=== PATIENT | male | born 1960 | race Caucasian/White ===

== ENCOUNTER 2020-02-10 19:43 | Emergency (ER) | payer SELFPAY ==
--- OUTSIDE RECORDS SUMMARY | 2020-02-10 19:47 | XMS REPORT | Continuity of Care Document ---
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, [address] [place] [address], [place] ICA STENOSIS Active 11/17/[address] NUMBNESS LEFT Active 11/17/19 Sug ar SIDE 18 [place] OTITIS MEDIA, Active 11/21/19 Condition 11/20/2014 [facility] dical SEROUS 15 Group CELLULITIS/ABSCE Active 11/08/19 Condition 11/20/2014 [facility] SS NOS 15 Group SINUSITIS, ACUTE Active 09/16/19 Condition 11/20/2014 Medical 15 Group ALLERGIC Active 09/16/19 Condition 11/20/2014 Medica l RHINITIS 15 Group DENTAL CARIES Active 09/16/19 Condition 11/20/2014 [facility] dical 15 Group SMOKER Active 09/16/19 Condition 11/20/2014 Medica l 15 Group Allergic Resolved 09/16/19 Problem 06/11/2018 Data Medica l rhinitis 15 migrated Group, (disorder) from [facility], on 10/08/14. [place] Dental caries Resolved 09/16/19 Problem 06/11/2018 Data [facility] dical (disorder) 15 migrated Group, from [facility] on 10/08/14. [place] Smoker (finding) Active 09/16/19 Problem 06/11/2018 Data Medical 15 migrated Group, from [facility] on 10/08/14. [place] ABDOMINAL Inactive 08/14/19 Condition 11/20/2014 Medica l BLOATING 14 Group ABDOMINAL PAIN Inactive 08/14/19 Condition 11/20/2014 [facility] edical 14 Group CONSTIPATION Inactive 08/14/19 Condition 11/20/2014 Med ical 14 Group Constipation Resolved Problem 06/11/2018 Med ical (disorder) Group,[facility], [place] Type II diabetes Active Problem 06/11/2018 Medical mellitus Group, uncontrolled Memoria l (finding) 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 Hyperglycemia, 06/05/2018 S ugar unspecified [place] NIHSS score 1 06/05/2018 [place] gar [place] Coma scale, best 06/05/2018 [place] motor response, [place] obeys commands, at arrival to emergency department Coma scale, eyes 06/05/2018 [place] open, [place] spontaneous, at arrival to emergency department Coma scale, best 06/05/2018 [place] verbal response, Collin d oriented, at arrival to emergency department Nontraumatic 06/09/2018 intracerebral Memori al hemorrhage, [facility] unspecified Essential 06/09/2018 (primary) [facility] hypertension [facility] Nicotine 06/09/2018 dependence, [facility] cigarettes, [facility], uncomplicated [place] Type 2 diabetes 06/09/2018 mellitus with Memori al hyperglycemia [facility] Pure 06/09/2018 hypercholesterol [facility] Hyperlipidemia, 06/09/2018 unspecified [facility] Hypokalemia 06/09/2018 [facility] Constipation, 06/09/2018 unspecified [facility] 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 [facility] artery roasterman 06/09/2018 (current) use of [facility] orial insulin [facility] NIHSS score 2 06/09/2018 [facility] ILLNESS, Active UNSPECIFIED [facility] Medications Medication Details Route Status Patient Ordering Order Source Instructions Provider Date pantoprazole 40 mg 40 mg = 1 Active oral enteric coated tab, PO, 2017 Med ical tablet Daily, # 30 [facility] tab, 3 Refill(s), Pharmacy: [facility]/pharmacy #[id number] Plavix Notes: (Same No Longer As: Plavix) Active 2017 [facility] aspirin 81 mg Notes: Do not Inactive tablet, enteric crush or 2018 Memoria l coated chew. (Same City As: Ecotrin) losartan 50 mg oral 100 mg = 2 Active M H tablet tab, PO, 2017 [facility] Daily, # 60 City tab, 0 Refill(s), Pharmacy: [facility]/pharmacy #[id number] Hydrochlorothiazide 25 mg = 1 Active 25 MG Oral Tablet tab, PO, 2018 Memor ial Daily, # 30 City tab, 0 Refill(s), Pharmacy: [facility]/pharmacy #[id number] clopidogrel 75 mg 75 mg = 1 Active oral tablet tab, PO, 2017 [facility] Daily, # 30 City tab, 0 Refill(s), Pharmacy: [facility]/pharmacy #[id number] atorvastatin 40 mg 80 mg = 2 Active oral tablet tab, PO, 2017 [facility] Bedtime, # 60 City tab, 0 Refill(s), Pharmacy: [facility]/pharmacy #[id number] Metformin 500 mg = 1 Active hydrochloride 500 MG tab, PO, 2018 [place] morial Oral Tablet BID-Meals, # City 60 tab, 0 Refill(s), Pharmacy: [facility]/pharmacy #[id number] Aspirin 81 MG 81 mg = 1 Active Enteric Coated tab, PO, 2017 [facility] Tablet Q24H, 0 City Refill(s) Plavix Notes: (Same Inactive As: Plavix) 2017 [facility] Labetalol Notes: (Same No Longer as: Active 2017 [facility] Push over 2 minutes Give bolus over 2-3 minutes. Plavix Notes: (Same Inactive As: Plavix) 2017 [facility] Hydrochlorothiazide 1 tab, Route: No Longer 11/01 25 MG / Losartan PO, Drug [facility] Potassium 100 MG Form: TAB, City Oral Tablet Dosing Weight 76.2, kg, Daily, Start date: 11/19/17 9:00:00 CDT, Duration: 30 day, Stop date: 12/18/17 9:00:00 CDT sodium phosphate Notes: Infuse No Longer over 4 hour. Active 2017 [facility] Do not infuse [facility] phosphorous concurrently in the same line as TPN or IVF that contains calcium. For double lumen central lines, phosphorous may be infused in a separate lumen from TPN. Magnesium Sulfate Notes: WASTE: No Longer F/P - Sink; E Active 2017 [facility] Trash Bin potassium Notes: (Same No Longer phosphate-sodium as: Phos-NaK) Active 2017 [facility] phosphate 250 mg-280 Each 1.5 gm City mg-160 mg oral pkt has 250mg powder for phosphorous. reconstitution Mix w/2.5oz water and stir. potassium phosphate Notes: (Same No Longer 11/19 as: K Active 2017 [facility] Phosphate.) [facility] Do not infuse phosphorous concurrently in the same line as TPN or IVF that contains calcium. For double lumen central lines, phosphorous may be infused in a separate lumen from TPN. 1 mMol phoshate has 1.47 mEq potassium Infuse over 4 hours Calcium Gluconate Notes: WASTE: No Longer F/P - Sink; E Active 2017 [facility] Trash Bin Magnesium Oxide Notes: (Same No Longer H as: Mag-Ox Active 2017 [facility] 400) [facility] Magnesium oxide [id number] elemental magnesium Dose=____mg magnesium oxide (___mg elemental magnesium) Calcium Carbonate Notes: (Same No Longer 500 MG Chewable As: Tums) Active [facility] Table[facility] Calcium City Carbonate 500 mg = 200 mg elemental calcium Dose = mg calcium carbonate ( mg elemental calcium) Potassium Chloride Notes: (Same No Longer as: KCL) Active 2017 [facility] Infuse no City faster than 10 mEq/hr if given peripherally. eptifibatide 0.75 Notes: (Same No Longer MG/ML Injectable as: Active [facility] Integrelin) [facility] Final conc = 0.75 mg/mL - Premix Bottle Potassium Chloride Notes: (Same Inactive as: K-Dur 20) 2017 [facility] "Do Not City Crush" For patients unable to swallow tablet, dissolve in one half glass of water. Allow about 2 minutes for the tablets to disintegrate. Stir before giving to prepare slurry and administer. Please exclude Patients with feeding tube less than 14 [place] (Dobhoff, J-tube etc) and pediatric and patients. With food and full glass of water hydrochlorothiazide 25 mg, 1 tab, No Longer 11/01 25 mg oral tablet Route: PO, Active 2017 [facility] orial Drug form: City TAB, Daily, Start date: 11/18/17 10:00:00 CDT, Duration: 30 day, Stop date: 12/18/17 9:00:00 CDT Chio Notes: (Same No Longer as: Cozaar) Active 2017 [facility] Potassium Chloride Notes: Infuse Inactive at a rate of [address] [place] [address] 10 mEq/hr. [facility] (Same as: KCL) atorvastatin Notes: (Same No Longer as: Lipitor) Active 2017 [facility] Cardene 40 mg in NS Notes: Same No Longer 200 mL (Titrate.) IV as: Cardene Active 2017 [facility] 40 mg Concentration City : (0.2 mg /1 ml ) eptifibatide 0.75 Notes: (Same No Longer MG/ML Injectable as: Active 2017 Memoria l Solution Integrelin) [facility] Final conc = 0.75 mg/mL - Premix Bottle eptifibatide 13,716 Inactive microgram, 2017 [facility] Route: IVP, [facility] ONCE, Dosing Weight 76.2, kg, Start date: 11/17/17 13:51:00 CDT, Stop date: 11/17/17 13:51:00 CDT Atropine 0.2 mg, 2 mL, Inactive Route: IVP, 2017 [facility] Drug form: [facility] INJ, Q5Min, Dosing Weight 76.2, kg, PRN Other -See Comment, as needed; for symptomatic pulse rate < 80% of mean 50 BPM, Start date: 11/17/17 12:24:00 CDT, Duration: 30 day, Stop date: 12/17/17 12:23:00 CDT Naloxone Notes: Same Inactive as Narcan 2017 [facility] Diphenhydramine Notes: (Same Inactive as: Benadryl) 2017 [facility] Flumazenil Notes: (Same Inactive as: 2017 [facility] Romazicon) [facility] Ondansetron Notes: (Same Inactive as: Zofran) [address] [place] [address] [facility] MEDICATION WASTE Product Size: 4 mg Product Wasted: ___ mg Glycopyrrolate Notes: (Same Inactive as: Robinul) 2017 [facility] Labetalol Notes: (Same Inactive as: 2017 [facility] Normodyne, [facility] Trandate) Push over 2 minutes Give bolus over 2-3 minutes. Morphine Notes: (Same Inactive as:MORPhine 2017 [facility] Sulfate) [facility] Hydralazine Notes: (Same Inactive as: 2017 [facility] Apresoline) [facility] Push over 5 minutes Sodium Chloride 0.9% 1,000 mL, No Longer IV 1,000 mL Rate: [address] [place] [address] ml/hr, Infuse [facility] over: 13.3 hr, Route: IV, Dosing Weight 76.2 kg, Total Volume: 1,000, Start date: 11/17/17 9:25:00 CDT, Duration: 30 day, Stop date: 12/17/17 9:24:00 CDT, 1.91, m2 aspirin 81 mg Notes: Do not No Longer tablet, enteric crush or Active 2017 Memoria l coated chew. (Same City As: Ecotrin) Saline Flush 0.9% Notes: (Same No Longer as: BD Active 2017 [facility] Posiflush) [facility] pantoprazole Notes: Tablet No Longer should not be Active [address] [place] [address] chewed [address] [facility] crushed. [place] (Same as: [place] Protonix) Insulin regular 60 units) No Longer WASTE: F/P - Active 2017 [facility] Cam; E - [employer] Trash Bin Stable for 28 days at room temperature Expires in days from _Date Dextrose 50% Syringe 25 gm, 50 mL, No Longer Route: IVP, Active 2017 [facility] Drug Form: [facility] INJ, Dosing Weight 76.2, kg, PRN, PRN Blood Glucose Results, Start date: 11/17/17 2:24:00 CDT, Duration: 30 day, Stop date: 12/17/17 2:23:00 CDT Glucagon 1 mg, Route: No Longer IM, Drug Active 2017 [facility] form: [facility] PDR/INJ, PRN, Dosing Weight 76.2, kg, PRN Blood Glucose Results, Start date: 11/17/17 2:24:00 CDT, Duration: 30 day, Stop date: 12/17/17 2:23:00 CDT Insulin regular 60 units) Inactive WASTE: F/P - 2017 [facility] Cam; E - [place] [facility] Trash Bin Stable for 28 days at room temperature Expires in days from _Date Dextrose 50% Syringe 12.5 gm, 25 No Longer 11/17 mL, Route: Active 2017 [facility] IVP, Drug [facility] Form: INJ, Dosing Weight 76.2, kg, PRN, PRN Blood Glucose Results, Start date: 11/17/17 1:39:00 CDT, Duration: 30 day, Stop date: 12/17/17 1:38:00 CDT Glucagon 1 mg, Route: No Longer IM, Drug [address] form: City PDR/INJ, PRN, Dosing Weight 76.2, kg, PRN Blood Glucose Results, Start date: 11/17/17 1:39:00 CDT, Duration: 30 day, Stop date: 12/17/17 1:38:00 CDT Aspirin 325 MG Notes: (Do Inactive Enteric Coated Not Crush) 2017 Memori al Tablet Do not crush City or chew. Saline Flush 0.9% Notes: (Same No Longer as: BD Active [address] [place] [address] Posiflu) [facility] Acetaminophen Notes: Do not No Longer exceed [address] [place] [address] gm/day. [facility] (Same as: Tylenol) Labetalol Notes: (Same No Longer as: Active 2018 [facility] Normodyne, [facility] Trandate) Push over 2 minutes Give bolus over 2-3 minutes. Saline Flush 0.9% Notes: (Same Inactive Sugar as: BD 2018 [facility] Posiflush) atorvastatin Notes: (Same Inactive [place] gar as: Lipitor) 2017 [facility] Enoxaparin Notes: (Same Inactive Suga r as: Lovenox) 2018 [facility] Aspirin 325 MG Notes: (Do Inactive [place] gar Enteric Coated Not Crush) 2018 [facility] Tablet Do not crush or chew. Saline Flush 0.9% Notes: (Same Inactive Sugar as: BD 2018 [facility] Posiflush) Aspirin Notes: Take Inactive Sugar with food. 2018 [facility] Saline Flush 0.9% Notes: (Same Inactive Sugar as: BD 2018 [facility] Posiflush) ATROVENT 0.06 % SOLN 2 sprays to Active each nostril 2014 Medical daily Group CEFTIN 500 MG TABS 1 tablet PO Active 11/20/ M H BID for 7 2014 Medical days Group BACTRIM DS 800-160 1 tablet PO No Longer 11/07/ MH MG TABS BID for 7 Active 2014 Medical days Group BACTROBAN 2 % OINT Apply to Active 11/07/ MH areas BID for 2015 Medical 7-10 days Group NAPROSYN 500 MG TABS 1 tablet PO Active BID PRN pain 2014 Medical Group AUGMENTIN 875-125 MG 1 tablet PO No Longer 09/15 / MH TABS BID for 10 Active 2014 Medical days Group FLONASE 50 MCG/ACT 2 sprays to Active 09/15/ M H SUSP each nostril 2014 Medical daily Group SINGULAIR 10 MG TABS 1 tablet PO No Longer 09/15 / MH daily at Active 2014 Medical bedtime Group FLONASE 50 MCG/ACT 2 sprays to No Longer MH SUSP each nostril Active 2014 Medical daily Group LINZESS 290 MCG CAPS 1 daily 30 No Longer 08/13/ MH minutes Active 2013 Medical before meal Group MIRALAX POWD Take 1 No Longer tablespoon Active 2013 Medical (17gms) by Group mouth at bedtime Allergies, Adverse Reactions, Alerts No Known Medication Allergies Immunizations Immunization Date Site Status Last Comments Source Given Updated pneumococcal Left completed Quavril Medi nazia 23-valent vaccine 8 deltoid Gr oup,[facility], [place] Results Order Name Results Value Reference Date Interpretation Comments Judy rce Range HEMATOLOGY Plav Effect 6 11/20 Result Comment: [facility] rechecked. [facility] CHEM PANEL eGFR 105 11/20 Result Comment: [facility] eGFR is City calculated using the CKD-EPI formula. In most young, healthy individuals the eGFR will be >90 mL/min/1.73m2 . The eGFR declines with age. An eGFR of 60-89 may be normal in some populations, particularly the elderly, for whom the CKD-EPI formula has not been extensively validated. Use of the eGFR is not recommended in the following populations:< br/>
Sveta viduals with unstable creatinine concentration s, including patients and those with serious co-morbid conditions.<b r/>
Patie nts with extremes in muscle mass or diet.

The data above are obtained from the National Kidney Disease Education Program (NKDEP) which additionally recommends that when the eGFR is used in patients with extremes of body mass index for purposes of drug dosing, the eGFR should be multiplied by the estimated BMI. CHEM PANEL Creatinine 0.70 0.50 - 11/20 MH Lvl 1.40 [facility] CHEM PANEL Glucose Lvl 132 70 - 99 11/20 [facility] CHEM PANEL BUN 5 7 - 22 11/20 [facility] CHEM PANEL CO2 23 24 - 32 11/20 [facility] CHEM PANEL Calcium Lvl 9.4 8.5 - 10.5 11/20 [facility] CHEM PANEL Chloride Lvl 108 95 - 109 11/20 [facility] CHEM PANEL Sodium Lvl 143 135 - 145 11/20 [facility] CHEM PANEL Potassium 3.8 3.5 - 5.1 11/20 MH Lvl /2017 [facility] CHEM PANEL AGAP 15.8 10.0 - 11/20 MH 20.0 [facility] HEMATOLOGY Monocytes # 1.0 0.0 - 0.8 11/20 [facility] HEMATOLOGY Eosinophils 0.2 0.0 - 0.5 11/20 MH # [facility] HEMATOLOGY Lymphocytes 2.4 1.0 - 5.5 11/20 MH # [facility] HEMATOLOGY Basophils # 0.1 0.0 - 0.2 11/20 [facility] HEMATOLOGY Plt Morph Normal 11/20 (11/20/17 3:23 AM) [facility] HEMATOLOGY RBC Morph Normal 11/20 (11/20/17 3:23 AM) /2017 [facility] HEMATOLOGY Neutrophils 9.4 1.5 - 8.1 11/20 MH # [facility] HEMATOLOGY Eosinophils 1.4 0.0 - 4.0 11/20 [facility] HEMATOLOGY Basophils 0.4 0.0 - 1.0 11/20 [facility] HEMATOLOGY Monocytes 7.7 2.0 - 12.0 11/20 [facility] HEMATOLOGY Lymphocytes 18.5 20.0 - 11/20 MH 40.0 [facility] HEMATOLOGY Segs 72.0 45.0 - 11/20 MH 75.0 [facility] HEMATOLOGY MPV 9.8 7.4 - 10.4 11/20 MH /2017 [facility] HEMATOLOGY Platelet 166 133 - 450 11/20 [facility] HEMATOLOGY Hct 45.0 42.0 - 11/20 MH 54.0 [facility] HEMATOLOGY MCHC 33.9 32.0 - 11/20 MH 36.0 [facility] HEMATOLOGY MCV 87.3 80.0 - 11/20 MH 94.0 [facility] HEMATOLOGY MCH 29.6 27.0 - 11/20 MH 31.0 [facility] HEMATOLOGY RDW 13.6 11.5 - 11/20 MH 14.5 [facility] HEMATOLOGY WBC 13.1 3.7 - 10.4 11/20 [facility] HEMATOLOGY Hgb 15.3 14.0 - 11/20 MH 18.0 [facility] HEMATOLOGY RBC 5.16 4.70 - 11/20 MH 6.10 [facility] ELECTROLYTE Potassium 3.7 3.5 - 5.1 11/19 MH S Lvl /2017 [facility] ELECTROLYTE AGAP 15.3 10.0 - 11/19 MH S 20.0 [facility] ELECTROLYTE eGFR 104 11/19 Result MH Comment: [facility] eGFR is City calculated using the CKD-EPI formula. In most young, healthy individuals the eGFR will be >90 mL/min/1.73m2 . The eGFR declines with age. An eGFR of 60-89 may be normal in some populations, particularly the elderly, for whom the CKD-EPI formula has not been extensively validated. Use of the eGFR is not recommended in the following populations:< br/>
Sveta viduals with unstable creatinine concentration s, including patients and those with serious co-morbid conditions.<b r/>
Patie nts with extremes in muscle mass or diet.

The data above are obtained from the National Kidney Disease Education Program (NKDEP) which additionally recommends that when the eGFR is used in patients with extremes of body mass index for purposes of drug dosing, the eGFR should be multiplied by the estimated BMI. ELECTROLYTE Creatinine 0.72 0.50 - 11/19 MH S Lvl 1.40 [facility] ELECTROLYTE Calcium Lvl 8.9 8.5 - 10.5 11/19 S [facility] ELECTROLYTE Chloride Lvl 106 95 - 109 11/19 MH S /2017 [facility] ELECTROLYTE Potassium 3.3 3.5 - 5.1 11/19 MH S Lvl /2017 [facility] ELECTROLYTE CO2 24 24 - 32 11/19 S /2017 [facility] ELECTROLYTE Sodium Lvl 142 135 - 145 11/19 S /2017 [facility] ELECTROLYTE Glucose Lvl 135 70 - 99 11/19 S /2017 [facility] ELECTROLYTE BUN 3 7 - 22 11/19 S /2017 [facility] HEMATOLOGY Monocytes # 0.8 0.0 - 0.8 11/19 MH /2017 [facility] HEMATOLOGY Eosinophils 0.1 0.0 - 0.5 11/19 MH # /2018 [facility] HEMATOLOGY Basophils # 0.1 0.0 - 0.2 11/19 /2017 [facility] HEMATOLOGY Neutrophils 8.3 1.5 - 8.1 11/19 # /2017 [facility] HEMATOLOGY Lymphocytes 2.4 1.0 - 5.5 11/19 # /2017 [facility] HEMATOLOGY Basophils 0.7 0.0 - 1.0 11/19 /2017 [facility] HEMATOLOGY Eosinophils 1.2 0.0 - 4.0 11/19 /2017 [facility] HEMATOLOGY Lymphocytes 20.8 20.0 - 11/19 MH 40.0 [facility] HEMATOLOGY Monocytes 6.9 2.0 - 12.0 11/19 [facility] HEMATOLOGY Segs 70.4 45.0 - 11/19 MH 75.0 [facility] HEMATOLOGY MCHC 33.8 32.0 - 11/19 MH 36.0 [facility] HEMATOLOGY MCH 29.5 27.0 - 11/19 MH 31.0 [facility] HEMATOLOGY Hct 41.5 42.0 - 11/19 MH 54.0 [facility] HEMATOLOGY RBC 4.76 4.70 - 11/19 MH 6.10 [facility] HEMATOLOGY MCV 87.2 80.0 - 11/19 MH 94.0 [facility] HEMATOLOGY Hgb 14.0 14.0 - 11/19 MH 18.0 [facility] HEMATOLOGY WBC 11.8 3.7 - 10.4 11/19 [facility] HEMATOLOGY MPV 9.4 7.4 - 10.4 11/19 [facility] HEMATOLOGY RDW 13.2 11.5 - 11/19 MH 14.5 /2017 [facility] HEMATOLOGY Platelet 164 133 - 450 11/19 [facility] CHEM PANEL eGFR 112 11/18 Result Comment: [facility] eGFR is City calculated using the CKD-EPI formula. In most young, healthy individuals the eGFR will be >90 mL/min/1.73m2 . The eGFR declines with age. An eGFR of 60-89 may be normal in some populations, particularly the elderly, for whom the CKD-EPI formula has not been extensively validated. Use of the eGFR is not recommended in the following populations:< br/>
Sveta viduals with unstable creatinine concentration s, including patients and those with serious co-morbid conditions.<b r/>
Patie nts with extremes in muscle mass or diet.

The data above are obtained from the National Kidney Disease Education Program (NKDEP) which additionally recommends that when the eGFR is used in patients with extremes of body mass index for purposes of drug dosing, the eGFR should be multiplied by the estimated BMI. CHEM PANEL Creatinine 0.59 0.50 - 11/18 Lvl 1.40 [facility] CHEM PANEL CO2 25 24 - 32 11/18 [facility] CHEM PANEL Calcium Lvl 8.0 8.5 - 10.5 11/18 [facility] CHEM PANEL BUN 2 7 - 22 11/18 [facility] CHEM PANEL Sodium Lvl 144 135 - 145 11/18 [facility] CHEM PANEL Chloride Lvl 110 95 - 109 11/18 [facility] CHEM PANEL Glucose Lvl 138 70 - 99 11/18 [facility] CHEM PANEL AGAP 12.3 10.0 - 11/18 MH 20.0 [facility] HEMATOLOGY Basophils 0.9 0.0 - 1.0 11/18 [facility] HEMATOLOGY Neutrophils 7.9 1.5 - 8.1 11/18 MH # [facility] HEMATOLOGY Lymphocytes 2.6 1.0 - 5.5 11/18 [facility] HEMATOLOGY Monocytes # 0.7 0.0 - 0.8 11/18 [facility] HEMATOLOGY Eosinophils 0.2 0.0 - 0.5 11/18 # [facility] HEMATOLOGY Basophils # 0.1 0.0 - 0.2 11/18 [facility] HEMATOLOGY Eosinophils 1.4 0.0 - 4.0 11/18 [facility] HEMATOLOGY Segs 69.0 45.0 - 11/18 MH 75.0 /2017 [facility] HEMATOLOGY Lymphocytes 22.9 20.0 - 11/18 MH 40.0 /2017 [facility] HEMATOLOGY Monocytes 5.8 2.0 - 12.0 11/18 MH /2017 [facility] HEMATOLOGY MPV 8.8 7.4 - 10.4 11/18 MH /2017 [facility] HEMATOLOGY Platelet 160 133 - 450 11/18 /2017 [facility] HEMATOLOGY Hgb 13.5 14.0 - 11/18 MH 18.0 /2017 [facility] HEMATOLOGY WBC 11.4 3.7 - 10.4 11/18 MH /2017 [facility] HEMATOLOGY RBC 4.59 4.70 - 11/18 MH 6.10 [facility] HEMATOLOGY MCHC 34.1 32.0 - 11/18 MH 36.0 /2017 [facility] HEMATOLOGY MCV 86.5 80.0 - 11/18 MH 94.0 /2017 [facility] HEMATOLOGY MCH 29.5 27.0 - 11/18 MH 31.0 [facility] HEMATOLOGY Hct 39.7 42.0 - 11/18 MH 54.0 /2017 [facility] HEMATOLOGY RDW 13.2 11.5 - 11/18 MH 14.5 /2017 [facility] HEMATOLOGY POC 131 11/17 MH Activated /2017 [facility] Time HEMATOLOGY INR 0.91 0.85 - 11/17 MH 1. [facility] HEMATOLOGY PT 12.3 12.0 - 11/17 14.7 [facility] HEMATOLOGY PTT 26.6 22.9 - 11/17 MH 35.8 [facility] DRUG SCREEN U Benzodiaz Negative Negative 11/17 Scr *NA* /2017 [facility] (11/17/17 4:31 AM) City DRUG SCREEN U Jolene Scr Negative Negative 11/17 *NA* /2017 [facility] (11/17/17 4:31 AM) [place] Amph Scr Negative Negative 11/17 *NA* /2017 [facility] (11/17/17 4:31 AM) [place] S[place] Cocaine Negative Negative 11/17 Scr *NA* /2017 [facility] (11/17/17 4:31 AM) [place] S[place]EN [place] Cannab Scr Negative Negative 11/17 *NA* /2017 [facility] (11/17/17 4:31 AM) [place] DR[place] S[place]EN UDS Note See Note 11/17 (11/17/17 4:31 AM) /2017 [facility] DRUG SCREEN U Negative Negative 11/17 Phencyclidin *NA* /2017 [facility] e Scr (11/17/17 4:31 AM) [facility] DRUG SCREEN U Opiate Scr Negative Negative 11/17 *NA* /2017 [facility] (11/17/17 4:31 AM) [place] URINE AND UA Ketones Negative 11/17 STOOL /2017 [facility] URINE AND UA Color Straw 11/17 STOOL /2017 [facility] URINE AND UA pH 6.0 5.0 - 8.0 11/17 STOOL /2017 [facility] URINE AND UA Spec Grav 1.003 <=1.030 11/17 STOOL /2017 [facility] URINE AND UA Turbidity Clear Clear 11/17 [place] (11/17/17 4:31 AM) /2017 [facility] URINE AND UA WBC 1 0 - 5 11/17 STOOL /2017 [facility] URINE AND UA RBC <1 0 - 2 11/17 STOOL /2017 [facility] URINE AND UA Leuk Est Negative Negative 11/17 [facility] (11/17/17 4:31 AM) /2017 [facility] URINE AND UA Sq Epi Occasional Few /LPF 11/17 STOOL /LPF /2017 [facility] URINE AND UA 4.0 0.1 - 1.0 11/17 STOOL Urobilinogen /2017 [facility] URINE AND UA Blood Negative Negative 11/17 STOOL (11/17/17 4:31 AM) [facility] URINE AND UA Nitrite Negative Negative 11/17 STOOL (11/17/17 4:31 AM) /2017 [facility] URINE AND UA Bili Negative Negative 11/17 STOOL *NA* /2017 [facility] (11/17/17 4:31 AM) [facility] URINE AND UA Glucose Negative Negative 11/17 STOOL mg/dL mg/dL /2017 [facility] URINE AND UA Protein Negative Negative 11/17 STOOL mg/dL mg/dL [facility] LIPIDS CHD Risk 8.52 4.00 - 11/17 7.30 /2017 [facility] LIPIDS VLDL 51 11/17 /2017 [facility] LIPIDS LDL 137 <=99 mg/dL 11/17 (Calculated) [facility] LIPIDS Trig 255 <=149 11/17 mg/dL [facility] LIPIDS Chol 213 <=199 11/17 mg/dL [facility] LIPIDS HDL 25 >=61 mg/dL 11/17 [facility] SPECIAL Hgb A1C 8.9 <=5.6 % 11/17 CHEMISTRY [facility] CARDIAC Total CK 44 12 - 191 11/16 [place] [facility] CARDIAC Troponin-I <0.02 0.00 - 11/16 [place] [facility]40 [place] CHEM PANEL A/G Ratio 0.9 0.7 - 1.6 11/16 [place] CHEM PANEL Globulin 3.8 2.7 - 4.2 11/16 [place] CHEM PANEL AGAP 8.5 10.0 - 08 [place] 20.0 /2017 [place] CHEM PANEL B/C Ratio 2 6 - 25 11/16 [place] CHEM PANEL eGFR 91 11/16 Comment: The [facility] eGFR is calculated using the CKD-EPI formula. In most young, healthy individuals the eGFR will be >90 mL/min/1.73m2 . The eGFR declines with age. An eGFR of 60-89 may be normal in some populations, particularly the elderly, for whom the CKD-EPI formula has not been extensively validated. Use of the eGFR is not recommended in the following populations:< br/>
Sveta viduals with unstable creatinine concentration s, including patients and those with serious co-morbid conditions.<b r/>
Patie nts with extremes in muscle mass or diet.

The data above are obtained from the National Kidney Disease Education Program (NKDEP) which additionally recommends that when the eGFR is used in patients with extremes of body mass index for purposes of drug dosing, the eGFR should be multiplied by the estimated BMI. CHEM PANEL Sodium Lvl 136 135 - 145 11/16 [place] CHEM PANEL Potassium 3.5 3.5 - 5.1 11/16 [place] CHEM PANEL Creatinine 0.93 0.50 - 11/16 [place] Lvl 1.40 [place] CHEM PANEL BUN 2 7 - 22 11/16 [place] CHEM PANEL Alk Phos 141 39 - 136 11/16 [place] CHEM PANEL AST 14 0 - 37 11/16 [place] CHEM PANEL ALT 23 0 - 65 11/16 [place] CHEM PANEL Albumin Lvl 3.6 3.5 - 5.0 11/16 [place] CHEM PANEL Calcium Lvl 9.0 8.5 - 10.5 11/16 [place] /2017 [place] CHEM PANEL CO2 29 24 - 32 11/16 [place] CHEM PANEL Chloride Lvl 102 95 - 109 11/16 [place] CHEM PANEL Total 7.4 6.4 - 8.4 11/16 [place] CHEM PANEL Bili Total 1.4 0.2 - 1.3 11/16 [place] CHEM PANEL Glucose Lvl 249 70 - 99 11/16 [place] HEMATOLOGY Basophils 0.6 0.0 - 1.0 11/16 [place] HEMATOLOGY Eosinophils 1.7 0.0 - 4.0 11/16 [place] HEMATOLOGY Segs 71.8 45.0 - 11/16 [place] 75.0 [place] HEMATOLOGY Lymphocytes 23.0 20.0 - 11/16 [place] 40.0 [place] HEMATOLOGY Neutrophils 7.3 1.5 - 8.1 11/16 [place] # /2017 [place] HEMATOLOGY Monocytes 2.9 2.0 - 12.0 11/16 [place] HEMATOLOGY Lymphocytes 2.3 1.0 - 5.5 11/16 [place] # /2017 [place] HEMATOLOGY Monocytes # 0.3 0.0 - 0.8 11/16 [place] HEMATOLOGY Eosinophils 0.2 0.0 - 0.5 11/16 [place] # /2017 [place] HEMATOLOGY Basophils # 0.1 0.0 - 0.2 11/16 [place] HEMATOLOGY PTT 26.3 22.9 - 11/16 [place] 35.8 [place] HEMATOLOGY MCH 29.4 27.0 - 08 [place] 31.0 [place] HEMATOLOGY MCV 89.0 80.0 - 11/16 [place] 94.0 [place] HEMATOLOGY Hct 47.3 42.0 - 08 [place] 54.0 [place] HEMATOLOGY Hgb 15.6 14.0 - 0816 [place] 18.0 /2017 [place] HEMATOLOGY RBC 5.31 4.70 - 11/16 [place] 6.10 /2017 [place] HEMATOLOGY WBC 10.1 3.7 - 10.4 11/16 [place] HEMATOLOGY MCHC 33.0 32.0 - 0816 [place] 36.0 /2018 [facility] HEMATOLOGY RDW 13.5 11.5 - 11/16 [place] 14.5 /2018 [facility] HEMATOLOGY Platelet 185 133 - 450 11/16 [facility] HEMATOLOGY MPV 9.1 7.4 - 10.4 11/16 [facility] HEMATOLOGY INR 0.95 0.85 - 11/16 [place] 1.17 [facility] HEMATOLOGY PT 12.7 12.0 - 11/16 [place] 14.7 [facility] Pathology Reports No Data Provided for This Section Diagnostic Reports Report Value Date Source Brain wo contrast CT PATIENT NAME: MUNIRA WHITE 11/21/19 [facility] : 1960; Age: 56 years y/o Male MR: [id number] STUDY: Brain wo contrast CT 11/20/2017 8:00 AM CD T ORDERING PHYSICIAN: Guy Miranda MD CLINICAL INDICATION: - Post ICA stent; COMPARISON: 11/19/[address] TECHNIQUE: Noncontrast image s of the brain are obtained from the skull base to the vertex. Axial, sagittal, and coronal images are interpreted. DLP: 767 mGy-cm This exam was performed acco rding to our departmental dose-optimization protocol, which includes automated exposure control, adjustment of the mA and/or kV according to patient size and/or use of iterative reconstruction technique. FINDINGS: BRAIN PARENCHYMA: The evolvi ng right MCA ischemic changes and the right-sided mostly subarachnoid hemorrhage is stable. There is no mass effect. The brain volume is age appropriate. The day-white distinction is maintained. CEREBELLOPONTINE REGIONS AND SKULL BASE: The cerebellopontine angles appear unremarkable. No skull base abnormality is seen. VENTRICLES/SULCI/CISTERNS: T he ventricles are normal in size and configuration. The basal cisterns are patent. ORBITS, VISUALIZED PARANASAL SINUSES AND MASTOIDS: Paranasal sinuses are clear. The mastoid air cells are clear. No orbital pathology is seen. SKULL/CALVARIUM: There is no skull fracture or f ocal lesion. IMPRESSION: Stable, right-sided, evolvin g ischemic and hemorrhagic changes. No adverse interval change compared to previous study. Brain wo contrast CT Brain wo contrast CT , 11/19/2017 8:0 0 AM CDT. 11/19/2017 [facility] CLINICAL INDICATION: 56 years Male - Hmg / Ischem stroke Comparison: Yesterday head CT and November 16 8 MRI TECHNIQUE: Noncontrast image s of the brain are obtained from the skull base to the vertex. Axial, sagittal, and coronal images are interpreted. DLP: 944 mGy-cm -- AEC, mA/kV adjustment by patient size, and/or iterative reconstruction technique were used, per departmental dose-optimization program. FINDINGS: Streak artifact may limit evaluation the posteri or fossa and skull base. BRAIN PARENCHYMA: Again note d are hypodensities predominantly involving the parietal lobe in the MCA/MDM DEVELOPER watershed territory and to a lesser degree the frontal lobe in the TRACI/MCA territory. Hemorrhagic conversion of subarachnoid hemorrhage in the right parietal greater than frontal lobes has not significantly changed. Stent in the region of the right internal carotid artery ophthalmic and supraclinoi d portions also noted again. There is no evidence of significant mass effect or new hemorrhage. CEREBELLOPONTINE REGIONS AND SKULL BASE: No evidence of fracture or significant scalp hematoma. The cerebellopontine angles appear unremarkable. No skull base abnormality is seen. VENTRICLES/SULCI/CISTERNS: T he ventricles are normal in size and configuration. The basal cisterns are patent. ORBITS, VISUALIZED PARANASAL SINUSES AND MASTOIDS: Paranasal sinuses are clear. The mastoid air cells are clear. No orbital pathology is seen. IMPRESSION: 1. Grossly stable exam with parenchymal/laminar necrosis and possible superimposed subarachnoid, presumed hemorrhagic conversion of the right cerebral acute ischemic infarction predominantly in the post erior greater than anterior watershed territorie s. 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 TECHNIQUE: Axial sections were obtained through the head Multiplanar reconstructions were obtained. Automatic exposure control was used as a CT dose reduction technique. CONTRAST: DLP/mGy-cm: COMPARISON: None FINDINGS: Brain Parenchyma: Overall m oderate reduction of brain volume. See below for further details. Ventricles: Right lateral ve ntricle remains slightly larger than left, unchanged from previous CT. Hemorrhage: Dense acute hemo rrhage is seen tracking in the subarachnoid space and probably within the cortex of the right posterior frontal and parietal lobes in the area of the previous subacute infarc t. A few faint curvilinear r adiopacities are seen in the right parasagittal frontal cortex which are also likely to be petechial cortical infarcts. This represents hemorrhagic transformation of the patient's previous subacute infarcts.. Other intracranial findings: Metallic stent is now present in the supraclinoid segment of the MONO.. Calvarium and skull base: Ne gative fracture. No evidence of significant scalp swelling. Visualized infra-cranial: --Mastoid air cells: Clear mastoid air cells. --Middle ear/external auditory canal: Clear. --Paranasal sinuses: Clear. --Orbits: Normal. Critical results called to Dr. Guy Miranda at 10: 30 AM IMPRESSION: 1. Subarachnoid and cortica l hemorrhage in the right posterior frontal parietal region, a few faint curvilinear petechial hemorrhages in the right frontal parasagittal cortex, representing hemorrhagic transformation of the patient's subacute infarct s. 2. Metallic stent in the supraclinoid segment o f the RCA. [id number] Angiogram Cerebral CERVICAL AND INTRACRANIAL ANGIOPLASTY STENTIN G 11/17/2017 [facility] Artery Bilat (VR) INDICATION: Acute right cerebral ischemia with pressure depe ndent symptoms PROCEDURE AND FINDINGS: After informed consent was o btained from the patient's family, he was brought to the angiography suite. General endotracheal anesthesia was induced and maintained by the anesthesiology service. The patient's groins were prepped and draped in usual sterile fashion. The right common femoral art kristina was percutaneously accessed with a micropuncture system. This was achieved despite a diminished right femoral pulse. Upon initial access, the microwire coiled in the prox imal external iliac artery. Angiographic images demonstrated wide patency of the external iliac artery and the common femoral artery. A 4-[place] Berenstein glide catheter was introduced over a guiding wire to the aortic terminus. Due to the aforementioned diminished right femoral pulse, contrast injections were made at the aortic term inus and the vessels over th e pelvis were examined. This study demonstrated wide patency of the aortic terminus and left common iliac artery that otherwise demonstrated luminal irregularities consistent with atheromatous change. I ts internal and external divisions were patent. However, the right common iliac artery became near completely occluded within 1 cm of its origin. This lesion extended for thania roximately 12 mm and there w as limited opacification thereafter due to obscuration of the lumen by the 4-[place] device indicating severe stenosis at this level. The catheter was advanced to the right subclavian artery where angiograms were performed. These studies demonstrated wide patency of this vessel and its proximal branches including the right vertebral artery. This right vertebral artery was selected and angiographically examined over its cervical and cerebral territories. The cervical region demonstrated wide patency of this relatively small vessel. Intracra nially, it gave normal origi n to its PICA vessel and demonstrated a very small continuation of the vertebral artery that offered limited runoff through the basilar artery. The right common carotid art kristina was selected and angiographically examined. This demonstrated wide patency of this vessel and its cervical bifurcation. The cervical segments of its internal and external divisions were widely paten t with some mild atheromatous changes seen at the origin of the external carotid artery. The right external carotid a rtery was selected and angiographically examined. This demonstrated wide patency of this vessel and its distal branches including the superficial temporal artery. The right internal carotid a rtery was selected and angiographically examined. This demonstrated wide patency of this vessel through the proximal cavernous segment. However, the vessel demonstrated sever e segmental narrowing of its paraclinoid segment. 75% luminal stenosis was present. The ophthalmic artery would have been expected to arise from the diseased segment, but it was absent and poorly recons tituted by nearby cavernous branches. The supraclinoid carotid abruptly return to a more normal luminal caliber and divided normally into its anterior and middle cerebral branches. The posterior communi cating artery was also opaci fied offering intermittent runoff to its distal territory. There was slowed runoff through both the TRACI and MCA vessels with little unopacified blood entering the TRACI vessels . Also, there was diminished flow through the terminal branches of the angular artery. Rotational [place] CT angiographic studies were performed further confirming the position of the diseased segment in the paraclinoid region. The left common carotid shanel ry was widely patent and bifurcated normally. The cervical segments of its internal and external divisions were normal. The left internal carotid ar shashank was selected and angiographically examined. This demonstrated wide patency of this vessel. Normal runoff through the ipsilateral TRACI and MCA vessels. Some luminal irregu larity and mild narrowing of the supraclinoid carotid segment was noted. A large posterior communicating artery gave significant supply to its distal territory. Also the contralateral anterior cerebral artery was also seen to deri ve significant supply across the anterior communicating artery. The left subclavian artery w as selected and angiographically examined. This demonstrated wide patency of this vessel and its proximal branches including the cervical segments of the left vertebral artery. This left vertebral artery w as selected and angiographically examined. This demonstrated wide patency of this vessel through its intracranial segment. 8 was the dominant supply to the posterior circulat ion and a diminutive termina l segment of the right vertebral artery was opacified. The basilar artery was widely patent with some mild luminal narrowing at its mid segment. The basilar apex divided norm ally. There was significant collateral supply to the right anterior circulation across leptomeningeal collateral beds from the right posterior cerebral artery. The catheter was withdrawn t o the right iliac origin and a pullback angiogram was performed redemonstrating the severe stenosis of the common iliac artery. A 10 mm x 37 mm express iliac stent was deploy ed across the lesion. Contro l angiograms then demonstrated widely restored patency across the right common iliac segment. The catheter and sheath were exchanged for a 9-[place] sheath and a 9-[place] Concentric balloon guide catheter. It was advanced over a guiding wire selectively catheterizing the right internal carotid artery. Angiograms were obtained dem onstrating good flow across the guiding catheter as well as the intracranial stenoses seen earlier. Under balloon inflation a 3 mm microballoon catheter was advanced over a guiding wire crossing the paraclinoid stenosis. Multiple inflations were made. 30 mL supplied was aspirated following this maneuv er and no solid material was recovered. A 4 mm x 15 mm resolute [place] stent was then deployed across the stenosis. Control angiograms were obtained with the balloon inflated demonstrating wide restoratio n of patency with good dista l flow. Again approximately 50 mL of blood were aspirated through the guide catheter lumen. This was examined and no solid material was recovered. The balloon was deflated. F inal control angiograms were obtained demonstrating good distal runoff through the ipsilateral anterior circulation and posterior communicating artery. There continue to be some diminished flow in a sin gle parietal branch. Signifi cant runoff through the right anterior cerebral artery territory was reestablished. Exit angiograms over the internal carotid artery demonstrated wide patency of this vessel. The catheters were removed a nd replaced with a Perclose device. Its suture was deployed at the arteriotomy, affecting hemostasis without difficulty. The patient was returned to the Intensive Care Unit for further care. IMPRESSION: Baseline angiographic stud ies demonstrated critical stenosis of the right common iliac artery. Further diagnostic evaluation demonstrated the known severe stenosis of the supraclinoid and paraclinoid segments of the right buyer intern al carotid artery. Diminished distal flow was seen in this vessel. The iliac stenosis was effectively treated with a solitary inguinal stent. The right internal carotid a rtery stenosis was also treated with angioplasty and stenting. This restored good distal flow with improved runoff to both the TRACI and MCA vessels. No residual stenosis was present following this treatment. Brain wo contrast MRA Brain wo contrast MRA 11/16/2017 3:25 PM C DT 11/16/2017 [facility] HISTORY/INDICATIONS: . . - TIA TECHNIQUE: [id number] t(TOF) axially acquired sequence through lower two- thirds of the brain. . MIP reconstructions in multiple projections. COMPARISON: CT and MR brain 11/16/2017. FINDINGS: A filling defect is seen in the supraclinoid segment of the MONO with no flow signal. This suggests either a complete occlusion or high-grade stenosis of the supraclinoid internal carotid artery. A cont rast enhanced MRA of the nec k and brain would provide a more robust evaluation for any residual flow in this MONO supraclinoid segment. The [place] anatomy includes patent and moderately sized bilateral posterior communicating arteries and a small to moderately sized left P1 segment. The P1 segment of the right posterior cerebr al artery is not clearly see n and may be absent or hypoplastic. The anterior communicating artery is also not clearly seen and may be absent or hypoplastic. As such the right anterior, middle, and post erior cerebral arteries appe ar to be predominantly fed by the posterior vertebrobasilar artery system with the right anterior and middle cerebral arteries supplied primarily by the single right posterior communicating artery channel. Flow in the distal branches of the right anterior cerebral and middle cerebral arteries are all somewhat reduced compared to the left side, due to the overall significantly reduced flow to the MONO. This circulatory anatomy is consistent with the pattern of the infarcts in the right cerebral hemisphere which are all in the watershed territory. Flow is seen in the distal c ervical and petrous and cavernous segments of the MONO. The MONO is reduced in caliber compared to the LICA. The LICA appears patent. The re is some reduced flow in the supraclinoid segment which may be artifactual or indicate a small to moderate stenosis. A moderate focal stenosis is seen in the M1 segment of the left middle cerebral artery and there is a moderate to severe stenosis at the bifurcation of the distal M1 segment.. Given the patient's particul ar anatomy at the [place], with limited collateral blood flow,, the patient appears to be at clinical risk for extending the right cerebral hemisphere infarcts. There is no evidence of any aneurysms of the cir [place] of [place]. Left vertebral and basilar a rteries are patent. There is a small right vertebral artery that has a tiny branch correction to the basilar artery and predominantly supplies the right PICA. Study results were discussed with Dr. Rose at IMPRESSION: 1. Focal occlusion or high-grade stenosis of th e supraclinoid MONO. 2. Flow signal is seen beyo nd this point, fed predominantly by a patent right posterior communicating artery. 3. The anterior communicati ng artery and P1 segment of the right posterior cerebral artery are not clearly identified and may be absent or hypoplastic. This has the effect of isolating the patient& apos;s available collateral flow to the right cerebral hemisphere predominantly to the right posterior communicating artery from the vertebral basilar system. The patient is therefore at risk for extend ing the right cerebral hemisphere watershed infa rcts. 4. Mild/moderate focal sten oses suspected in the supraclinoid LICA and mid M1 segment of the left MCA. Moderate to severe stenosis of the distal M1 segment of the left MCA. Brain w/wo contrast 11/16/2017 [facility] MRI Sex: Male. : 1960. Technique: Sagittal, axial a nd coronal sequences through the brain with T1, T2, FLAIR, GRE and diffusion weighting on the high field magnet. Before and after intravenous injection of 15 cc of Dotarem. Clinical History: - TIA. Comparison studies: CT scan November 16, 2017 at 1 245. The diffusion weighted exam shows multifocal restricted diffusion in the right hemisphere in the temporal and parietal lobes. Perhaps with a small focus in the occipital lobe as well. With associated lo w signal on the ADC map. Wit hout evidence for shortened T1 or gradient susceptibility There is mild chronic white matter vascular infarcts. There is physiologic intracranial enhancement. There is no intracranial mass or mass effect. There is no midline shift. There is no extra-axial fluid collection. Ventricles, subarachnoid spaces and sulci are no rmal. There is no evidence for hydrocephalus. The posterior fossa is intact. There is normally maintained signal void in the major vasculature. The sella and suprasellar cistern are normal. Paranasal sinuses are aerated. Orbits are normal and symmetric. IMPRESSION: 1. Acute right-sided infarct. Discussed findings with the 3E nursing staff at 6:25 PM. Neck wo contrast MRA 11/16/2017 [facility] Sex: Male. : 1960. Technique: 2-D, 3-D time-of- flight SPGR axial acquisition was performed with multiplanar computer generated MIP reformations on the high field magnet. The degree of stenosis was made directly by measurement=NASCET criteria for CTA MRA. Clinical History: - TIA. Right side: The right common carotid artery is normal. The bulb is normal. The internal carotid artery is narrowing at its origin best seen on the source images (3, 119). The external carotid artery is normal. The vertebral artery is normal. Left side: The left common c arotid artery is normal. The bulb is normal. The internal carotid artery is normal. The external carotid artery is normal. The vertebral artery is normal. Impression: 1. Narrowed proximal right ICA. Chest 1view DX SINGLE VIEW CHEST X-RAY. 11/16/2017 12:22 PM CDT 11/16/2017 [place] INDICATION: - L weakness TECHNIQUE: Single frontal view of the chest was performed. COMPARISON: None FINDINGS: The lungs are ilda r without consolidation. There are no effusions. No evidence of pneumothorax. The cardiomediastinal silhouette is within normal limits. Osseous structures show degenerative changes of the spine. The visualized abdomen is unremarkable. IMPRESSION: No acute cardiopulmonary process. Brain wo contrast CT Brain wo contrast CT 11/16/2017 12:22 PM CD T 11/16/2017 [place] HISTORY/INDICATIONS: 56 year sMale . . - L arm weakness left arm and shoulder pain and numbness, symptoms for 2 days TECHNIQUE: Axial sections w ere obtained from the skull base through the whole head. Multiplanar reconstructions were obtained. Automatic exposure control was used as a CT dose reduction technique. CONTRAST: None DLP/mGy-cm: 571.59 COMPARISON: None FINDINGS: Brain Parenchyma: Patchy lo w attenuation in the right central gyrus and some of the adjacent subcortical white matter and cortex. A slightly wedge- shaped patchy low-attenuation is seen in the cortical stripe and subcort ical white matter of the right occipital pole. There is small focus is seen in the right frontal parasagittal cortex near the vertex. Given the clinical history t hese are consistent with subacute infarcts. The findings were discussed with Dr. William Overall brain volume is mildly to moderately red uced. Ventricles: Mildly prominent . Right lateral ventricle slightly larger than the left, a normal variant. Hemorrhage: None. Other intracranial findings: Negative.. Calvarium and skull base: Ne gative fracture. No evidence of significant scalp swelling. Visualized infra-cranial: --Mastoid air cells: Clear mastoid air cells. --Middle ear/external auditory canal: Clear. --Paranasal sinuses: Clear. --Orbits: Normal. IMPRESSION: 1. Patchy areas of decrease d attenuation in the right parietal cortex, occipital polar cortex cannot, and a small focus in the right frontal cortex/subcortical white matter near the vertex, consistent with the clinical history of subacute infarcts. 2. No evidence of intracranial hemorrhage. 3. Overall brain volume is mildly to moderately reduced. Consultation Notes No Data Provided for This Section Discharge Summaries No Data Provided for This Section History and Physicals No Data Provided for This Section Vital Signs Vital Sign Value Date Comments Source Weight 74.545 11/22/2017 [facility] BMI Calculated 25.74 11/22/2017 [facility] Height 170.18 cm 11/22/2017 [facility] Systolic (mm Hg) 104 11/22/2017 [facility] Diastolic (mm Hg) 72 11/22/2017 [facility] Heart Rate 89 11/22/2017 [facility] Temperature Oral (F) 97.6 F 11/22/2017 [facility] Systolic (mm Hg) 136 11/20/2017 [facility] Diastolic (mm Hg) 84 11/20/2017 [facility] [place] Respitory Rate 18 11/20/2017 [facility] Respitory Rate 18 11/20/2017 [facility] Respitory Rate 16 11/20/2017 [facility] Systolic (mm Hg) 138 11/20/2017 [facility] Diastolic (mm Hg) 87 11/20/2017 [facility] Systolic (mm Hg) 143 11/20/2017 [facility] Diastolic (mm Hg) 94 11/20/2017 [facility] Temperature Oral (F) 98.5 F 11/20/2017 [facility] Temperature Oral (F) 98.1 F 11/20/2017 [facility] Temperature Oral (F) 97.4 F 11/20/2017 [facility] BMI Calculated 26.31 11[facility]17[facility]2017 [facility] 76.2 [facility] Height 170.18 cm 11/17[facility]2017 [facility] Systolic (mm Hg) 156 11/17/2017 [facility] [place] Diastolic (mm Hg) 81 11/17/2017 [facility] Respitory Rate 18 11/17/2017 [place] Temperature Oral (F) 97.7 F 11/17/2017 [place] [facility] Rate 56 11/17/2017 [facility] Temperature Oral (F) 97.3 F 11/16/2017 [place] Heart Rate 59 11/16/2017 [facility] Respitory Rate 16 11/16/2017 [place] Systolic (mm Hg) 157 11/16/2017 [facility] [place] Diastolic (mm Hg) 85 11/16/2017 [facility] Weight 70.909 11/16/2017 [facility] [place] Height 170.18 cm 11/16/2017 [place] BMI Calculated 24.48 11/16/2017 [facility] Respitory Rate 18 11/16/2017 [place] Temperature Oral (F) 97.7 F 11/16/2017 [place] Heart Rate 64 11/16/2017 [place] Systolic (mm Hg) 149 11/16/2017 [place] Diastolic (mm Hg) 83 11/16/2017 [facility] Weight 76.818 11/16/2017 [place] BMI Calculated 26.52 11/16/2017 [place] Height 170.18 cm 11/16/2017 [facility] [place] Weight 179.0 11/20/2014 [facility] Temperature Oral (F) 97.9 F 11/20/2014 [facility] Respitory Rate 16 11/20/2014 [facility] Systolic (mm Hg) 138 11/20/2014 [facility] Diastolic (mm Hg) 79 11/20/2014 [facility] Heart Rate 62 11/20/2014 [facility] Weight 193.0 11/07/2014 [facility] Temperature Oral (F) 97.9 F 11/07/2014 [facility] Heart Rate 64 11/07/2014 [facility] Respitory Rate 16 11/07/2014 [facility] Systolic (mm Hg) 131 11/07/2014 [facility] Diastolic (mm Hg) 85 11/07/2014 [facility] Weight 191.8 09/15/2014 [facility] Temperature Oral (F) 98.5 F 09/15/2014 [facility] Systolic (mm Hg) 135 09/15/2014 [facility] Diastolic (mm Hg) 94 09/15/2014 [facility] Heart Rate 88 09/15/2014 [facility] Respitory Rate 16 09/15/2014 [facility] Height 67 08/13/2013 [facility] Weight 190.4 08/13/2013 [facility] Temperature Oral (F) 98.4 F 08/13/2013 [facility] Heart Rate 68 08/13/2013 [facility] Systolic (mm Hg) 152 08/13/2013 [facility] Diastolic (mm Hg) 94 08/13/2013 [facility] Respitory Rate 16 08/13/2013 [facility] Encounters Location Location Encounter Encounter Reason Attending ADM DC Stat us Source Details Type Number For Provider Date Date Visit [facility] [place] Office [id number] Art 09/15 09/15 [place] Medical Visit 1730 Jermaine, /2014 Me jeanmarie Love MD [facility] Office [id number] Art 11/07 11/07 [place] Medical Visit 209 Jermaine, /2014 Me jeanmarie Love MD [facility] Lab Report [id number] Art 11/07 11/07 [place] Medical 8870 Jermaine, /2014 Me jeanmarie Love MD [facility] Outpatient [id number] DION 11/07 Active [facility] WALTER /2014 [facility] [id number] Art 11/20 11/20 [place] Medical Visit [id number] [place], /2014 Me jeanmarie Love MD [facility] Outpatient [id number] DION 11/20 [facility] [place] [facility] [id number] ART 01/01 Active [facility] JERMAINE /2014 [place] [id number] DION 02/23 Active [facility] WALTER /2014 [place] Outpatient [id number] DION 03/02 Active [facility] WALTER /2014 [facility] Inpatient [id number] Rafat 11/16 11/17 [place] Quan /2017 [place] [facility] Inpatient [id number] [place] Pe 11/17 11/20 [facility] /2017 [facility] Outpatient [id number] JERECIA 11/22 Active [facility]patient [id number] Jerecia 11/22 11/23 Primary [facility] [place] Outpatient [id number] Eber Pastor 02/09 Act buzz [facility] [place] Procedures Procedure Code Date Perfomer Comments Source smoking/tobacco 14 08/13/2013 yes Medica l cessation, Group patient education and counseling Ankle joint [id number] 3 [facility]<sup>1, years agoLeft Grou p, 2</sup> [facility] Assessment and Plan Assessment and Plan Date Source Extracted from:Title: Clinical Document 11/20/2017 [facility] Author: Guy Miranda MD Date: 11/20/17 NEUROLOGY and CRITICAL CARE MEDICINE [facility] Consultation / Progress Note Assessment / Recommendations / Plan Acute ischemic stroke (watershed) Confirmed on MRI. Watershed in nature. 2nd to critical stenosis of intracranial right internal carotid artery, complicated by lack of collateral ci rculation (no radiographically evident AComm, or right P-comm) 2nd to multiple uncontrolled vascular risks : 1) Tobacco daily smoker (counseled frankly for complete smoking cessation) 2) Diabetes mellitus (uncontrolled, not previously diagn osed, or treated) 3) Hyperlipidemia (both cholesterol and triglycerides) (uncontrolled, not previously diagnosed, untreated) Cerebral angiography and stent place ment opening the stenotic right internal carotid artery performed by Dr. Olivarez (neuro-endovascular) (11/17/17) CT Head the day following angiograph y demonstrated some hemorrhagic conversion of the parieto-occipital stroke. Integrilin was continued for another 24 hours, and Plavix not yet initiated. CT Head was repeated again this morn ing, reviewed, and yields no further hemorrhage, in fact progressing resolution of th e hemorrhage that was noted the day prior. Integrilin was stopped Plavix was loaded at 150 mg oral ly twice yesterday followed by 75 mg daily beginning this morning. Repeat CT Head this morning. Recent hemorrhage resolving. No worse on Plavix. Plavix efficacy test pending Stable for discharge Clinically stable Follow with primary care physician (does not live in the [place] area) Stop tobacco !!! Tobacco abuse Counseled frankly (daily) for complete and immediate anne sation. Major risk factor for the strokes that the patient is damico ffering Diabetes mellitus Uncontrolled, not previously diagnosed, and never treate d Insulin initiated, blood sugars are brought under contro l. Hyperlipidemia Uncontrolled, not previously diagnosed, and never treate d Atorvastatin initiated History of Present Illness 56M Presented to [facility] [employer] [facility] 11/16/17 with 2-day history of left upper extremity weakness, that he characterized as progressive . Also some subjective numbness in his hand developing over the past 2 days as well. No headache. No neck pain. No nausea. No slurring of speech. No difficulty with language. \\No imbalance of gait. No leg weakness. No alteration of vision. PMH Smokes tobacco half pack per day "Functioning alcoholic", quit EtOH 3 years ago. Constipation Allergic rhinitis does not see physicians PS Ankle joint operations [facility] The patient was adopted. [facility] Smokes tobacco half pack per day "Functioning alcoholic". Quit EtOH 3 years ago. The patient was adopted Home Meds No home prescription medications Does not take aspirin regularly (occasionally for aches and pains) Adverse Rxns NKDA Subj See above ROS Const No fever, chills, rigors. No weight changes. Neuro No diplopia, dysarthria, dysphagia. No headache. Eyes No pain, redness, photophobia. ENT No new hearing loss, ringing, pain. No sorethroat. Card No CP, palpitations, subj rapid heart rates. Resp No SOB, GARCIA, wheeze, cough. GI No nausea, vomiting, diahhrea, melena, blood WA. No new urgency, frequency, pain, or urine malodor. Vital Signs (last 24 hrs) Last Charted _ Temp Oral 98.5 DegF (NOV 20 04:00) Heart Rate Apical 100 bpm (NOV 20 13:00) Resp Rate 18 BRMIN (NOV 20 13:00) SBP H 143mmHg (NOV 20 13:00) DBP H 94mmHg (NOV 20 13:00) SpO2 98 % (AUG 20 13:00) Exam Neuro Awake. Alert. Lucid. Speech articulate. Language fluent. Comprehension inta ct. Pupils equal round about 2 mm, brisk ly reactive to light bilaterally. No APD. Primary gaze midline. Ocular pursui ts and range of motion appear normal. No lateral nystagmus. No facial asymmetries. Tongue extends midline. Right dominant irrigation equipment remover is strong. Left arm 5-/5. Poor dex terity left hand. No drift or pronation of the extended upper extremities, but clearly his left arm does not move as quickly as his right. Lungs Clear posteriorly Heart Regular rhythm. No murmurs. No jugular venous dis tention. Abd Thin Skin Warm. Dry. Evaluations CXR (11/16/17) Lungs are clear without consolidation. No effusions. No pneumothorax. Cardiomediastinal silhouette is within normal limits. Degenerative changes of the spine. No acute cardiopulmonary process. CT Head (11/16/17) Patchy areas of decreased attenuatio n in the right parietal cortex, occipital polar cortex, and a small focus in the right front al cortex/subcortical white matter near the vertex, consistent with the clinical history of subacute infarct s. No evidence of intracranial hemorrhage. Overall brain volume is mildly to moderately reduced. EKG (11/16/17) Sinus rhythm. Normal EKG. MRI Brain (11/16/17) Acute right-sided infarct. MRA Brain (11/16/17) Focal occlusion or high-grade stenosis of the supraclino id MONO. Flow signal is seen beyond this poin t, fed predominantly by a patent right posterior communicating artery. Anterior communicating artery and P1 segment of the right posterior cerebral artery are not clearly identified and may be absent or hypoplastic. Th is has the effect of isolating the patient's available collateral flow to the right cerebral hemisphere pre dominantly to the right posterior communicating artery from the vertebral basilar system. The patient is therefore at risk for extending the right cerebral hemisphere watershed infarcts. Mild/moderate focal stenoses suspect ed in the supraclinoid LICA and mid M1 segment of the left MCA. Moderate to severe stenosis of the distal M1 segment of the left MCA. MRA Neck (11/16/17) Narrowed proximal right ICA. ECHO (11/16/17) Normal LVEF 60-65% Mild MR No evidence of pulmonary hypertension No pericardial effusion Cerebral angiography (11/17/17) CT Head (11/18/17) Subarachnoid and cortical hemorrhage in the right posterior frontal parietal region, a few faint curvilinear petechial he morrhages in the right frontal parasagittal cortex, representing hemorrhagic transformation of the pat ient's subacute infarcts. Metallic stent in the supraclinoid segment of the RCA. CT Head (11/19/17) Grossly stable exam with parenchymal /laminar necrosis and possible superimposed subarachnoid, presumed hemorrhagic conversion of t he right cerebral acute ischemic infarction predominantly in the posterior greater than anteri or watershed territories. CT Head (11/20/17) Stable, right-sided, evolving ischemic and hemorrhagic c hanges. No adverse interval change compared to previous study. Labs Chol 213 (H) TG 255 HDL 25 (L) LDL 137 (H) VLDL 51 Chol/HDL 8.52 (H) TSH B12 ESR HgbA1c 8.9 (H) RPR HIV Cardiac Enzymes WBC H 11.8 (NOV 01) H 11.4 (NOV 18) H 11.0 (NOV 17) Hgb 14.0 (NOV 19) L 13.5 (NOV 18) 15.9 (NOV 17) Hct L 41.5 (NOV 01) L 39.7 (NOV 18) 46.3 (NOV 17) Plt 164 (NOV 19) 160 (NOV 18) 170 (NOV 17) Na 142 (NOV 19) 144 (NOV 18) 141 (NOV 17) K 3.7 (NOV 19) L 3.3 (NOV 19) L 3.3 (NOV 18) 3.7 (NOV 17) CO2 24 (NOV 19) 25 (NOV 18) 27 (NOV 17) Cl 106 (NOV 19) H 110 (A UG 18) 106 (NOV 17) Cr 0.72 (NOV 19) 0.59 (NOV 18) 0.72 (NOV 17) BUN L 3 (NOV 19) L 2 (NOV 18) L 5 (NOV 17) Glucose Random H 135 (NOV 19) H 138 (NOV 18) H 183 (NOV 17) Ca 8.9 (NOV 19) L 8.0 (A UG 18) 8.7 (NOV 17) PT 12.3 (NOV 17) INR 0.91 (NOV 17) PTT 26.6 (NOV 17) Urine Urinalysis : Wbc 1, Rbc <1 UDS (-) Micro None Meds Scheduled Meds (6): 11/17/17 9:00 aspirin (aspirin 325 mg tablet, enteric coated ) 325 mg PO Q24H 11/17/17 21:00 atorvastatin 80 mg PO Bedtime 11/18/17 10:00 hydrochlorothiazide (hydr ochlorothiazide 25 mg oral tablet) 25 mg PO Daily 11/18/17 10:00 losartan (Cozaar) 100 mg PO Daily 11/17/17 9:00 pantoprazole 40 mg PO Before Dinner 11/17/17 9:00 sodium chloride (Saline Flush 0.9%) 10 ml IVP Q12H Unscheduled Meds (1): 11/17/17 2:45 pneumococcal 23-valent vaccine 0.5 mL IM ONCAL L PRN Meds (27): 11/17/17 1:39 Dextrose 50% in Water IV (Dextrose 50% Syringe ) 12.5 gm IVP PRN 11/17/17 2:24 Dextrose 50% in Water IV (Dextrose 50% Syringe ) 25 gm IVP PRN 11/17/17 2:24 Insulin regular 1 unit SUB-Q TID-Before Meals 11/17/17 2:24 Insulin regular 2 unit SUB-Q TID-Before Meals 11/17/17 2:24 Insulin regular 3 unit SUB-Q TID-Before Meals 11/17/17 2:24 Insulin regular 4 unit SUB-Q TID-Before Meals 11/17/17 2:24 Insulin regular 5 unit SUB-Q TID-Before Meals 11/17/17 0:47 acetaminophen 650 mg PO Q4H 11/19/17 7:52 calcium carbonate (calcium carbonate 500 mg (200 mg elemental calcium) oral tablet) 500 mg PO PRN 11/19/17 7:52 calcium carbonate (calcium carbonate 500 mg (200 mg elemental calcium) oral tablet) 1,000 mg PO PRN 11/19/17 7:52 calcium gluconate + Sodium Chloride 0.9% IV 50 mL 1 gm IVPB PRN 120 ml/hr 11/17/17 1:39 glucagon 1 mg IM PRN 11/17/17 0:47 labetalol 10 mg IVP Q10Min 11/19/17 7:52 magnesium oxide 800 mg PO PRN 11/19/17 7:52 magnesium sulfate 2 gm IVPB PRN 25 ml/hr 11/19/17 7:52 potassium chloride 20 mEq IVPB PRN 50 ml/hr 11/19/17 7:52 potassium chloride 10 mEq IVPB PRN 100 ml/hr 11/19/17 7:52 potassium chloride 20 mEq PO PRN 11/19/17 7:52 potassium chloride 20 mEq NJ PRN 11/19/17 7:52 potassium phosphate + Sodi um Chloride 0.9% IV 250 mL 15 mmol IVPB PRN 63.75 ml/hr 11/19/17 7:52 potassium phosphate + Sodi um Chloride 0.9% IV 250 mL 30 mmol IVPB PRN 65 ml/hr 11/19/17 7:52 potassium phosphate + Sodi um Chloride 0.9% IV 500 mL 45 mmol IVPB PRN 85.83 ml/hr 11/19/17 7:52 potassium phosphate-sodium phosphate (250 mg-280 mg-160 mg oral powder for reconstitution) 2 pkt PO PRN 11/17/17 0:47 sodium chloride (Saline Flush 0.9%) 10 ml IVP PRN 11/19/17 7:52 sodium phosphate + Sodium Chloride 0.9% IV 250 mL 15 mmol IVPB PRN 63.75 ml/hr 11/19/17 7:52 sodium phosphate + Sodium Chloride 0.9% IV 250 mL 30 mmol IVPB PRN 65 ml/hr 11/19/17 7:52 sodium phosphate + Sodium Chloride 0.9% IV 500 mL 45 mmol IVPB PRN 85.83 ml/hr One Time Meds (3): 11/19/17 13:05 (Completed) clopidogrel (Plavix) 150 mg PO ON CE 11/19/17 18:00 (Ordered) clopidogrel (Plavix) 150 mg PO ONCE 11/18/17 10:41 (Completed) potassium chloride 20 mEq PO ONCE Continuous Infusions (1): 11/17/17 16:38 niCARdipine 40 mg (Bill e 40 mg in NS 200 mL (Titrate.) IV 40 mg) 40 mg Titrate Nutrition Regular diet Lines Periph Coker No DVT Prophylaxis SCDs Adv Dir Full Code (Nonspecified) Time 45 minutes Stroke Core Measures Thrombolysis for acute stroke Outside thrombolytic window Thrombectomy for LVO Outside of thrombectomy window Stroke / ICH MPP Done Antithrombotic Aspirin initiated Statin (LDL > 70) Atorvastatin initiated Anticoagulation for Afib (discharge) No atrial fibrillation yet identified NIH Stroke Scale (NIHSS) 1a. LOC: 0-alert 1-drowsy 2-stupor 0 1b. Questions month and age: 0-both 1-one 2-neither 0 1c. Commands open/close eyes, irrigation equipment remover/rel ease non-paretic hand: 0-both 1-one 2-neither 0 2. Best Gaze: 0-normal 1-partial 2-forced gaze 0 3. Visual Olmos: 0-No visual loss. 1 -Partial hemianopia 2-Complete 3-Bilateral 0 4. Facial Palsy; 0-none 1-minor 2-partial 3-complete 0 5. Motor RUE: 0-No drift 1-Drift 2-Gaudencio e antigravity 3-No antigravity 4-No movement 2 6. Motor RLE: 0-No drift 1-Drift 2-So me antigravity 3-No antigravity 4-No movement 0 7. Motor LUE: 0-No drift 1-Drift 2-So me antigravity 3-No antigravity 4-No movement 0 8. Motor LUE: 0-No drift 1-Drift 2-So me antigravity 3-No antigravity 4-No movement 0 9. Limb Ataxia: 0 absent 1 - 1limb 2 - 2 limbs 0 10. Sensory: 0-normal 1-partial loss 2-dense loss 0 11. Best Language: 0-normal 1-mild/mod 2-severe 3-mute 0 12. Dysarthria: 0-normal 1-mild/mod 2-severe X-untestable 0 13. Extinction / Inattention (formerly Neglect): 0- none 1-partial 2-complete 0 TOTAL 2 IntraCerebral Hemorrhage (ICH) Score Following hemorrhage GCS 0 :13-15Awake/ mild lethargy/Lucid / slight confusion 1: 5-12 Deep lethargy/Stupor 2: 3-4 Coma/ No response 0 ICH e 30cm3 1 0 IVH 1 0 Infratentorial 1 0 Age e 79yo 1 0 TOTAL 0 ICH Score 0 1 2 3 4 5 6 Mortality 0% 13% 26% 72% 97% 100% 100% GLASCOW COMA Scale Best score 15 Coma d 8 3 Eye Opening 4 Spontaneous 3 To Speech 2 To Pain 1 No Response 4 Best Verbal 5 - Oriented Time, Place, Person 4 Consused 3 Inappropriate words 2 Incomprehensible sounds 1 No Response 5 Best Motor 6 Follows commands 5 Localizes to pain 4 Withdrawal to pain 3 Decorticate 2 Decerebrate 1 No response 6 Score 15 Modified Cipriano Disability Score Sc Disability / Deficits Ambulation ADLs 1 No deficits Full Full 2 Subtle (Not significant) Full Full 3 Slight Slight limitation Requires some help 4 Mod-Severe Assistance required Assistance required for most 5 Severe Bedridden / Incontenent Constant care 6 Score 2 Extracted from:Title: Clinical Document Author: Guy Miranda MD Date: 11/17/17 NEUROLOGY and CRITICAL CARE MEDICINE [facility] Consultation / Progress Note Assessment / Recommendations / Plan Acute ischemic stroke (watershed) Confirmed on MRI. Watershed in nature. 2nd to critical stenosis of intracranial right internal carotid artery, complicated by lack of collateral ci rculation (no radiographically evident AComm, or right P-comm) 2nd to multiple uncontrolled vascular risks : 1) Tobacco daily smoker (counseled frankly for complete smoking cessation) 2) Diabetes mellitus (uncontrolled, not previously diagn osed, or treated) 3) Hyperlipidemia (both cholesterol and triglycerides) (uncontrolled, not previously diagnosed, untreated) Discussed in detail with Dr. Olivarez (neuro-endovascular ) We propose to take the patient for cerebral angiography later this day. Extensive and dilcia discussion with the patient, regarding the nature of his stroke, cerebral atherosclerosis, relationship to tobacco smoking, und iagnosed uncontrolled diabetes mellitus, untreated hyperlipidemia. Illustration created to further understanding (see medic al record). Following extended discussion, the p atient expressed that he felt that we were rushing him into "brain surgery" I expressed that he was free to rend er informed refusal of the procedure, and can be discharged. I further expressed that the primary reason that the patient was transferred to our facility was for consideration of endovascula r intervention to hopefully prevent further strokes. Dr Matias is also discussed extensi vely with the patient, who has now chosen to render informed consent, and to proceed to endovascular procedure Tobacco abuse Counseled frankly for complete and immediate cessation. Major risk factor for the strokes that the patient is damico ffering Diabetes mellitus Uncontrolled, not previously diagnosed, and never treate d Insulin initiated, blood sugars are being brought under control. Hyperlipidemia Uncontrolled, not previously diagnosed, and never treate d Atorvastatin initiated History of Present Illness 56M Presented to [facility] 11/16/17 with 2-day history of left upper extremity weakness, that he characterized as progressive . Also some subjective numbness in his hand developing over the past 2 days as well. No headache. No neck pain. No nausea. No slurring of speech. No difficulty with language. \\No imbalance of gait. No leg weakness. No alteration of vision. PMH Smokes tobacco half pack per day "Functioning alcoholic", quit EtOH 3 years ago. Constipation Allergic rhinitis does not see physicians [facility] Ankle joint [facility] The patient was adopted. [facility] Smokes tobacco half pack per day "Functioning alcoholic". Quit EtOH 3 years ago. The patient was adopted Home Meds No home prescription medications Does not take aspirin regularly (occasionally for aches and pains) Adverse Rxns NKDA Subj See above ROS Const No fever, chills, rigors. No weight changes. Neuro No diplopia, dysarthria, dysphagia. No headache. Eyes No pain, redness, photophobia. ENT No new hearing loss, ringing, pain. No sorethroat. Card No CP, palpitations, subj rapid heart rates. Resp No SOB, GARCIA, wheeze, cough. GI No nausea, vomiting, diahhrea, melena, blood WA. No new urgency, frequency, pain, or urine malodor. Vital Signs (last 24 hrs) Last Charted _ Temp Oral 97.5 DegF (NOV 17 00:38) Heart Rate Apical 63 bpm (NOV 17:) Resp Rate 14 BRMIN (NOV 17:) SBP 131 mmHg (NOV 17:) DBP 84 mmHg (NOV 17:) SpO2 96 % (NOV 17:) Weight 76.2 kg (NOV 17:30) Height 170.18 cm (NOV 17:30) BMI 26.31 (NOV 17:) Exam Neuro Awake. Alert. Lucid. Speech articulate. Language fluent. Comprehension inta ct. Pupils equal round about 2 mm, brisk ly reactive to light bilaterally. No APD. Primary gaze midline. Ocular pursui ts and range of motion appear normal. No lateral nystagmus. No facial asymmetries. Tongue extends midline. Right dominant irrigation equipment remover is strong. Left nondominant irrigation equipment remover is quite weak (3/5). No drift or pronation of the extended upper extremities, but clearly his left arm does not move as quickly as his right. Lungs Clear posteriorly Heart Regular rhythm. No murmurs. No jugular venous dis tention. Abd Thin Skin Warm. Dry. Evaluations CXR (11/16/17) Lungs are clear without consolidation. No effusions. No pneumothorax. Cardiomediastinal silhouette is within normal limits. Degenerative changes of the spine. No acute cardiopulmonary process. CT Head (11/16/17) Patchy areas of decreased attenuatio n in the right parietal cortex, occipital polar cortex, and a small focus in the right front al cortex/subcortical white matter near the vertex, consistent with the clinical history of subacute infarct s. No evidence of intracranial hemorrhage. Overall brain volume is mildly to moderately reduced. EKG (11/16/17) Sinus rhythm. Normal EKG. MRI Brain (11/16/17) Acute right-sided infarct. MRA Brain (11/16/17) Focal occlusion or high-grade stenosis of the supraclino id MONO. Flow signal is seen beyond this poin t, fed predominantly by a patent right posterior communicating artery. Anterior communicating artery and P1 segment of the right posterior cerebral artery are not clearly identified and may be absent or hypoplastic. Th is has the effect of isolating the patient's available collateral flow to the right cerebral hemisphere pre dominantly to the right posterior communicating artery from the vertebral basilar system. The patient is therefore at risk for extending the right cerebral hemisphere watershed infarcts. Mild/moderate focal stenoses suspect ed in the supraclinoid LICA and mid M1 segment of the left MCA. Moderate to severe stenosis of the distal M1 segment of the left MCA. MRA Neck (11/16/17) Narrowed proximal right ICA. ECHO (11/16/17) Normal LVEF 60-65% Mild MR No evidence of pulmonary hypertension No pericardial effusion Cerebral angiography (11/17/17) Labs Chol 213 (H) TG 255 HDL 25 (L) LDL 137 (H) VLDL 51 Chol/HDL 8.52 (H) TSH B12 ESR HgbA1c 8.9 (H) RPR HIV Cardiac Enzymes WBC H 11.0 (NOV 17) Hgb 15.9 (NOV 17) Hct 46.3 (NOV 17) Plt 170 (NOV 17) Na 141 (NOV 17) K 3.7 (NOV 17) CO2 27 (NOV 17) Cl 106 (NOV 17) Cr 0.72 (NOV 17) BUN L 5 (NOV 17) Glucose Random H 183 (NOV 17) Ca 8.7 (NOV 17) PT 12.3 (NOV 17) INR 0.91 (NOV 17) PTT 26.6 (NOV 17) Urine Urinalysis : Wbc 1, Rbc <1 UDS (-) Micro None Meds Scheduled Meds (4): 11/17/17 9:00 aspirin (aspirin 325 mg tablet, enteric coated ) 325 mg PO Q24H 11/17/17 21:00 atorvastatin 80 mg PO Bedtime 11/17/17 9:00 pantoprazole 40 mg PO Daily 11/17/17 9:00 sodium chloride (Saline Flush 0.9%) 10 ml IVP Q12H Unscheduled Meds (1): 11/17/17 2:45 pneumococcal 23-valent vaccine 0.5 mL IM ONCAL L PRN Meds (14): 11/17/17 1:39 Dextrose 50% in Water IV (Dextrose 50% Syringe ) 12.5 gm IVP PRN 11/17/17 1:39 Dextrose 50% in Water IV (Dextrose 50% Syringe ) 25 gm IVP PRN 11/17/17 2:24 Dextrose 50% in Water IV (Dextrose 50% Syringe ) 12.5 gm IVP PRN 11/17/17 2:24 Dextrose 50% in Water IV (Dextrose 50% Syringe ) 25 gm IVP PRN 11/17/17 2:24 Insulin regular 1 unit SUB-Q TID-Before Meals 11/17/17 2:24 Insulin regular 2 unit SUB-Q TID-Before Meals 11/17/17 2:24 Insulin regular 3 unit SUB-Q TID-Before Meals 11/17/17 2:24 Insulin regular 4 unit SUB-Q TID-Before Meals 11/17/17 2:24 Insulin regular 5 unit SUB-Q TID-Before Meals 11/17/17 0:47 acetaminophen 650 mg PO Q4H 11/17/17 1:39 glucagon 1 mg IM PRN 11/17/17 2:24 glucagon 1 mg IM PRN 11/17/17 0:47 labetalol 10 mg IVP Q10Min 11/17/17 0:47 sodium chloride (Saline Flush 0.9%) 10 ml IVP PRN One Time Meds (1): 11/16/17 13:49 (Completed) aspirin 324 mg CHEW ONCE Continuous Infusions (1): 11/17/17 9:25 Sodium Chloride 0.9% IV 1,000 mL 1,000 mL 75 m l/hr Nutrition Regular diet Lines Periph Coker No DVT Prophylaxis SCDs Adv Dir Full Code (Nonspecified) Time 2 hours plus !!! Stroke Core Measures Thrombolysis for acute stroke Outside thrombolytic window Thrombectomy for LVO Outside of thrombectomy window Stroke / ICH MPP Done Antithrombotic Aspirin initiated Statin (LDL > 70) Atorvastatin initiated Anticoagulation for Afib (discharge) No atrial fibrillation yet identified NIH Stroke Scale (NIHSS) 1a. LOC: 0-alert 1-drowsy 2-stupor 0 1b. Questions month and age: 0-both 1-one 2-neither 0 1c. Commands open/close eyes, irrigation equipment remover/rel ease non-paretic hand: 0-both 1-one 2-neither 0 2. Best Gaze: 0-normal 1-partial 2-forced gaze 0 3. Visual Olmos: 0-No visual loss. 1 -Partial hemianopia 2-Complete 3-Bilateral 0 4. Facial Palsy; 0-none 1-minor 2-partial 3-complete 0 5. Motor RUE: 0-No drift 1-Drift 2-Gaudencio e antigravity 3-No antigravity 4-No movement 2 6. Motor RLE: 0-No drift 1-Drift 2-So me antigravity 3-No antigravity 4-No movement 0 7. Motor LUE: 0-No drift 1-Drift 2-So me antigravity 3-No antigravity 4-No movement 0 8. Motor LUE: 0-No drift 1-Drift 2-So me antigravity 3-No antigravity 4-No movement 0 9. Limb Ataxia: 0 absent 1 - 1limb 2 - 2 limbs 0 10. Sensory: 0-normal 1-partial loss 2-dense loss 0 11. Best Language: 0-normal 1-mild/mod 2-severe 3-mute 0 12. Dysarthria: 0-normal 1-mild/mod 2-severe X-untestable 0 13. Extinction / Inattention (formerly Neglect): 0- none 1-partial 2-complete 0 TOTAL 2 Extracted from:Title: History and Physical Author: Juan Ramon Jackson MD Date: 11/17/17 56-year-old male admitted to the hospital with acute ischemi c stroke Plan #1 ischemic strokepatient appears o f had a acute rightsided infarctI suspect may also be subacute secondary to chronicvessel luminal narrowing likely secondary to peripheral vascular diseaseseconda ry to chronic tobacco useplan of care in volves oral antiplateletmedications oral statinand monitoring of his blood pressureto allow some degree of permissive hypertension I suspect he has a history of c hronic hypertension of which she was been unaware Patient require neuro checks every 4 jeremias rs and evaluation byneurology subspecialty Plan #2 suspected hypertensionpatient wi ll likely require an JUDY inhibitorfor improved blood pressure controlat this time will use IV labetalol as needed for permissivehypertension and only in the event that he has hypertensive urgency with systolic blood pressu res [id number] Plan #3 hyperglycemia I suspect this pat ient has diabetes mellitus type 2I require hemoglobin A1c I will initiate low-dose insulin Plan #4 chronic tobacco use I suspect he has chronicperipheral vascular disease I also suspect some underlying COPDhowever he has had no symptoms of wheezing Ischemic stroke Ordered: Admit/Condition, 11/17/17 0:47:00 CDT, S tatus: Inpatient, IMU, Expected LOS: 2 Midnights, Juan Ramon Jackson MD, Admit Review/Approve Yes, Isolation: No Isolation/Standard Precautions Full admit based on criteria listed Extracted from:Title: H&P 11/17/2017 [place] Author: Rafat Glass MD Date: 11/16/17 HISTORY AND PHYSICAL Attending: Rafat Glass MD Phone: Service: Medicine General Code status: None Specified=FULL CODE Reason for Admission: NUMBNESS LEFT SIDE Working DRG: Isolation: No Isolation/Standard Precautions Consulting Physicians: Jazmin Rojas MD Office: Service: Neurology CC : Left arm numbness HPI 56 year old male presents with at 2 day s of left upper extremity weakness and numbness. He feels like symptoms have progressively gotten worse over the last 2 days. He denies a headache, neck pain or stiffness, chest pain, shortness of kayli ath, abdominal pain, nausea, vomiting, or lower extremity symptoms. He also noticed numbness to left hand that started today and he came to ER for further evaluat ion.He denies any other focal neurologic al deficit, diplopia or facial droop.He is being admitted for Acute stroke. PAST MEDICAL HISTORY Constipation PAST SURGICAL HISTORY Ankle joint operations SOCIAL HISTORY Tobacco Details: Use: Current every day smoker. Type: Cigarettes. 10 per day. Started age 15.0 Years. Tobacco smoke exposure: None. Did the Patient Smoke Cigarettes Anytime During the Last 365 Days? Yes. Cessation Counseling Provided? No. FAMILY HISTORY Hypertension ALLERGIES Allergies: NKDA MEDICATIONS Per Medication reconciliation REVIEW OF SYSTEMS 14 points review of system negative except in HPI LABS Labs (Last four charted values) WBC 10.1 (NOV 16) Hgb 15.6 (NOV 16) Hct 47.3 (NOV 16) Plt 185 (NOV 16) Na 136 (NOV 16) K 3.5 (NOV 16) CO2 29 (NOV 16) Cl 102 (NOV 16) Cr 0.93 (NOV 16) BUN L 2 (NOV 16) Glucose Random H 249 (NOV 16) Ca 9.0 (NOV 16) PT 12.7 (NOV 16) INR 0.95 (NOV 16) PTT 26.3 (NOV 16) Troponin <0.02 (NOV 16) Total CK 44 (NOV 16) PHYSICAL EXAM Vitals Tmp(F) Pulse BP RR SpO2 FIO2 11/16 14:40 97.7 64 149/83 18 100 --- 11/16 14:00 ---- 59 161/85 20 99 --- 11/16 13:46 ---- 61 143/86 18 100 --- 11/16 12:14 98.5 82 130/86 18 99 --- 24 Hr Tmax: 98.5F (36.94c) at 11/16 12:1 4 Vital Signs are the last 5 in the past 48 hours. General: No acute distress Eyes: PERRL/EOM intact, conjunctiva and sclera clear without nystagmus ENT: No bleeding or discharge Neck: Supple, no JVD Cardiovascular: S1, S2 without murmurs, rubs or gallops Respiratory : CTA no wheezing or rhonchi Gastrointestinal: Soft , NT, ND Genitourinary: Deffered Extremities : No clubbing or Cyanosis Skin : Dry Lymphatics: No lymphadenopathy Neurologic : Alert follows commands, Lef t UE power 2/5 as compared to other extremities where power is 5/5 Psych : alert and cooperative; normal mood and affect ASSESSMENT AND PLAN Subacute infarct Brain wo contrast CT 11/16/17 13:28:44 IMPRESSION: 1. Patchy areas of decreased attenuation in the right parietal cortex, occipital polar cortex cannot, and a small focus in the right frontal cortex/subcortical white matter near the vertex, consistent with the clinical history of subacute infarcts. 2. No evidence of intracranial hemorrhage. 3. Overall brain volume is mildly to moderately reduced. Signed By: Solo Weston MD initiate stroke protocol MRI of the brain and MRA of head and neck 2D echo order aspirin neurology consultation physical, occupational speech therapy evaluation GI prophylaxis with pepcid DVT prophylaxis with lovenox Disposition Code status - Full Code Patient is admitted for stroke workup. Plan of Care No Data Provided for This Section Social History Social History Date Source Social History TypeResponse 11/22/2017 Ghazala Mandujano rougavin Smoking Status Current every day smoker; Type: Cigarett es; Exposure to Tobacco Smoke None; Cigarette Smoking Last 365 Days Yes; Reg Smoking Cessation Counseling No; Tobacco use per day: 10; Started [age] age: 15.0; entered on: 11/22/17 Social History TypeResponse 11/22/2017 Sugar Collin d Smoking Status Current every day smoker; Type: Cigarett es; Exposure to Tobacco Smoke None; Cigarette Smoking Last 365 Days Yes; Reg Smoking Cessation Counseling No; Tobacco use per day: 10; Started at age: 15.0; entered on: 11/22/17 Social History TypeResponse 11/22/2017 [facility] Smoking Status Current every day smoker; Type: Cigarett es; Exposure to Tobacco Smoke None; Cigarette Smoking Last 365 Days Yes; Reg Smoking Cessation Counseling No; Tobacco use per day: 10; Started at age: 15.0; entered on: 11/22/17 Family History No Data Provided for This Section Advance Directives No Data Provided for This Section Functional Status No Data Provided for This Section
--- NOTE | 2020-02-10 20:53 | RAD REPORT ---
EXAM DESCRIPTION: RAD - Foot Left 3 View - 02/10/2020 8:37 pm CLINICAL HISTORY: PAIN COMPARISON: OS CALCIS CALCANEUS dated 02/07/2007; OS CALCIS CALCANEUS dated 02/07/2007 FINDINGS: No fracture, dislocation or periosteal reaction. No acute or destructive bony process. Beau ne screws in place distal tibia from old fracture repair. Degenerative changes present at first MTP j oint with marginal spurs. Patient has small plantar spur. No air or foreign body in the soft tissues. IMPRESSION: No acute left foot finding. Degenerative changes are present.
[2020-02-10] MEDS ORDERED: MORPHINE 4 MG/ML SYR ONE (21:40)
[2020-02-10 21:56] LABS: Basophils % 0.8 % (0-1.3); Hematocrit 46.4 % (39.6-49.0); Lymphocytes % 19.9 % (15.3-44.8); MPV 8.7 fL (7.6-11.3)
[2020-02-10 22:05] LABS: Potassium 3.9 mmol/L (3.5-5.1); Uric Acid 4.4 mg/dL (3.5-7.2)
[2020-02-10 22:18] LABS: Protime INR 0.89
[2020-02-11] MEDS ORDERED: ENOXAPARIN 80 MG/0.8 ML SQ ONE (00:16)
--- NOTE | 2020-02-11 00:36 | EDPHYS ---
Physician Documentation [facility] Name: Pipe Portillo Age: 59 yrs Sex: Male : 1960 Arrival Date: 02/10/2020 Time: 19:47 Bed 18 Private MD: ED Physician Carroll George HPI: 02/09 20:35 This 59 yrs old Male presents to ER via Wheelchair with complaints of Foot cp Infection. 20:35 The patient presents with pain, that is acute. cp 20:35 The complaints affect the left great toe. Context: resulted from an unknown cause, the cp patient can fully bear weight, the patient is able to ambulate, with moderate difficulty. Onset: The symptoms/episode began/occurred 2 week(s) ago. Associated signs and symptoms: Pertinent positives: swelling, discoloration, Pertinent negatives: calf tenderness, fever, numbness, warmth. Historical: - Allergies: 19:58 No Known Allergies; ca1 - Home Meds: 19:58 None [Active]; ca1 - PMHx: 19:58 Hypertension; CVA; ca1 - PSHx: 19:58 Stent on Brain; ca1 - Immunization history:: Adult Immunizations up to date, Last tetanus immunization: unknown. - Social history:: Smoking status: Patient reports the use of cigarette tobacco products, smokes one-half pack cigarettes per day. ROS: 20:45 Constitutional: Negative for body aches, chills, fever, poor PO intake. cp 20:45 Eyes: Negative for injury, pain, redness, and discharge. cp 20:45 ENT: Negative for ear pain, sore throat, difficulty swallowing, difficulty handling secretions. 20:45 Cardiovascular: Negative for chest pain, edema, palpitations. 20:45 Respiratory: Negative for cough, shortness of breath, wheezing. 20:45 MS/extremity: Positive for pain, swelling, tenderness, of the left great toe, discoloration. 20:45 Neuro: Negative for altered mental status, headache, weakness. 20:45 All other systems are negative. Exam: 20:50 Constitutional: The patient appears in no acute distress, alert, awake, cp non-diaphoretic, non-toxic, well developed, well nourished, uncomfortable. 20:50 Head/Face: Normocephalic, atraumatic. cp 20:50 Eyes: Periorbital structures: appear normal, Conjunctiva: normal, no exudate, no injection, Lids and lashes: appear normal, bilaterally. 20:50 ENT: External ear(s): are unremarkable, Nose: is normal, Posterior pharynx: Airway: no evidence of obstruction, patent. 20:50 Chest/axilla: Inspection: normal, Palpation: is normal, no crepitus, no tenderness. 20:50 Cardiovascular: Rate: normal, Rhythm: regular, Edema: is not appreciated, JVD: is not appreciated. 20:50 Respiratory: the patient does not display signs of respiratory distress, Respirations: normal, no use of accessory muscles, no retractions, labored breathing, is not present, Breath sounds: are clear throughout, no decreased breath sounds, no stridor, no wheezing. 20:50 Abdomen/GI: Exam negative for discomfort, distension, guarding, Inspection: abdomen appears normal. 20:50 Musculoskeletal/extremity: Extremities: grossly normal except: noted in the left great toe: pain, swelling, tenderness, appears discolored, Pulses: are absent in the left dorsalis pedis artery, the left great toe Severe pain noted. 20:50 Skin: small ulcer type wound noted medial side tip of left great toe. Vital Signs: 19:53 BP 177 / 94; Pulse 89; Resp 16 S; Temp 97.6(TE); Pulse Ox 97% on R/A; Weight 72.57 kg ca1 (R); Height 5 ft. 8 in. (172.72 cm) (R); Pain 9/10; 22:00 BP 172 / 86; Pulse 80; Resp 19; Pulse Ox 99% ; rr5 23:00 BP 165 / 89; Pulse 75; Resp 17; Pulse Ox 98% ; rr5 23:57 BP 160 / 69; Pulse 74; Resp 18; Pulse Ox 99% ; rr5 02/10 01:00 BP 166 / 80; Pulse 70; Resp 17; Pulse Ox 99% ; rr5 02:00 BP 162 / 85; Pulse 79; Resp 17; Pulse Ox 98% ; rr5 03:20 BP 169 / 89; Pulse 70; Resp 15; Pulse Ox 98% ; rr5 04:20 BP 163 / 82; Pulse 80; Resp 16; Temp 98; Pulse Ox 99% ; rr5 02/09 19:53 Body Mass Index 24.33 (72.57 kg, 172.72 cm) ca1 MDM: 02/09 20:26 Patient medically screened. cp 22:00 Differential diagnosis: gout, cellulitis, DVT, arterial occlusion. 02/10 00:30 Data reviewed: vital signs, nurses notes, lab test result(s), radiologic studies, cp ultrasound, I have discussed the patient's presentation/case with the attending Emergency Department Physician;. 00:30 Counseling: I had a detailed discussion with the patient and/or guardian regarding: the cp historical points, exam findings, and any diagnostic results supporting the discharge/admit diagnosis, lab results, radiology results, the need to transfer to another facility, [facility] does not immediately have the required specialist. 00:35 Physician consultation: was contacted at 00:35, regarding consult, patient's condition, cp Spoke with DR Sow, vascular surgery, who will consult on patient and requests transfer to services of hospitalist. 01:02 Physician consultation: was contacted at 01:00, regarding regarding transfer, to [facility]. patient's condition, spoke with DR Washington, hospitalist, will accept patient for transfer pending results of rapid test for COVID-19. Wants lactate level and patient started on Zosyn and Vancomycin. Informed DR Washington that our facility will not be able to perform rapid test for COVID-19 until 0600 due to limited number of tests. This is acceptable for DR Washington with transfer pending results of rapid COVID-19 test. 02/09 21:18 Order name: CBC with Diff cp 02/09 21:18 Order name: Uric Acid 02/09 21:18 Order name: BMP; Complete Time: 23:58 cp 02/09 23:58 Interpretation: Normal except: GLUC 167; BUN 4; GFR 81. cp 02/09 21:18 Order name: PT-INR; Complete Time: 23:58 cp 02/09 21:18 Order name: Ptt, Activated; Complete Time: 23:58 cp 02/09 21:19 Order name: CBC with Automated Diff; Complete Time: 23:58 EDMS 02/09 20:03 Order name: Foot Left 3 View XRAY; Complete Time: 23:58 snw 02/09 21:19 Order name: Uric Acid; Complete Time: 23:58 EDMS 11/10 00:55 Order name: Lactate; Complete Time: 03:10 cp 02/10 00:55 Order name: Procalcitonin; Complete Time: 03:10 cp 02/10 00:55 Order name: Blood Culture Adult (2) cp 02/10 02:52 Order name: SARS-COV-2 RT PCR; Complete Time: 03:10 EDMS 02/09 21:18 Order name: IV; Complete Time: 21:42 cp 02/09 21:18 Order name: LE Artery Uni Ltd cp 02/09 21:43 Order name: Extremity Venous Unilateral Ltd cp Administered Medications: 02/09 21:42 Drug: morphine 4 mg {Note: rass 0.} Route: IVP; Site: right forearm; rr5 22:40 Follow up: Response: No adverse reaction rr5 02/10 00:06 Drug: Lovenox 1 mg/kg Route: Sub-Q; Site: right lower abdomen; rr5 01:00 Follow up: Response: No adverse reaction rr5 02:00 Drug: NS 0.9% 1000 ml Route: IV; Rate: 1 bolus; Site: left forearm; rr5 04:00 Follow up: Response: No adverse reaction; IV Status: Completed infusion; IV Intake: rr5 1000ml 02:00 Dru.375 grams of (Zosyn 3.375 grams, NS 0.9% 100 ml) Route: IVPB; Infused Over: 60 rr5 mins; Site: left forearm; 02:45 Follow up: Response: No adverse reaction; IV Status: Completed infusion; IV Intake: rr5 100ml 02:46 Dru grams of (vancoMYCIN 1 grams, NS 0.9% 250 ml) Route: IVPB; Infused Over: 2 hrs; rr5 Site: left forearm; 04:15 Follow up: Response: No adverse reaction; IV Status: Completed infusion; IV Intake: rr5 250ml Disposition: 02/11/20 00:35 Transfer ordered to [facility]. Diagnosis are Pain in left toe(s), Occlusion vs Stenosis of mid left Superficial Femoral Artery. - Reason for transfer: Higher level of care. - Accepting physician is DR Washington. - Condition is Stable. - Problem is new. - Symptoms have improved. Signatures: Dispatcher [employer] EDFL Trae Mustafa PA PA cp Roque, Raymond, RN RN rr5 Rachel Garcia RN RN ca1 Corrections: (The following items were deleted from the chart) 00:59 00:35 02/11/2020 00:35 Transfer ordered to [facility]. cp Diagnosis is Pain in left toe(s); Occlusion vs Stenosis of mid left Superficial Femoral Artery. Reason for transfer: Higher level of care. Accepting physician is Doctor. Condition is Stable. Problem is new. Symptoms have improved. cp 01:44 01:11 CORONAVIRUS+MR.LAB.BRZ ordered. EDMS EDMS 02:43 00:55 BLOOD CULTURE*+BA.LAB.BRZ ordered. EDMS EDMS 04:28 00:59 02/11/2020 00:35 Transfer ordered to [facility]. rr5 Diagnosis is Pain in left toe(s); Occlusion vs Stenosis of mid left Superficial Femoral Artery. Reason for transfer: Higher level of care. Accepting physician is DR Washington. Condition is Stable. Problem is new. Symptoms have improved. cp
--- NOTE | 2020-02-11 00:36 | ER ---
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 It swelled up and ca1 got better. 1.5 weeks ago, it started getting worse. Pain is just shooting through my L foot. It seems like it's infected. Denies fever. Coronavirus screen: Client denies travel out of the [place] in the last 14 days. At this time, the client does not indicate any symptoms associated with coronavirus-19. Ebola Screen: Patient negative for fever greater than or equal to 101.5 degrees Fahrenheit, and additional compatible Ebola Virus Disease symptoms Patient denies exposure to infectious person. Patient denies travel to an Ebola-affected area in the 21 days before illness onset. No symptoms or risks identified at this time. Initial Sepsis Screen: Does the patient meet any 2 criteria? No. Patient's initial sepsis screen is negative. Does the patient have a suspected source of infection? No. Patient's initial sepsis screen is negative. Risk Assessment: Do you want to hurt yourself or someone else? Patient reports no desire to harm self or others. Onset of symptoms was February 10, 2020. 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 - Social history:: Smoking status: Patient reports the use of cigarette tobacco products, smokes one-half pack cigarettes per day. Screenin:30 Abuse screen: Denies threats or abuse. Denies injuries from another. Nutritional rr5 screening: No deficits noted. Tuberculosis screening: No symptoms or risk factors identified. Fall Risk IV access (20 points). Gait- Impaired (20 pts.). Total Sandoval Fall Scale indicates Low Risk Score (25-44 pts). Fall prevention measures have been instituted. Side Rails Up X 2 Placed close to Nursing Station Frequent Obs/Assesments occuring As available Patient and Family Educated on Fall Prevention Program and strategies. Assessment: 20:30 General: Appears in no apparent distress. uncomfortable, Behavior is calm, cooperative, rr5 appropriate for age. 20:30 Pain: Complains of pain in Left first toenail Pain currently is 6 out of 10 on a pain rr5 scale. Quality of pain is described as aching, Pain began gradually, Is intermittent. Neuro: Level of Consciousness is awake, alert, obeys commands, Oriented to person, place, time, situation. Cardiovascular: Capillary refill is > 3 seconds Patient's skin is warm and dry. Pulses are absent in left dorsalis pedis artery. Respiratory: Airway is patent Respiratory effort is even, unlabored, Respiratory pattern is regular, symmetrical. GI: No signs and/or symptoms were reported involving the gastrointestinal system. : No signs and/or symptoms were reported regarding the genitourinary system. EENT: No signs and/or symptoms were reported regarding the EENT system. Derm: Skin temperature is warm Wound noted Left first toenail Wound is black spot noted with with mild to reddish in color the surrounding left big toe Reports pain. Musculoskeletal: Capillary refill is > 3 seconds. 21:30 Reassessment: ED provider informed pulse impalpable with order made and carried out rr5 doppler used rechecked by ED provider. 22:00 Reassessment: Patient appears in no apparent distress at this time. venous ultrasound rr5 at bedside. 23:00 Reassessment: Patient appears in no apparent distress at this time. Patient is alert, rr5 oriented x 3, equal unlabored respirations, skin warm/dry/pink. awaiting for result. 23:57 Reassessment: Patient appears in no apparent distress at this time. Patient is alert, rr5 oriented x 3, equal unlabored respirations, skin warm/dry/pink. review done planning for transfer. 02/10 01:10 Reassessment: a covid 19 test has been performed and the swab has been sent to the outside lab per hospital protocol. 02:34 Reassessment: Patient appears in no apparent distress at this time. Patient is alert, rr5 oriented x 3, equal unlabored respirations, skin warm/dry/pink. 03:30 Reassessment: Patient appears in no apparent distress at this time. resting eyes closed rr5 breathing spontaneously at room air. 04:00 Reassessment: call made to critical access hospital report given to akil RENE and accepted the rr5 case. 04:20 Reassessment: Patient appears in no apparent distress at this time. report given to rr5 LJEMS awake alert vital signs taken and recorded no complaints made. security staff katia informed that patient will be transfer to [facility] his truck is in the parking lot. Vital Signs: 02/09 19:53 BP 177 / 94; Pulse 89; Resp 16 S; Temp 97.6(TE); Pulse Ox 97% on R/A; Weight 72.57 kg ca1 (R); Height 5 ft. 8 in. (172.72 cm) (R); Pain 9/10; 22:00 BP 172 / 86; Pulse 80; Resp 19; Pulse Ox 99% ; rr5 23:00 BP 165 / 89; Pulse 75; Resp 17; Pulse Ox 98% ; rr5 23:57 BP 160 / 69; Pulse 74; Resp 18; Pulse Ox 99% ; rr5 11 01:00 BP 166 / 80; Pulse 70; Resp 17; Pulse Ox 99% ; rr5 02:00 BP 162 / 85; Pulse 79; Resp 17; Pulse Ox 98% ; rr5 03:20 BP 169 / 89; Pulse 70; Resp 15; Pulse Ox 98% ; rr5 04:20 BP 163 / 82; Pulse 80; Resp 16; Temp 98; Pulse Ox 99% ; rr5 02/09 19:53 Body Mass Index 24.33 (72.57 kg, 172.72 cm) ca1 ED Course: 02/09 19:47 Patient arrived in ED. bp1 19:57 Triage completed. ca1 19:58 Arm band placed on right wrist. ca1 20:26 Trae Mustafa PA is PHCP. cp 20:26 Carroll George MD is Attending Physician. cp 20:28 Jez Flowers, ANJU is Primary Nurse. rr5 20:37 Foot Left 3 View XRAY In Process Unspecified. EDMS 21:00 Patient has correct armband on for positive identification. Bed in low position. Call rr5 light in reach. Side rails up X2. Pulse ox on. NIBP on. 21:43 Inserted saline lock: 20 gauge in left forearm, using aseptic technique. Blood rr5 collected. 22:53 US LE Artery Uni Ltd In Process Unspecified. EDMS 22:53 US Extremity Venous Unilateral Ltd In Process Unspecified. EDMS 23:57 Initiated transfer at [facility] with Pamela. Stated she would work on the request tt3 and call back. 02/10 00:30 Pamela called back with their vascular physician to speak with JHONATHAN Brooks, tt3 regarding the transfer request. 00:46 Pamela called back with their hospitalist to speak with JHONATHAN Broosk, regarding the tt3 transfer request. 01:35 First set of blood cultures drawn by me. rr5 01:50 Second set of blood cultures drawn by me. rr5 03:05 Called the transfer center and spoke with Nydia. Informed her the transfer was tt3 initiated earlier and were just waiting on covid results. Per her request, the results were faxed to [phone]. 03:07 Followed up and spoke with Joseline who transferred me to Pamela. Pamela states that tt3 she received the results and is passing that on to the physician and will begin to work on getting a bed. 03:34 Pamela gave admin approval. The accepting physician is Dr. Washington. The pt is going to tt3 room 1649. Face sheet faxed to . Nurse to call report to [phone]. 03:44 [facility] to transfer pt. tt3 04:25 No provider procedures requiring assistance completed. Patient transferred, IV remains rr5 in place. intact, No redness/swelling at site. Administered Medications: 02/09 21:42 Drug: morphine 4 mg {Note: rass 0.} Route: IVP; Site: right forearm; rr5 22:40 Follow up: Response: No adverse reaction rr5 02/10 00:06 Drug: Lovenox 1 mg/kg Route: Sub-Q; Site: right lower abdomen; rr5 01:00 Follow up: Response: No adverse reaction rr5 02:00 Drug: NS 0.9% 1000 ml Route: IV; Rate: 1 bolus; Site: left forearm; rr5 04:00 Follow up: Response: No adverse reaction; IV Status: Completed infusion; IV Intake: rr5 1000ml 02:00 Dru.375 grams of (Zosyn 3.375 grams, NS 0.9% 100 ml) Route: IVPB; Infused Over: 60 rr5 mins; Site: left forearm; 02:45 Follow up: Response: No adverse reaction; IV Status: Completed infusion; IV Intake: rr5 100ml 02:46 Dru grams of (vancoMYCIN 1 grams, NS 0.9% 250 ml) Route: IVPB; Infused Over: 2 hrs; rr5 Site: left forearm; 04:15 Follow up: Response: No adverse reaction; IV Status: Completed infusion; IV Intake: rr5 250ml Intake: 02:45 IV: 100ml; Total: 100ml. rr5 04:00 IV: 1000ml; Total: 1100ml. rr5 04:15 IV: 250ml; Total: 1350ml. rr5 Outcome: 00:35 ER care complete, transfer ordered by MD. cp 04:26 Transferred by ground EMS to [facility], Transfer form completed. rr5 04:26 Instructed on the need for transfer. 04:26 Condition: stable rr5 04:28 Patient left the ED. rr5 Signatures: Dispatcher [employer] EDMS Dustin Oneill RN ANJU sg Trae Mustafa PA PA cp Roque, Raymond RN RN rr5 Rachel Garcia RN RN [facility] Natalie Hernandez Tyler tt3 Corrections: (The following items were deleted from the chart) 02/09 21:43 20:30 Cardiovascular: Capillary refill is > 3 seconds Patient's skin is warm and dry. rr5 Pulses weak on the dorsalis pedis rr5 02/10 03:37 03:07 Followed up and spoke with Joseline who transferred me to Viri. Viri tt3 states that she received the results and is passing that on to the physician and will begin to work on getting a bed. tt3 03:44 03:34 Pamela gave admin approval. The accepting physician is Dr. Washington. The pt is tt3 going to room 2542. Face sheet faxed to . Nurse to call report to [phone]. tt3
[2020-02-11] MEDS ORDERED: NA CHLORIDE 0.9% 1,000 ML ONE (01:20)
[2020-02-11] MEDS ORDERED: PIPER/TAZO/NS 3.375gm 3.375 GM/100 ML BAG ONE (01:20)
[2020-02-11] MEDS ORDERED: NA CHLORIDE 0.9% 250 ML ONE (01:20)
[2020-02-11] MEDS ORDERED: VANCOMYCIN 1 GM/VIAL ONE (01:20)
[2020-02-11 10:08] VITALS: BP 163/82; TEMP 98; O2SAT 99
--- NOTE | 2020-02-11 10:54 | RAD REPORT ---
EXAM DESCRIPTION: Extremity Venous Uni Ltd CLINICAL HISTORY: 59 years, Male, PAIN COMPARISON: None. FINDINGS: Duplex imaging of the deep venous system of the left lower extremity was performed with vi sualization from the common femoral veins to the popliteal veins and posterior tibial vein. There is normal compressibility, augmentation and flow with no visualized thrombus. Nonspecific echogenic material in the popliteal vein. No focal fluid collection is identified. IMPRESSION: No left lower extremity DVT. Electronically signed by: Bhanu Garcia DO 02/10/2020 11:17 PM [employer]PER[employer] SUPERVISOR Due to temporary technical issues with the PACS/Fluency reporting system, reports are being signed by the in house radiologists without review as a courtesy to insure prompt reporting. The interpreting radiologist is fully responsible for the content of the report.
--- NOTE | 2020-02-11 10:55 | RAD REPORT ---
EXAM DESCRIPTION: Lower Extremity Artery Uni Ltd CLINICAL HISTORY: 59 years Male, left great toe pain/discoloration COMPARISON: None. TECHNIQUE: Grayscale, color Doppler, and spectral Doppler imaging of the left largely arteries. FINDINGS: Velocities: (All velocities in centimeters per second) Left lower extremity- RESEARCH NUTRITIONIST: 81 PFA: 15 Proximal SFA: 32 Mid SFA: No flow identified. Distal SFA: 16 Popliteal: 27 BIOMEDICAL EQUIPMENT SPECIALIST: 34 DPA: 15 Doppler imaging: Left leg: Monophasic waveforms in the left common femoral artery. Conversion to a parvus tardus mon ophasic waveforms in the proximal left superficial femoral artery. There appears to be occlusion of f low or very high-grade stenosis in the mid left superficial femoral artery. There are parvus tardus m onophasic waveforms throughout the remainder of the distal left SFA, left popliteal artery, posterior tibial artery, and dorsalis pedis artery. No areas of elevated velocity identified. IMPRESSION: 1. Monophasic waveforms in the left common femoral artery suggest inflow stenosis involv ing the aortoiliac system. 2. Significantly diminished velocity and acceleration in the proximal left superficial femoral artery suggests flow-limiting stenosis at the origin of the left SFA. 3. Occlusion versus very high-grade stenosis of the mid left SFA with no flow identified. 4. Significantly diminished velocities throughout the left lower extremity distal to the mid left SFA . Evaluation for downstream stenosis is suboptimal due to more proximal stenoses. 5. CTA of the abdominal aorta and left lower extremity would provide more complete characterization. Electronically signed by: Gulshan Peterson 02/10/2020 11:50 PM [employer] MACHINE TENDER Due to temporary technical issues with the PACS/Fluency reporting system, reports are being signed by the in house radiologists without review as a courtesy to insure prompt reporting. The interpreting radiologist is fully responsible for the content of the report.
== END 2020-02-11 04:28 | disposition short-term general hospital (02) ==
LOC: ER 19:43
DX: I74.3 Embolism and thrombosis of arteries of the lower extremities (principal); I70.212 Atherosclerosis of native arteries of extremities with intermittent claudication, left leg; Z20.828 Contact with and (suspected) exposure to other viral communicable diseases; I10 Essential (primary) hypertension; F17.210 Nicotine dependence, cigarettes, uncomplicated; Z86.73 Personal history of transient ischemic attack (TIA), and cerebral infarction without residual deficits
CPT/HCPCS: 36415; 80048; 83605; 84145; 84550; 85025; 85610; 85730; 87040; 93926; 93971; 96365; 96367; 96372; 96375; 99285; J2543; J3370; J7030; J7050; U0003

== ENCOUNTER 2020-03-02 10:27 | Emergency (ER) | payer SELFPAY ==
--- OUTSIDE RECORDS SUMMARY | 2020-03-02 11:12 | XMS REPORT | Clinical Summary ---
:1960 Author Organization [facility] Address [address] [place] [address] Care Team Providers Name Role Phone Unavailable Primary Care Provider Unavailable Allergies No Known Allergies Medications Medication Sig Dispensed Refills Start Date End Date Status aspirin 81 MG chewable Take 1 tablet 30 tablet 0 02/22/2020 Active tablet (81 mg total) by mouth daily. atorvastatin (LIPITOR) Take 1 tablet 30 tablet 0 02/21/2020 Active 80 MG tablet (80 mg total) by mouth nightly. clopidogreL (PLAVIX) Take 1 tablet 30 tablet 0 02/22/202002/02 Active 75 mg tablet (75 mg total) by mouth daily. pantoprazole Take 1 tablet 30 tablet 0 02/21/2020 Ac tive (PROTONIX) 20 MG (20 mg total) tablet by mouth daily. ondansetron Take 1 tablet 20 tablet 0 02/21/2020 02/28/2020 Ex pired (ZOFRAN-ODT) 4 MG (4 mg total) by disintegrating tablet mouth every 8 (eight) hours as needed for up to 7 days. HYDROcodone-acetaminop Take 1 tablet 20 tablet 0 02/21/2020 hen (NORCO 5-325) by mouth every 5-325 mg per tablet 8 (eight) hours as needed for up to 7 days. Max Daily Amount: 3 tablets Active Problems Problem Noted Date S/P vascular surgery 02/17/2020 Ischemic toe 02/11/2020 Tobacco abuse HTN (hypertension) PAD (peripheral artery disease) Hyperglycemia Encounter for tobacco use cessation counseling Skin ulcer of toe of left foot, limited to breakdown o f skin Ischemia of Left foot Encounters Date Type Specialty Care Team Description 02/18/2020 Anesthesia Event Dtotie Rosado M D Liu, Tyrese Cavanaugh MD 02/18/2020 Surgery Pallister, EXPLORATION,ART LOLA Juan Carlos Knight MD 02/17/2020 Surgery Pallister, BYPASS,FEMORAL- POPLIT BERNARD Roy MD 02/17/2020 Anesthesia Event Duglas Walsh MD Hartman, John Jeffrey 02/13/2020 Orders Only General Internal Medicine 02/11/2020 - Hospital Encounter Cardiology Jenni Washington Ischemic toe (Primary Dx); 02/21/2020 MD Lillian Toe ulcer, left, with unspecified severi ty ([facility]LY [facility]); Tanesha Rubio hype rtension; MD Krissy Tobacco abuse; Darrell Kumar, Preoperative cardiovascular examination; Encounter for tobacco use cessation coun seling; Guicho Neal Hyperglycemia; MD Charlie Ischemia of foot; Mele Mena PAD (periphe ral artery disease) ([facility]); MD Jason S/P vascular stevens rgery; Skin ulcer of t oe of left foot, limited to breakdown of skin ([facility]) 02/11/2020 Travel after 03/02/2019 Social History Tobacco Use Types Packs/Day Years Used Date Current Every Day Smoker 0.5 Alcohol Use Drinks/Week oz/Week Comments Yes Alcohol Habits Answer Date Recorded How often do you have a drink containing alcohol? 2-3 times a week 02/11/2020 How many drinks containing alcohol do you have on a Not aske d typical day when you are drinking? How often do you have six or more drinks on one Not asked occasion? Sex Assigned at Date Recorded Not on file COVID-19 Exposure Response Date Recorded In the last month, have you been in contact with No / Unsure 02/11/2020 6:59 AM CREAM GATHERER someone who was confirmed or suspected to have Coronavirus / COVID-19? Last Filed Vital Signs Vital Sign Reading Time Taken Comments Blood Pressure 124/71 02/21/2020 11:00 AM CREAM GATHERER Pulse 88 02/21/2020 1:38 PM CREAM GATHERER Temperature 35.8 C (96.4 F) 02/21/2020 11:00 AM CREAM GATHERER Respiratory Rate 16 02/21/2020 1:38 PM CREAM GATHERER Oxygen Saturation 95% 02/21/2020 1:38 PM CREAM GATHERER Inhaled Oxygen Concentration 21% 02/17/2020 6:41 PM CREAM GATHERER Weight 73.7 kg (162 lb 7.7 oz) 02/21/2020 8:15 AM CREAM GATHERER Height 167.6 cm (5' 6") 02/14/2020 9:00 PM CREAM GATHERER Body Mass Index 26.22 02/14/2020 9:00 PM CREAM GATHERER Plan of Treatment Health Maintenance Due Date Last Done Comments COLON CANCER SCREENING COLONOSCOPY 1960 LIPID PANEL 11/28/1994 INFLUENZA VACCINE (#1) 2019 PNEUMOCOCCAL VACCINE 0-64 YRS Completed 11/20/2017 Implants Implanted Type Area Paint Roller Assembler Device Shelf Model / Identifier Expiration Serial / Date Lot Stnt Blln Vbx [id number] - [id number] IMPLANTS Left: WL GORE & 04/17/2022 [id number] / Implanted: Qty: 1 on 02/17/2020 by Juan Carlos Bob MD at [facility] Arterial ASSC:MED PRDT [id number] / N/A Description:STNT BLLN VBX [id number] - [id number] Stnt Blln Vbx [id number] - [id number] IMPLANTS Left: Arterial WL GORE & 11/02/2021 [id number] / Implanted: Qty: 1 on 02/17/2020 by Juan Carlos Bob MD at [facility] ASSC:MED PRDT [id number] / N/A Description:STNT BLLN VBX [id number] - [id number] Stent Inn0va [id number] - Sn/A IMPLANTS Left: [place] 10/17/2021 [id number] / Implanted: Qty: 1 on 02/17/2020 by Juan Carlos Bob MD at [facility] Arterial SCI:PERIPHERAL N/A / INTERV [id number] Procedures Procedure Name Priority Date/Time Associated Comments Diagnosis POCT-GLUCOSE METER Routine 02/21/2020 8:17 Resul ts for this AM CREAM GATHERER procedure are i n the results section. PROTHROMBIN TIME/INR Routine 02/21/2020 4:34 Res ults for this AM CREAM GATHERER procedure are i n the results section. PHOSPHORUS Routine 02/21/2020 4:34 Results for this AM CREAM GATHERER procedure are i n the results section. MAGNESIUM Routine 02/21/2020 4:34 Results for this AM CREAM GATHERER procedure are i n the results section. BASIC METABOLIC PANEL Routine 02/21/2020 4:34 Re sults for this (7) AM CREAM GATHERER procedure are i n the results section. CBC (HEMOGRAM ONLY) Routine 02/21/2020 4:34 Resu lts for this AM CREAM GATHERER procedure are i n the results section. APTT Routine 02/21/2020 4:34 Results for this AM CREAM GATHERER procedure are i n the results section. POCT-GLUCOSE METER Routine 02/20/2020 8:58 Resul ts for this PM CREAM GATHERER procedure are i n the results section. POCT-GLUCOSE METER Routine 02/20/2020 5:13 Resul ts for this PM CREAM GATHERER procedure are i n the results section. POCT-GLUCOSE METER Routine 02/20/2020 11:10 Resul ts for this AM CREAM GATHERER procedure are i n the results section. POCT-GLUCOSE METER Routine 02/20/2020 7:47 Resul ts for this AM CREAM GATHERER procedure are i n the results section. PREPARE RBC STAT 02/20/2020 6:25 Results for this AM CREAM GATHERER procedure are i n the results section. PROTHROMBIN TIME/INR Routine 02/20/2020 4:21 Res ults for this AM CREAM GATHERER procedure are i n the results section. PHOSPHORUS Routine 02/20/2020 4:21 Results for this AM CREAM GATHERER procedure are i n the results section. MAGNESIUM Routine 02/20/2020 4:21 Results for this AM CREAM GATHERER procedure are i n the results section. BASIC METABOLIC PANEL Routine 02/20/2020 4:21 Re sults for this (7) AM CREAM GATHERER procedure are i n the results section. CBC (HEMOGRAM ONLY) Routine 02/20/2020 4:21 Resu lts for this AM CREAM GATHERER procedure are i n the results section. APTT Routine 02/20/2020 4:21 Results for this AM CREAM GATHERER procedure are i n the results section. POCT-GLUCOSE METER Routine 02/19/2020 9:11 Resul ts for this PM CREAM GATHERER procedure are i n the results section. POCT-GLUCOSE METER Routine 02/19/2020 4:29 Resul ts for this PM CREAM GATHERER procedure are i n the results section. POCT-GLUCOSE METER Routine 02/19/2020 11:43 Resul ts for this AM CREAM GATHERER procedure are i n the results section. POCT-GLUCOSE METER Routine 02/19/2020 7:10 Resul ts for this AM CREAM GATHERER procedure are i n the results section. PROTHROMBIN TIME/INR Routine 02/19/2020 4:34 Res ults for this AM CREAM GATHERER procedure are i n the results section. PHOSPHORUS Routine 02/19/2020 4:34 Results for this AM CREAM GATHERER procedure are i n the results section. MAGNESIUM Routine 02/19/2020 4:34 Results for this AM CREAM GATHERER procedure are i n the results section. BASIC METABOLIC PANEL Routine 02/19/2020 4:34 Re sults for this (7) AM CREAM GATHERER procedure are i n the results section. CBC (HEMOGRAM ONLY) Routine 02/19/2020 4:34 Resu lts for this AM CREAM GATHERER procedure are i n the results section. APTT Routine 02/19/2020 4:34 Results for this AM CREAM GATHERER procedure are i n the results section. POCT-GLUCOSE METER Routine 02/18/2020 9:55 Resul ts for this PM CREAM GATHERER procedure are i n the results section. EXPLORATION,ARTERY 02/18/2020 7:28 Hematoma PM CREAM GATHERER POCT-GLUCOSE METER Routine 02/18/2020 4:17 Resul ts for this PM CREAM GATHERER procedure are i n the results section. POCT-GLUCOSE METER Routine 02/18/2020 12:16 Resul ts for this PM CREAM GATHERER procedure are i n the results section. SARS-COV2/RT-PCR Routine 02/18/2020 8:34 Results for this ([facility]) AM CREAM GATHERER procedure are in the results section. PROTHROMBIN TIME/INR Routine 02/18/2020 3:35 Res ults for this AM CREAM GATHERER procedure are i n the results section. PHOSPHORUS Routine 02/18/2020 3:35 Results for this AM CREAM GATHERER procedure are i n the results section. MAGNESIUM Routine 02/18/2020 3:35 Results for this AM CREAM GATHERER procedure are i n the results section. BASIC METABOLIC PANEL Routine 02/18/2020 3:35 Re sults for this (7) AM CREAM GATHERER procedure are i n the results section. CBC (HEMOGRAM ONLY) Routine 02/18/2020 3:35 Resu lts for this AM CREAM GATHERER procedure are i n the results section. APTT Routine 02/18/2020 3:35 Results for this AM CREAM GATHERER procedure are i n the results section. POCT-GLUCOSE METER Routine 02/17/2020 10:16 Resul ts for this PM CREAM GATHERER procedure are i n the results section. XR CHEST 1 VIEW Routine 02/17/2020 9:03 Results for this PORTABLE/BEDSIDE PM CREAM GATHERER procedure a re in the results section. POCT-GLUCOSE METER Routine 02/17/2020 5:47 Resul ts for this PM CREAM GATHERER procedure are i n the results section. PHOSPHORUS STAT 02/17/2020 5:44 Results for this PM CREAM GATHERER procedure are i n the results section. MAGNESIUM STAT 02/17/2020 5:44 Results for this PM CREAM GATHERER procedure are i n the results section. BASIC METABOLIC PANEL STAT 02/17/2020 5:44 Re sults for this (7) PM CREAM GATHERER procedure are i n the results section. CBC W/PLT COUNT & STAT 02/17/2020 4:48 Result s for this AUTO DIFFERENTIAL PM CREAM GATHERER procedure are in the results section. CALCIUM, IONIZED STAT 02/17/2020 4:48 Results for this PM CREAM GATHERER procedure are i n the results section. PROTHROMBIN TIME/INR STAT 02/17/2020 4:48 Res ults for this PM CREAM GATHERER procedure are i n the results section. APTT STAT 02/17/2020 4:48 Results for this PM CREAM GATHERER procedure are i n the results section. PHOSPHORUS STAT 02/17/2020 4:48 Results for this PM CREAM GATHERER procedure are i n the results section. MAGNESIUM STAT 02/17/2020 4:48 Results for this PM CREAM GATHERER procedure are i n the results section. CBC W/PLT COUNT & STAT 02/17/2020 4:48 Result s for this AUTO DIFFERENTIAL PM CREAM GATHERER procedure are in the results section. BASIC METABOLIC PANEL STAT 02/17/2020 4:48 Re sults for this (7) PM CREAM GATHERER procedure are i n the results section. POCT-GLUCOSE METER Routine 02/17/2020 2:41 Resul ts for this PM CREAM GATHERER procedure are i n the results section. PREPARE RBC STAT 02/17/2020 12:47 Results for this PM CREAM GATHERER procedure are i n the results section. POCT-ACT Routine 02/17/2020 11:22 Results for this AM CREAM GATHERER procedure are i n the results section. POCT-ACT Routine 02/17/2020 10:46 Results for this AM CREAM GATHERER procedure are i n the results section. HGB/HCT (H&H) - STAT STAT 02/17/2020 10:23 Res ults for this LAB AM CREAM GATHERER procedure are i n the results section. GLUCOSE-STAT LAB STAT 02/17/2020 10:23 Results for this AM CREAM GATHERER procedure are i n the results section. POTASSIUM-STAT LAB STAT 02/17/2020 10:23 Resul ts for this AM CREAM GATHERER procedure are i n the results section. SODIUM NA-STAT LAB STAT 02/17/2020 10:23 Resul ts for this AM CREAM GATHERER procedure are i n the results section. BLOOD GAS, ARTERIAL STAT 02/17/2020 10:23 Resu lts for this AM CREAM GATHERER procedure are i n the results section. BLOOD GAS, ARTERIAL STAT 02/17/2020 10:23 Resu lts for this AM CREAM GATHERER procedure are i n the results section. POCT-ACT Routine 02/17/2020 9:58 Results for this AM CREAM GATHERER procedure are i n the results section. HGB/HCT (H&H) - STAT STAT 02/17/2020 9:52 Res ults for this LAB AM CREAM GATHERER procedure are i n the results section. GLUCOSE-STAT LAB STAT 02/17/2020 9:52 Results for this AM CREAM GATHERER procedure are i n the results section. POTASSIUM-STAT LAB STAT 02/17/2020 9:52 Resul ts for this AM CREAM GATHERER procedure are i n the results section. SODIUM NA-STAT LAB STAT 02/17/2020 9:52 Resul ts for this AM CREAM GATHERER procedure are i n the results section. BLOOD GAS, ARTERIAL STAT 02/17/2020 9:52 Resu lts for this AM CREAM GATHERER procedure are i n the results section. CALCIUM, IONIZED STAT 02/17/2020 9:52 Results for this AM CREAM GATHERER procedure are i n the results section. BLOOD GAS, ARTERIAL STAT 02/17/2020 9:52 Resu lts for this AM CREAM GATHERER procedure are i n the results section. POCT-ACT Routine 02/17/2020 9:22 Results for this AM CREAM GATHERER procedure are i n the results section. HGB/HCT (H&H) - STAT STAT 02/17/2020 8:30 Res ults for this LAB AM CREAM GATHERER procedure are i n the results section. GLUCOSE-STAT LAB STAT 02/17/2020 8:30 Results for this AM CREAM GATHERER procedure are i n the results section. POTASSIUM-STAT LAB STAT 02/17/2020 8:30 Resul ts for this AM CREAM GATHERER procedure are i n the results section. SODIUM NA-STAT LAB STAT 02/17/2020 8:30 Resul ts for this AM CREAM GATHERER procedure are i n the results section. BLOOD GAS, ARTERIAL STAT 02/17/2020 8:30 Resu lts for this AM CREAM GATHERER procedure are i n the results section. CALCIUM, IONIZED STAT 02/17/2020 8:30 Results for this AM CREAM GATHERER procedure are i n the results section. BLOOD GAS, ARTERIAL STAT 02/17/2020 8:30 Resu lts for this AM CREAM GATHERER procedure are i n the results section. ANGIOPLASTY,ARTERIAL- 02/17/2020 7:10 PAD (peripheral LOWER AM CREAM GATHERER artery disease) (FORMERLY [facility]) Case Notes 4 HRS(REQ HYBRID ROOM) Special Needs (REQ 7:30) BYPASS,FEMORAL-POPLITEAL 02/17/2020 7:10 AM CREAM GATHERER PAD (peripheral artery disease) ([facility]) Case Notes 4 HRS(REQ HYBRID ROOM) Special Needs (REQ 7:30) CBC W/PLT COUNT & AUTO Routine 02/17/2020 4:40 AM CREAM GATHERER Results for this DIFFERENTIAL procedure are i n the results section . PT/APTT Routine 02/17/2020 4:40 AM CREAM GATHERER Resu lts for this procedure are i n the results section . BASIC METABOLIC PANEL (7) Routine 02/17/2020 4:40 AM CREAM GATHERER Results for this procedure are i n the results section . CBC W/PLT COUNT & AUTO Routine 02/17/2020 4:40 AM CREAM GATHERER Results for this DIFFERENTIAL procedure are i n the results section . ABORH, MANUAL STAT 02/16/2020 10:40 PM CREAM GATHERER Res ults for this procedure are i n the results section . TYPE AND SCREEN, AUTOMATED Routine 02/16/2020 9:27 PM CREAM GATHERER Results for this procedure are i n the results section . APTT Routine 02/16/2020 9:27 PM CREAM GATHERER Resu lts for this procedure are i n the results section . POCT-GLUCOSE METER Routine 02/16/2020 9:01 PM CREAM GATHERER Results for this procedure are i n the results section . POCT-GLUCOSE METER Routine 02/16/2020 5:27 PM CREAM GATHERER Results for this procedure are i n the results section . APTT Routine 02/16/2020 3:25 PM CREAM GATHERER Resu lts for this procedure are i n the results section . POCT-GLUCOSE METER Routine 02/16/2020 12:02 PM CREAM GATHERER Results for this procedure are i n the results section . APTT Routine 02/16/2020 9:25 AM CREAM GATHERER Resu lts for this procedure are i n the results section . POCT-GLUCOSE METER Routine 02/16/2020 7:51 AM CREAM GATHERER Results for this procedure are i n the results section . APTT Routine 02/16/2020 6:44 AM CREAM GATHERER Resu lts for this procedure are i n the results section . SARS-COV2/RT-PCR (HS & Routine 02/16/2020 4:51 AM CREAM GATHERER Results for this REF LABS) procedure are i n the results section . APTT Routine 02/16/2020 12:00 AM CREAM GATHERER Resu lts for this procedure are i n the results section . POCT-GLUCOSE METER Routine 02/15/2020 9:34 PM CREAM GATHERER Results for this procedure are i n the results section . APTT Routine 02/15/2020 4:37 PM CREAM GATHERER Resu lts for this procedure are i n the results section . 2D ECHO W/ DOPPLER MALACHI 02/15/2020 2:50 PM CREAM GATHERER Results for this (CW/PW/COLOR) procedure are in the results section . POCT-GLUCOSE METER Routine 02/15/2020 12:46 PM CREAM GATHERER Results for this procedure are i n the results section . NM MYOCARDIAL PERFUSION Routine 02/15/2020 11:39 AM CREAM GATHERER Results for this PET/CT (REST & STRESS) proce dure are in the results section . TREADMILL Routine 02/15/2020 11:35 AM CREAM GATHERER Resu lts for this TOLERANCE(NON-NUCLEAR proced ure are in the TREADMILL) results section . ECG 12-LEAD Routine 02/15/2020 11:05 AM CREAM GATHERER Resu lts for this procedure are i n the results section . ECG 12-LEAD Routine 02/15/2020 11:05 AM CREAM GATHERER Procedure Note - Interface, External Ris In - 02/15/2020 11:55 AM CREAM GATHERER Ventricular Rate 71 BPM Atrial Rate 71 BPM P-R Interval 156 ms QRS Duration 92 ms Q-T Interval 392 ms QTC Calculation(Bazett) 425 ms P Twain 36 degrees R Twain 7 degrees T Twain 42 degrees Normal sinus rhythm Normal ECG ECG 12-LEAD Routine 02/15/2020 11:05 AM CREAM GATHERER Procedure Note - Interface, External Ris In - 02/15/2020 11:55 AM CREAM GATHERER Ventricular Rate 70 BPM Atrial Rate 92 BPM P-R Interval 150 ms QRS Duration 98 ms Q-T Interval 384 ms QTC Calculation(Bazett) 414 ms P Twain 19 degrees R Twain 10 degrees T Twain 48 degrees Undetermined rhythm Otherwise normal ECG POCT-GLUCOSE METER Routine 02/15/2020 7:49 AM CREAM GATHERER Results for this procedure are i n the results section . APTT Routine 02/15/2020 7:42 AM CREAM GATHERER Resu lts for this procedure are i n the results section . APTT Routine 02/15/2020 12:53 AM CREAM GATHERER Resu lts for this procedure are i n the results section . POCT-GLUCOSE METER Routine 02/14/2020 11:41 PM CREAM GATHERER Results for this procedure are i n the results section . APTT Routine 02/14/2020 5:59 PM CREAM GATHERER Resu lts for this procedure are i n the results section . POCT-GLUCOSE METER Routine 02/14/2020 5:17 PM CREAM GATHERER Results for this procedure are i n the results section . POCT-GLUCOSE METER Routine 02/14/2020 11:37 AM CREAM GATHERER Results for this procedure are i n the results section . APTT Routine 02/14/2020 10:41 AM CREAM GATHERER Resu lts for this procedure are i n the results section . CBC W/PLT COUNT & AUTO Routine 02/14/2020 3:26 AM CREAM GATHERER Results for this DIFFERENTIAL procedure are i n the results section . APTT Routine 02/14/2020 3:26 AM CREAM GATHERER Resu lts for this procedure are i n the results section . BASIC METABOLIC PANEL (7) Routine 02/14/2020 3:26 AM CREAM GATHERER Results for this procedure are i n the results section . CBC W/PLT COUNT & AUTO Routine 02/14/2020 3:26 AM CREAM GATHERER Results for this DIFFERENTIAL procedure are i n the results section . APTT Routine 02/14/2020 12:14 AM CREAM GATHERER Resu lts for this procedure are i n the results section . ECG 12-LEAD Routine 02/13/2020 7:18 PM CREAM GATHERER Procedure Note - Interface, External Ris In - 02/13/2020 6:21 PM CREAM GATHERER Ventricular Rate 65 BPM Atrial Rate 65 BPM P-R Interval 154 ms QRS Duration 104 ms Q-T Interval 394 ms QTC Calculation(Bazett) 409 ms P Twain 47 degrees R Twain 12 degrees T Twain 46 degrees Normal sinus rhythm Normal ECG No previous ECGs available ECG 12-LEAD Routine 02/13/2020 7:18 PM CREAM GATHERER Resu lts for this procedure are i n the results section . APTT Routine 02/13/2020 6:30 PM CREAM GATHERER Resu lts for this procedure are i n the results section . APTT Routine 02/13/2020 11:05 AM CREAM GATHERER Resu lts for this procedure are i n the results section . CBC W/PLT COUNT & AUTO Routine 02/13/2020 3:29 AM CREAM GATHERER Results for this DIFFERENTIAL procedure are i n the results section . APTT Routine 02/13/2020 3:29 AM CREAM GATHERER Resu lts for this procedure are i n the results section . BASIC METABOLIC PANEL (7) Routine 02/13/2020 3:29 AM CREAM GATHERER Results for this procedure are i n the results section . CBC W/PLT COUNT & AUTO Routine 02/13/2020 3:29 AM CREAM GATHERER Results for this DIFFERENTIAL procedure are i n the results section . APTT Routine 02/12/2020 9:47 PM CREAM GATHERER Resu lts for this procedure are i n the results section . APTT Routine 02/12/2020 2:43 PM CREAM GATHERER Resu lts for this procedure are i n the results section . CBC W/PLT COUNT & AUTO Routine 02/12/2020 5:36 AM CREAM GATHERER Results for this DIFFERENTIAL procedure are i n the results section . APTT Routine 02/12/2020 5:36 AM CREAM GATHERER Resu lts for this procedure are i n the results section . BASIC METABOLIC PANEL (7) Routine 02/12/2020 5:36 AM CREAM GATHERER Results for this procedure are i n the results section . CBC W/PLT COUNT & AUTO Routine 02/12/2020 5:36 AM CREAM GATHERER Results for this DIFFERENTIAL procedure are i n the results section . APTT Routine 02/11/2020 10:59 PM CREAM GATHERER Resu lts for this procedure are i n the results section . CT/CTA AAA AND RUNOFF MALACHI 02/11/2020 9:49 PM CREAM GATHERER Results for this procedure are i n the results section . C-REACTIVE PROTEIN Routine 02/11/2020 3:31 PM CREAM GATHERER Results for this procedure are i n the results section . LACTIC ACID, VENOUS Routine 02/11/2020 3:31 PM CREAM GATHERER Results for this procedure are i n the results section . BASIC METABOLIC PANEL (7) Routine 02/11/2020 3:31 PM CREAM GATHERER Results for this procedure are i n the results section . CBC W/PLT COUNT & AUTO Routine 02/11/2020 3:30 PM CREAM GATHERER Results for this DIFFERENTIAL procedure are i n the results section . APTT Routine 02/11/2020 3:30 PM CREAM GATHERER Resu lts for this procedure are i n the results section . APTT Routine 02/11/2020 3:30 PM CREAM GATHERER Resu lts for this procedure are i n the results section . HEMOGLOBIN A1C Routine 02/11/2020 3:30 PM CREAM GATHERER Re sults for this procedure are i n the results section . PROTHROMBIN TIME/INR Routine 02/11/2020 3:30 PM CREAM GATHERER Results for this procedure are i n the results section . CBC W/PLT COUNT & AUTO Routine 02/11/2020 3:30 PM CREAM GATHERER Results for this DIFFERENTIAL procedure are i n the results section . HC ARTERIAL(ALEKS W Routine 02/11/2020 1:05 PM CREAM GATHERER Results for this DOPPLER)ONLY procedure are i n the results section . ARTERIAL DOPPLER LEG, LEFT Routine 02/11/2020 12:43 PM CREAM GATHERER Results for this procedure are i n the results section . after 03/02/2019 Results POC-Glucose meter (02/21/2020 8:17 AM CREAM GATHERER)Only the most recent of25 results within the time period is included. [facility] Signature POC-Glucose Meter 130 (H) 70 - 110 mg/dL [facility] Comment: [facility] : TESTED AT [address], [address] CENTER : General Medical Practitioner/Assistant Manager Trainee ID = [id number] for Marisol Leach Specimen Blood Performing Organization Address City/[facility]/Zipcode Phone Number [address] [phone] [place] aPTT (02/21/2020 4:34 AM CREAM GATHERER)Only the most recent of26 resultswithin the time period is included. Pathologist Sig nature PTT 26.1 22.5 - 36.0 seconds [facility] Specimen Blood Performing Organization Address City/[facility]/Zipcode Phone Number [address] [phone] CENTER Prothrombin time/INR (02/21/2020 4:34 AM CREAM GATHERER)Only the most recent of6 results within the time period is included. Pathologist Sig nature Protime 13.0 11.9 - 14.2 seconds [facility] INR 1.01 <=5.90 [facility] Specimen Blood Narrative Performed At Effective 08/29/2018: PT Reference Range [facility] Change New: 11.9-14.2 Previous: 11.7-14.7 RECOMMENDED COUMADIN/WARFARIN INR THERAPY RANGES STANDARD DOSE: 2.0-3.0 Includes: PROPHYLAXIS for venous thrombosis, systemic embolization; TREATMENT for venous thrombosis and/or pulmonary embolus. HIGH RISK: Target INR is 2.5-3.5 for patients wiht mechanical heart valves. Performing Organization Address City/[facility]/Zipcode Phone Number [address] [address] CENTER CBC (Hemogram only) (02/21/2020 4:34 AM CREAM GATHERER)Only the most recent of4 results within the time period is included. Pathologist Sig nature WBC 8.5 3.5 - 10.5 K/L [facility] RBC 3.66 (L) 4.63 - 6.08 M/L [facility] Hemoglobin 11.0 (L) 13.7 - 17.5 GM/DL [facility] Hematocrit 33.1 (L) 40.1 - 51.0 % [facility] MCV 90.4 79.0 - 92.2 fL [facility] MCH 30.1 25.7 - 32.2 pg [facility] MCHC 33.2 32.3 - 36.5 GM/DL [facility] RDW 13.8 11.6 - 14.4 % [facility] Platelets 195 150 - 450 K/CU MM [facility] MPV 11.3 9.4 - 12.4 fL [facility] nRBC 0 0 - 0 /100 WBC [facility] Specimen Blood Performing Organization Address City/State/Zipcode Phone Number [place] [phone] [place] [address] CENTER Phosphorus (02/21/2020 4:34 AM CREAM GATHERER)Only the most recent of6 resultswithin the time period is included. Pathologist Sig nature Phosphorus 2.8 2.3 - 4.7 mg/dL [facility] Specimen Blood Narrative Performed At General Medical Practitioner ID - [facility] Performing Organization Address City/[facility]/Zipcode Phone Number [facility] [address] [place] [address] CENTER Magnesium (02/21/2020 4:34 AM CREAM GATHERER)Only the most recent of6 resultswithin the time period is included. Pathologist Sig nature Magnesium 1.8 1.6 - 2.6 mg/dL [facility] Specimen Blood Narrative Performed At General Medical Practitioner ID - [facility] Performing Organization Address [facility] Phone Number [address] [address] [place] Basic Metabolic Panel (02/21/2020 4:34 AM CREAM GATHERER)Only the most recent of11 results within the time period is included. Sodium 135 (L) 136 - 145 meq/L [facility] Potassium 3.5 3.5 - 5.1 meq/L [facility] Chloride 102 98 - 107 meq/L [facility] CO2 24 22 - 29 meq/L [facility] BUN 10 7 - 21 mg/dL [facility] Creatinine 0.80 0.57 - 1.25 [facility] mg/dL [facility] Glucose 142 (H) 70 - 105 mg/dL [facility] Calcium 8.8 8.4 - 10.2 [facility] mg/dL [facility] EGFR 99Comment: ESTIMATED mL/min/1.73 sq [facility] GFR IS NOT m [facility] ACCURATE [place] CREATININE CLEARANCE IN PREDICTING GLOMERULAR FILTRATION RATE. ESTIMATED GFR IS NOT APPLICABLE FOR DIALYSIS PATIENTS. Specimen Blood Narrative Performed At General Medical Practitioner ID - [facility] Performing Organization Address City/State/Zipcode Phone Number [facility] [address] [place] [address] CENTER Prepare RBC (02/20/2020 6:25 AM CREAM GATHERER)Only the most recent of2 resultswithin the time period is included. Pathologist Sig nature CROSSMATCH COMPATIBLE SAFETRACE [place] Unit ABO A Pos SAFETRACE TX UNIT NUMBER [id number] [place] Status WORK IN PROGRESS [place]AF[place] Blood Bank Product RED BLOOD CELLS SAFETRACE TX PRODUCT CODE [id number] SAFETRACE [place] CROSSMATCH COMPATIBLE SAFETRACE TX Unit ABO A Pos SAFETRACE TX UNIT NUMBER [id number] SAFETRACE [place] Status WORK IN PROGRESS SAFETRACE [place] Blood Bank Product RED BLOOD CELLS [place] PRODUCT CODE [id number] [place] Performing Organization Address City/[facility] Phone Number SAFETRACE [place] SARS-CoV2/RT-PCR (Asymptomatic ONLY) (02/18/2020 8:34 AM CREAM GATHERER)Only the most recent of2 resultswithin the time period is included. SARS-COV2/RT-PCR Negative Not Detected, [facility] Negative, See [facility] external report CENTER for linked test SARS-COV-2 [facility] PERFORMING LAB [facility] Specimen Other - Nasopharyngeal wall structure (b dori structure) Narrative Performed At Negative result for this test determines that [facility] SARS-CoV-2 RNA was not present in the specimen above the Limit of Detection (LOD). However, Negative results do not preclude SARS-CoV-2 infection and should not be used as the sole basis for treatment or patient management decisions. Negative results must be combined with clinical observations, patient history, and epidemiological information. A false negative result may occur if a specimen is improperly collected, transported or handled. A false negative result should be considered if patient's recent exposures or clinical presentation indicate that COVID-19 (SARS-CoV-2) is likely and diagnostic tests for other causes of illness are negative. Re-testing should be considered in cases of suspected false negatives. The limit of detection for this assay is 800 copies/mL. This SARS CoV-2 test is a real-time RT-PCR test intended for the qualitative detection of nucleic acid from SARS-CoV-2 in a nasopharyngeal swab specimen collected from individuals suspected of COVID-19 by their healthcare provider. This test has not been Food and Drug Administration (FDA) cleared or approved. This is a modified version of an approved Emergency Use Authorization (EUA) and is in the process of review by the FDA. Once authorized by the FDA, the issued EUA will be effective until the declaration that circumstances exist justifying the authorization of the emergency use of in vitro diagnostic tests for detection and/or diagnosis of COVID-19 is terminated under Section 564(b)(2) of the Act or the EUA is revoked under Section 564(g) of the Act. Fact Sheet for Healthcare Providers: https://www.Effektif/sites/default/files/pro duct/documents/Fact_Sheet_HC_Providers_Lyra_SA RS-CoV-2.pdf Fact Sheet for Healthcare Patients: https://www.[employer]ffekt[employer]/sites/default/files/pro duct/documents/Fact_Sheet_Patients_Lyra_SARS-C oV-2.pdf Performing Laboratory: [place] [address] Performing Organization Address City/State/[place] [address] CENTER XR chest 1 view portable / bedside (02/17/2020 9:03 PM CREAM GATHERER) Specimen Narrative Performed At FINAL REPORT [facility] Chest one view. Clinical history: postop vascular surger y Comparison: None. Technique: A single frontal view of the chest was obtained. Findings: The cardiac silhouette is normal in size . The aorta is uncoiled. There are low lung volumes. There is a s mall left pleural effusion. There are small bibasilar opacities, whi ch may represent subsegmental atelectasis however superimposed pneumon ia cannot be excluded. There is no pneumothorax. There is spondylosis deformans. Signed: Bette Strickland MD Report Verified Date/Time: 02/17/2020 21:36:25 Procedure Note Interface, External Ris In - 02/17/2020 9:38 PM CREAM GATHERER FINAL REPORT Chest one view. Clinical history: postop vascular surger y Comparison: None. Technique: A single frontal view of the chest was obtained. Findings: The cardiac silhouette is normal in size . The aorta is uncoiled. There are low lung volumes. There is a s mall left pleural effusion. There are small bibasilar opacities, whi ch may represent subsegmental atelectasis however superimposed pneumon ia cannot be excluded. There is no pneumothorax. There is spondylosis deformans. Signed: Bette Strickland MD Report Verified Date/Time: 02/17/2020 2 1:36:25 Performing Organization Address City/[facility]/Zipcode Phone Number RIS Calcium, Ionized (02/17/2020 4:48 PM CREAM GATHERER)Only the most recent of3 resultswithin the time period is included. Pathologist Sig nature Calcium, Ion 1.18 1.12 - 1.27 mmol/L [facility] pH, Blood 7.38 [facility] Specimen Blood Performing Organization Address City/[facility]/Zipcode Phone Number [facility] [address] [place] [address] CENTER CBC with platelet count + automated diff (02/17/2020 4:48 PM CREAM GATHERER)Only the most recent of6 resultswithin the time period is included. Pathologist Sig nature WBC 15.1 (H) 3.5 - 10.5 [facility] K/L [facility] RBC 4.38 (L) 4.63 - 6.08 [facility] M/L [facility] Hemoglobin 13.3 (L) 13.7 - 17.5 [facility] GM/DL [facility] Hematocrit 39.4 (L) 40.1 - 51.0 % [facility] MCV 90.0 79.0 - 92.2 fL [facility] MCH 30.4 25.7 - 32.2 pg [facility] MCHC 33.8 32.3 - 36.5 [facility] GM/DL [facility] RDW 13.9 11.6 - 14.4 % [facility] Platelets 188 150 - 450 K/CU [facility] MM [facility] MPV 10.7 9.4 - 12.4 fL [facility] nRBC 0 0 - 0 /100 WBC [facility] % Neutros 93 % [facility] % Lymphs 5 % [facility] % Monos 2 % [facility] % Eos 0 % [facility] % Baso 0 % [facility] # Neutros 13.99 (H) 1.78 - 5.38 [facility] # Lymphs 0.71 (L) 1.32 - 3.57 [facility] # Monos 0.33 0.30 - 0.82 [facility] # Eos 0.00 (L) 0.04 - 0.54 [facility] # Baso 0.03 0.01 - 0.08 [facility] Immature 0 0 - 1 % [facility] Granulocytes-Relativ [facility] MEDICAL e CENTER Specimen Blood Performing Organization Address City/State/Zipcode Phone Number [facility] [address] [place] [address] CENTER POC ACTIVATED CLOTTING TIME (02/17/2020 11:22 AM CREAM GATHERER)Only the most recent of4 resultswithin the time period is included. Activated Clotting 224 sec [facility] Comment: [facility] MEDICAL : 74-137 seconds, Baseline CENTER : TESTED AT [address], [address] : General Medical Practitioner/Assistant Manager Trainee ID = [id number] for LI [place] O Specimen Blood Performing Organization Address [facility] Hospital[facility] Phone Number [address] [address] CENTER Potassium-Stat Lab (02/17/2020 10:23 AM CREAM GATHERER)Only the most recent of3 results within the time period is included. Pathologist Sig nature Potassium 3.9 3.6 - 5.5 meq/L [facility] Specimen Blood, Arterial Performing Organization Address [facility] Hospitalcode Phone Number [address] [address] CENTER Sodium Na-Stat Lab (02/17/2020 10:23 AM CREAM GATHERER)Only the most recent of3 results within the time period is included. Pathologist Sig nature Sodium 137 136 - 145 meq/L [facility] Specimen Blood, Arterial Performing Organization Address [facility] Hospitalcoia Phone Number [address] [address] CENTER Glucose-Stat Lab (02/17/2020 10:23 AM CREAM GATHERER)Only the most recent of3 resultswithin the time period is included. Pathologist Sig nature Glucose 136 (H) 70 - 110 mg/dL [facility] Specimen Blood, Arterial Performing Organization Address [facility] Hospital[facility] Phone Number [address] [phone] CENTER HGB/HCT (H&H)-Stat Lab (02/17/2020 10:23 AM CREAM GATHERER)Only the most recent of3 resultswithin the time period is included. Pathologist Sig nature Hemoglobin 12.9 (L) 13.0 - 16.8 GM/DL [facility] Hematocrit 38.0 (L) 40.0 - 50.0 % [facility] Specimen Blood, Arterial Performing Organization Address City/[facility]/Zipcode Phone Number [facility] [address] [place] [address] [place] Blood gas, arterial (02/17/2020 10:23 AM CREAM GATHERER)Only the most recent of3 results within the time period is included. Pathologist Sig nature pH, Arterial 7.47 (H) 7.35 - 7.45 [facility] pCO2, Arterial 39 35 - 45 mm Hg [facility] pO2, Arterial 164 (H) 80 - 90 mm Hg [facility] O2 Sat, Arterial 99.2 (H) 96.0 - 97.0 % [facility] HCO3, Arterial 28 21 - 29 mmol/L [facility] Base Excess, Arterial 3.5 (H) -2.0 - 3.0 [facility] mmol/L [facility] Patient Temperature 36.1 [facility] FIO2 50.0 [facility] Specimen Blood, Arterial Performing Organization Address City/State/Zipcode Phone Number [facility] [address] [place] [address] [place] PT/aPTT (02/17/2020 4:40 AM CREAM GATHERER) Pathologist Sig nature Protime 12.3 11.9 - 14.2 seconds [facility] INR 0.94 <=5.90 [facility] PTT 29.8 22.5 - 36.0 seconds [facility] Specimen Blood Narrative Performed At Effective 08/29/2018: PT Reference Range [facility] Change New: 11.9-14.2 Previous: 11.7-14.7 RECOMMENDED COUMADIN/WARFARIN INR THERAPY RANGES STANDARD DOSE: 2.0-3.0 Includes: PROPHYLAXIS for venous thrombosis, systemic embolization; TREATMENT for venous thrombosis and/or pulmonary embolus. HIGH RISK: Target INR is 2.5-3.5 for patients wiht mechanical heart valves. Performing Organization Address City/State/Zipcode Phone Number [facility] [address] [place] [phone] CENTER ABORH, manual (02/16/2020 10:40 PM CREAM GATHERER) Pathologist Sig nature ABO Grouping A [facility] [place] Rh Factor POS [facility] Specimen Blood Performing Organization Address City/[facility]/Zipcode Phone Number [address] [address] Type and screen, automated (02/16/2020 9:27 PM CREAM GATHERER) Pathologist Sig nature ABO/RH AUTOMATED A POSITIVE [facility] (BEAKER) [facility] Ab Scrn NEGATIVE [facility] Specimen Blood Performing Organization Address [facility] Hospitalcode Phone Number [address] [address] 2D Echo W/Doppler(CW/PW/Color) (02/15/2020 2:50 PM CREAM GATHERER) Pathologist Sig nature Ejection Fraction [facility] Specimen Narrative Performed At Transthoracic Echocardiography Report (T TE) [facility] Demographics Patient Name MUNIRA WHITE Date of Study 02/15/2020 T Gender Male Visit Number [id number] Race Unknown Room Number 2026 Number Date of 1960 Referring Darrell Kumar Physician Age 59 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 Clinical History HGB 14.9 HCT 44.3 % HTN Hx CVA Height: 66 inches Weight: 74.84 kg (165 lbs) BSA: 1.84 m^2 BMI: 26.63 kg/m^2 HR: 85 bpm BP: 169/83 mmHg Summary The left ventricle is chamber size (by PSLAX dimension) is normal (male - LVIDd 4.2-5.8cm) . All of the LV segments contract normally . Estimated LVEF by qualitative assessment is ambrocio l (>60%) . Grade 1 diastolic dysfunction (impaired relaxation and low-normal LA pressure). Unable to estimate peak systolic PA pressure; inadequate TR velocity signal. Previous Study No prior exam available for comparison. Signature Findings Left Ventricle The left ventricle is chamber size (by PSLAX dimension) is normal (male - LVIDd 4.2-5.8cm) . Normal LV wall thickness. All of the LV segments contract normally . Global LV systolic function normal . Estimated LVEF by qualitative assessment is normal (>60 %) . Grade 1 diastolic dysfunction (impaired relaxati on and low-normal LA pressure). Left Atrium LA size is normal (16-34 ml/m2) . Right Ventricle The right ventricular chamber size and systolic function are within normal limits. Right Atrium RA cavity size is normal . Aortic Valve Normal AoV structure and function. Mitral Valve Mild MV leaflet thickening. Tricuspid Valve A trace of tricuspid regurgitation. Unable to estimate peak systolic PA pressure; inadequate TR velocity signal. Pulmonic Valve Normal PV structure and function. Aorta Aortic root size (SInus of Valsalva diameter) is normal . Proximal ascending aorta size is normal . Pericardium No significant pericardial effusion is visualized. IVC/SVC/PA/PV/Pleural The right upper pulmonary vein (RUPV) is normal . The estimated RA pressure by IVC dynamics 0-5mmHg . Chambers/Structures Left Atrium LA Volume: 40.35 ml LA Area: 15.95 cm^2 LA Vol. Index: 22 ml/m^2 Left Ventricle LVIDd: 4.65 cm LV Septum Diastolic: 1.09 cm LV PW Diastolic: 1.05 cm LV Length: 7.84 cm LVOT Diameter: 2.07 cm Right Atrium RA Vol. (Sngl Plane): 29.44 ml Right Ventricle TAPSE: 2.4 3 cm Aorta Ao Root S of Eryn.: 3.22 cm Ascending Aorta: 3.49 cm Doppler/Quantitative Measurements Mitral Valve MV Peak E-Wave: 0.59 m/s MV Peak A-Wave: 0.84 m/s E/A Ratio: 0.71 Peak Gradient: 1.41 mmHg Deceleration Time: 171.5 msec MV Brant. Peak: Tissue Doppler E' Septal Velocity: 0.08 m/s E/E': 7.78 E' Lateral Velocity: 0.11 m/s Aortic Valve Peak Velocity: 1.13 m/s Mean Velocity: 0.62 m/s Peak Gradient: 5.08 mmHg Mean Gradient: 1.87 mmHg AV Area (continuity): 4.02 cm^2 AV VTI: 15 cm AV DVI: 1.2 LVOT Peak Velocity: 1.04 m/s Peak Gradient: 4.35 mmHg Mean Velocity: 0.63 m/s Mean Gradient: 2.01 mmHg LVOT Diameter: 2.07 cm LVOT VTI: 17.93 cm LVOT Area: 3.37 cm^2 LVOT SV:60.31 ml LVOT CO: 5.13 l/min LVOT CI: 2.79 l/min/m^2 Procedure Note Interface, External Ris In - 02/15/2020 4:51 PM CREAM GATHERER Transthoracic Echocardiography Report (TTE) Demographics Patient Name MUNIRA WHITE Date of St udy 02/15/2020 T Gender Male Visit Number [id number] Race Unknown Room [facility] r 2026 Number Date of 1960 Referring Darrell Kumar Physician Age 59 year(s) Sonographe r Lu Kelsey, [facility] Slicing Machine Operator/Tender MD Cj Adamson Physician Procedure Type of Study TTE procedure:2DECHO W DOPALEXANDRE R(CW/PW/COLOR) ([place]) Indications:Acute Chest Pain/ Suspected CAD. Clinical History HGB 14.9 HCT 44.3 % HTN Hx CVA Height: 66 inches Weight: 74.84 kg (165 lbs) BSA: 1.84 m^2 BMI: 26.63 kg/m^2 HR: 85 bpm BP: 169/83 mmHg Summary The left ventricle is chamber size (by PSLAX dimension) is normal (male - LVIDd 4.2-5.8cm) . All of the LV segmen ts contract normally . Estimated LVEF by qualitative assessment is ambrocio l (>60%) . Grade 1 diastolic dysfunction (impaired relaxation and low-normal LA pressure). Unable to estimate peak systolic PA pre ssure; inadequate TR velocity signal. Previous Study No prior exam available for comparison. Signature Findings Left Ventricle The left ventric le is chamber size (by PSLAX dimension) is no rmal (male - LVIDd 4.2-5.8cm) . Normal LV wall t hickness. All of the LV se gments contract normally . Global LV systol ic function normal . Estimated LVEF b y qualitative assessment is normal (>60%) . Grade 1 diastoli c dysfunction (impaired relaxation and low-normal L A pressure). Left Atrium LA size is ambrocio l (16-34 ml/m2) . Right Ventricle The right ventri cular chamber size and systolic function are wit hin normal limits. Right Atrium RA cavity size i s normal . Aortic Valve Normal AoV struc ture and function. Mitral Valve Mild MV leaflet thickening. Tricuspid Valve A trace of tricu spid regurgitation. Unable to estima te peak systolic PA pressure; inadequate TR ve locity signal. Pulmonic Valve Normal PV struct ure and function. Aorta Aortic root size (SInus of Valsalva diameter) is normal . Proxima l ascending aorta size is normal . Pericardium No significant p ericardial effusion is visualized. IVC/SVC/PA/PV/Pleural The right upper pulmonary vein (RUPV) is normal . The estimated RA pressure by IVC dynamics 0-5mmHg . Chambers/Structures Left Atrium LA Volume: 40.35 ml LA Area: 15.95 cm^2 LA Vol. Index: 22 ml/m^2 Left Ventricle LVIDd: 4.65 cm LV Septum Diastolic: 1.09 cm LV PW Diastolic: 1.05 cm LV Length: 7.84 cm LVOT Diameter: 2.07 cm Right Atrium RA Vol. (Sngl Plane): 29.44 ml Right Ventricle TAPSE: 2.43 cm Aorta Ao Root S of Eryn.: 3.22 cm Ascending Aorta: 3.49 cm Doppler/Quantitative Measurements Mitral Valve MV Peak E-Wave: 0.59 m/s M V Peak A-Wave: 0.84 m/s E /A Ratio: 0.71 P eak Gradient: 1.41 mmHg D eceleration Time: 171.5 msec MV Brant. Peak: Tissue Doppler E' Septal Velocity: 0.08 m/s E /E': 7.78 E' Lateral Velocity: 0.11 m/s Aortic Valve Peak Velocity: 1.13 m/s Mean Velocity: 0.62 m/s Peak Gradient: 5.08 mmHg Mean Gradient: 1.87 mmHg AV Area (continuity): 4.02 cm^2 AV VTI: 15 cm AV DVI: 1.2 LVOT Peak Velocity: 1.04 m/s Pea k Gradient: 4.35 mmHg Mean Velocity: 0.63 m/s Sandhya n Gradient: 2.01 mmHg LVOT Diameter: 2.07 cm LVO T VTI: 17.93 cm LVOT Area: 3.37 cm^2 LVO T SV:60.31 ml LVOT CO: 5.13 l/min LVO T CI: 2.79 l/min/m^2 Performing Organization Address City/State/Zipcode Phone Number [facility] Myocardial Perfusion Pet/CT (Rest & Stress) (02/15/2020 11:39 AM CREAM GATHERER) Specimen Narrative Performed At FINAL REPORT [employer] RIS PROCEDURE: MYOCARDIAL PERFUSION PET IMAG ING (Rest/Stress) CPT CODE: 48154 INDICATION: Assess for coronary artery i schemia preop evaluation for vascular surgery CARDIOVASCULAR PROFILE: Symptoms: None CAD History: None Risk Factors: Hypertension, smoker, CVA BMI: 26.6 Medications: Amlodipine, atorvastatin, h eparin, hydralazine STRESS PROTOCOL: Pharmacologic stress was achieved with a 10-second intravenous infusion of regadenoson 0.4 mg. IMAGING PROTOCOL: Limited low-dose CT imaging was performe d for attenuation correction. 40.1 mCi of Rb-82 chloride was injected intravenously at rest, and PET images were obtained. Then, 40.1 mCi of Rb-82 chloride was injected intravenously at peak stress, a nd PET images were obtained. REST FINDINGS: HR: 68 /min BP: 143/65 mmHg Prelim. EKG: Normal sinus rhythm. Perfusion: Normal. Wall Motion: Normal (LVEF 64%). LV Volume: Normal. RV Volume: Normal. STRESS FINDINGS: HR: 88 /min (55% of MPHR) BP: 122/63 mmHg Prelim. EKG: No ischemic changes. Symptoms: Dyspnea (treatment not require d). Perfusion: Normal. Wall Motion: Normal (LVEF 70%). LV Volume: Unchanged from rest. IMPRESSION: 1. Normal study. 2. Normal myocardial perfusion. Normal global LV function, which does not deteriorate with stress. 3. Normal extracardiac tracer distributi on.. 4. There is no prior study for compariso n. Signed: Cm Butler MD Report Verified Date/Time: 02/15/2020 18:07:15 Procedure Note Interface, External Ris In - 02/15/2020 6:09 PM CREAM GATHERER FINAL REPORT PROCEDURE: MYOCARDIAL PERFUSION PET IMAG ING (Rest/Stress) CPT CODE: 69154 INDICATION: Assess for coronary artery i schemia preop evaluation for vascular surgery CARDIOVASCULAR PROFILE: Symptoms: None CAD History: None Risk Factors: Hypertension, smoker, CVA BMI: 26.6 Medications: Amlodipine, atorvastatin, h eparin, hydralazine STRESS PROTOCOL: Pharmacologic stress was achieved with a 10-second intravenous infusion of regadenoson 0.4 mg. IMAGING PROTOCOL: Limited low-dose CT imaging was performe d for attenuation correction. 40.1 mCi of Rb-82 chloride was injected intravenously at rest, and PET images were obtained. Then, 40.1 mCi of Rb-82 chloride was injected intravenously at peak stress, a nd PET images were obtained. REST FINDINGS: HR: 68 /min BP: 143/65 mmHg Prelim. EKG: Normal sinus rhythm. Perfusion: Normal. Wall Motion: Normal (LVEF 64%). LV Volume: Normal. RV Volume: Normal. STRESS FINDINGS: HR: 88 /min (55% of MPHR) BP: 122/63 mmHg Prelim. EKG: No ischemic changes. Symptoms: Dyspnea (treatment not require d). Perfusion: Normal. Wall Motion: Normal (LVEF 70%). LV Volume: Unchanged from rest. IMPRESSION: 1. Normal study. 2. Normal myocardial perfusion. Normal global LV function, which does not deteriorate with stress. 3. Normal extracardiac tracer distributi on.. 4. There is no prior study for compariso n. Signed: Cm Butler MD Report Verified Date/Time: 02/15/2020 1 8:07:15 Performing Organization Address City/State/Zipcode Phone Number [employer] Treadmill tolerance(Non-Nuclear Treadmill) (02/15/2020 11:35 AM CREAM GATHERER) Specimen Narrative Performed At Protocol Name [employer] MUSE Time In Exercise Phase 00:01:00 Max. Systolic BP 122 mmHg Max Diastolic BP 63 mmHg Max Heart Rate 88 BPM Max Predicted Heart Rate 160 BPM Reason For Termination Predetermined end point Reason for Test Assess for Coronary Isch emia Target HR Formula (220 - Age)*100% Arrhythmias Ventricular premature beats- isolated, Sinus Arrhy Resting ECG Normal sinus rhythm ST Changes No Significant Changes Overall Impression Indeterminate due to pharmacological stress Chest Pain none HR Response To Exercise BP Response To Exercise amlodpine, atorvastatin, heparin gtt hydralazine Confirmed by fellow Sergo Villalba ([id number]) o n 02/15/2020 3:58:44 PM Confirmed by MD AAKASH, JANN ([id number]) on 02/18/2020 12:16:06 PM Procedure Note Interface, External Ris In - 02/18/2020 12:16 PM CREAM GATHERER Protocol Name Jessica Time In Exercise Phase 00:01:00 Max. Systolic BP 122 mmHg Max Diastolic BP 63 mmHg Max Heart Rate 88 BPM Max Predicted Heart Rate 160 BPM Reason For Termination Predetermined end point Reason for Test Assess for Coronary Isch emia Target HR Formula (220 - Age)*100% Arrhythmias Ventricular premature beats- isolated, Sinus Arrhy Resting ECG Normal sinus rhythm ST Changes No Significant Changes Overall Impression Indeterminate due to pharmacological stress Chest Pain none HR Response To Exercise BP Response To Exercise amlodpine, atorvastatin, heparin gtt hydralazine Confirmed by fellow Sergo Villalba ([id number]) o n 02/15/2020 3:58:44 PM Confirmed by MD AAKASH, JANN ([id number]) on 02/18/2020 12:16:06 PM Performing Organization Address City/[facility] Phone Number GE MUSE ECG 12 lead (02/15/2020 11:05 AM CREAM GATHERER)Only the most recent of2 resultswithin the time period is included. Specimen Narrative Performed At Ventricular Rate 71 BPM GE MUSE Atrial Rate 71 BPM P-R Interval 156 ms QRS Duration 92 ms Q-T Interval 392 ms QTC Calculation(Bazett) 425 ms P Twain 36 degrees R Twain 7 degrees T Twain 42 degrees Normal sinus rhythm Normal ECG Confirmed by MD Jeong Roberto ([id number]) on 02/01 9:23:30 PM Procedure Note Interface, External Ris In - 02/15/2020 9:23 PM CREAM GATHERER Ventricular Rate 71 BPM Atrial Rate 71 BPM P-R Interval 156 ms QRS Duration 92 ms Q-T Interval 392 ms QTC Calculation(Bazett) 425 ms P Twain 36 degrees R Twain 7 degrees T Twain 42 degrees Normal sinus rhythm Normal ECG Confirmed by MD Jeong Roberto ([id number]) on 02/15/2020 9:23:30 PM Performing Organization Address City/[facility]/[employer] Phone Number GE MUSE CTA AAA and Runoff (02/11/2020 9:49 PM CREAM GATHERER) Specimen Narrative Performed At Addendum Begins GE RIS REPORT STATUS:A ADDENDUM: Bibasilar atelectasis, left greater than right. Left renal interpolar 2.6 cm cyst. Few scattered colonic diver ticula. Signed: Chao Wright MD Report Verified Date/Time: 02/12/2020 11:11:37 Reading Location: [facility] P048 Angio Body Reading Room Addendum Ends FINAL REPORT CT angiography of the abdominal aorta larry pemberton runoff, 11-Feb-20 INDICATION: This is a 59 year old male w ith with leg ischaemia presents for assessment. TECHNIQUE: Spiral acquisition before and during intravenous contrast administration using a Siemens multidete ctor CT scanner. Images were obtained before and during the dynamic p assage of intravenous contrast material. Multi-planar 3-D vo lume-rendering reconstruction was performed using an independent works tation interactively by the interpreting physician as well as the 3- D specialist for optimal visualisation of the abdominal aorta, pe lvic arteries, and its peripheral branches. Please refer to the contrast sheet scann ed in the [employer] system for the amount and route of contrast given. This exam was performed according to our departmental dose-optimisation programme, which inclu mayito automated exposure control, adjustment of the mA and/or kV according to patient size and/or use of iterative reconstruction t echnique. Dose modulation, iterative reconstruction, and/or weight based adjustment of the mA/kV was utilized to reduce the radiation dos e to as low as reasonably achievable. FINDINGS: VASCULAR: The abdominal aorta is normal in course and calibre. However, in the infrarenal abdominal aorta, increasing n oncalcific atherosclerosis is identified, for example image 127. At th is level, the patent lumen is 92 sq mm, with a cross-sectional diamete r of 12.8 x 9.6 mm, suggesting no significant obstructive le russ is present. No ectasia is seen and no aneurysmal dilation is id entified. Quantitative dimensions of the abdominal aorta are as follows: 2.1 cm at the mesenteric segment; 2.1 cm at the renal segment,; and 1.8 cm at the aortic bifurcation. The coeliac axis, SMA are widely patent. The MATT fills retrogradely by surrounding collaterals at the proxim al 1 cm is occluded. Single left and right renal arteries are seen t hat are widely patent. Single left and right renal veins are seen drai dago into the IVC. In the left common iliac artery, at imag e 154, severe stenosis is identified. Please see snapshot for deta ils. The lesion is located approximately 2.5 cm from the takeoff of the left common iliac artery and from normal edge to normal edge, the length of the lesion is approximately 1 cm. Reference diameter o f the left common iliac artery is at least 6.5 x 7 mm. The left external iliac artery and the left common femoral artery is patent wit h average diameter of approximately 3.5 to 4 mm. The entire left SFA is essentially occlu ded, for length of approximately 22 cm. The left orbital ar shashank is reconstitution by surrounding collaterals at image 435, an d the left popliteal artery thereafter is patent with no obstructive lesion identified with mild atherosclerosis identified, though it is a somewhat small calibre vessel that could be due to limited infl ow. Average diameter is 2 to 2.5 mm in diameter. The left profunda system is widely paten t. In the left lower extremity, the left ti bioperoneal trunk is patent proximally and there is likely occlusion identified distally. There is severe disease/subtotal occlusion lilliam ntified in the left anterior tibial artery at this is not well seen i n the first and second dynamic data set though the dorsalis ped is artery is still well seen. Similarly, the left peroneal artery is a lso not well appreciated though it is identified near the ankle. The left posterior tibial artery is widely patent, the dominant ve ssel. The plantar arch is seen distally. It is uncertain if the ru noff finding is due to poor inflow. Acuity of the left lower extremity findi ng cannot be commented upon. Correlate with clinical history. Vascular stent is identified in the righ t common iliac artery with some intimal hyperplasia identified with no significant in-stent stenosis present. However, at the takeof f of the right external iliac artery, at image 181, severe stenosis/stevens btotal occlusion is identified. The length of the lesion is approximately 2.3 cm measure from normal edge to normal edge. Remaind er of the right external iliac artery is seen to be patent with n o obstructive lesion identified though some noncalcific ather osclerosis is seen. Reference diameter of the right external iliac art lola image 192 is approximately 5 mm. No obstructive lesio n is identified in the right common femoral artery, with mild noncalc ific atherosclerosis identified. In the right, the right profunda system is unremarkable. However, a severe focal stenosis is iden tified in the mid right SFA at image 369, and please see snapshot an d 3-D data set for details. Remainder of the right SFA is unremarkab le. The reference diameter of the right SFA is approximately 3 to 3.5 mm, at the mid/distal level. The right popliteal artery is unremarkab le. The right profunda system is also unremarkable. In the right lower extremity, the right tibioperoneal trunk is widely patent. The right peroneal artery is wid janee patent and well seen down to level of the ankle. The right posteri or tibial artery is widely patent and the plantar arch is seen dist ally. The right anterior tibial artery has severe diffuse disease identified to the dorsalis pedis artery is well seen at the level o f the ankle. NON-VASCULAR:- The nonvascular findings will be dictate d separately. CONCLUSIONS: 1. Noncalcific is identified in the infr arenal abdominal aorta though it is still nonobstructive in nature. Ec ruby or aneurysmal dilation is seen. There is no evidence of acute a ortic pathology, specifically, there is no dissection, in tramural hematoma, or contained rupture. Quantitative dimension of the abdominal aorta are as noted. 2. A significant lesion is identified lo cated approximately 2.5 cm from the takeoff of the left common dano c artery. Remainder of the left pelvic arteries are unremarkable. The left SFA is occluded for length of 2 2 cm with reconstitution by surrounding collaterals and the left pop liteal level. Acuity of this finding cannot be commented upon. Correl ate clinically. The left popliteal artery is patent with some mild atherosclerosis identified, somewhat small in size. Details of the runoff vessels as describ ed above, with essentially single vessel runoff in the left lower e xtremity, specifically, the left posterior tibial artery. 3. A vascular stent is identified in the right common iliac artery with no in-stent stenosis identified. A significant stenosis is seen in the pr oximal right external iliac artery. Please see snapshot for details. Remainder of the right external iliac and the right common femo ral arteries are unremarkable. In the mid right SFA, image 269, a signi ficant focal stenosis is identified. Remainder of the right SFA i s unremarkable. No obstructive disease is identified in the right profunda and the right popliteal system. Details of the runoff vessels in the rig ht lower extremity as described above, with two-vessel runoff identified. 4. NONVASCULAR FINDINGS WILL BE DICTATED SEPARATELY, AND THE REPORT WILL ONLY BE CONSIDERED COMPLETE AFTER T HE ADDENDUM HAS BEEN DICTATED. Signed: Davy Vogel MD Report Verified Date/Time: 02/12/2020 09:35:59 Reading Location: [facility] P027 CT Reading Room Procedure Note Interface, External Ris In - 02/12/2020 11:13 AM CREAM GATHERER Addendum Begins REPORT STATUS:A ADDENDUM: Bibasilar atelectasis, left greater than right. Left renal interpolar 2.6 cm cyst. Few scattered colonic diver ticula. Signed: Chao Wright MD Report Verified Date/Time: 02/12/2020 1 1:11:37 Reading Location: [place] [id number] Angio Body Reading Room Addendum Ends FINAL REPORT CT angiography of the abdominal aorta an d runoff, 11-Feb-20 INDICATION: This is a 59 year old male w ith with leg ischaemia presents for assessment. TECHNIQUE: Spiral acquisition before and during intravenous contrast administration using a Siemens multidete ctor CT scanner. Images were obtained before and during the dynamic p assage of intravenous contrast material. Multi-planar 3-D vol ume-rendering reconstruction was performed using an independent works tation interactively by the interpreting physician as well as the 3- D specialist for optimal visualisation of the abdominal aorta, pe lvic arteries, and its peripheral branches. Please refer to the contrast sheet scann ed in the EPIC system for the amount and route of contrast given. This exam was performed according to our departmental dose-optimisation programme, which inclu mayito automated exposure control, adjustment of the mA and/or kV according to patient size and/or use of iterative reconstruction t echnique. Dose modulation, iterative reconstruction, and/or weight based adjustment of the mA/kV was utilized to reduce the radiation dos e to as low as reasonably achievable. FINDINGS: VASCULAR: The abdominal aorta is normal in course and calibre. However, in the infrarenal abdominal aorta, increasing n oncalcific atherosclerosis is identified, for example image 127. At th is level, the patent lumen is 92 sq mm, with a cross-sectional diamete r of 12.8 x 9.6 mm, suggesting no significant obstructive le russ is present. No ectasia is seen and no aneurysmal dilation is id entified. Quantitative dimensions of the abdominal aorta are as follows: 2.1 cm at the mesenteric segment; 2.1 cm at the renal segment,; and 1.8 cm at the aortic bifurcation. The coeliac axis, SMA are widely patent. The MATT fills retrogradely by surrounding collaterals at the proxim al 1 cm is occluded. Single left and right renal arteries are seen t hat are widely patent. Single left and right renal veins are seen drai dago into the IVC. In the left common iliac artery, at imag e 154, severe stenosis is identified. Please see snapshot for deta ils. The lesion is located approximately 2.5 cm from the takeoff of the left common iliac artery and from normal edge to normal edge, the length of the lesion is approximately 1 cm. Reference diameter o f the left common iliac artery is at least 6.5 x 7 mm. The left external iliac artery and the left common femoral artery is patent wit h average diameter of approximately 3.5 to 4 mm. The entire left SFA is essentially occlu ded, for length of approximately 22 cm. The left orbital ar shashank is reconstitution by surrounding collaterals at image 435, an d the left popliteal artery thereafter is patent with no obstructive lesion identified with mild atherosclerosis identified, though it is a somewhat small calibre vessel that could be due to limited infl ow. Average diameter is 2 to 2.5 mm in diameter. The left profunda system is widely paten t. In the left lower extremity, the left ti bioperoneal trunk is patent proximally and there is likely occlusion identified distally. There is severe disease/subtotal occlusion lilliam ntified in the left anterior tibial artery at this is not well seen i n the first and second dynamic data set though the dorsalis ped is artery is still well seen. Similarly, the left peroneal artery is a lso not well appreciated though it is identified near the ankle. The left posterior tibial artery is widely patent, the dominant ve ssel. The plantar arch is seen distally. It is uncertain if the ru noff finding is due to poor inflow. Acuity of the left lower extremity findi ng cannot be commented upon. Correlate with clinical history. Vascular stent is identified in the righ t common iliac artery with some intimal hyperplasia identified with no significant in-stent stenosis present. However, at the takeof f of the right external iliac artery, at image 181, severe stenosis/stevens btotal occlusion is identified. The length of the lesion is approximately 2.3 cm measure from normal edge to normal edge. Remaind er of the right external iliac artery is seen to be patent with n o obstructive lesion identified though some noncalcific ather osclerosis is seen. Reference diameter of the right external iliac art lola image 192 is approximately 5 mm. No obstructive lesio n is identified in the right common femoral artery, with mild noncalc ific atherosclerosis identified. In the right, the right profunda system is unremarkable. However, a severe focal stenosis is iden tified in the mid right SFA at image 369, and please see snapshot an d 3-D data set for details. Remainder of the right SFA is unremarkab le. The reference diameter of the right SFA is approximately 3 to 3.5 mm, at the mid/distal level. The right popliteal artery is unremarkab le. The right profunda system is also unremarkable. In the right lower extremity, the right tibioperoneal trunk is widely patent. The right peroneal artery is wid janee patent and well seen down to level of the ankle. The right posteri or tibial artery is widely patent and the plantar arch is seen dist ally. The right anterior tibial artery has severe diffuse disease identified to the dorsalis pedis artery is well seen at the level o f the ankle. NON-VASCULAR:- The nonvascular findings will be dictate d separately. CONCLUSIONS: 1. Noncalcific is identified in the infr arenal abdominal aorta though it is still nonobstructive in nature. Ec ruby or aneurysmal dilation is seen. There is no evidence of acute a ortic pathology, specifically, there is no dissection, in tramural hematoma, or contained rupture. Quantitative dimension of the abdominal aorta are as noted. 2. A significant lesion is identified lo cated approximately 2.5 cm from the takeoff of the left common dano c artery. Remainder of the left pelvic arteries are unremarkable. The left SFA is occluded for length of 2 2 cm with reconstitution by surrounding collaterals and the left pop liteal level. Acuity of this finding cannot be commented upon. Correl ate clinically. The left popliteal artery is patent with some mild atherosclerosis identified, somewhat small in size. Details of the runoff vessels as describ ed above, with essentially single vessel runoff in the left lower e xtremity, specifically, the left posterior tibial artery. 3. A vascular stent is identified in the right common iliac artery with no in-stent stenosis identified. A significant stenosis is seen in the pr oximal right external iliac artery. Please see snapshot for details. Remainder of the right external iliac and the right common femo ral arteries are unremarkable. In the mid right SFA, image 269, a signi ficant focal stenosis is identified. Remainder of the right SFA i s unremarkable. No obstructive disease is identified in the right profunda and the right popliteal system. Details of the runoff vessels in the rig ht lower extremity as described above, with two-vessel runoff identified. 4. NONVASCULAR FINDINGS WILL BE DICTATED SEPARATELY, AND THE REPORT WILL ONLY BE CONSIDERED COMPLETE AFTER T HE ADDENDUM HAS BEEN DICTATED. Signed: Davy Vogel MD Report Verified Date/Time: 02/12/2020 0 9:35:59 Reading Location: [place] [id number] CT Reading Room Performing Organization Address City/[employer] Phone Number [facility] C-Reactive Protein (02/11/2020 3:31 PM CREAM GATHERER) Pathologist Sig nature CRP 1.74 (H) 0.00 - 0.50 mg/dL [facility] Specimen Blood Narrative Performed At General Medical Practitioner ID - [id number] [facility] Performing Organization Address [facility]/[employer] Phone Number [facility] [address] [place], [place] [address] Lactic acid, venous (02/11/2020 3:31 PM CREAM GATHERER) Lactate, Venous 1.08Comment: 0.50 - 2.20 [facility] Specimen slightly mmol/L [facility] hemolyzed CENTER Specimen Blood Narrative Performed At General Medical Practitioner ID - BS [facility] Performing Organization Address City/[employer]/Zipcode Phone Number [facility] [address] [place] [address] CENTER Hemoglobin A1c (02/11/2020 3:30 PM CREAM GATHERER) Pathologist Sig nature Hemoglobin A1C 8.0 (H) 4.3 - 6.1 % [facility] CENTER Specimen Blood Performing Organization Address City/[facility]/[employer] Phone Number [facility] [address] [place] [address] CENTER ALEKS's Only(Ankle/Brachial Index) (02/11/2020 1:05 PM CREAM GATHERER) [facility] Sig nature Ejection Fraction [facility]ART[facility] Specimen Impressions Performed At Right Impression [facility] 1. The posterior tibial and dorsalis pedis arteries are patent with monophasic Doppler waveforms. 2. The PT pressure is 130 mmHg with an ALEKS of 0.55 and the DP pressure is 106 mmHg with an ALEKS of 0.56, within severe obstruction range. 3. The great toe pressure is 72 mmHg with a abnormal TBI of 0.38. 4. The digits have adequate flow by PPG waveforms. Left Impression 1. The posterior tibial and dorsalis pedis arteries are patent with monophasic Doppler waveforms. 2. The PT pressure is 90 mmHg with an ALEKS of 0.48 and the DP pressure is 80 mmHg with an ALEKS of 0.43, within severe obstruction range. 3. The great toe pressure could not be obtained due to patients inability to withstand pressure. 4. The digits have absent flow by PPG wa veforms. Conclusions Summary Arterial pressures and Doppler waveforms were performed bilaterally. Adequate Doppler waveforms were obtained. Doppler waveforms were monophasic bilaterally. The right and left ALEKS's were within severe obstruction range. The toe pressure and TBI's were within abnormal range on the right. The toe pressure and TBI's were not obtained on the left. The digits had adequate flow by PPG waveforms on the right and absent flow by PPG waveforms on the left. Signature Velocities are measured in cm/s ; Diameters are measured in cm Narrative Performed At [facility] - Lower Extremity Arterial Proced Critical access hospital [facility] Demographics Patient Name MUNIRA WHITE Date of Study 02/11/2020 Age 59 Visit Number [id number] Gender Male Accession Number [id number] Date of 1960 Referring Tanesha Rubio, Room Number 2542 Physician Nursery Hand Michelle Oconnor, Interpreting Tanesha Almaguer, T Physician Procedure Type of Study: Extremities Arteries: Lower Extremity Arterial Procedure, ARTERIAL (ALEKS'S W/DOPPLER) ONLY. Indications for Study:Left toe wound. Patient Status:STAT. Study Location:Vascular Lab. Technical Quality:Adequate visualization . Risk Factors History of Disease + +----+ + !Diagnosis !Date!Comments ! + +----+ + !History/Risk ! !tobacco abuse, HTN, CVA, intracranial stent, ! !Factors: ! !current smoker ! + +----+ + Procedure Note Interface, External Ris In - 02/12/2020 8:08 AM [facility] - Lower Extremity Arterial Procedure Demographics Patient Name MUNIRA WHITE Herman e of Study 02/11/2020 Age 59 Visit Number [id number] Gen adryan Male Accession Number [id number] Herman e of 1960 Referring Tanesha Chatterjeeasmita Ronel m Number [id number] Physician Nursery Hand Michelle Oconnor, Niharika erpretin Tanesha Almaguer, T Twan cornelius MD Procedure Type of Study: Extremities Arteries: Lower Extremity A rterial Procedure, ARTERIAL (ALEKS'S W/DOPPLER) ONLY. Indications for Study:Left toe wound. Patient Status:STAT. Study Location:Vascular Lab. Technical Quality:Adequate visualization . Risk Factors History of Disease + +----+ + !Diagnosis !Date!Comments ! + +----+ + !History/Risk ! !tobacco abuse, HTN, CVA, intracranial stent, ! !Factors: ! !current smoker ! + +----+ + Impressions Right Impression 1. The posterior tibial and dorsalis ped is arteries are patent with monophasic Doppler waveforms. 2. The PT pressure is 130 mmHg with an A BI of 0.55 and the DP pressure is 106 mmHg with an ALEKS of 0.56, within sev ere obstruction range. 3. The great toe pressure is 72 mmHg wit h a abnormal TBI of 0.38. 4. The digits have adequate flow by PPG waveforms. Left Impression 1. The posterior tibial and dorsalis ped is arteries are patent with monophasic Doppler waveforms. 2. The PT pressure is 90 mmHg with an AB I of 0.48 and the DP pressure is 80 mmHg with an ALEKS of 0.43, within severe obstruction range. 3. The great toe pressure could not be o btained due to patients inability to withstand pressure. 4. The digits have absent flow by PPG wa veforms. Conclusions Summary Arterial pressures and Doppler waveform s were performed bilaterally. Adequate Doppler waveforms were obtaine d. Doppler waveforms were monophasic bilaterally. The right and l eft ALEKS's were within severe obstruction range. The toe pressure and TBI's were within abnormal range on the right. The toe pressure and TBI' s were not obtained on the left. The digits had adequate flow by PPG wav eforms on the right and absent flow by PPG waveforms on the left. Signature Velocities are measured in cm/s ; Diamet ers are measured in cm Performing Organization Address City/State/Zipcode Phone Number [facility] [facility] Arterial doppler leg, left (02/11/2020 12:43 PM CREAM GATHERER) [facility] Sig nature Ejection Fraction PENDING SALE TO [facility] Specimen Impressions Performed At [facility] Left Impression 1. The common femoral, profunda femoral, proximal femoral, distal femoral, popliteal, posterior tibial and anterior tibial arteries are patent with monophasic waveforms and soft plaque thr oughout. 2. There is a collarteral artery visualized at the proximal femoral artery proximal to an occlusion of the mid femoral artery. The collateral reconstitutes flow to the distal femoral artery. 3. The peroneal artery could not be visu alized. Conclusions Summary Arterial pressures and Doppler analysis were performed on the left lower extremity. Adequate Doppler waveforms were obtained. The common femoral, profunda femoral, proximal femoral, distal femoral, popliteal, posterior tibial and anterior tibial arteries were patent with monophasic waveforms and soft plaque throughout. There was a collateral artery visualized at the proximal femoral artery proximal to an occlusion of the mid femoral artery. The collateral reconstitutes flow to the distal femoral artery. The peroneal artery was not visualized. Signature Velocities are measured in cm/s ; Diameters are measured in cm LE Duplex Measurements Right Left + + + + + + + + + + !Location ! !PSV !EDV !Waveform ! !PSV !EDV !Waveform ! + + + + + + + + + + !Mid Common Femoral ! !95.1 ! ! ! + + + + +-------- + !Prox PFA ! !70.2 ! ! ! + + + + +-------- + !Prox SFA ! !31.9 ! ! ! + + + + +-------- + !Mid SFA ! !0 ! ! ! + + + + +-------- + !Dist SFA ! !48.3 ! ! ! + + + + +-------- + !Prox Popliteal ! !51.5 ! ! ! + + + + +-------- + !Dist Popliteal ! !70.2 ! ! ! + + + + +-------- + !Prox CHINCHILLA MACHINE OPERATOR ! !50 ! ! ! + + + + +-------- + !Mid CHINCHILLA MACHINE OPERATOR ! !52.2 ! ! ! + + + + +-------- + !Dist CHINCHILLA MACHINE OPERATOR ! !54 ! ! ! + + + + +-------- + !Prox CLIFF ! !24.2 ! ! ! + + + + +-------- + !Mid CLIFF ! !11.6 ! ! ! + + + + +-------- + !Dist CLIFF ! !13.7 ! ! ! + + + + +-------- + Narrative Performed At [facility] - Lower Extremity Arterial Duplex [facility] Demographics Patient Name WHITEMUNIRA Date of Study 02/11/2020 Age 59 Visit Number [id number] Gender Male Accession Number [id number] Date of 1960 Referring Tanesha Rubio, Room Number 2542 Physician Nursery Hand Michelle Oconnor, Interpreting Tanesha Almaguer, T Physician Procedure Type of Study: Extremities Arteries: Lower Extremities Arterial Duplex, ARTERIAL DOPPLER LEG, LEFT. Indications for Study:Left toe wound. Patient Status:STAT. Study Location:Vascular Lab. Technical Quality:Adequate visualization . - Results were reported to: Tanesha Rubio MD and Juan Carlos Sow MD. Risk Factors History of Disease + +----+ + !Diagnosis !Date!Comments ! + +----+ + !History/Risk ! !tobacco abuse, HTN, CVA, intracranial stent, ! !Factors: ! !current smoker ! + +----+ + Procedure Note Interface, External Ris In - 02/12/2020 8:08 AM [facility] - Lower Extremity Arterial Duplex Demographics Patient Name MUNIRA WHITE Herman e of Study 02/11/2020 Age 59 Visit Number [id number] Gen adryan Male Accession Number [id number] Herman e of 1960 Referring Tanesha Rubio, Ronel m Number [id number] Physician Nursery Hand MichelleNiharika Guidry erpreting Tanesha Almaguer, T Twan cornelius MD Procedure Type of Study: Extremities Arteries: Lower Extremities Arterial Duplex, ARTERIAL DOPPLER LEG, LEFT. Indications for Study:Left toe wound. Patient Status:STAT. Study Location:Vascular Lab. Technical Quality:Adequate visualization . - Results were reported to: Tanesha stevens MD and Juan Carlos Sow MD. Risk Factors History of Disease + +----+ + !Diagnosis !Date!Comments ! + +----+ + !History/Risk ! !tobacco abuse, HTN, CVA, intracranial stent, ! !Factors: ! !current smoker ! + +----+ + Impressions Left Impression 1. The common femoral, profunda femoral, proximal femoral, distal femoral, popliteal, posterior tibial and anterior tibial arteries are patent with monophasic waveforms and soft plaque thr oughout. 2. There is a collarteral artery visuali zed at the proximal femoral artery proximal to an occlusion of the mid femo ral artery. The collateral reconstitutes flow to the distal femoral artery. 3. The peroneal artery could not be visu alized. Conclusions Summary Arterial pressures and Doppler analysis were performed on the left lower extremity. Adequate Doppler waveforms w ere obtained. The common femoral, profunda femoral, proximal femoral, dis hemal femoral, popliteal, posterior tibial and anterior tibial arteries wer e patent with monophasic waveforms and soft plaque throughout. There was a collateral artery visualized at the proximal femoral artery proximal to an occlusion of the mid femoral artery. The collateral reconstitutes fl ow to the distal femoral artery. The peroneal artery was not visualized. Signature Velocities are measured in cm/s ; Diamet ers are measured in cm LE Duplex Measurements Right Left + + + + + + + + + + !Location ! !PSV !EDV !Waveform ! !PSV !EDV !Waveform ! + + + + + + + + + + !Mid Common Femoral ! !95.1 ! ! ! + + + + + + !Prox PFA ! !70.2 ! ! ! + + + + + + !Prox SFA ! !31.9 ! ! ! + + + + + + !Mid SFA ! !0 ! ! ! + + + + + + !Dist SFA ! !48.3 ! ! ! + + + + + + !Prox Popliteal ! !51.5 ! ! ! + + + + + + !Dist Popliteal ! !70.2 ! ! ! + + + + + + !Prox CHINCHILLA MACHINE OPERATOR ! !50 ! ! ! + + + + + + !Mid CHINCHILLA MACHINE OPERATOR ! !52.2 ! ! ! + + + + + + !Dist CHINCHILLA MACHINE OPERATOR ! !54 ! ! ! + + + + + + !Prox CLIFF ! !24.2 ! ! ! + + + + + + !Mid CLIFF ! !11.6 ! ! ! + + + + + + !Dist CLIFF ! !13.7 ! ! ! + + + + + + Performing Organization Address City/State/Zipcode Phone Number [facility] after 03/02/2019 Advance Directives For more information, please contact: [phone] Code Status Date Activated Date Inactivated Comments Full Code 02/11/2020 7:42 AM 02/21/2020 6:02 PM This code status was determined by: Patient
--- OUTSIDE RECORDS SUMMARY | 2020-03-02 11:14 | XMS REPORT | Summary of Care ---
:1960 Author Organization [facility] Address [address] [place] [id number] Encounter HQ Lucreciar_kvng(FIN) [id number] Date(s): 02/25/20 - 02/25/[address] [id number]- [phone] Discharge Disposition: Home or Self Care Attending Physician: Eber Pastor MD Vital Signs Most recent to oldest [Reference Range]: 1 Height 171.45 cm (02/25/20 8:53 AM) Temperature Oral [96.4-99.1 DegF] 97.8 DegF (02/25/20 8:53 AM) Blood Pressure [90-140/60-90 mmHg] 103/68 mmHg (02/25/20 8:53 AM) Peripheral Pulse Rate [60-100 bpm] 76 bpm (02/25/20 8:53 AM) Weight 74.545 kg (02/25/20 8:53 AM) Body Mass Index 25.36 m2 (02/25/20 8:53 AM) Problem List Condition Effective Dates Status Health Status Informant Allergic rhinitis1 09/15/14 Resolved Constipation(Confirmed) Resolved Dental caries2 09/15/14 Resolved H/O: CVA (cerebrovascular Active accident)(Confirmed) HTN (hypertension)(Confirmed) Active Noncompliance with medication Active regimen(Confirmed) Smoker3 09/15/14 Active Type II diabetes mellitus poorly Active controlled(Confirmed) 1Data migrated from [employer] on 10/08/14.2Data migrated from [employer] on 10/08/14.3Data migrated from [employer] on 10/08/14. Allergies, Adverse Reactions, Alerts No Known Medication Allergies Medications acetaminophen-hydrocodone 325 mg-5 mg oral tablet 1 tab, PO, Q8H, 0 Refill(s) Start Date: 02/25/20 Status: OrderedMiraLax oral powder for reconstitution 17 gm, PO, Daily Start Date: 02/25/20 Status: Orderedpantoprazole 20 mg oral enteric coated tablet 20 mg = 1 tab, PO, Daily Start Date: 02/25/20 Status: Ordered Results No data available for this section Immunizations Given and Recorded Vaccine Date Status Refusal Reason pneumococcal 23-valent vaccine 11/20/17 Given Procedures Procedure Date Related Diagnosis Body Site Status History of ischemic stroke 11/17/17 C ompleted ICA1 11/17/17 Completed Insertion of iliac artery stent2 11/17/17 Completed Comprehensive eye examination3 04/03/17 Completed Diabetic retinal eye exam not done4 04/03/17 Completed Ankle joint operations5, 6 C ompleted 1Right ICA [id number] [place] artery [place] Implantable Device.3per pt last [place] exam [place] [id number] PT LAST EYE EXAM DONE OVER 2 YEARS AGO. PENDING AN APPOINTMENT.53 screws- years [id number] ankle Social History Social History Type Response Alcohol Current, Type Beer. Frequen cy: 1-2 times per week. Employment/School Status: Employed. 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 Exercise 1 Substance Abuse Use: None. Smoking Status Current every day smoker; Ty pe: Cigarettes; Exposure to Tobacco Smoke None; Cigarette Smoking Last 365 Days Yes; Reg Smoking Cessation Counseling No; Tobacco use per day: 10; Started at age: 15.0; 2 entered on: 02/25/20 [id number] is trying to cut back. Assessment and Plan No data available for this section
--- OUTSIDE RECORDS SUMMARY | 2020-03-02 11:14 | XMS REPORT | Continuity of Care Document ---
:1960 Author Organization [facility] [place] Information [place] Care Team Providers Name Role Phone [facility] Information Exchange Unavailable Un available Problems Problem Status Onset Classification Date Comments Sourc e Date Reported Cerebral 11/30/19 06/09/2018 infarction, [address] [place] [address], [place] ICA STENOSIS Active 11/17/[address] NUMBNESS LEFT Active 11/17/19 Sug ar SIDE 18 [place] OTITIS MEDIA, Active 11/21/19 Condition 11/20/2014 [facility] dical SEROUS 15 Group CELLULITIS/ABSCE Active 11/08/19 Condition 11/20/2014 [facility] SS NOS 15 Group SINUSITIS, ACUTE Active 09/16/19 Condition 11/20/2014 Medical 15 Group ALLERGIC Active 09/16/19 Condition 11/20/2014 Medica l RHINITIS 15 Group DENTAL CARIES Active 09/16/19 Condition 11/20/2014 [facility] dical 15 Group SMOKER Active 09/16/19 Condition 11/20/2014 Medica l 15 Group Allergic Resolved 09/16/19 Problem 02/28/2020 Data Medica l rhinitis 15 migrated Group, (disorder) from [facility], on 10/08/14. [place] Dental caries Resolved 09/16/19 Problem 02/28/2020 Data [facility] dical (disorder) 15 migrated Group, from [facility] on 10/08/14. [place] Smoker (finding) Active 09/16/19 Problem 02/28/2020 Data Medical 15 migrated Group, from [facility] on 10/08/14. 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 al hemorrhage, [facility] unspecified Essential 06/09/2018 (primary) [facility] hypertension [facility] Nicotine 06/09/2018 dependence, [facility] cigarettes, [facility], uncomplicated [place] Type 2 diabetes 06/09/2018 mellitus with Memori al hyperglycemia [facility] Pure 06/09/2018 hypercholesterol [facility] Hyperlipidemia, 06/09/2018 unspecified [facility] Hypokalemia 06/09/2018 [facility] Constipation, 06/09/2018 unspecified [facility] 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 [facility] artery 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 06/09/2018 (current) use of [facility] insulin [facility] NIHSS score 2 06/09/2018 [facility] History of - CVA Active Problem 02/28/2020 Medical (context-depende Tomás up nt category) Hypertensive Active Problem 02/28/2020 Med ical disorder, Group systemic arterial (disorder) Noncompliance Active Problem 02/28/2020 Me dical with medication Grou p regimen (finding) ILLNESS, Active UNSPECIFIED [facility] Medications Medication Details Route Status Patient Ordering Order Source Instructions Provider Date pantoprazole 20 mg 20 mg = 1 Active oral enteric coated tab, PO, 2019 Med ical tablet Daily Group POLYETHYLENE GLYCOL 17 gm, PO, Active H 3350 142 MG/ML Oral Daily 2019 Medi nazia Solution [Miralax] Group Acetaminophen 325 MG 1 tab, PO, Active / Hydrocodone Q8H, 0 2019 Medical Bitartrate 5 MG Oral Refill(s) G roup Tablet Aspirin 81 MG 81 mg = 1 Active Enteric Coated tab, PO, 2019 Medical Tablet Daily, # 30 Group tab, 3 Refill(s), [id number], 172.72, cm, 02/10/20 14:32: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, Height, 76.534, kg, 02/10/20 14:32: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, Weight clopidogrel 75 MG 75 mg = 1 Active Oral Tablet [Plavix] tab, PO, 2019 Me dical Daily, # 30 Group tab, 3 Refill(s), Pharmacy: [facility]/pharmacy #[id number], 172.72, cm, 02/10/20 14:32: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, Height, 76.534, kg, 02/10/20 14:32: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, Weight losartan 50 mg oral 50 mg = 1 Active tablet tab, PO, 2019 Medical Daily, # 30 Group tab, 3 Refill(s), [id number], 172.72, cm, 02/10/20 14:32: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, Height, 76.534, kg, 02/10/20 14:32: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, Weight Hydrochlorothiazide 25 mg = 1 Active 25 MG Oral Tablet tab, PO, 2019 Medic al Daily, # 30 Group tab, 3 Refill(s), [id number], 172.72, cm, 02/10/20 14:32: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, Height, 76.534, kg, 02/10/20 14:32: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, Weight Metformin 500 mg = 1 Active hydrochloride 500 MG tab, PO, 2019 Me dical Oral Tablet BID-Meals, # Group 30 tab, 3 Refill(s), Pharmacy: [facility]/pharmacy #[id number], 172.72, cm, 02/10/20 14:32: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, Height, 76.534, kg, 02/10/20 14:32: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, Weight atorvastatin 80 mg 80 mg = 1 Active oral tablet tab, PO, 2019 Medical Bedtime, # 30 Group tab, 3 Refill(s), Pharmacy: [facility]/pharmacy #[id number], 172.72, cm, 02/10/20 14:32: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, Height, 76.534, kg, 02/10/20 14:32: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, Weight pantoprazole 40 mg 40 mg = 1 Active oral enteric coated tab, PO, 2018 Med ical tablet Daily, # 30 Group tab, 3 Refill(s), Pharmacy: [facility]/pharmacy #[id number] Plavix Notes: (Same No Longer As: Plavix) Active 2017 [facility] aspirin 81 mg Notes: Do not Inactive tablet, enteric crush or 2018 Memoria l coated chew. (Same City As: Ecotrin) losartan 50 mg oral 100 mg = 2 Active H tablet tab, PO, 2017 [facility] Daily, # 60 City tab, 0 Refill(s), Pharmacy: [facility]/pharmacy #[id number] Hydrochlorothiazide 25 mg = 1 Active 25 MG Oral Tablet tab, PO, 2018 Memor ial Daily, # 30 City tab, 0 Refill(s), Pharmacy: [facility]/pharmacy #[id number] clopidogrel 75 mg 75 mg = 1 Active oral tablet tab, PO, 2018 [facility] Daily, # 30 City tab, 0 Refill(s), Pharmacy: [facility]/pharmacy #[id number] atorvastatin 40 mg 80 mg = 2 Active oral tablet tab, PO, 2018 [facility] Bedtime, # 60 City tab, 0 Refill(s), Pharmacy: [facility]/pharmacy #[id number] Metformin 500 mg = 1 Active hydrochloride 500 MG tab, PO, 2018 Me morial Oral Tablet BID-Meals, # City 60 tab, 0 Refill(s), Pharmacy: [facility]/pharmacy #[id number] Aspirin 81 MG 81 mg = 1 Active Enteric Coated tab, PO, 2018 [facility] Tablet Q24H, 0 City Refill(s) Plavix Notes: (Same Inactive As: Plavix) 2017 [facility] Labetalol Notes: (Same No Longer as: Active 2017 [facility]) Push over 2 minutes Give bolus over 2-3 minutes. Plavix Notes: (Same Inactive As: Plavix) 2017 [facility] Hydrochlorothiazide 1 tab, Route: No Longer 11/01 25 MG / Losartan PO, Drug Active 2018 Memori al Potassium 100 MG Form: TAB, City Oral Tablet Dosing Weight 76.2, kg, Daily, Start date: 11/19/17 9:00:00 CDT, Duration: 30 day, Stop date: 12/18/17 9:00:00 CDT sodium phosphate Notes: Infuse No Longer over [address] Do not infuse [facility] phosphorous concurrently in the same line as TPN or IVF that contains calcium. For double lumen central lines, phosphorous may be infused in a separate lumen from TPN. Magnesium Sulfate Notes: WASTE: No Longer F/P - Sink; E Active 2017 [facility] Bin potassium Notes: (Same No Longer phosphate-sodium as: Phos-NaK) Active [facility] phosphate 250 mg-280 Each 1.5 gm City mg-160 mg oral pkt has 250mg powder for phosphorous. reconstitution Mix w/2.5oz water and stir. potassium phosphate Notes: (Same No Longer 11/19 as: K Active 2017 [facility] Phosphate.) [facility] Do not infuse phosphorous concurrently in the same line as TPN or IVF that contains calcium. For double lumen central lines, phosphorous may be infused in a separate lumen from TPN. 1 mMol phoshate has 1.47 mEq potassium Infuse over 4 hours Calcium Gluconate Notes: WASTE: No Longer F/P - Sink; E Active [address] [place] [address] Bin Magnesium Oxide Notes: (Same No Longer H as: Mag-Ox Active 2017 [facility] 400) [facility] Magnesium oxide [id number] elemental magnesium Dose=____mg magnesium oxide (___mg elemental magnesium) Calcium Carbonate Notes: (Same No Longer 500 MG Chewable As: Tums) Active 2017 Memori al Tablet Calcium City Carbonate 500 mg = 200 mg elemental calcium Dose = mg calcium carbonate ( mg elemental calcium) Potassium Chloride Notes: (Same No Longer as: KCL) Active [address] [place] [address] Infuse no City faster than 10 mEq/hr if given peripherally. eptifibatide 0.75 Notes: (Same No Longer MG/ML Injectable as: Active 2017 Memoria l Solution Integrelin) [facility] Final conc = 0.75 mg/mL - Premix Bottle Potassium Chloride Notes: (Same Inactive as: K-Dur 20) 2017 [facility] "Do Not [facility] Crush" For patients unable to swallow tablet, dissolve in one half glass of water. Allow about 2 minutes for the tablets to disintegrate. Stir before giving to prepare slurry and administer. Please exclude Patients with feeding tube less than 14 [address] (Dobhoff, J-tube etc) and pediatric and patients. With food and full glass of water hydrochlorothiazide 25 mg, 1 tab, No Longer 11/01 25 mg oral tablet Route: PO, Active 2017 [facility] orial Drug form: [facility] TAB, Daily, Start date: 11/18/17 10:00:00 CDT, Duration: 30 day, Stop date: 12/18/17 9:00:00 CDT Chio Notes: (Same No Longer as: Cozaar) Active 2017 [facility] Potassium Chloride Notes: Infuse Inactive at a rate of [address] [place] [address] 10 mEq/hr. [facility] (Same as: KCL) atorvastatin Notes: (Same No Longer as: Lipitor) Active 2017 [facility] Cardene 40 mg in NS Notes: Same No Longer 200 mL (Titrate.) IV as: Cardene Active 2017 [facility] 40 mg Concentration [facility] : (0.2 mg /1 ml ) eptifibatide 0.75 Notes: (Same No Longer MG/ML Injectable as: Active [facility] Final conc = 0.75 mg/mL - Premix Bottle eptifibatide 13,716 Inactive microgram, 2017 [facility] Route: IVP, [facility] ONCE, Dosing Weight 76.2, kg, Start date: 11/17/17 13:51:00 CDT, Stop date: 11/17/17 13:51:00 CDT Atropine 0.2 mg, 2 mL, Inactive Route: IVP 2017 [facility] Drug form: [facility] INJ, Q5Min, Dosing Weight 76.2, kg, PRN Other -See Comment, as needed; for symptomatic pulse rate < 80% of mean 50 BPM, Start date: 11/17/17 12:24:00 CDT, Duration: 30 day, Stop date: 12/17/17 12:23:00 CDT Naloxone Notes: Same Inactive as Narcan 2018 [facility] Diphenhydramine Notes: (Same Inactive as: Benadryl) 2017 [facility] Flumazenil Notes: (Same Inactive as: 2017 [facility] Romazicon) [facility] Ondansetron Notes: (Same Inactive as: Zofran) [address] [place] [address] [facility] MEDICATION WASTE Product Size: 4 mg Product Wasted: ___ mg Glycopyrrolate Notes: (Same Inactive as: Robinul) 2017 [facility] Labetalol Notes: (Same Inactive as: 2017 [facility] Normodyne, [facility] Trandate) Push over 2 minutes Give bolus over 2-3 minutes. Morphine Notes: (Same Inactive as:MORPhine [address] [place] [address] Sulfate) [facility] Hydralazine Notes: (Same Inactive as: 2017 [facility] Apresoline) [facility] Push over 5 minutes Sodium Chloride 0.9% 1,000 mL, No Longer IV 1,000 mL Rate: [address] [place] [address] ml/hr, Infuse [facility] over: 13.3 hr, Route: IV, Dosing Weight 76.2 kg, Total Volume: 1,000, Start date: 11/17/17 9:25:00 CDT, Duration: 30 day, Stop date: 12/17/17 9:24:00 CDT, 1.91, m2 aspirin 81 mg Notes: Do not No Longer tablet, enteric crush or Active 2017 Memoria l coated chew. (Same City As: Ecotrin) Saline Flush 0.9% Notes: (Same No Longer as: BD Active 2017 [facility] Posiflush) [facility] pantoprazole Notes: Tablet No Longer should not be Active 2017 [facility] chewed or [facility] crushed. Sugar (Same as: Land Protonix) Insulin regular 60 units) No Longer WASTE: F/P - Active 2017 [facility] Black; E - [facility] Municipal Trash Bin Stable for 28 days at room temperature Expires in days from _Date Dextrose 50% Syringe 25 gm, 50 mL, No Longer Route: IVP, [address] Drug Form: City INJ, Dosing Weight 76.2, kg, PRN, PRN Blood Glucose Results, Start date: 11/17/17 2:24:00 CDT, Duration: 30 day, Stop date: 12/17/17 2:23:00 CDT Glucagon 1 mg, Route: No Longer IM, Drug Active [address] [place] [address] form: [facility] PDR/INJ, PRN, Dosing Weight 76.2, kg, PRN Blood Glucose Results, Start date: 11/17/17 2:24:00 CDT, Duration: 30 day, Stop date: 12/17/17 2:23:00 CDT Insulin regular 60 units) Inactive WASTE: F/P - 2017 [facility] Black; E - [facility] [employer] Trash Bin Stable for 28 days at room temperature Expires in days from _Date Dextrose 50% Syringe 12.5 gm, 25 No Longer 11/17 mL, Route: Active [address] [place] [address] IVP, Drug [facility] Form: INJ, Dosing Weight 76.2, kg, PRN, PRN Blood Glucose Results, Start date: 11/17/17 1:39:00 CDT, Duration: 30 day, Stop date: 12/17/17 1:38:00 CDT Glucagon 1 mg, Route: No Longer IM, Drug Active [address] [place] [address] form: [facility] PDR/INJ, PRN, Dosing Weight 76.2, kg, PRN Blood Glucose Results, Start date: 11/17/17 1:39:00 CDT, Duration: 30 day, Stop date: 12/17/17 1:38:00 CDT Aspirin 325 MG Notes: (Do Inactive Enteric Coated Not Crush) [facility] Memori al Tablet Do not crush City or chew. Saline Flush 0.9% Notes: (Same No Longer as: BD Active 2017 [facility] Posiflush) [facility] Acetaminophen Notes: Do not No Longer exceed [address] [place] [address] gm/day. City (Same as: Tylenol) Labetalol Notes: (Same No Longer as: Active 2017 [facility] Normodyne, [facility] Trandate) Push over 2 minutes Give bolus over 2-3 minutes. Saline Flush 0.9% Notes: (Same Inactive Sugar as: BD 2018 Land Posiflush) atorvastatin Notes: (Same Inactive Damico gar as: Lipitor) 2018 [place] Enoxaparin Notes: (Same Inactive Suga r as: Lovenox) 2017 [place] Aspirin 325 MG Notes: (Do Inactive [place]ico gar Enteric Coated Not Crush) 2017 [place] Tablet Do not crush or chew. Saline Flush 0.9% Notes: (Same Inactive Sugar as: BD 2018 [place] Posiflush) Aspirin Notes: Take Inactive Sugar with food. 2018 Land Saline Flush 0.9% Notes: (Same Inactive Sugar as: BD 2018 [place] Posiflush) ATROVENT 0.06 % SOLN 2 sprays to Active each nostril 2014 Medical daily Group CEFTIN 500 MG TABS 1 tablet PO Active 11/20/ M H BID for 7 2014 Medical days Group BACTRIM DS 800-160 1 tablet PO No Longer 11/07/ MH MG TABS BID for 7 Active 2014 Medical days Group BACTROBAN 2 % OINT Apply to Active areas BID for 2014 Medical 7-10 days Group NAPROSYN 500 MG [...] 50 MCG/ACT 2 sprays to No Longer 09/15/ MH SUSP each nostril Active 2014 Medical daily Group LINZESS 290 MCG CAPS 1 daily 30 No Longer 08/13/ MH minutes Active 2013 Medical before meal Group MIRALAX POWD Take 1 No Longer 08/13/ MH tablespoon Active 2013 Medical (17gms) by Group mouth at bedtime Allergies, Adverse Reactions, Alerts Substance Category Reaction Severity Reaction Status Date Comments S ource type Reported No Known Assertion Drug MH Medication allergy Medic al Allergies Group Immunizations Immunization Date Site Status Last Comments Source Given Updated pneumococcal Left completed Arnaldo Medi nazia 23-valent vaccine 8 deltoid Gr oup,[facility] [place] Results Order Name Results Value Reference Date Interpretation Comments Judy rce Range HEMATOLOGY Plav Effect 6 11/20 Result Plt Comment: [facility] rechecked. [facility] CHEM PANEL eGFR 105 11/20 Result Comment: The [facility] eGFR is City calculated using the [...] 0.70 0.50 - 11/20 MH Lvl 1.40 [facility] CHEM PANEL Glucose Lvl 132 70 - 99 11/20 [facility] CHEM PANEL BUN 5 7 - 22 11/20 [facility] CHEM PANEL CO2 23 24 - 32 11/20 [facility] CHEM PANEL Calcium Lvl 9.4 8.5 - 10.5 11/20 [facility] CHEM PANEL Chloride Lvl 108 95 - 109 11/20 [facility] CHEM PANEL Sodium Lvl 143 135 - 145 11/20 [facility] CHEM PANEL Potassium 3.8 3.5 - 5.1 11/20 MH Lvl /2017 [facility] CHEM PANEL AGAP 15.8 10.0 - 11/20 MH 20.0 [facility] HEMATOLOGY Monocytes # 1.0 0.0 - 0.8 11/20 [facility] HEMATOLOGY Eosinophils 0.2 0.0 - 0.5 / MH # /2018 [facility] HEMATOLOGY Lymphocytes 2.4 1.0 - 5.5 11/20 MH # /2017 [facility] HEMATOLOGY Basophils # 0.1 0.0 - 0.2 11/20 /2017 [facility] HEMATOLOGY Plt Morph Normal 11/20 MH (11/20/17 3:23 AM) /2017 [facility] HEMATOLOGY RBC Morph Normal 11/20 MH (11/20/17 3:23 AM) /2017 [facility] HEMATOLOGY Neutrophils 9.4 1.5 - 8.1 11/20 MH # /2017 [facility] HEMATOLOGY Eosinophils 1.4 0.0 - 4.0 11/20 /2017 [facility] HEMATOLOGY Basophils 0.4 0.0 - 1.0 11/20 /2017 [facility] HEMATOLOGY Monocytes 7.7 2.0 - 12.0 11/20 [facility] HEMATOLOGY Lymphocytes 18.5 20.0 - 11/20 MH 40.0 [facility] HEMATOLOGY Segs 72.0 45.0 - 11/20 MH 75.0 [facility] MPV 9.8 7.4 - 10.4 11/20 /2017 [facility] HEMATOLOGY Platelet 166 133 - 450 11/20 /2017 [facility] HEMATOLOGY Hct 45.0 42.0 - 11/20 MH 54.0 [facility] HEMATOLOGY MCHC 33.9 32.0 - 11/20 MH 36.0 [facility] HEMATOLOGY MCV 87.3 80.0 - 11/20 MH 94.0 [facility] MCH 29.6 27.0 - 11/20 MH 31.0 [facility] HEMATOLOGY RDW 13.6 11.5 - 11/20 MH 14.5 [facility] HEMATOLOGY WBC 13.1 3.7 - 10.4 11/20 [facility] HEMATOLOGY Hgb 15.3 14.0 - 11/20 MH 18.0 [facility] HEMATOLOGY RBC 5.16 4.70 - 11/20 MH 6.10 [facility] ELECTROLYTE Potassium 3.7 3.5 - 5.1 11/19 MH S Lvl [facility] ELECTROLYTE AGAP 15.3 10.0 - 11/19 MH S 20.0 [facility] ELECTROLYTE eGFR 104 11/19 Result MH S /2017 Comment: The [facility] eGFR is City calculated using the [...] BMI. ELECTROLYTE Creatinine 0.72 0.50 - 11/19 S Lvl 1.40 /2017 [facility] ELECTROLYTE Calcium Lvl 8.9 8.5 - 10.5 11/19 S [facility] ELECTROLYTE Chloride Lvl 106 95 - 109 11/19 S [facility] ELECTROLYTE Potassium 3.3 3.5 - 5.1 11/19 MH S Lvl /2017 [facility] ELECTROLYTE CO2 24 24 - 32 11/19 [facility] ELECTROLYTE Sodium Lvl 142 135 - 145 11/19 S [facility] ELECTROLYTE Glucose Lvl 135 70 - 99 11/19 S [facility] ELECTROLYTE BUN 3 7 - 22 11/19 S [facility] HEMATOLOGY Monocytes # 0.8 0.0 - 0.8 11/19 [facility] HEMATOLOGY Eosinophils 0.1 0.0 - 0.5 11/19 MH # [facility] HEMATOLOGY Basophils # 0.1 0.0 - 0.2 11/19 [facility] HEMATOLOGY Neutrophils 8.3 1.5 - 8.1 11/19 MH # [facility] HEMATOLOGY Lymphocytes 2.4 1.0 - 5.5 11/19 MH # [facility] HEMATOLOGY Basophils 0.7 0.0 - 1.0 11/19 [facility] HEMATOLOGY Eosinophils 1.2 0.0 - 4.0 11/19 [facility] HEMATOLOGY Lymphocytes 20.8 20.0 - 11/19 MH 40.0 /2017 [facility] HEMATOLOGY Monocytes 6.9 2.0 - 12.0 11/19 [facility] HEMATOLOGY Segs 70.4 45.0 - 11/19 MH 75.0 /2017 [facility] HEMATOLOGY MCHC 33.8 32.0 - 11/19 MH 36.0 [facility] HEMATOLOGY MCH 29.5 27.0 - 11/19 MH 31.0 [facility] HEMATOLOGY Hct 41.5 42.0 - 11/19 MH 54.0 [facility] HEMATOLOGY RBC 4.76 4.70 - 11/19 MH 6.10 [facility] HEMATOLOGY MCV 87.2 80.0 - 11/19 MH 94.0 [facility] HEMATOLOGY Hgb 14.0 14.0 - 11/19 MH 18.0 [facility] HEMATOLOGY WBC 11.8 3.7 - 10.4 11/19 [facility] HEMATOLOGY MPV 9.4 7.4 - 10.4 11/19 [facility] HEMATOLOGY RDW 13.2 11.5 - 11/19 MH 14. [facility] HEMATOLOGY Platelet 164 133 - 450 11/19 [facility] CHEM PANEL eGFR 112 11/18 Result Comment: [facility] eGFR is City calculated using the [...] Creatinine 0.59 0.50 - 11/18 Lvl 1.40 /2017 [facility] CHEM PANEL CO2 25 24 - 32 11/18 [facility] CHEM PANEL Calcium Lvl 8.0 8.5 - 10.5 11/18 [facility] CHEM PANEL BUN 2 7 - 22 11/18 [facility] CHEM PANEL Sodium Lvl 144 135 - 145 11/18 [facility] CHEM PANEL Chloride Lvl 110 95 - 109 11/18 /2017 [facility] CHEM PANEL Glucose Lvl 138 70 - 99 11/18 [facility] CHEM PANEL AGAP 12.3 10.0 - 11/18 MH 20.0 /2017 [facility] HEMATOLOGY Basophils 0.9 0.0 - 1.0 11/18 MH /2017 [facility] HEMATOLOGY Neutrophils 7.9 1.5 - 8.1 11/18 MH # /2018 [facility] HEMATOLOGY Lymphocytes 2.6 1.0 - 5.5 11/18 MH # /2017 [facility] HEMATOLOGY Monocytes # 0.7 0.0 - 0.8 11/18 MH /2017 [facility] HEMATOLOGY Eosinophils 0.2 0.0 - 0.5 11/18 # /2017 [facility] HEMATOLOGY Basophils # 0.1 0.0 - 0.2 11/18 MH /2017 [facility] HEMATOLOGY Eosinophils 1.4 0.0 - 4.0 11/18 /2017 [facility] HEMATOLOGY Segs 69.0 45.0 - 11/18 MH 75.0 [facility] HEMATOLOGY Lymphocytes 22.9 20.0 - 11/18 MH 40.0 /2017 [facility] HEMATOLOGY Monocytes 5.8 2.0 - 12.0 11/18 /2017 [facility] HEMATOLOGY MPV 8.8 7.4 - 10.4 11/18 /2017 [facility] HEMATOLOGY Platelet 160 133 - 450 11/18 MH /2017 [facility] HEMATOLOGY Hgb 13.5 14.0 - 11/18 MH 18.0 [facility] HEMATOLOGY WBC 11.4 3.7 - 10.4 11/18 /2017 [facility] HEMATOLOGY RBC 4.59 4.70 - 11/18 MH 6.10 /2017 [facility] HEMATOLOGY MCHC 34.1 32.0 - 11/18 MH 36.0 [facility] HEMATOLOGY MCV 86.5 80.0 - 11/18 MH 94.0 [facility] HEMATOLOGY MCH 29.5 27.0 - 11/18 MH 31.0 [facility] HEMATOLOGY Hct 39.7 42.0 - 11/18 MH 54.0 [facility] HEMATOLOGY RDW 13.2 11.5 - 11/18 MH 14.5 /2017 [facility] HEMATOLOGY POC 131 11/17 MH [facility] Time HEMATOLOGY INR 0.91 0.85 - 11/17 MH 1.17 [facility] HEMATOLOGY PT 12.3 12.0 - 11/17 MH 14.7 /2017 [facility] HEMATOLOGY PTT 26.6 22.9 - 11/17 MH 35.8 /2017 [facility] DRUG SCREEN U Benzodiaz Negative Negative 11/17 Scr *NA* /2017 [facility] (11/17/17 4:31 AM) City DRUG SCREEN U Jolene Scr Negative Negative 11/17 *NA* /2017 [facility] (11/17/17 4:31 AM) City DRUG SCREEN U Amph Scr Negative Negative 11/17 *NA* /2017 [facility] (11/17/17 4:31 AM) City DRUG SCREEN U Cocaine Negative Negative 11/17 Scr *NA* /2017 [facility] (11/17/17 4:31 AM) City DRUG SCREEN U Cannab Scr Negative Negative 11/17 *NA* /2017 [facility] (11/17/17 4:31 AM) [facility] [facility] DRUG SCREEN UDS Note See Note 11/17 (11/17/17 4:31 AM) /2017 [facility] DRUG SCREEN U Negative Negative 11/17 Phencyclidin *NA* /2017 [facility] e Scr (11/17/17 4:31 AM) [facility] DRUG SCREEN U Opiate Scr Negative Negative 11/17 *NA* /2017 [facility] (11/17/17 4:31 AM) [facility] URINE AND UA Ketones Negative 11/17 STOOL [facility] URINE AND UA Color Straw 11/17 STOOL /2017 [facility] URINE AND UA pH 6.0 5.0 - 8.0 11/17 STOOL /2017 [facility] URINE AND UA Spec Grav 1.003 <=1.030 11/17 STOOL /2017 [facility] URINE AND UA Turbidity Clear Clear 11/17 STOOL (11/17/17 4:31 AM) /[facility] WBC 1 0 - 5 11/17 STOOL /2017 [facility] URINE AND UA RBC <1 0 - 2 11/17 STOOL [facility] URINE AND UA Leuk Est Negative Negative 11/17 STOOL (11/17/17 4:31 AM) /2017 [facility] URINE AND UA Sq Epi Occasional Few /LPF 11/17 STOOL /LPF /2017 [facility] URINE AND UA 4.0 0.1 - 1.0 11/17 STOOL Urobilinogen /2017 [facility] URINE AND UA Blood Negative Negative 11/17 STOOL (11/17/17 4:31 AM) [facility] URINE AND UA Nitrite Negative Negative 11/17 STOOL (11/17/17 4:31 AM) [facility] URINE AND UA Bili Negative Negative 11/17 STOOL *NA* /2017 [facility] (11/17/17 4:31 AM) [facility] URINE AND UA Glucose Negative Negative 11/17 STOOL mg/dL mg/dL [facility] URINE AND UA Protein Negative Negative 11/17 STOOL mg/dL mg/dL [facility] LIPIDS CHD Risk 8.52 4.00 - 11/17 7.30 [facility] LIPIDS VLDL 51 11/17 [facility] LIPIDS LDL 137 <=99 mg/dL 11/17 (Calculated) [facility] LIPIDS Trig 255 <=149 11/17 mg/dL [facility] LIPIDS Chol 213 <=199 11/17 mg/dL [facility] LIPIDS HDL 25 >=61 mg/dL 11/17 [facility] SPECIAL Hgb A1C 8.9 <=5.6 % 11/17 CHEMISTRY [facility] CARDIAC Total CK 44 12 - 191 11/16 [place] [facility] CARDIAC Troponin-I <0.02 0.00 - 11/16 [place] 0.40 [place] CHEM PANEL A/G Ratio 0.9 0.7 - 1.6 11/16 [place] CHEM PANEL Globulin 3.8 2.7 - 4.2 11/16 [place] CHEM PANEL AGAP 8.5 10.0 - 11/16 [place] 20.0 [place] CHEM PANEL B/C Ratio 2 6 - 25 11/16 [place] CHEM PANEL eGFR 91 11/16 [place] Comment: The [facility] eGFR is calculated using the CKD-EPI formula. [...] PANEL Sodium Lvl 136 135 - 145 / [facility] [place] CHEM PANEL Potassium 3.5 3.5 - 5.1 08/ [facility] [place] Lvl /2017 [place] CHEM PANEL Creatinine 0.93 0.50 - 08 [facility] [place] Lvl 1.40 /2017 [place] CHEM PANEL BUN 2 7 - 22 11/16 [facility] [place] CHEM PANEL Alk Phos 141 39 - 136 11/16 [facility] [place] CHEM PANEL AST 14 0 - 37 11/16 [facility] [place] CHEM PANEL ALT 23 0 - 65 11/16 [facility] [place] CHEM PANEL Albumin Lvl 3.6 3.5 - 5.0 11/16 [facility] [place] CHEM PANEL Calcium Lvl 9.0 8.5 - 10.5 11/16 [place] CHEM PANEL CO2 29 24 - 32 11/16 [facility] [place] CHEM PANEL Chloride Lvl 102 95 - 109 11/16 [facility] [place] CHEM PANEL Total 7.4 6.4 - 8.4 11/16 [facility] [place] CHEM PANEL Bili Total 1.4 0.2 - 1.3 11/16 [facility] [place] CHEM PANEL Glucose Lvl 249 70 - 99 11/16 [facility] [place] HEMATOLOGY Basophils 0.6 0.0 - 1.0 11/16 [facility] [place] HEMATOLOGY Eosinophils 1.7 0.0 - 4.0 11/16 [facility] [place] /2017 [place] HEMATOLOGY Segs 71.8 45.0 - 11/16 [facility] [place] 75.0 [place] HEMATOLOGY Lymphocytes 23.0 20.0 - 08 [facility] [place] 40.0 2018 [place] HEMATOLOGY Neutrophils 7.3 1.5 - 8.1 11/16 [facility] [place] # /2017 [place] HEMATOLOGY Monocytes 2.9 2.0 - 12.0 08 [facility] [place] HEMATOLOGY Lymphocytes 2.3 1.0 - 5.5 08 [facility] [place] # /2017 [place] HEMATOLOGY Monocytes # 0.3 0.0 - 0.8 0816 [place] /2017 [place] HEMATOLOGY Eosinophils 0.2 0.0 - 0.5 11/16 [place] # /2018 [place] HEMATOLOGY Basophils # 0.1 0.0 - 0.2 11/16 [place] /2017 [place] HEMATOLOGY PTT 26.3 22.9 - 11/16 [place] 35.8 /2017 [place] HEMATOLOGY MCH 29.4 27.0 - 11/16 [place] 31.0 /2017 [place] HEMATOLOGY MCV 89.0 80.0 - 11/16 [place] 94.0 /2017 [place] HEMATOLOGY Hct 47.3 42.0 - 11/16 [place] 54.0 /2017 [facility] HEMATOLOGY Hgb 15.6 14.0 - 11/16 [place] 18.0 [facility] HEMATOLOGY RBC 5.31 4.70 - 11/16 [place] 6.10 [facility] HEMATOLOGY WBC 10.1 3.7 - 10.4 11/16 [place] [facility] HEMATOLOGY MCHC 33.0 32.0 - 11/16 [place] 36.0 [facility] HEMATOLOGY RDW 13.5 11.5 - 11/16 [place] 14.5 [facility] HEMATOLOGY Platelet 185 133 - 450 11/16 [facility] HEMATOLOGY MPV 9.1 7.4 - 10.4 11/16 [place] [facility] HEMATOLOGY INR 0.95 0.85 - 11/16 [place] 1.17 [facility] HEMATOLOGY PT 12.7 12.0 - 11/16 [place] 14.7 [facility] Pathology Reports No Data Provided for This Section Diagnostic Reports Report Value Date Source Brain wo contrast CT PATIENT NAME: MUNIRA WHITE 11/21/19 18 [facility] : 1960; Age: 56 years y/o Male MR: [id number] STUDY: Brain wo contrast CT 11/20/2017 8:00 [...] , 11/19/2017 8:0 0 AM CDT. 11/19/2017 [facility] CLINICAL INDICATION: 56 years Male - Hmg [...] predominantly involving the parietal lobe in the MCA/SPINNER IRON watershed territory and to a lesser degree [...] contrast CT 11/18/2017 9:33 AM CDT 11/18/2017 [facility] HISTORY/INDICATIONS:56 years Male follow up for subacute [...] the supraclinoid segment o f the RCA. [id number] Angiogram Cerebral CERVICAL AND INTRACRANIAL ANGIOPLASTY STENTIN G 11/17/2017 [facility] Artery Bilat (VR) INDICATION: Acute right cerebral [...] artery and the common femoral artery. A 4-Welsh Berenstein glide catheter was introduced over a [...] to obscuration of the lumen by the 4-Welsh device indicating severe stenosis at this level. [...] catheter and sheath were exchanged for a 9-Welsh sheath and a 9-Welsh Concentric balloon guide catheter. It was advanced [...] A 4 mm x 15 mm resolute Yasmany stent was then deployed across the stenosis. [...] supraclinoid and paraclinoid segments of the right undergraduate internship al carotid artery. Diminished distal flow was [...] MRA 11/16/2017 3:25 PM C DT 11/16/2017 [place] [employer] HISTORY/INDICATIONS: . . - TIA TECHNIQUE: [id number] t(TOF) axially acquired sequence through lower two- [...] flow in this MONO supraclinoid segment. The [place] anatomy includes patent and moderately [...] the patient's particul ar anatomy at the [place], with limited collateral blood flow,, the [...] results were discussed with Dr. Rose at 19 IMPRESSION: 1. Focal occlusion or high-grade stenosis [...] the left MCA. Brain w/wo contrast 11/16/2017 [place] [facility] Sex: Male. : 1960. Technique: Sagittal, [...] Acute right-sided infarct. Discussed findings with the nursing staff at 6:25 PM. Neck wo contrast MRA 11/16/2017 [place] Sex: Male. : 1960. Technique: 2-D, [...] CHEST X-RAY. 11/16/2017 12:22 PM CDT 11/16/2017 [place] INDICATION: - L weakness TECHNIQUE: Single frontal [...] CT 11/16/2017 12:22 PM CD T 11/16/2017 [place] [employer] HISTORY/INDICATIONS: 56 year sMale . . - [...] Signs Vital Sign Value Date Comments Source Systolic (mm Hg) 103 02/25/2020 [facility] Diastolic (mm Hg) 68 02/25/2020 [facility] Heart Rate 76 02/25/2020 [facility] Temperature Oral (F) 97.8 F 02/25/2020 [facility] Height 171.45 cm 02/25/2020 [facility] Weight 74.545 02/25/2020 [facility] BMI Calculated 25.36 02/25/2020 [facility] Height 172.72 cm 02/10/2020 [facility] Weight 76.534 02/10/2020 [facility] BMI Calculated 25.65 02/10/2020 [facility] Systolic (mm Hg) 170 02/10/2020 [facility] Diastolic (mm Hg) 96 02/10/2020 [facility] Heart Rate 79 02/10/2020 [facility] Temperature Oral (F) 98.1 F 02/10/2020 [facility] Weight 74.545 11/22/2017 [facility] BMI Calculated 25.74 11/22/2017 [facility] Height 170.18 cm 11/22/2017 [facility] Systolic (mm Hg) 104 11/22/2017 [facility] Diastolic (mm Hg) 72 11/22/2017 [facility] Heart Rate 89 11/22/2017 [facility] Temperature Oral (F) 97.6 F 11/22/2017 [facility] Systolic (mm Hg) 136 11/20/2017 [facility] Diastolic (mm Hg) 84 [facility]/20[facility] 18 11/20[facility] Resp[facility] Rate 18 11/20/2017 [facility] Respitory Rate 16 11/20/2017 [facility] Systolic (mm Hg) 138 11/20/2017 [facility] Diastolic (mm Hg) 87 11/20/2017 [facility] Systolic (mm Hg) 143 11/20/2017 [facility] Diastolic (mm Hg) 94 11/20/2017 [facility] Temperature Oral (F) 98.5 F 11/20/2017 [facility] Temperature Oral (F) 98.1 F 11/20/2017 [facility] Temperature Oral (F) 97.4 F 11/20/2017 [facility] BMI Calculated 26.31 11/17/2017 [facility] Weight 76.2 11/17/2017 [facility] Height 170.18 cm 11/17/2017 [facility] Systolic (mm Hg) 156 11/17/2017 [facility] [place] Diastolic (mm Hg) 81 11/17/2017 [facility] [place] Respitory Rate 18 11/17/2017 [facility] [place] Temperature Oral (F) 97.7 F 11/17/2017 [facility] [place] Heart Rate 56 11/17/2017 [place] Temperature Oral (F) 97.3 F 11/16/2017 [place] Heart Rate 59 11/16/2017 [facility] [place] Respitory Rate 16 11/16/2017 [facility] [place] Systolic (mm Hg) 157 11/16/2017 [facility] [place] Diastolic (mm Hg) 85 11/16/2017 [place] Weight 70.909 11/16/2017 [facility] [place] Height 170.18 cm 11/16/2017 [place] BMI Calculated 24.48 11/16/2017 [place] Respitory Rate 18 11/16/2017 [place] Temperature Oral (F) 97.7 F 11/16/2017 [place] Heart Rate 64 11/16/2017 [place] Systolic (mm Hg) 149 11/16/2017 [facility] [place] Diastolic (mm Hg) 83 11/16/2017 [place] Weight 76.818 11/16/2017 [place] BMI Calculated 26.52 11/16/2017 [facility] [place] Height 170.18 cm 11/16/2017 [facility] [place] Weight 179.0 11/20/2014 [facility] Temperature [...] Gr oup Systolic (mm Hg) 131 11/07/2014 [facility] Diastolic (mm Hg) 85 11/07/2014 [...] Type Number For Provider Date Date Visit [facility] Office [id number] Art 09/15 09/15 [place] Medical Visit 1730 Jermaine, /2014 Me jeanmarie Love MD [facility] Office [id number] Art 11/07 11/07 [place] Medical Visit 2090 Jermaine, /2014 Me jeanmarie Love MD [facility] Lab Report [id number] Art 11/07 11/07 [place] [facility], /2014 Me jeanmarie Love MD [facility] Outpatient [id number] DION 11/07 Active [facility] SABA /2014 [facility] Office [id number] Art 11/20 11/20 [place] Medical Visit 8540 Jermaine, /2014 Me jeanmarie Love MD [facility] Outpatient [id number] DION 11/20 [facility]2014 [place] Out[facility] [id number] ART 01/01 Active [facility] JERMAINE /2014 [place] Outpatient [id number] DION 02/23 [facility] /2014 [place] Outpatient [id number] DION 03/02 [facility] /2014 [facility] Inpatient [id number] Rafat 11/16 11/17 Stacia Glass /2017 [facility] Inpatient [id number] Cody Cody Pe 11/17 11/20 Brady /2017 [facility] Outpatient [id number] JERECIA 11/22 [facility] Outpatient [id number] Jerecia 11/22 11/23 [facility] Outpatient [id number] Eber Nguyenrolf 02/09 Act buzz [facility] Outpatient [id number] Eber Nguyenrolf 02/09 02/10 [facility] Outpatient [id number] Eber Kylemk 02/24 Act buzz [facility] Outpatient [id number] Eber Nguyenrolf 02/24 02/25 [facility] Procedures Procedure Code Date Perfomer Comments Source History of [id number] 11/18/19 [facility] ischemic stroke 18 Group ICA<sup>1</sup> [id number] 11/18/19 Right ICA stent [facility] edical 18 Group Insertion of [id number] 11/18/19 Right [facility] iliac artery 18 artery [facility] stent<sup>2</sup> Implantable Device. Comprehensive eye [id number] 04/03/19 per pt last eye Medical examination<sup>3 18 exam in 2017 Group </sup> Diabetic retinal [id number] 04/03/19 PER PT LAST EYE Medical eye exam not 18 EXAM DONE OVER Group done<sup>4</sup> 2 YEARS AGO. PENDING AN APPOINTMENT. smoking/tobacco 14 08/14/19 yes Medica l cessation, 14 Group patient education and counseling Ankle joint [id number] 3 screws- years Medic al operations<sup>1, agoLeft ankle Grou p,[facility] 2</sup> [facility], [place] Ankle joint [id number] 3 screws- years Medic al operations<sup>4, agoLeft ankle Grou p 5</sup> Ankle joint [id number] 3 screws- years Medic al operations<sup>5, agoLeft ankle Grou p 6</sup> Assessment and Plan Assessment and Plan Date Source Extracted from:Title: Clinical Document 11/20/2017 [facility] Author: Guy Miranda MD Date: 11/20/17 NEUROLOGY and CRITICAL CARE MEDICINE [facility] Consultation / Progress Note Assessment [...] care physician (does not live in the [place] area) Stop tobacco !!! Tobacco abuse Counseled [...] History of Present Illness 56M Presented to [facility] 11/16/17 with 2-day history of left upper [...] GI No nausea, vomiting, diahhrea, melena, blood [place]. No new urgency, frequency, pain, or urine malodor. Vital Signs (last 24 hrs) Last Charted _ Temp Oral 98.5 DegF (NOV 20 04:00) Heart Rate Apical 100 bpm (NOV 20:) Resp Rate 18 BRMIN (NOV 20:) SBP H 143mmHg (NOV 20:) DBP H 94mmHg (NOV 20:) SpO2 98 % (NOV 20:00) Exam Neuro Awake. Alert. Lucid. Speech articulate. Language fluent. Comprehension inta ct. Pupils equal round about 2 mm, brisk ly reactive to light bilaterally. No APD. Primary gaze midline. Ocular pursui ts and range of motion appear normal. No lateral nystagmus. No facial asymmetries. Tongue extends midline. Right dominant shingle cutter is strong. Left arm 5-/5. Poor dex [...] 8.9 (NOV 19) L 8.0 (A UG ) 8.7 (NOV 17) PT 12.3 (NOV 17) [...] 1-one 2-neither 0 1c. Commands open/close eyes, shingle cutter/rel ease non-paretic hand: 0-both 1-one 2-neither 0 [...] Date: 11/17/17 NEUROLOGY and CRITICAL CARE MEDICINE [facility] Consultation / Progress Note Assessment [...] al record). Following extended discussion, the p king expressed that he felt that we were [...] History of Present Illness 56M Presented to [facility] 11/16/17 with 2-day history of left upper [...] GI No nausea, vomiting, diahhrea, melena, blood [place]. No new urgency, frequency, pain, or urine malodor. Vital Signs (last 24 hrs) Last Charted _ Temp Oral 97.5 DegF (NOV 17 00:38) Heart Rate Apical 63 bpm (NOV 17 10:00) Resp Rate 14 BRMIN (NOV 17 10:00) SBP 131 mmHg (NOV 17 10:00) DBP 84 mmHg (NOV 17 10:00) SpO2 96 % (NOV 17:00) Weight 76.2 kg (NOV 17:30) Height 170.18 cm (NOV 17) BMI 26.31 (NOV 17:) Exam Neuro Awake. Alert. Lucid. Speech articulate. Language fluent. Comprehension inta ct. Pupils equal round about 2 mm, brisk ly reactive to light bilaterally. No APD. Primary gaze midline. Ocular pursui ts and range of motion appear normal. No lateral nystagmus. No facial asymmetries. Tongue extends midline. Right dominant shingle cutter is strong. Left nondominant shingle cutter is quite weak (3/5). No drift or [...] 1-one 2-neither 0 1c. Commands open/close eyes, shingle cutter/rel ease non-paretic hand: 0-both 1-one 2-neither 0 [...] hypertensive urgency with systolic blood pressu res [id number] Plan #3 hyperglycemia I suspect this pat [...] on criteria listed Extracted from:Title: H&P 11/17/2017 JONATHAN Castellanos Author: Rafat Glass MD Date: 11/16/17 HISTORY [...] Vitals Tmp(F) Pulse BP RR SpO2 FIO2 08/16 14:40 97.7 64 149/83 18 100 --- [...] Social History Date Source Social History TypeResponse 02/10/2020 Ghazala metcalf Alcohol Current, Type Beer. Frequency: 1-2 times per week. Employment/School Status: Employed. 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 Exercise 1 Substance Abuse Use: None. Smoking Status Current every day smoker; Type: Cigarett es; Exposure to Tobacco Smoke None; Cigarette Smoking Last 365 Days Yes; Reg Smoking Cessation Counseling No; Tobacco use per day: 10; Started at age: 15.0; 2 entered on: 02/25/20 [id number] is trying to cut back. Social History TypeResponse 11/22/2017 Stacia pemberton Smoking Status Current every day smoker; Type: Cigarett es; Exposure to Tobacco Smoke None; Cigarette Smoking Last 365 Days Yes; Reg Smoking Cessation Counseling No; Tobacco use per day: 10; Started at age: 15.0; entered on: 11/22/17 Social History TypeResponse 11/22/2017 [facility] Smoking Status Current every day smoker; Type: [...]
--- OUTSIDE RECORDS SUMMARY | 2020-03-02 11:14 | XMS REPORT | Summary of Care ---
:1960 Author Organization [facility] Address [address] [place] [id number]- Encounter HQ Lucreciar_kvng(FIN) [id number] Date(s): 02/10/20 - 02/10/[address] [address]- [phone] Discharge Disposition: Home or Self Care Attending Physician: Eber Pastor MD Vital Signs Most recent to oldest [Reference Range]: 1 Height 172.72 cm (02/10/20 2:32 PM) Temperature Oral [96.4-99.1 DegF] 98.1 DegF (02/10/20 2:32 PM) Blood Pressure [90-140/60-90 mmHg] 170/96 mmHg *HI* (02/10/20 2:32 PM) Peripheral Pulse Rate [60-100 bpm] 79 bpm (02/10/20 2:32 PM) Weight 76.534 kg (02/10/20 2:32 PM) Body Mass Index 25.65 m2 (02/10/20 2:32 PM) Problem List Condition Effective Dates Status Health [...] Reactions, Alerts No Known Medication Allergies Medications aspirin 81 mg tablet, enteric coated 81 mg = 1 tab, PO, Daily, # 30 tab, 3 Refill(s), Pharmacy: [facility]/pharmacy #[id number], 172.72, cm, 02/09/2014:32:00 [employer]OR, Height, 76.534, kg, 02/10/20 14:32:00 [employer], Weight Start Date: 02/10/20 Stop Date: 06/09/20 Status: Orderedatorvastatin 80 mg oral tablet 80 mg = 1 tab, PO, Bedtime, # 30 tab, 3 Refill(s), Pharmacy: [facility]/pharmacy #[id number], 172.72, cm, 02/10/20 14:32:00 [employer], Height, 76.534, kg, 02/10/20 14:32:00 [employer]OR, Weight Start Date: 02/10/20 Status: Orderedhydrochlorothiazide 25 mg oral tablet 25 mg = 1 tab, PO, Daily, # 30 tab, 3 Refill(s), Pharmacy: [facility]/pharmacy #[id number], 172.72, cm, 02/09/2014:32:00 [employer], Height, 76.534, kg, 02/10/20 14:32:00 [employer], Weight Start Date: 02/10/20 Status: Orderedlosartan 50 mg oral tablet 50 mg = 1 tab, PO, Daily, # 30 tab, 3 Refill(s), Pharmacy: [facility]/pharmacy #[id number], 172.72, cm, 02/09/2014:32:00 [employer], Height, 76.534, kg, 02/10/20 14:32:00 [employer], Weight Start Date: 02/10/20 Status: OrderedmetFORMIN 500 mg oral tablet 500 mg = 1 tab, PO, BID-Meals, # 30 tab, 3 Refill(s), Pharmacy: [facility]/pharmacy #[id number], 172.72, cm, 02/10/20 14:32:00 [employer]OR, Height, 76.534, kg, 02/10/20 14:32:00 [employer]OR, Weight Start Date: 02/10/20 Status: OrderedPlavix 75 mg oral tablet 75 mg = 1 tab, PO, Daily, # 30 tab, 3 Refill(s), Pharmacy: [facility]/pharmacy #[id number], 172.72, cm, 02/09/2014:32:00 [employer], Height, 76.534, kg, 02/10/20 14:32:00 [employer]OR, Weight Start Date: 02/10/20 Status: Ordered Results No data available for this section Immunizations Given and Recorded Vaccine Date Status Refusal Reason pneumococcal 23-valent vaccine 11/20/17 Given Procedures Procedure Date Related Diagnosis Body Site Status History of ischemic stroke 11/17/17 C ompleted ICA1 11/17/17 Completed Insertion of iliac artery stent2 11/17/17 Completed Comprehensive eye examination3 04/03/17 Completed Ankle joint operations4, 5 C ompleted 1Right ICA [id number] [place]elo artery [place] Implantable Device.3per pt last eye exam in [id number] screws- years [id number] ankle Social History Social History Type Response Alcohol Current, Type Beer. Frequen cy: 1-2 times per week. Employment/School Status: Employed. 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 Exercise 1 Substance Abuse Use: None. Smoking Status Current every day smoker; Ty pe: Cigarettes; Exposure to Tobacco Smoke None; Cigarette Smoking Last 365 Days Yes; Reg Smoking Cessation Counseling No; Tobacco use per day: 10; Started at age: 15.0; entered on: 02/10/20 1NONE Assessment and Plan No data available for this section
[2020-03-02 11:15] LABS: Absolute Lymphocytes (CBC) 1.1 K/uL (0.7-4.9); Basophils % 0.7 % (0-1.3); Hematocrit 34.6 % (39.6-49.0); Lymphocytes % 8.7 % (15.3-44.8); MPV 8.7 fL (7.6-11.3); RBC Red Blood Cell Count 4.02 M/uL (4.33-5.43)
--- OUTSIDE RECORDS SUMMARY | 2020-03-02 11:21 | XMS REPORT | Continuity of Care Document ---
:1960 Author Organization [facility] t Address [address] [place] [address] Care Team Providers Name Role Phone Darby Attending Clinician Lillian Dumont MD Attending Clinician Krissy Rubio MD Attending Clinician Merchant HOWARD Attending Clinician Charlie Neal MD Attending Clinician Jason Mena MD Attending Clinician Eugene Sow MD Attending Clinician Ashlee HOWARD Attending Clinician Afshan Mixon MD Attending Clinician Jillian HOWARD Attending Clinician Rohit Roe Attending Clinician LILLIAN DUMONT Attending Clinician Unavailable Vashti Franco Attending Clinician Treva Abraham Attending Clinician Quan Attending Clinician KRISSY RUBIO Admitting Clinician Unavailable Jarad A Admitting Clinician Quan Admitting Clinician Problems Condition Condition Condition Status Onset Resolution Last Treating Co mments Source Name Details Category Date Date Treatment Clinician Date S/P S/P Disease Active 2019-[address] [facility] vascular vascular [facility]16 [facility] surgery [facility]: Medical 00 [place] Ischemic Ischemic Disease Active 2019[facility] ICA Diagnosis Active 2018-01-25 Mem oria STENOSIS 11-16 10:44:00 l ICA 00:00: Brady STENOSIS 00 Active 11/16/2017 [facility] NUMBNESS Diagnosis Active 2018-01-25 M emoria LEFT SIDE 11-16 10:39:00 l NUMBNESS 00:00: Sean n LEFT SIDE 00 Active 11/16/[address] OTITIS Condition Active 2014-11-20 Mem oria MEDIA, 11-20 08:51:30 l SEROUS OTITIS 00:00: Brady MEDIA, 00 SEROUS Active 11/20/2014 [facility] CELLULITIS Condition Active 2014-11-20 Memoria /ABSCESS 11-07 08:51:30 l NOS 00:00: [place] CELLULITIS 00 /ABSCESS NOS Active 11/07/2014 [facility] SINUSITIS, Condition Active 2014-11-20 Memoria ACUTE 09-15 08:51:30 l 00:00: [place] SINUSITIS, 00 ACUTE Active 09/15/2014 [facility] ALLERGIC Condition Active 2014-11-20 M emoria RHINITIS 09-15 08:51:30 l ALLERGIC 00:00: Sean n RHINITIS 00 Active 09/15/2014 [facility] DENTAL Condition Active 2014-11-20 Mem oria CARIES 09-15 08:51:30 l DENTAL 00:00: [place] CARIES 00 Active 09/15/2014 [facility] SMOKER Condition Active 2014-11-20 Mem oria 09-15 08:51:30 l SMOKER 00:00: Brady 00 Active 09/15/2014 [facility] Smoker Problem Active 2020-02-28 Memor ia (finding) 09-15 00:54:55 l Smoker 00:00: Brady (finding) 00 Active 09/15/2014 Problem 02/28/2020 Data migrated from [facility] on 10/08/14. 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 16:11:17 l limb [place] affecting Monoplegia left of upper nondominan limb t side affecting left nondominan t side 06/05/2018 [address] Hyperglyce Problem 2018-06-05 M emoria casandra, 16:11:17 l unspecifie Sean n d Hyperglyce casandra, unspecifie d 06/05/2018 Trail NIHSS Problem 2018-06-05 Memor ia score 1 16:11:17 l NIHSS [place] score 1 06/05/2018 Trail Coma Problem 2018-06-05 Memor ia scale, 16:11:17 l best motor Coma Sean n response, scale, obeys best motor commands, response, at arrival obeys to commands, emergency at arrival department to emergency department 06/05/2018 Trail Coma Problem 2018-06-05 Memor ia scale, 16:11:17 l eyes open, Coma Sean n spontaneou scale, s, at eyes open, arrival to spontaneou emergency s, at department arrival to emergency department 06/05/2018 Trail Coma Problem 2018-06-05 Memor ia scale, 16:11:17 l best Coma Brady verbal scale, response, best oriented, verbal at arrival response, to oriented, emergency at arrival department to emergency department 06/05/[address] Nontraumat Problem 2018-06-09 M emoria ic 13:59:28 l intracereb Sean n ral Nontraumat hemorrhage ic , intracereb unspecifie ral d hemorrhage , unspecifie d 06/09/2018 [facility] Essential Problem 2018-06-09 Me moria (primary) 13:59:28 l hypertensi Sean n on Essential (primary) hypertensi on 06/09/2018 [facility] Nicotine Problem 2018-06-09 Mem oria dependence 13:59:28 l , Nicotine Sean n cigarettes dependence , , uncomplica cigarettes maryanne , uncomplica maryanne 06/09/2018 [facility], Trail Type 2 Problem 2018-06-09 Memor ia diabetes 13:59:28 l mellitus Type 2 Sean n with diabetes hyperglyce mellitus casandra with hyperglyce casandra 06/09/2018 [facility] Pure Problem 2018-06-09 Memor ia hyperchole 13:59:28 l sterolemia Pure Sean n , hyperchole unspecifie sterolemia d , unspecifie d 06/09/2018 [facility] Hyperlipid Problem 2018-06-09 M emoria emia, 13:59:28 l unspecifie Sean n d Hyperlipid emia, unspecifie d 06/09/2018 [facility] Hypokalemi Problem 2018-06-09 M emoria a 13:59:28 l [place] Hypokalemi a 06/09/2018 [facility] Constipati Problem 2018-06-09 M emoria on, 13:59:28 l unspecifie Sean n d Constipati on, unspecifie d 06/09/2018 [facility] Occlusion Problem 2018-06-09 Me moria and 13:59:28 l stenosis [place] of right Occlusion carotid and artery stenosis of right carotid artery 06/09/2018 [facility] half-way Problem 2018-06-09 Me moria (current) 13:59:28 l use of Long [place] insulin term (current) use of insulin 06/09/2018 [facility] NIHSS Problem 2018-06-09 Memor ia score 2 13:59:28 l NIHSS [place] score 2 06/09/2018 [facility] Constipati Problem Resolve 2020-02-28 Memoria on d 00:54:55 l (disorder) Sean n Constipati on (disorder) Resolved Problem 02/28/2020 [facility] Type II Problem Active 2020-02-28 Lamont isela diabetes 00:54:55 l mellitus Type II Nicole nn uncontroll diabetes ed mellitus (finding) uncontroll ed (finding) Active Problem 02/28/2020 [facility] History of Problem Active 2020-02-28 M emoria - CVA 00:54:55 l (context-d History Her maldonado ependent of - CVA category) (context-d ependent category) Active Problem 02/28/2020 Medical Group Noncomplia Problem Active 2020-02-28 M emoria nce with 00:54:55 l medication Sean n regimen Noncomplia (finding) nce with medication regimen (finding) Active Problem 02/28/2020 Medical Group ILLNESS, Diagnosis Active 2018-01-25 M emoria UNSPECIFIE 10:44:00 l D ILLNESS, Sean n UNSPECIFIE D Active [facility] Tobacco Tobacco Disease Active [facility] abuse abuse [facility] HTN HTN Disease Active [facility] (hypertens (hypertens Cat kes - ion) ion) [facility] PAD PAD Disease Active [facility] (periphera (periphera Cat kes - l artery l artery Medica l disease) disease) Center Hyperglyce Hyperglyce Disease Active [facility] casandra casandra [facility] Encounter Encounter Disease Active [facility] for for [facility] tobacco tobacco Medical use use Center cessation cessation counseling counseling Skin ulcer Skin ulcer Disease Active [facility] of toe of of toe of [place] s - left foot, left foot, Me dical limited to limited to Ce nter breakdown breakdown of skin of skin Ischemia Ischemia Disease Active [facility] Cerebral Problem 2018-06-09 2018-06-09 Memoria infarction 11-29 13:59:28 13:59:28 l , Cerebral 04:07: Sean n unspecifie infarction 52 d , unspecifie d 2017 06/09/2018 [facility] History of Past Illness Condition Condition Condition Status Onset Resolution Last Treating Co mments Source Name Details Category Date Date Treatment Clinician Date Allergic Problem Resolve 2020-02-28 2020-02-28 Memoria rhinitis d 09-15 00:54:55 00:54:55 l (disorder) Allergic 00:00: He rmann rhinitis 00 (disorder) Resolved 09/15/2014 Problem 02/28/2020 Data migrated from [employer] on 10/08/14. [facility] Dental Problem Resolve 2020-02-28 2020-02-28 Memoria caries d 6- 00:54:55 00:54:55 l (disorder) Dental 00:00: Herm roya caries 00 (disorder) Resolved 09/15/2014 Problem 02/28/2020 Data migrated from [employer] on 10/08/14. [facility] ABDOMINAL Condition Inactiv 2014-11-20 2014-11-20 Memoria BLOATING e - 08:51:30 08:51:30 l 00:00: Brady ABDOMINAL 00 BLOATING Inactive 08/13/2013 [facility] ABDOMINAL Condition Inactiv 2014-11-20 2014-11-20 Memoria PAIN e 5-13 08:51:30 08:51:30 l 00:00: [place] ABDOMINAL 00 PAIN Inactive 08/13/2013 [facility] CONSTIPATI Condition Inactiv 2013-2014-11-20 2014-11-20 Memoria ON e 08-13 08:51:30 08:51:30 l 00:00: [place] CONSTIPATI 00 ON Inactive 08/13/2013 [facility] Allergies, Adverse Reactions, Alerts Allergy Allergy Status Severity Reaction(s) Onset Inactive Treating Comm ents Source Name Type Date Date Clinician No Known No Known Active Memori a Medicati Medicati l on on Brady Allergbrodie Allergbrodie s s Social History Social Habit Start Date Stop Date Quantity Comments Source History [facility] - Alcohol Std Drinks [facility] History [facility] - Alcohol Binge Medical [facility] ter Sex Assigned At [facility] Exposure to Not sure [facility] - SARS-CoV-2 (event) [facility] Cigarettes smoked 2020-02-19 2020-02-19 [facility] - current (pack per 00:00:00 00:00:00 Medical Center day) - Reported Alcohol intake 2020-02-19 2020-02-[address] [facility] S [facility] - 00:00:00 00:00:00 of alcohol [facility] Center (finding) History [facility] 2020-02-11 2020-02-11 [facility]00 00:00:00 [facility] Social History 2020-02-10 2020-02-10 [facility] 20:35:57 20:35:57 Smoking Status Start Date Stop Date Source Current every day smoker 2020-02-19 00:00:00 [facility] Medications Ordered Filled Start Stop Current Ordering Indication Dosage Frequency Signature Comments Components Source Medication Medication Date Date Medication? Clinician (SIG) Name Name pantoprazol 2019-04 Yes 20 mg = 1 M emoria e 20 mg 1-24 tab, PO, l oral 15:06: Daily Brady enteric 00 coated tablet POLYETHYLEN 2019-04 Yes 17 gm, PO, Memoria E GLYCOL 1-24 Daily l 3350 142 15:05: Brady MG/ML Oral 00 Solution [Miralax] Acetaminoph 2019-04 Yes 1 tab, PO, Memoria en 325 MG / 1-24 Q8H, 0 l Hydrocodone 15:04: Refill(s) H ermann Bitartrate 00 5 MG Oral Tablet aspirin 81 2019-04- Yes 81mg QD Take [address] [facility] MG chewable 04-23 tablet (81 L ukes - tablet 00:00: 23:59 mg total) Medic al 00 :00 by mouth Center daily. clopidogreL 2019-04- Yes 75mg QD Take [address] [facility] (PLAVIX) 75 04-23 tablet (75 L ukes - mg tablet 00:00: 23:59 mg total) Me dical 00 :00 by mouth Center daily. pantoprazol 2019-04 Yes 20mg QD Take [address] [facility] e -20 tablet (20 [facility] - (PROTONIX) 00:00: mg total) Me dical 20 MG 00 by mouth Center tablet daily. atorvastati 2019-04- Yes 80mg QD Take [address] [facility] n (LIPITOR) 04-22 tablet (80 L ukes - 80 MG 00:00: 23:59 mg total) Medica l tablet 00 :00 by mouth Center nightly. ondansetron 2019-04- No 4mg Take [address] [facility] (ZOFRAN-ODT 04-22 tablet (4 Cat kes - ) 4 MG 00:00: 23:59 mg total) Medic al disintegrat 00 :00 by mouth Cent er ing tablet every 8 (eight) hours as needed for up to 7 days. HYDROcodone 2019-04- No 1{tbl} Take [address] -acetaminop 04-22 tablet by Cat pike (NORCO 00:00: 23:59 mouth Medic al 5-325) 00 :00 every 8 Center 5-325 mg (eight) per tablet hours as needed for up to 7 days. Max Daily Amount: 3 tablets Aspirin 81 2019-04 Yes 81 mg = 1 Me moria MG Enteric 04-11 tab, PO, l Coated 21:13: Daily, # [place] Tablet 00 30 tab, 3 Refill(s), Pharmacy: [facility] cy #[id number], 172.72, cm, 02/10/20 14:32:00 [employer], Height, 76.534, kg, 02/10/20 14:32:00 [employer], Weight clopidogrel 2019-04 Yes 75 mg = 1 M emoria 75 MG Oral -09 tab, PO, l Tablet 21:13: Daily, # Brady [Plavix] 00 30 tab, 3 Refill(s), Pharmacy: [facility] cy #[id number], 172.72, cm, 02/10/20 14:32:00 [employer], Height, 76.534, kg, 02/10/20 14:32:00 [employer], Weight losartan 50 2019-04 Yes 50 mg = 1 M emoria mg oral -09 tab, PO, l tablet 21:13: Daily, # Brady 00 30 tab, 3 Refill(s), Pharmacy: [facility] cy #[id number], 172.72, cm, 02/10/20 14:32:00 [employer], Height, 76.534, kg, 02/10/20 14:32:00 [employer], Weight Hydrochloro 2019-04 Yes 25 mg = 1 M emoria thiazide 25 - tab, PO, l MG Oral 21:13: Daily, # Sean n Tablet 00 30 tab, 3 Refill(s), Pharmacy: [facility] cy #[id number], 172.72, cm, 02/10/20 14:32:00 [employer], Height, 76.534, kg, 02/10/20 14:32:00 [employer], Weight Metformin 2019-04 Yes 500 mg = 1 Me moria hydrochlori -09 tab, PO, l de 500 MG 21:13: BID-Meals, He rmann Oral Tablet 00 # 30 tab, 3 Refill(s), Pharmacy: [facility] #[id number], 172.72, cm, 02/10/20 14:32:00 [employer], Height, 76.534, kg, 02/10/20 14:32:00 [employer], Weight atorvastati 2019-04 Yes 80 mg = 1 M emoria n 80 mg -09 tab, PO, l oral tablet 21:13: Bedtime, # [place] 00 30 tab, 3 Refill(s), Pharmacy: [facility] cy #[id number], 172.72, cm, 02/10/20 14:32:00 [employer], Height, 76.534, kg, 02/10/20 14:32:00 [employer], Weight pantoprazol 2018- Yes 40 mg = 1 M emoria e 40 mg 8-23 tab, PO, l oral 20:48: Daily, # Brady enteric 00 30 tab, 3 coated Refill(s), tablet Pharmacy: [facility] cy #[id number] Plavix No Notes: Memoria 11-21 (Same As: l 14:00: Plavix) [place] aspirin 81 No Notes: Do Me moria mg tablet, 8-20 not crush l enteric 20:00: or chew. Sean n coated 00 (Same As: Ecotrin) losartan 50 Yes 100 mg = 2 Memoria mg oral 8-20 tab, PO, l tablet 19:19: Daily, # [place] 00 60 tab, 0 Refill(s), Pharmacy: [facility] cy #[id number] Hydrochloro Yes 25 mg = 1 M emoria thiazide 25 8-20 tab, PO, l MG Oral 19:19: Daily, # Sean n Tablet 00 30 tab, 0 Refill(s), Pharmacy: [facility] cy #[id number] clopidogrel Yes 75 mg = 1 M emoria 75 mg oral 8-20 tab, PO, l tablet 19:19: Daily, # [place] 00 30 tab, 0 Refill(s), Pharmacy: [facility] cy #[id number] atorvastati Yes 80 mg = 2 M emoria n 40 mg 8-20 tab, PO, l oral tablet 19:19: Bedtime, # [place] 00 60 tab, 0 Refill(s), Pharmacy: [facility] cy #[id number] Metformin 20180 Yes 500 mg = 1 Me moria hydrochlori 8-20 tab, PO, l de 500 MG 19:19: BID-Meals, He rmann Oral Tablet 00 # 60 tab, 0 Refill(s), Pharmacy: [facility] #[id number] Aspirin 81 Yes 81 mg = 1 Me moria MG Enteric 8-20 tab, PO, l Coated 19:19: Q24H, 0 [place] Tablet 00 Refill(s) Plavix No Notes: Memoria 11-19 (Same As: l 23:00: Plavix) Brady 00 Labetalol No Notes: Memori a 8-19 (Same as: l 22:09: Normodyne, Trandate) Push over 2 minutes Give bolus over 2-3 minutes. Plavix No Notes: Memoria 8-19 (Same As: l 18:05: Plavix) Hydrochloro No 1 tab, Lamont isela thiazide 25 11-19 Route: PO, l MG / 14:00: Drug Form: Losartan TAB, Potassium Dosing 100 MG Oral Weight Tablet 76.2, kg, Daily, Start date: 11/19/17 9:00:00 CDT, Duration: 30 day, Stop date: 12/18/17 9:00:00 CDT sodium No Notes: Memoria phosphate - Infuse l 12:52: over 4 hour. Do not infuse phosphorou s concurrent ly in the same line as TPN or IVF that contains calcium. For double lumen central lines, phosphorou s may be infused in a separate lumen from TPN. Magnesium No Notes: Memori a Sulfate 11-19 WASTE: F/P l 12:52: - Sink; E - Municipal Trash Bin potassium No Notes: Memori a phosphate-s 11-19 (Same as: l odium 12:52: Phos-NaK) Each 1.5 250 mg-280 gm pkt has mg-160 mg 250mg oral powder phosphorou for s. Mix reconstitut w/2.5oz ion water and stir. potassium No Notes: Memori a phosphate 11-19 (Same as: l 12:52: K Phosphate. ) Do not infuse phosphorou s concurrent ly in the same line as TPN or IVF that contains calcium. For double lumen central lines, phosphorou s may be infused in a separate lumen from TPN. 1 mMol phoshate has 1.47 mEq potassium Infuse over 4 hours Calcium No Notes: Memoria Gluconate 11-19 WASTE: F/P l 12:52: - Sink; E - Municipal Trash Bin Magnesium No Notes: Memori a Oxide 11-19 (Same as: l 12:52: Mag-Ox 400) Magnesium oxide [id number] g elemental magnesium Dose=____m g magnesium oxide (___mg elemental magnesium) Calcium No Notes: Memoria Carbonate 11-19 (Same As: l 500 MG 12:52: Tums) Brady Chewable 00 Calcium Tablet Carbonate 500 mg = 200 mg elemental calcium Dose = mg calcium carbonate ( mg elemental calcium) Potassium No Notes: Memori a Chloride 11-19 (Same as: l 12:52: KCL) [place] 00 Infuse no faster than 10 mEq/hr if given peripheral ly. eptifibatid No Notes: Lamont isela e 0.75 11-18 (Same as: l MG/ML 20:19: Integrelin Sean n Injectable 00 ) Final Solution conc = 0.75 mg/mL - Premix Bottle Potassium No Notes: Memori a Chloride 11-18 (Same as: l 15:41: K-Dur 20) Brady 00 "Do Not Crush" For patients unable to swallow tablet, dissolve in one half glass of water. Allow about 2 minutes for the tablets to disintegra te. Stir before giving to prepare slurry and administer . Please exclude Patient s with feeding tube less than 14 Latvian (Dobhoff, J-tube etc) and pediatric and patients. With food and full glass of water hydrochloro No 25 mg, 1 Me moria thiazide 25 11-18 tab, l mg oral 15:00: Route: PO, Herm roya tablet 00 Drug form: TAB, Daily, Start date: 11/18/17 10:00:00 CDT, Duration: 30 day, Stop date: 12/18/17 9:00:00 CDT Cozaar No Notes: Memoria 11-18 (Same as: l 15:00: Cozaar) Brady 00 Potassium No Notes: Memori a Chloride 11-18 Infuse at l 13:00: a rate of [place] 00 10 mEq/hr. (Same as: KCL) atorvastati No Notes: Lamont isela n 11-18 (Same as: l 02:00: Lipitor) [place] 00 Cardene 40 No Notes: Memor ia mg in NS 11-17 Same as: l 200 mL 21:38: Cardene Brady (Titrate.) 00 Concentrat IV 40 mg ion: (0.2 mg /1 ml ) eptifibatid No Notes: Lamont isela e 0.75 8-17 (Same as: l MG/ML 18:51: Integrelin Sean n Injectable 00 ) Final Solution conc = 0.75 mg/mL - Premix Bottle eptifibatid No 13,716 Lamont isela e 8-17 microgram, l 18:51: Route: [place] IVP, ONCE, Dosing Weight 76.2, kg, Start date: 11/17/17 13:51:00 CDT, Stop date: 11/17/17 13:51:00 CDT Atropine No 0.2 mg, 2 Lamont isela 8-17 mL, Route: l 17:24: IVP, Drug form: INJ, Q5Min, Dosing Weight 76.2, kg, PRN Other -See Comment, as needed; for symptomati c pulse rate < 80% of mean 50 BPM, Start date: 11/17/17 12:24:00 CDT, Duration: 30 day, Stop date: 12/17/17 12:23:00 CDT Naloxone No Notes: Memoria 8-17 Same as l 17:24: Narcan Diphenhydra No Notes: Lamont isela mine 11-17 (Same as: l 17:24: Benadryl) Flumazenil No Notes: Memor ia 11-17 (Same as: l 17:24: Romazicon) Ondansetron No Notes: Lamont isela -17 (Same as: l 17:24: Zofran) MEDICATION WASTE Product Size: 4 mg Product Wasted: ___ mg Glycopyrrol No Notes: Lamont isela ate -17 (Same as: l 17:24: Robinul) Labetalol No Notes: Memori a -17 (Same as: l 17:24: Normodyne, Brady Trandate) Push over 2 minutes Give bolus over 2-3 minutes. Morphine No Notes: Memoria 8-17 (Same l 17:24: as:MORPhin e Sulfate) Hydralazine No Notes: Lamont isela 8-17 (Same as: l 17:24: Apresoline [place] 00 ) Push over 5 minutes Sodium No 1,000 mL, Memori a Chloride 8-17 Rate: 75 l 0.9% IV 14:25: ml/hr, Chelsea 1,000 mL 00 Infuse over: 13.3 hr, Route: IV, Dosing Weight 76.2 kg, Total Volume: 1,000, Start date: 11/17/17 9:25:00 CDT, Duration: 30 day, Stop date: 12/17/17 9:24:00 CDT, 1.91, m2 aspirin 81 No Notes: Do Me moria mg tablet, 8-17 not crush l enteric 14:00: or chew. Sean n coated 00 (Same As: Ecotrin) Saline No Notes: Memoria Flush 0.9% 8-17 (Same as: l 14:00: BD Brady 00 Posiflush) pantoprazol No Notes: Lamont isela e 8-17 Tablet l 14:00: should not Chelsea 00 be chewed or crushed. (Same as: Protonix) Insulin No 60 Memoria regular 8-17 units) l 07:24: WASTE: F/P [place] - Black; E - Healthcare IT Trash Bin Stable for 28 days at room temperatur e Expires in days from ____Date Dextrose No 25 gm, 50 Lamont isela 50% Syringe 8-17 mL, Route: l 07:24: IVP, Drug Form: INJ, Dosing Weight 76.2, kg, PRN, PRN Blood Glucose Results, Start date: 11/17/17 2:24:00 CDT, Duration: 30 day, Stop date: 12/17/17 2:23:00 CDT Glucagon No 1 mg, Memoria 8-17 Route: IM, l 07:24: Drug form: PDR/INJ, PRN, Dosing Weight 76.2, kg, PRN Blood Glucose Results, Start date: 11/17/17 2:24:00 CDT, Duration: 30 day, Stop date: 12/17/17 2:23:00 CDT Insulin No 60 Memoria regular 8-17 units) l 06:39: WASTE: F/P [place] - Black; E - Municipal Trash Bin Stable for 28 days at room temperatur e Expires in days from ____Date Dextrose 2017- No 12.5 gm, Memor ia 50% Syringe 11-17 25 mL, l 06:39: Route: [place] 00 IVP, Drug Form: INJ, Dosing Weight 76.2, kg, PRN, PRN Blood Glucose Results, Start date: 11/17/17 1:39:00 CDT, Duration: 30 day, Stop date: 12/17/17 1:38:00 CDT Glucagon No 1 mg, Memoria 11-17 Route: IM, l 06:39: Drug form: [place] 00 PDR/INJ, PRN, Dosing Weight 76.2, kg, PRN Blood Glucose Results, Start date: 11/17/17 1:39:00 CDT, Duration: 30 day, Stop date: 12/17/17 1:38:00 CDT Aspirin 325 No Notes: (Do Memoria MG Enteric 11-17 Not Crush) l Coated 06:00: Do not [place] Tablet 00 crush or chew. Saline No Notes: Memoria Flush 0.9% 11-17 (Same as: l 05:47: BD Brady 00 Posiflush) Acetaminoph No Notes: Do M emoria en 11-17 not exceed l 05:47: 4 gm/day. Brady 00 (Same as: Tylenol) Labetalol No Notes: Memori a - (Same as: l 05:47: Normodyne, Brady 00 Trandate) Push over 2 minutes Give bolus over 2-3 minutes. Saline No Notes: Memoria Flush 0.9% 11-17 (Same as: l 02:00: BD [place] 00 Posiflush) atorvastati No Notes: Lamont isela n 11-17 (Same as: l 02:00: Lipitor) Brady 00 Enoxaparin No Notes: Memor ia 8-16 (Same as: l 21:00: Lovenox) [place] 00 Aspirin 325 No Notes: (Do Memoria MG Enteric 8-16 Not Crush) l Coated 21:00: Do not Brady Tablet 00 crush or chew. Saline No Notes: Memoria Flush 0.9% 8-16 (Same as: l 20:25: BD Posiflush) Aspirin No Notes: Memoria 8-16 Take with l 18:49: food. Saline No Notes: Memoria Flush 0.9% 8-16 (Same as: l 17:22: BD [place] 00 Posiflush) ATROVENT Yes 2 sprays Memor ia 0.06 % SOLN 8-20 to each l 00:00: nostril daily CEFTIN 500 Yes 1 tablet Mem oria MG TABS 8-20 PO BID for l 00:00: 7 days BACTRIM DS No 1 tablet Mem oria 800-160 MG 8-07 PO BID for l TABS 00:00: 7 days BACTROBAN 2 Yes Apply to Me moria % OINT 8-07 areas BID l 00:00: for 7-10 Brady 00 days NAPROSYN Yes 1 tablet Memor ia 500 MG TABS 8-07 PO BID PRN l 00:00: pain AUGMENTIN No 1 tablet Lamont isela 875-125 MG 6-15 PO BID for l TABS 00:00: 10 days FLONASE 50 Yes 2 sprays Mem oria MCG/ACT 6-15 to each l SUSP 00:00: nostril daily SINGULAIR No 1 tablet Lamont isela 10 MG TABS 6-15 PO daily l 00:00: at bedtime FLONASE 50 No 2 sprays Mem oria MCG/ACT 6-15 to each l SUSP 00:00: nostril daily LINZESS 290 No 1 daily 30 Memoria MCG CAPS 5-13 minutes l 00:00: before meal MIRALAX 2014-0 No Take 1 Memoria POWD 5-13 tablespoon l 00:00: (17gms) by Chelsea 00 mouth at bedtime Vital Signs Vital Name Observation Time Observation Value Comments Source Systolic (mm Hg) 2020-02-25 14:53:00 Lamont rial [place] Diastolic (mm Hg) 2020-02-25 14:53:00 Mem orial [place] Heart Rate 2020-02-25 14:53:00 [facility] [place] Temperature Oral (F) 2020-02-25 14:53:00 97.8 F [facility] [place] Height 2020-02-25 14:53:00 171.45 cm [facility] [place] Weight 2020-02-25 14:53:00 [facility] [place] BMI Calculated 2020-02-25 14:53:00 Memori al [place] Heart rate 2020-02-21 13:38:00 88 /min [facility] Respiratory rate 2020-02-21 13:38:00 16 /min [facility] Oxygen saturation in 2020-02-21 13:38:00 95 /min [facility] Arterial blood by Medical Ce nter Pulse oximetry Systolic blood 2020-02-21 11:00:00 124 mm[Hg] [facility] Diastolic blood 2020-02-21 11:00:00 71 mm[Hg] [facility] Body temperature 2020-02-21 11:00:00 35.78 Nevin [facility] Body weight 2020-02-21 08:15:00 73.7 kg [facility] BMI 2020-02-21 08:15:00 26.22 kg/m2 [facility] Body height 2020-02-14 21:00:00 167.6 cm [facility] Height 2020-02-10 20:32:00 172.72 cm [facility] Weight 2020-02-10 20:32:00 [facility] BMI Calculated 2020-02-10 20:32:00 [facility] Systolic (mm Hg) 2020-02-10 20:32:00 Lamont [facility] Diastolic (mm Hg) 2020-02-10 20:32:00 [facility] Heart Rate 2020-02-10 20:32:00 [facility] Temperature Oral (F) 2020-02-10 20:32:00 98.1 F [facility] Weight 2017-11-22 12:54:00 [facility] BMI Calculated 2017-11-22 12:54:00 [facility] Height 2017-11-22 12:54:00 170.18 cm [facility] Systolic (mm Hg) 2017-11-22 12:54:00 Lam[facility] Diastolic (mm Hg) 2017-11-22 12:54:00 [facility] Heart Rate 2017-11-22 12:54:00 [facility] Temperature Oral (F) 2017-11-22 12:54:00 97.6 F [facility] Systolic (mm Hg) 2017-11-20 22:00:00 [facility] Diastolic (mm Hg) 2017-11-20 22:00:00 [facility] Respitory Rate 2017-11-20 22:00:00 [facility] Respitory Rate 2017-11-20 21:00:00 [facility] Respitory Rate 2017-11-20 20:00:00 [facility] Systolic (mm Hg) 2017-11-20 19:00:00 Lam[facility] Diastolic (mm Hg) 2017-11-20 19:00:00 [facility] Systolic (mm Hg) 2017-11-20 18:00:00 [facility] Diastolic (mm Hg) 2017-11-20 18:00:00 [facility] Temperature Oral (F) 2017-11-20 09:00:00 98.5 F [facility] Temperature Oral (F) 2017-11-20 05:00:00 98.1 F [facility] Temperature Oral (F) 2017-11-20 01:00:00 97.4 F [facility] BMI Calculated 2017-11-17 05:30:00 [facility] Weight 2017-11-17 05:30:00 [facility] Height 2017-11-17 05:30:00 170.18 cm [facility] Systolic (mm Hg) 2017-11-17 02:05:00 [facility] Diastolic (mm Hg) 2017-11-17 02:05:00 [facility] Respitory Rate 2017-11-17 02:05:00 [facility] Temperature Oral (F) 2017-11-17 02:05:00 97.7 F [facility] Heart Rate 2017-11-17 02:05:00 [facility] Temperature Oral (F) 2017-11-16 20:46:00 97.3 F [facility] Heart Rate 2017-11-16 20:46:00 [facility] Respitory Rate 2017-11-16 20:46:00 [facility] Systolic (mm Hg) 2017-11-16 20:46:00 Lam[facility] Diastolic (mm Hg) 2017-11-16 20:46:00 [facility] Weight 2017-11-16 19:51:00 [facility] Height 2017-11-16 19:51:00 170.18 cm [facility] BMI Calculated 2017-11-16 19:51:00 [facility] Respitory Rate 2017-11-16 19:40:00 [facility] Temperature Oral (F) 2017-11-16 19:40:00 97.7 F [facility] Heart Rate 2017-11-16 19:40:00 [facility] Systolic (mm Hg) 2017-11-16 19:40:00 [facility] Diastolic (mm Hg) 2017-11-16 19:40:00 [facility] Weight 2017-11-16 17:14:00 [facility] BMI Calculated 2017-11-16 17:14:00 [facility] Height 2017-11-16 17:14:00 170.18 cm [facility] Weight 2014-11-20 13:51:30 [facility] Temperature Oral (F) 2014-11-20 13:51:30 97.9 F [facility] Respitory Rate 2014-11-20 13:51:30 [facility] Systolic (mm Hg) 2014-11-20 13:51:30 Lamont [facility] Diastolic (mm Hg) 2014-11-20 13:51:30 [facility] Heart Rate 2014-11-20 13:51:30 [facility] Weight 2014-11-07 18:30:57 [facility] Temperature Oral (F) 2014-11-07 18:30:57 97.9 F [facility] Heart Rate 2014-11-07 18:30:57 [facility] Respitory Rate 2014-11-07 18:30:57 [facility] Systolic (mm Hg) 2014-11-07 18:30:57 [facility] Diastolic (mm Hg) 2014-11-07 18:30:57 [facility] Weight 2014-09-15 15:23:23 [facility] Temperature Oral (F) 2014-09-15 15:23:23 98.5 F [facility] Systolic (mm Hg) 2014-09-15 15:23:23 [facility] Diastolic (mm Hg) 2014-09-15 15:23:23 [facility] Heart Rate 2014-09-15 15:23:23 [facility] Respitory Rate 2014-09-15 15:23:23 [facility] Height 2013-08-13 19:00:03 [facility] Weight 2013-08-13 19:00:03 [facility] Temperature Oral (F) 2013-08-13 19:00:03 98.4 F [facility] Heart Rate 2013-08-13 19:00:03 [facility] Systolic (mm Hg) 2013-08-13 19:00:03 [facility] Diastolic (mm Hg) 2013-08-13 19:00:03 [facility] Respitory Rate 2013-08-13 19:00:03 [facility] Procedures Procedure Date / Time Performing Clinician Source Performed POCT-GLUCOSE METER 2020-02-21 08:17:00 Mele eMna [facility] APTT 2020-02-21 04:34:00 [facility] 2020-02-21 04:34:00 [facility]OLIC PANEL (7) 2020-02-21 04:34:00 Thomas Garcia [facility] MAGNESIUM 2020-02-21 04:34:00 [facility] PHOSPHORUS 2020-02-21 04:34:00 [facility] PROTHROMBIN TIME/INR 2020-02-21 04:34:00 [facility] POCT-GLUCOSE METER 2020-02-20 20:58:00 Rajesh, [facility] POCT-GLUCOSE METER 2020-02-20 17:13:00 [facility] POCT-GLUCOSE METER 2020-02-20 11:10:00 [facility] POCT-GLUCOSE METER 2020-02-20 07:47:00 [facility] PREPARE RBC 2020-02-20 06:25:00 Tanesha Rubio [facility] APTT 2020-02-20 04:21:00 Jose [facility] CBC (HEMOGRAM ONLY) 2020-02-20 04:21:00 Jose [facility] BASIC METABOLIC PANEL (7) 2020-02-20 04:21:00 Thomas Garcia [facility] MAGNESIUM 2020-02-20 04:21:00 Jose [facility] PHOSPHORUS 2020-02-20 04:21:00 Jose [facility] PROTHROMBIN TIME/INR 2020-02-20 04:21:00 [facility] POCT-GLUCOSE METER 2020-02-19 21:11:00 Rajesh [facility] POCT-GLUCOSE METER 2020-02-19 16:29:00 [facility] POCT-GLUCOSE METER 2020-02-19 11:43:00 [facility] POCT-GLUCOSE METER 2020-02-19 07:10:00 [facility] APTT 2020-02-19 04:34:00 [facility] (HE[facility] ONLY) 2020-02-19 04:34:00 Jose [facility] BASIC METABOLIC PANEL (7) 2020-02-19 04:34:00 Thomas Garcia [facility] MAGNESIUM 2020-02-19 04:34:00 Thomas Garcia [facility] PHOSPHORUS 2020-02-19 04:34:00 [facility] 2020-02-19 04:34:00 [facility] POCT-GLUCOSE METER 2020-02-18 21:55:00 Merchant, [facility] EXPLORATION,ARTERY 2020-02-18 19:28:00 Juan Carlos Sow [facility] POCT-GLUCOSE METER 2020-02-18 16:17:00 [facility]SE METER 2020-02-18 12:16:00 Guicho Neal [facility] SARS-COV2/RT-PCR ([facility] & 2020-02-18 08:34:00 Thomas Garcia [facility] REF LABS) [facility] APTT 2020-02-18 03:35:00 Jose [facility] CBC (HEMOGRAM ONLY) 2020-02-18 03:35:00 Jose [facility] BASIC METABOLIC PANEL (7) 2020-02-18 03:35:00 Thomas Garcia [facility] MAGNESIUM 2020-02-18 03:35:00 Jose [facility] PHOSPHORUS 2020-02-18 03:35:00 [facility]OT[facility]/INR 2020-02-18 03:35:00 [facility] POCT-GLUCOSE METER 2020-02-17 22:16:00 Guicho Neal [facility] XR CHEST 1 VIEW 2020-02-17 21:03:00 Laverne Kennedy Pending sale to [facility]/BEDSIDE [facility] POCT-GLUCOSE METER 2020-02-17 17:47:00 Merchant [facility] BASIC METABOLIC PANEL (7) 2020-02-17 17:44:00 Guicho Neal [facility] MAGNESIUM 2020-02-17 17:44:00 Guicho Neal [facility] PHOSPHORUS 2020-02-17 17:44:00 Guicho Neal [facility] BASIC METABOLIC PANEL (7) 2020-02-17 16:48:00 Enrike Sorensonraymundo n [facility] MAGNESIUM 2020-02-17 16:48:00 [facility] PHOSPHORUS 2020-02-17 16:48:00 [facility] APTT 2020-02-17 16:48:00 [facility] PROTHROMBIN TIME/INR 2020-02-17 16:48:00 [facility] CALCIUM, IONIZED 2020-02-17 16:48:00 [facility] CBC W/PLT COUNT & AUTO 2020-02-17 16:48:00 Enrike Sorenson Kevin [facility] POCT-GLUCOSE METER 2020-02-17 14:41:00 [facility] PREPARE RBC 2020-02-17 12:47:00 Juan Carlos Sow [facility] POCT-ACT 2020-02-17 11:22:00 [facility] POCT-ACT 2020-02-17 10:46:00 [facility] BLOOD GAS, ARTERIAL 2020-02-17 10:23:43 [facility] NA-STAT LAB 2020-02-17 10:23:43 [facility] POT[facility]SI[facility] 2020-02-17 10:23:43 [facility] GLUCOSE-STAT LAB 2020-02-17 10:23:43 [facility] (H&H[facility] - STAT LAB 2020-02-17 10:23:43 [facility] 2020-02-17 09:58:00 Merchant [facility] CALCIUM, IONIZED 2020-02-17 09:52:15 [facility] BLOOD GAS, ARTERIAL 2020-02-17 09:52:15 [facility] SODIUM NA-STAT LAB 2020-02-17 09:52:15 [facility] POT[facility]SIUM-STAT LAB 2020-02-17 09:52:15 [facility] GLUCOSE-STAT LAB 2020-02-17 09:52:15 [facility] HGB/HCT (H&H) - STAT LAB 2020-02-17 09:52:15 [facility] PO[facility]-ACT 2020-02-17 09:22:00 Merchant [facility] CALCIUM, IONIZED 2020-02-17 08:30:37 [facility] BLOOD GAS, ARTERIAL 2020-02-17 08:30:37 [facility] SODIUM NA-STAT LAB 2020-02-17 08:30:37 [facility] POTASSIUM-STAT LAB 2020-02-17 08:30:37 [facility] GLUCOSE-STAT LAB 2020-02-17 08:30:37 [facility] HGB/HCT (H&H) - STAT LAB 2020-02-17 08:30:37 [facility] BYPASS,FEMORAL-POPLITEAL 2020-02-17 07:10:00 [facility] ANGIOPLASTY,ARTERIAL-LOWE 2020-02-17 07:10:00 [facility] BASIC METABOLIC PANEL (7) 2020-02-17 04:40:00 [facility], [facility] PT/APTT 2020-02-17 04:40:00 [facility], [facility] CBC W/PLT COUNT & AUTO 2020-02-17 04:40:00 [facility], [facility] ABORH, MANUAL 2020-02-16 22:40:00 Milly Rivera [facility] APTT 2020-02-16 21:27:00 Rubio, Tanesha Rey [facility] TYPE AND SCREEN, 2020-02-16 21:27:00 [facility] POCT-GLUCOSE METER 2020-02-16 21:01:00 [facility] POCT-GLUCOSE METER 2020-02-16 17:27:00 [facility], [facility] APTT 2020-02-16 15:25:00 Rubio, [facility] POCT-GLUCOSE METER 2020-02-16 12:02:00 [facility], [facility] APTT 2020-02-16 09:25:00 Rubio, [facility] POCT-GLUCOSE METER 2020-02-16 07:51:00 [facility], [facility] APTT 2020-02-16 06:44:00 Rubio, [facility]anesha [facility] SARS-COV2/RT-PCR ([facility] & 2020-02-16 04:51:00 [facility] 2020-02-16 00:00:00 Rubio, Tanesha Rey [facility] POCT-GLUCOSE METER 2020-02-15 21:34:00 Merchant, [facility] APTT 2020-02-15 16:37:00 Rubio, Tanesha [facility] 2D ECHO W/ DOPPLER 2020-02-15 14:50:40 [facility], [facility] (CW/PW/COLOR) [facility] POCT-GLUCOSE METER 2020-02-15 12:46:00 [facility], [facility] NM MYOCARDIAL PERFUSION 2020-02-15 11:39:00 Mandeep Muhammad I [facility] - PET/CT (REST & STRESS) Medical C enter TREADMILL 2020-02-15 11:35:41 Unknown, 7 [facility] - TOLERANCE(NON-NUCLEAR Medical Ce nter TREADMILL) ECG 12-LEAD 2020-02-15 11:05:59 Unknown, 7 [facility] ECG 12-LEAD 2020-02-15 11:05:08 Unknown, [address] POCT-GLUCOSE METER 2020-02-15 07:49:00 [facility], [facility] APTT 2020-02-15 07:42:00 Rubio, Tanesha [facility] APTT 2020-02-15 00:53:00 Rubio, Tanesha [facility] POCT-GLUCOSE METER 2020-02-14 23:41:00 [facility] APTT 2020-02-14 17:59:00 Rubio, Tanesha Rey [facility] POCT-GLUCOSE METER 2020-02-14 17:17:00 [facility], [facility] POCT-GLUCOSE METER 2020-02-14 11:37:00 [facility] APTT 2020-02-14 10:41:00 Rubio, Tanesha Rey [facility] BASIC METABOLIC PANEL (7) 2020-02-14 03:26:00 Rubio, Tanesha Rey [facility] APTT 2020-02-14 03:26:00 Rubio, [facility] CBC W/PLT COUNT & AUTO 2020-02-14 03:26:00 Rubio, Tanesha Rey [facility] APTT 2020-02-14 00:14:00 Rubio, Tanesha Rey [facility] ECG 12-LEAD 2020-02-13 19:18:15 Unknown, [facility] APTT 2020-02-13 18:30:00 Rubio, Tanesha Rey [facility] APTT 2020-02-13 11:05:00 Rubio, [facility] BASIC METABOLIC PANEL (7) 2020-02-13 03:29:00 Rubio, Tanesha Rey [facility] APTT 2020-02-13 03:29:00 MerchantDarrell [facility] CBC W/PLT COUNT & AUTO 2020-02-13 03:29:00 Rubio, [facility]ha [facility] APTT 2020-02-12 21:47:00 Rubio, [facility] 2020-02-12 14:43:00 Rubio, [facility]anesha [facility] BASIC METABOLIC PANEL (7) 2020-02-12 05:36:00 [facility] 2020-02-12 05:36:00 Rubio, [facility]ha [facility] CBC W/PLT COUNT & AUTO 2020-02-12 05:36:00 Rubio, Tanesha Terrazasn [facility] APTT 2020-02-11 22:59:00 Rubio, [facility]/CTA AAA AND RUNOFF 2020-02-11 21:49:00 Rubio, [facility] BASIC METABOLIC PANEL (7) 2020-02-11 15:31:00 Rubio, [facility] LACTIC ACID, VENOUS 2020-02-11 15:31:00 Rubio, [facility] C-REACTIVE PROTEIN 2020-02-11 15:31:00 Rubio, Tanesha Terrazasn [facility] PROTHROMBIN TIME/INR 2020-02-11 15:30:00 Rubio, Tanesha Terrazasn [facility] HEMOGLOBIN A1C 2020-02-11 15:30:00 Rubio, Tanesha Terrazasn [facility] APTT 2020-02-11 15:30:00 Rubio, Tanesha Terrazasn [facility] CBC W/PLT COUNT & AUTO 2020-02-11 15:30:00 Rubio, Tanesha Terrazasn [facility] - DIFFERENTIAL [facility] HC ARTERIAL(ALEKS W 2020-02-11 13:05:00 Rubio, Tanesha Terrazasn [facility] ukes - DOPPLER)ONLY Medical Center ARTERIAL DOPPLER LEG, 2020-02-11 12:43:30 Luca Pardo [facility] History of ischemic 2017-11-17 05:00:00 [facility] Brady stroke ICA<sup>1</sup> 2017-11-17 05:00:00 [facility] Her maldonado Insertion of iliac artery 2017-11-17 05:00:00 La kamila [place] stent<sup>2</sup> Comprehensive eye 2017-04-03 06:00:00 [facility] Genaro ermann examination<sup>3</sup> Diabetic retinal eye exam 2017-04-03 06:00:00 La kamila Abreu not done<sup>4</sup> smoking/tobacco 2013-08-13 19:00:03 Issac maldonado cessation, patient education and counseling [facility]<sup>5, 6</sup> Plan of Care Planned Activity Planned Date Details Comments Source Future Scheduled 2019-12-[address] [facility] - Test 00:00:00 (#1) [code = [facility] INFLUENZA VACCINE (#1)] Future Scheduled 1994-11-[address] [facility] - Test 00:00:00 (procedure) [code = [facility] 17654725] Future Scheduled [address] - Test 00:00:00 malignant neoplasm Medical C enter of colon (procedure) [code = 367626394] Encounters Start End Encounter Admission Attending Care Care Encounter Source Date/Time Date/Time Type Type Clinicians Facility Department ID 2020-02-25 2020-02-25 Outpatient Ghosn, Eber [facility] [id number] 09:00:00 23:59:59 07 2020-02-10 2020-02-10 Outpatient Eber Pastor [facility] [id number] 14:20:00 23:59:59 06 2017-11-22 2017-11-22 Outpatient Salvador, [facility] [id number] 07:40:00 23:59:59 Jerecia 05 Vashti 2017-11-17 2017-11-20 Outpatient Cody Abraham [facility] [id number] 00:17:00 17:15:00 A 28 2017-11-16 2017-11-16 Outpatient Quan, SL [facility] [id number] 12:03:00 23:15:00 Rafat 00 Results Test Description Test Time Test Comments Results Result Comments Source POC-Glucose meter 2020-02-21 08:30:00 Test Item Value Reference Range Interpretation Comme nts POC-Glucose Meter (test code = 130 mg/dL 70-110 H : TESTED AT [facility] [address] [facility] 1538) [facility], [address] 30: Supervisor Engine Repair/Techni ema ID = [id number] for Hany, Marisol Lab Interpretation (test code = Abnormal 11460-1) [facility] [id number] 08:30:00 Test Item Value Reference Range Interpretation Comments POC-GLUCOSE METER 130 mg/dL 70-110 H : TESTED A T [facility] [address] (BEAKER) (test code = BERTABIMAEL R [facility], 1538) [address]: Supervisor Engine Repair/Techni ema ID = [id number] for Gu illory, Marisol Basic Metabolic [id number] 06:17:00 Test Item Value Reference Range Interpretation Comments Sodium (test code = 135 meq/L 136-145 L 2951-2) Potassium (test code = 3.5 meq/L 3.5-5.1 3-3) Chloride (test code = 102 meq/L 98-107 5-0) CO2 (test code = 24 meq/L 22-29 2027-9) BUN (test code = 10 mg/dL 7-21 3094-0) Creatinine (test code 0.80 mg/dL 0.57-1.25 = 2160-0) Glucose (test code = 142 mg/dL 70-105 H 2345-7) Calcium (test code = 8.8 mg/dL 8.4-10.2 70898-4) EGFR (test code = 99 mL/min/1.73 [place] [address]-1) NOT ACCURATE CREATININE CLEARANCE IN PREDICTING GLOMERULAR FILTRATION RATE . ESTIMATED GFR I S NOT APPLICABLE FOR DIALYSIS PATIENTS. LAN (test code = LAN) Supervisor Engine Repair ID - PIAYA L Lab Interpretation Abnormal (test code = 87739-5) [facility]esium2020-11-20 06:17:00 Test Item Value Reference Range Interpretation Comments Magnesium (test code = 1.8 mg/dL 1.6-2.6 01215-5) LAN (test code = LAN) Supervisor Engine Repair ID - PIAYA L Lab Interpretation (test Normal code = 15743-9) [facility]2020-11-20 06:17:00 Test Item Value Reference Range Interpretation Comments Phosphorus (test code = 2.8 mg/dL 2.3-4.7 2777-1) LAN (test code = LAN) Supervisor Engine Repair ID - PIAYA L Lab Interpretation (test Normal code = 18977-8) [facility]IC METABOLIC [id number] 06:17:00 Test Item Value Reference Range Interpretation Comments SODIUM (BEAKER) 135 meq/L 136-145 L (test code = 381) POTASSIUM (BEAKER) 3.5 meq/L 3.5-5.1 (test code = 379) CHLORIDE (BEAKER) 102 meq/L 98-107 (test code = 382) CO2 (BEAKER) (test 24 meq/L 22-29 code = 355) BLOOD UREA NITROGEN 10 mg/dL 7-21 (BEAKER) (test code = 354) CREATININE (BEAKER) 0.80 mg/dL 0.57-1.25 (test code = 358) GLUCOSE RANDOM 142 mg/dL 70-105 H (BEAKER) (test code = 652) CALCIUM (BEAKER) 8.8 mg/dL 8.4-10.2 (test code = 697) EGFR (BEAKER) (test 99 mL/min/1.73 ESTIMA MARYANNE GFR IS code = 1092) sq m NOT ACCURATE CREATININE CLEARANCE IN PREDICTING GLOMERULAR FILTRATION RATE . ESTIMATED GFR I S NOT APPLICABLE FOR DIALYSIS PATIEN TS. Supervisor Engine Repair ID - TATE [id number] 06:17:00 Test Item Value Reference Range Interpretation Comments MAGNESIUM (BEAKER) (test code = 1.8 mg/dL 1.6-2.6 627) Supervisor Engine Repair ID - TATE [id number] 06:17:00 Test Item Value Reference Range Interpretation Comments PHOSPHORUS (BEAKER) (test code = 2.8 mg/dL 2.3-4.7 604) Supervisor Engine Repair ID - TATE LProthrombin time/[id number] 05:39:00 Test Item Value Reference Range Interpretation Comments Protime (test code = 13.0 11.9- 14.2 5902-2) seconds INR (test code = 1.01 <=5.90 6301-6) LAN (test code = LAN) Effective 08/29/2018: PT Reference Range ChangeNew: 11.9-14.2 Previous: 11.7-14.7 RECOMMENDED COUMADIN/WARFARIN INR THERAPY RANGESSTANDARD DOSE: 2.0-3.0 Includes: PROPHYLAXIS for venous thrombosis, systemic embolization; TREATMENT for venous thrombosis and/or pulmonary embolus.HIGH RISK: Target INR is 2.5-3.5 for patients wiht mechanical heart valves. Lab Interpretation Normal (test code = 51264-9) [facility] HospitalPROTHROMBIN TIME/[id number] 05:39:00 Test Item Value Reference Range Interpretation Comments PROTIME (BEAKER) (test code = 13.0 seconds 11.9-14.2 759) INR (BEAKER) (test code = 370) 1.01 <=5.90 Effective 08/29/2018: PT Reference Range ChangeNew: 11.9-14.2 Previous: 11.7- 14.7RECOMMENDED COUMADIN/WARFARIN INR THERAPY RANGESSTANDARD DOSE: 2.0-3.0 Includes: PROPHYLAXIS for venous thrombosis, systemic embolization; TREATMENT for venous thrombosis and/or pulmonary embolus.HIGH RISK: Target INR is2.5-3.5 for patients wiht mechanical heart valves.[id number] 05:35:00 Test Item Value Reference Range Interpretation Comments PTT (test code = 92393-8) 26.1 22.5- 36.0 seconds Lab Interpretation (test code = Normal 35502-0) [facility]2020-11-20 05:35:00 Test Item Value Reference Range Interpretation Comments PARTIAL THROMBOPLASTIN TIME 26.1 seconds 22.5-36.0 (BEAKER) (test code = 760) CBC (Hemogram only)2020-02-21 05:22:00 Test Item Value Reference Range Interpretation Comments WBC (test code = 6690-2) 8.5 3.5- 10.5 K/L RBC (test code = 789-8) 3.66 4.63- 6.08 M/L L MCHC (test code = 786-4) 33.2 32.3- 36.5 GM/DL L Hematocrit (test code = 4544-3) 33.1 % 40.1-51 L MCV (test code = 787-2) 90.4 fL 79-92.2 MCH (test code = 785-6) 30.1 pg 25.7-32.2 RDW (test code = 788-0) 13.8 % 11.6-14.4 Platelets (test code = 777-3) 195 150- 450 K/CU MM MPV (test code = 23196-7) 11.3 fL 9.4-12.4 nRBC (test code = 413) 0 0- 0 /100 WBC Lab Interpretation (test code = Abnormal 00279-0) [facility] (HE[facility] ONLY)2020-02-21 05:22:00 Test Item Value Reference Range Interpretation Comments WHITE BLOOD CELL COUNT (BEAKER) 8.5 K/ L 3.5-10.5 (test code = 775) RED BLOOD CELL COUNT (BEAKER) 3.66 M/ L 4.63-6.08 L (test code = 761) HEMOGLOBIN (BEAKER) (test code = 11.0 GM/DL 13.7-17.5 L 410) HEMATOCRIT (BEAKER) (test code = 33.1 % 40.1-51.0 L 411) MEAN CORPUSCULAR VOLUME (BEAKER) 90.4 fL 79.0-92.2 (test code = 753) MEAN CORPUSCULAR HEMOGLOBIN 30.1 pg 25.7-32.2 (BEAKER) (test code = 751) MEAN CORPUSCULAR HEMOGLOBIN CONC 33.2 GM/DL 32.3-36.5 (BEAKER) (test code = 752) RED CELL DISTRIBUTION WIDTH 13.8 % 11.6-14.4 (BEAKER) (test code = 412) PLATELET COUNT (BEAKER) (test 195 K/CU MM 150-450 code = 756) MEAN PLATELET VOLUME (BEAKER) 11.3 fL 9.4-12.4 (test code = 754) NUCLEATED RED BLOOD CELLS 0 /100 WBC 0-0 (BEAKER) (test code = 413) POCT-GLUCOSE [id number] 21:10:00 Test Item Value Reference Range Interpretation Comments POC-GLUCOSE METER 206 mg/dL 70-110 H : TESTED A T [facility] 6720 ([facility]) (test code = [facility], 153) [address]: Supervisor Engine Repair/Techni ema ID = [id number] for DA VIS, LIEN POCT-GLUCOSE [id number] 17:25:00 Test Item Value Reference Range Interpretation Comments POC-GLUCOSE METER 176 mg/dL 70-110 H : TESTED A T [facility]20 ([facility]) (test code = [facility], 1538) 41500: Supervisor Engine Repair/Techni ema ID = [id number] for Do minguez, Rowdy POCT-GLUCOSE [id number] 11:22:00 Test Item Value Reference Range Interpretation Comments POC-GLUCOSE METER 209 mg/dL 70-110 H : TESTED A T [facility] 6720 ([facility]) (test code = [facility], 1538) 90669: Supervisor Engine Repair/Techni ema ID = [id number] for Do minguez, Rowdy POCT-GLUCOSE [id number] 08:04:00 Test Item Value Reference Range Interpretation Comments POC-GLUCOSE METER 140 mg/dL 70-110 H : TESTED A T [facility] 6720 (BEAKER) (test code = [facility], 1538) 18012: Supervisor Engine Repair/Techni ema ID = [id number] for Do minguez, Rowdy Prepare [id number] 06:25:00 Test Item Value Reference Range Interpretation Comments CROSSMATCH (test code = COMPATIBLE 2264) Unit ABO (test code = A Pos 6836384) UNIT NUMBER (test code = [id number] 934-0) Status (test code = 8594396) WORK IN PROGRESS Blood Bank Product (test RED BLOOD CELLS code = 2263) PRODUCT CODE (test code = G9435A67 933-2) [facility]IC [id number] 06:02:00 Test Item Value Reference Range Interpretation Comments SODIUM (BEAKER) 138 meq/L 136-145 (test code = 381) POTASSIUM (BEAKER) 3.6 meq/L 3.5-5.1 (test code = 379) CHLORIDE (BEAKER) 104 meq/L 98-107 (test code = 382) CO2 (BEAKER) (test 27 meq/L 22-29 code = 355) BLOOD UREA NITROGEN 9 mg/dL 7-21 (BEAKER) (test code = 354) CREATININE (BEAKER) 0.79 mg/dL 0.57-1.25 (test code = 358) GLUCOSE RANDOM 133 mg/dL 70-105 H (BEAKER) (test code = 652) CALCIUM (BEAKER) 8.7 mg/dL 8.4-10.2 (test code = 697) EGFR (BEAKER) (test 100 mL/min/1.73 ESTIM ATED GFR IS code = 1092) sq m NOT ACCURATE CREATININE CLEARANCE IN PREDICTING GLOMERULAR FILTRATION RATE . ESTIMATED GFR I S NOT APPLICABLE FOR DIALYSIS PATIEN TS. Supervisor Engine Repair ID - SHIVA [id number] 06:02:00 Test Item Value Reference Range Interpretation Comments MAGNESIUM (BEAKER) (test code = 1.8 mg/dL 1.6-2.6 627) Supervisor Engine Repair ID - SHIVA [id number] 06:02:00 Test Item Value Reference Range Interpretation Comments PHOSPHORUS (BEAKER) (test code = 2.9 mg/dL 2.3-4.7 604) Supervisor Engine Repair ID - SHIVA [id number] 05:56:00 Test Item Value Reference Range Interpretation Comments PARTIAL THROMBOPLASTIN TIME 29.0 seconds 22.5-36.0 (BEAKER) (test code = 760) PROTHROMBIN [id number] 05:55:00 Test Item Value Reference Range Interpretation Comments PROTIME (BEAKER) (test code = 13.2 seconds 11.9-14.2 759) INR (BEAKER) (test code = 370) 1.03 <=5.90 Effective 08/29/2018: PT Reference Range ChangeNew: 11.9-14.2 Previous: 11.7- 14.7RECOMMENDED COUMADIN/WARFARIN INR THERAPY RANGESSTANDARD DOSE: 2.0-3.0 Includes: PROPHYLAXIS for venous thrombosis, systemic embolization; TREATMENT for venous thrombosis and/or pulmonary embolus.HIGH RISK: Target INR is2.5-3.5 for patients wiht mechanical heart valves.CBC (HEMOGRAM ONLY)2020-02-20 05:23:00 Test Item Value Reference Range Interpretation Comments WHITE BLOOD CELL COUNT (BEAKER) 9.2 K/ L 3.5-10.5 (test code = 775) RED BLOOD CELL COUNT (BEAKER) 3.43 M/ L 4.63-6.08 L (test code = 761) HEMOGLOBIN (BEAKER) (test code = 10.2 GM/DL 13.7-17.5 L 410) HEMATOCRIT (BEAKER) (test code = 31.4 % 40.1-51.0 L 411) MEAN CORPUSCULAR VOLUME (BEAKER) 91.5 fL 79.0-92.2 (test code = 753) MEAN CORPUSCULAR HEMOGLOBIN 29.7 pg 25.7-32.2 (BEAKER) (test code = 751) MEAN CORPUSCULAR HEMOGLOBIN CONC 32.5 GM/DL 32.3-36.5 (BEAKER) (test code = 752) RED CELL DISTRIBUTION WIDTH 14.0 % 11.6-14.4 (BEAKER) (test code = 412) PLATELET COUNT (BEAKER) (test 155 K/CU MM 150-450 code = 756) MEAN PLATELET VOLUME (BEAKER) 11.6 fL 9.4-12.4 (test code = 754) NUCLEATED RED BLOOD CELLS 0 /100 WBC 0-0 (BEAKER) (test code = 413) POCT-GLUCOSE [id number] 21:24:00 Test Item Value Reference Range Interpretation Comments POC-GLUCOSE METER 181 mg/dL 70-110 H : TESTED A T [facility] 6720 (BEAKER) (test code = [facility] [place], 1538) 7[address]: Supervisor Engine Repair/Techni ema ID = [id number] for LIEN GRAHAM POCT-GLUCOSE [id number] 16:43:00 Test Item Value Reference Range Interpretation Comments POC-GLUCOSE METER 138 mg/dL 70-110 H : TESTED A T [facility] 6720 (BEAKER) (test code = [facility], 1538) 99269: Supervisor Engine Repair/Techni ema ID = [id number] for [place] LLIAMS, TYNEKA POCT-GLUCOSE [id number] 11:57:00 Test Item Value Reference Range Interpretation Comments POC-GLUCOSE METER 200 mg/dL 70-110 H : TESTED A T [facility] 6720 (BEAKER) (test code = [facility], 1538) 42037: Supervisor Engine Repair/Techni ema ID = [id number] for [place] LLIAMS, TYNEKA POCT-GLUCOSE [id number] 07:25:00 Test Item Value Reference Range Interpretation Comments POC-GLUCOSE METER 135 mg/dL 70-110 H : TESTED A T [facility] 6720 (BEAKER) (test code = [facility], 1538) 33315: Supervisor Engine Repair/Techni ema ID = [id number] for [place] LLIAMS, TYNEKA BASIC METABOLIC [id number] 06:45:00 Test Item Value Reference Range Interpretation Comments SODIUM (BEAKER) 138 meq/L 136-145 (test code = 381) POTASSIUM (BEAKER) 3.6 meq/L 3.5-5.1 (test code = 379) CHLORIDE (BEAKER) 103 meq/L 98-107 (test code = 382) CO2 (BEAKER) (test 27 meq/L 22-29 code = 355) BLOOD UREA NITROGEN 11 mg/dL 7-21 (BEAKER) (test code = 354) CREATININE (BEAKER) 0.85 mg/dL 0.57-1.25 (test code = 358) GLUCOSE RANDOM 156 mg/dL 70-105 H (BEAKER) (test code = 652) CALCIUM (BEAKER) 8.5 mg/dL 8.4-10.2 (test code = 697) EGFR (BEAKER) (test 92 mL/min/1.73 ESTIMA MARYANNE GFR IS code = 1092) sq m NOT ACCURATE CREATININE CLEARANCE IN PREDICTING GLOMERULAR FILTRATION RATE . ESTIMATED GFR I S NOT APPLICABLE FOR DIALYSIS PATIEN TS. Supervisor Engine Repair ID - [id number] 06:45:00 Test Item Value Reference Range Interpretation Comments MAGNESIUM (BEAKER) (test code = 1.8 mg/dL 1.6-2.6 627) Supervisor Engine Repair ID - [id number] 06:45:00 Test Item Value Reference Range Interpretation Comments PHOSPHORUS (BEAKER) (test code = 2.2 mg/dL 2.3-4.7 L 604) Supervisor Engine Repair ID - [id number] 05:54:00 Test Item Value Reference Range Interpretation Comments PARTIAL THROMBOPLASTIN TIME 26.7 seconds 22.5-36.0 (BEAKER) (test code = 760) PROTHROMBIN TIME/[id number] 05:53:00 Test Item Value Reference Range Interpretation Comments PROTIME (BEAKER) (test code = 12.3 seconds 11.9-14.2 759) INR (BEAKER) (test code = 370) 0.94 <=5.90 Effective 08/29/2018: PT Reference Range ChangeNew: 11.9-14.2 Previous: 11.7- 14.7RECOMMENDED COUMADIN/WARFARIN INR THERAPY RANGESSTANDARD DOSE: 2.0-3.0 Includes: PROPHYLAXIS for venous thrombosis, systemic embolization; TREATMENT for venous thrombosis and/or pulmonary embolus.HIGH RISK: Target INR is2.5-3.5 for patients wiht mechanical heart valves.CBC (HEMOGRAM ONLY)2020-02-19 05:46:00 Test Item Value Reference Range Interpretation Comments WHITE BLOOD CELL COUNT (BEAKER) 11.1 K/ L 3.5-10.5 H (test code = 775) RED BLOOD CELL COUNT (BEAKER) 3.66 M/ L 4.63-6.08 L (test code = 761) HEMOGLOBIN (BEAKER) (test code = 11.1 GM/DL 13.7-17.5 L 410) HEMATOCRIT (BEAKER) (test code = 33.3 % 40.1-51.0 L 411) MEAN CORPUSCULAR VOLUME (BEAKER) 91.0 fL 79.0-92.2 (test code = 753) MEAN CORPUSCULAR HEMOGLOBIN 30.3 pg 25.7-32.2 (BEAKER) (test code = 751) MEAN CORPUSCULAR HEMOGLOBIN CONC 33.3 GM/DL 32.3-36.5 (BEAKER) (test code = 752) RED CELL DISTRIBUTION WIDTH 14.2 % 11.6-14.4 (BEAKER) (test code = 412) PLATELET COUNT (BEAKER) (test 161 K/CU MM 150-450 code = 756) MEAN PLATELET VOLUME (BEAKER) 11.4 fL 9.4-12.4 (test code = 754) NUCLEATED RED BLOOD CELLS 0 /100 WBC 0-0 (BEAKER) (test code = 413) POCT-GLUCOSE [id number] 22:07:00 Test Item Value Reference Range Interpretation Comments POC-GLUCOSE METER 183 mg/dL 70-110 H : TESTED A T [facility] 6720 ([facility]) (test code = [facility] [place], 1538) 24942: Supervisor Engine Repair/Techni ema ID = [id number] for RAJWINDER PORTER SARS-CoV2/RT-PCR (Asymptomatic ONLY)2020-02-18 18:04:00 Test Item Value Reference Range Interpretation Comments SARS-COV2/RT-PCR Negative Not Detected, (test code = Negative, See 54102-4) external report for linked test SARS-COV-2 [facility] PERFORMING LAB (test code = 05886-5) LAN (test code = Negative result for this LAN) test determines that SARS-CoV-2 RNA was not present in the [...] of the Act. Fact Sheet for Healthcare Providers:https://www.[employer]/sites/default/f eliecer/product/documents/F act_Sheet_HC_Providers_L wdi_KHJT-PnA-7.pdf Fact Sheet for Healthcare Patients:https://www.[employer]/sites/default/fi les/product/documents/Fa ct_Sheet_Patients_Lyra_S ARS-CoV-2.pdf Performing Laboratory:[place] [address] [address]OV2/RT-PCR ([facility])2020-02-18 18:04:00 Test Item Value Reference Range Interpretation Comments SARS-COV2/RT-PCR (test Negative Not Detected, Negative, code = 4812096) See external report for linked test SARS-COV-2 PERFORMING LAB [facility] (test code = 8732400) Negative result for this test determines that SARS-CoV-2 RNA was not present in the specimen above the Limit of Detection (LOD). However, Negative results do not preclude SARS-CoV-2 infection and should not be used as the sole basis for treatment or patient management decisions. Negative results mustbe combined with clinical observations, patient history, and epidemiological information. A false negative result may occur if a specimen is improperly collected, transported or handled. A false negative result should be considered if patient's recent exposures or clinical presentation indicate that COVID-19 (SARS-CoV-2) is likely and diagnostic tests for other causes of illness are negative. Re-testing should be considered in cases of suspected false negatives.The limit of detection for this assay is 800 copies/mL.This SARS CoV-2 test is a real-time RT-PCR test intended for the qualitative detection of nucleic acid from SARS-CoV-2 in a nasopharyngeal swab specimen collected from individuals susp ected of COVID-19 by their healthcare provider.This test has not been Food and Drug [...] is revoked under Section 564(g) of the Act.Fact Sheet for Healthcare Providers:https://www.[employer]/sites/default/files/product/documents/Fact_Shee e_CS_Wgojzwfyu_Tzvp_WJNF-OoK-9.pdfFact Sheet for Healthcare Patients:https://www.[employer]/sites/default/files/product/ documents/Uopj_Enuye_Khhizpjl_Xnlv_NCKY-LeZ-2.pdfPerforming Laboratory:[facility] [place] [address].[place], [place] [address]IABX-UTITQTL METER 2020-02-18 16:30:00 Test Item Value Reference Range Interpretation Comments POC-GLUCOSE METER 146 mg/dL 70-110 H : TESTED A T [facility] 6720 ([facility] [employer] [facility]) (test code = [facility], 1538) 84785: Supervisor Engine Repair/Techni ema ID = [id number] for CARRIE KHAN POCT-GLUCOSE [id number] 12:32:00 Test Item Value Reference Range Interpretation Comments POC-GLUCOSE METER 202 mg/dL 70-110 H : TESTED A T [facility] 6720 ([facility]) (test code = [facility], 1538) 94518: Supervisor Engine Repair/Techni ema ID = [id number] for ARIADNA LINN BOONE Treadmill tolerance(Non-Nuclear Treadmill)2020-02-18 12:16:12Interface, External Ris In 02/18/2020 12:16 PM CSTProtocol Name Regadenoson Time In Exercise Phase 00:01:00 Max. Systolic BP 122 mmHgMax Diastolic BP 63 mmHgMax Heart Rate 88 BPMMax Predicted Heart Rate 160 BPMReason For Termination Predetermined end point Reason for Test Assess for Coronary Ischemia Target HR Formula (220 - Age)*100% Arrhythmias Ventricular premature beats-isolated, Sinus Arrhy Resting ECG Normal sinus rhythm ST Changes No Significant Changes Overall Impression Indeterminate due to pharmacological stress Chest Pain none HR Response To Exercise BP Response To Exercise amlodpine, atorvastatin, heparin gtthydralazineConfirmed by fellow Sergo Villalba ([id number]) on 02/15/2020 3:58:44 PMC onfirmed by MD FINN YOCHAI ([id number]) on 02/18/2020 12:16:06 [facility] [id number] 04:29:00 Test Item Value Reference Range Interpretation Comments SODIUM (BEAKER) 135 meq/L 136-145 L (test code = 381) POTASSIUM (BEAKER) 4.1 meq/L 3.5-5.1 (test code = 379) CHLORIDE (BEAKER) 102 meq/L 98-107 (test code = 382) CO2 (BEAKER) (test 26 meq/L 22-29 code = 355) BLOOD UREA NITROGEN 13 mg/dL 7-21 (BEAKER) (test code = 354) CREATININE (BEAKER) 0.92 mg/dL 0.57-1.25 (test code = 358) GLUCOSE RANDOM 194 mg/dL 70-105 H (BEAKER) (test code = 652) CALCIUM (BEAKER) 8.9 mg/dL 8.4-10.2 (test code = 697) EGFR (BEAKER) (test 84 mL/min/1.73 ESTIMA MARYANNE GFR IS code = 1092) sq m NOT ACCURATE CREATININE CLEARANCE IN PREDICTING GLOMERULAR FILTRATION RATE . ESTIMATED GFR I S NOT APPLICABLE FOR DIALYSIS PATIEN TS. Supervisor Engine Repair ID - [id number] 04:29:00 Test Item Value Reference Range Interpretation Comments MAGNESIUM (BEAKER) (test code = 2.1 mg/dL 1.6-2.6 627) Supervisor Engine Repair ID - [id number] 04:29:00 Test Item Value Reference Range Interpretation Comments PHOSPHORUS (BEAKER) (test code = 2.3 mg/dL 2.3-4.7 604) Supervisor Engine Repair ID - EDASIPROTHROMBIN TIME/[id number] 04:10:00 Test Item Value Reference Range Interpretation Comments PROTIME (BEAKER) (test code = 12.9 seconds 11.9-14.2 759) INR (BEAKER) (test code = 370) 1.00 <=5.90 Effective 08/29/2018: PT Reference Range ChangeNew: 11.9-14.2 Previous: 11.7- 14.7RECOMMENDED COUMADIN/WARFARIN INR THERAPY RANGESSTANDARD DOSE: 2.0-3.0 Includes: PROPHYLAXIS for venous thrombosis, systemic embolization; TREATMENT for venous thrombosis and/or pulmonary embolus.HIGH RISK: Target INR is2.5-3.5 for patients wiht mechanical heart valves.[id number] 04:10:00 Test Item Value Reference Range Interpretation Comments PARTIAL THROMBOPLASTIN TIME 34.0 seconds 22.5-36.0 (BEAKER) (test code = 760) CBC (HEMOGRAM ONLY)2020-02-18 04:02:00 Test Item Value Reference Range Interpretation Comments WHITE BLOOD CELL COUNT (BEAKER) 16.1 K/ L 3.5-10.5 H (test code = 775) RED BLOOD CELL COUNT (BEAKER) 4.03 M/ L 4.63-6.08 L (test code = 761) HEMOGLOBIN (BEAKER) (test code = 12.1 GM/DL 13.7-17.5 L 410) HEMATOCRIT (BEAKER) (test code = 36.1 % 40.1-51.0 L 411) MEAN CORPUSCULAR VOLUME (BEAKER) 89.6 fL 79.0-92.2 (test code = 753) MEAN CORPUSCULAR HEMOGLOBIN 30.0 pg 25.7-32.2 (BEAKER) (test code = 751) MEAN CORPUSCULAR HEMOGLOBIN CONC 33.5 GM/DL 32.3-36.5 (BEAKER) (test code = 752) RED CELL DISTRIBUTION WIDTH 13.9 % 11.6-14.4 (BEAKER) (test code = 412) PLATELET COUNT (BEAKER) (test 173 K/CU MM 150-450 code = 756) MEAN PLATELET VOLUME (BEAKER) 10.9 fL 9.4-12.4 (test code = 754) NUCLEATED RED BLOOD CELLS 0 /100 WBC 0-0 (BEAKER) (test code = 413) POCT-GLUCOSE [id number] 22:28:00 Test Item Value Reference Range Interpretation Comments POC-GLUCOSE METER 269 mg/dL 70-110 H : TESTED Treva Rodriguez [facility] 6720 (BEAKER) (test code = [facility] [place], 1538) [address]: Supervisor Engine Repair/Techni ema ID = [id number] for At alcides (Marlen)[facility] RAD, CHEST, 1 VIEW, NON [id number] 21:36:00Reason for exam:->postop vascular surgeryShould this be performed at the bedside?->Yes [facility] 1960 Sex: MFINAL REPORT Chest one view. Clinical history: postop vascular surgeryComparison: None. Technique: A single frontal view of the chest was obtained. Findings: The cardiacsilhouette is normal in size. The aorta is uncoiled. There are low lung volumes. There is a small left pleural effusion. There are small bibasilar opacities, which may represent subsegmental atelectasis however superimposed pneumonia cannot be excluded. There is no pneumothorax. There is spondylosis deformans. Signed: Bette Strickland MDReport Verified Date/Time: 02/17/2020 21:36:25 XR chest 1 view portable / bedside 2020-02-17 21:36:00Interface, External Ris In - 02/17/2020 9:38 PM CSTFINAL REPORT Chest one view. Clinical history: postop vascular surgery Comparison: None. Technique: A single frontal view of the chest was obtained. Findings: The cardiac silhouette is normal in size. The aorta is uncoiled. There are low lung volumes. There is a small left pleural effusion. There are small bibasilar opacities, which may represent subsegmental atelectasis however superimposed pneumonia cannot be excluded. There is no pneumothorax. There is spondylosis deformans. Signed: Bette Strickland MDReport Verified Date/Time: 02/17/2020 21:36:25 [facility] 2020-02-17 18:19:00 Test Item Value Reference Range Interpretation Comments MAGNESIUM (BEAKER) 1.7 mg/dL 1.6-2.6 Specimen slightly (test code = 627) hemolyzed Supervisor Engine Repair ID - [id number] 18:19:00 Test Item Value Reference Range Interpretation Comments PHOSPHORUS (BEAKER) 2.9 mg/dL 2.3-4.7 Specimen slightly (test code = 604) hemolyzed Supervisor Engine Repair ID - BSBASIC METABOLIC [id number] 18:19:00 Test Item Value Reference Range Interpretation Comments SODIUM (BEAKER) 135 meq/L 136-145 L (test code = 381) POTASSIUM (BEAKER) 4.3 meq/L 3.5-5.1 Specimen slightly (test code = 379) hemolyzed CHLORIDE (BEAKER) 103 meq/L 98-107 (test code = 382) CO2 (BEAKER) (test 22 meq/L 22-29 code = 355) BLOOD UREA NITROGEN 12 mg/dL 7-21 (BEAKER) (test code = 354) CREATININE (BEAKER) 0.84 mg/dL 0.57-1.25 Specimen slightly (test code = 358) hemolyzed GLUCOSE RANDOM 211 mg/dL 70-105 H (BEAKER) (test code = 652) CALCIUM (BEAKER) 9.2 mg/dL 8.4-10.2 (test code = 697) EGFR (BEAKER) (test 93 mL/min/1.73 ESTIMA MARYANNE GFR IS code = 1092) sq m NOT ACCURATE CREATININE CLEARANCE IN PREDICTING GLOMERULAR FILTRATION RATE . ESTIMATED GFR I S NOT APPLICABLE FOR DIALYSIS PATIEN TS. Supervisor Engine Repair ID - BSPOCT-GLUCOSE [id number] 17:59:00 Test Item Value Reference Range Interpretation Comments POC-GLUCOSE METER 215 mg/dL 70-110 H : TESTED A T [facility] 6720 (BEAKER) (test code = [facility] [place], 1538) [address]: Supervisor Engine Repair/Techni ema ID = [id number] for Loan Mulligan BASIC METABOLIC [id number] 17:39:00 Test Item Value Reference Range Interpretation Comments SODIUM (BEAKER) 141 meq/L 136-145 (test code = 381) POTASSIUM (BEAKER) 2.5 meq/L 3.5-5.1 LL (test code = 379) CHLORIDE (BEAKER) 119 meq/L 98-107 H (test code = 382) CO2 (BEAKER) (test 16 meq/L 22-29 L code = 355) BLOOD UREA NITROGEN 8 mg/dL 7-21 (BEAKER) (test code = 354) CREATININE (BEAKER) 0.51 mg/dL 0.57-1.25 L (test code = 358) GLUCOSE RANDOM 145 mg/dL 70-105 H (BEAKER) (test code = 652) CALCIUM (BEAKER) 5.5 mg/dL 8.4-10.2 LL (test code = 697) EGFR (BEAKER) (test 166 mL/min/1.73 ESTIM ATED GFR IS code = 1092) sq m NOT ACCURATE CREATININE CLEARANCE IN PREDICTING GLOMERULAR FILTRATION RATE . ESTIMATED GFR I S NOT APPLICABLE FOR DIALYSIS PATIEN TS. Supervisor Engine Repair ID - [id number] 17:35:00 Test Item Value Reference Range Interpretation Comments MAGNESIUM (BEAKER) (test code = 1.0 mg/dL 1.6-2.6 LL 627) Supervisor Engine Repair ID - [id number] 17:32:00 Test Item Value Reference Range Interpretation Comments PHOSPHORUS (BEAKER) (test code = 1.7 mg/dL 2.3-4.7 L 604) Supervisor Engine Repair ID - [id number] 17:28:00 Test Item Value Reference Range Interpretation Comments PARTIAL THROMBOPLASTIN TIME 34.1 seconds 22.5-36.0 (BEAKER) (test code = 760) PROTHROMBIN [id number] 17:27:00 Test Item Value Reference Range Interpretation Comments PROTIME (BEAKER) (test code = 15.2 seconds 11.9-14.2 H 759) INR (BEAKER) (test code = 370) 1.23 <=5.90 Effective 08/29/2018: PT Reference Range ChangeNew: 11.9-14.2 Previous: 11.7- 14.7RECOMMENDED COUMADIN/WARFARIN INR THERAPY RANGESSTANDARD DOSE: 2.0-3.0 Includes: PROPHYLAXIS for venous thrombosis, systemic embolization; TREATMENT for venous thrombosis and/or pulmonary embolus.HIGH RISK: Target INR is2.5-3.5 for patients wiht mechanical heart valves.CBC with platelet count + automated [id number] 17:13:00 Test Item Value Reference Range Interpretation Comments WBC (test code = 6690-2) 15.1 3.5- 10.5 K/L H RBC (test code = 789-8) 4.38 4.63- 6.08 M/L L MCHC (test code = 786-4) 33.8 32.3- 36.5 GM/DL L Hematocrit (test code = 4544-3) 39.4 % 40.1-51 L MCV (test code = 787-2) 90.0 fL 79-92.2 MCH (test code = 785-6) 30.4 pg 25.7-32.2 RDW (test code = 788-0) 13.9 % 11.6-14.4 Platelets (test code = 777-3) 188 150- 450 K/CU MM MPV (test code = 79792-9) 10.7 fL 9.4-12.4 nRBC (test code = 413) 0 0- 0 /100 WBC % Neutros (test code = 429) 93 % % Lymphs (test code = 430) 5 % % Monos (test code = 431) 2 % % Eos (test code = 432) 0 % % Baso (test code = 437) 0 % # Neutros (test code = 670) 13.99 1.78- 5.38 K/L H # Lymphs (test code = 414) 0.71 1.32- 3.57 K/L L # Monos (test code = 415) 0.33 0.30- 0.82 K/L # Eos (test code = 416) 0.00 0.04- 0.54 K/L L # Baso (test code = 417) 0.03 0.01- 0.08 K/L Immature Granulocytes-Relative 0 % 0-1 (test code = 2801) Lab Interpretation (test code = Abnormal 07814-2) [facility] W/PLT COUNT & AUTO [id number] 17:13:00 Test Item Value Reference Range Interpretation Comments WHITE BLOOD CELL COUNT (BEAKER) 15.1 K/ L 3.5-10.5 H (test code = 775) RED BLOOD CELL COUNT (BEAKER) 4.38 M/ L 4.63-6.08 L (test code = 761) HEMOGLOBIN (BEAKER) (test code = 13.3 GM/DL 13.7-17.5 L 410) HEMATOCRIT (BEAKER) (test code = 39.4 % 40.1-51.0 L 411) MEAN CORPUSCULAR VOLUME (BEAKER) 90.0 fL 79.0-92.2 (test code = 753) MEAN CORPUSCULAR HEMOGLOBIN 30.4 pg 25.7-32.2 (BEAKER) (test code = 751) MEAN CORPUSCULAR HEMOGLOBIN CONC 33.8 GM/DL 32.3-36.5 (BEAKER) (test code = 752) RED CELL DISTRIBUTION WIDTH 13.9 % 11.6-14.4 (BEAKER) (test code = 412) PLATELET COUNT (BEAKER) (test 188 K/CU MM 150-450 code = 756) MEAN PLATELET VOLUME (BEAKER) 10.7 fL 9.4-12.4 (test code = 754) NUCLEATED RED BLOOD CELLS 0 /100 WBC 0-0 (BEAKER) (test code = 413) NEUTROPHILS RELATIVE PERCENT 93 % (BEAKER) (test code = 429) LYMPHOCYTES RELATIVE PERCENT 5 % (BEAKER) (test code = 430) MONOCYTES RELATIVE PERCENT 2 % (BEAKER) (test code = 431) EOSINOPHILS RELATIVE PERCENT 0 % (BEAKER) (test code = 432) BASOPHILS RELATIVE PERCENT 0 % (BEAKER) (test code = 437) NEUTROPHILS ABSOLUTE COUNT 13.99 K/ L 1.78-5.38 H (BEAKER) (test code = 670) LYMPHOCYTES ABSOLUTE COUNT 0.71 K/ L 1.32-3.57 L (BEAKER) (test code = 414) MONOCYTES ABSOLUTE COUNT (BEAKER) 0.33 K/ L 0.30-0.82 (test code = 415) EOSINOPHILS ABSOLUTE COUNT 0.00 K/ L 0.04-0.54 L (BEAKER) (test code = 416) BASOPHILS ABSOLUTE COUNT (BEAKER) 0.03 K/ L 0.01-0.08 (test code = 417) IMMATURE GRANULOCYTES-RELATIVE 0 % 0-1 PERCENT (BEAKER) (test code = 2801) Calcium, [id number] 17:06:00 Test Item Value Reference Range Interpretation Comments Calcium, Ion (test code = 1993-) 1.18 mmol/L 1.12-1.27 pH, Blood (test code = 17959-5) 7.38 [facility] [id number] 17:06:00 Test Item Value Reference Range Interpretation Comments CALCIUM IONIZED (BEAKER) (test 1.18 mmol/L 1.12-1.27 code = 698) PH, BLOOD (BEAKER) (test code = 7.38 1810) POCT-GLUCOSE [id number] 14:53:00 Test Item Value Reference Range Interpretation Comments POC-GLUCOSE METER 188 mg/dL 70-110 H : TESTED A T [facility] 67 (BEAKER) (test code = [facility], 1538) [id number]: Supervisor Engine Repair/Techni ema ID = [id number] for CARLOS UNDERWOOD POC ACTIVATED CLOTTING [id number] 11:41:00 Test Item Value Reference Range Interpretation Comments Activated Clotting Time 224 sec : 74 -137 seconds, (test code = 441) Baseline: TESTED AT [facility] [address] [facility], [address] 30: Supervisor Engine Repair/Techni ema ID = [id number] for JESSICA FOSTER [id number] 11:41:00 Test Item Value Reference Range Interpretation Comments ACTIVATED CLOTTING TIME 224 sec : 74 -137 seconds, (BEAKER) (test code = Baseli ne: TESTED AT [facility]) [facility] [address] [facility], 770 30: Supervisor Engine Repair/Techni ema ID = [id number] for CA STRO, JESSICA [id number] 11:41:00 Test Item Value Reference Range Interpretation Comments ACTIVATED CLOTTING TIME 230 sec : 74 -137 seconds, (BEAKER) (test code = Baseli ne: TESTED AT 441) [facility] [address] [place] [address], [facility] 30: Supervisor Engine Repair/Techni ema ID = [id number] for CA STRO, JESSICA [id number] 11:41:00 Test Item Value Reference Range Interpretation Comments ACTIVATED CLOTTING TIME 263 sec : 74 -137 seconds, (BEAKER) (test code = Baseli ne: TESTED AT 441) [address], [facility] 30: Supervisor Engine Repair/Techni ema ID = [id number] for CA STRO, JESSICA [id number] 11:41:00 Test Item Value Reference Range Interpretation Comments ACTIVATED CLOTTING TIME 246 sec : 74 -137 seconds, (BEAKER) (test code = Baseli ne: TESTED AT 441) [address], [facility] 30: Supervisor Engine Repair/Techni ema ID = [id number] for CA STRO, JESSICA Blood gas, [id number] 10:43:00 Test Item Value Reference Range Interpretation Comments pH, Arterial (test code = 2744-1) 7.47 7.35-7.45 H pCO2, Arterial (test code = 39 35- 45 mm Hg 2018-11) pO2, Arterial (test code = 2703-7) 164 80- 90 mm Hg H O2 Sat, Arterial (test code = 99.2 % 96-97 H 8-6) HCO3, Arterial (test code = 28 mmol/L 21-29 1959-4) Base Excess, Arterial (test code = 3.5 mmol/L -2-3 H 1925-7) Patient Temperature (test code = 36.1 8310-5) FIO2 (test code = 1819) 50 Lab Interpretation (test code = Abnormal 85464-1) [facility] [id number] 10:43:00 Test Item Value Reference Range Interpretation Comments Hemoglobin (test code = 786-4) 12.9 13.0- 16.8 GM/DL L Hematocrit (test code = 4544-3) 38.0 % 40.0-50.0 L Lab Interpretation (test code = Abnormal 25594-8) [facility] [id number] 10:43:00 Test Item Value Reference Range Interpretation Comments Glucose (test code = 2345-7) 136 mg/dL 70-110 H Lab Interpretation (test code = Abnormal 16620-4) [facility] [id number] 10:43:00 Test Item Value Reference Range Interpretation Comments Sodium (test code = 2951-2) 137 meq/L 136-145 Lab Interpretation (test code = Normal 91801-3) [facility] [id number] 10:43:00 Test Item Value Reference Range Interpretation Comments Potassium (test code = 2823-3) 3.9 meq/L 3.6-5.5 Lab Interpretation (test code = Normal 53617-0) [facility] [id number] 10:43:00 Test Item Value Reference Range Interpretation Comments SODIUM (BEAKER) (test code = 381) 137 meq/L 136-145 POTASSIUM-STAT [id number] 10:43:00 Test Item Value Reference Range Interpretation Comments POTASSIUM (BEAKER) (test code = 3.9 meq/L 3.6-5.5 379) BLOOD GAS, [id number] 10:43:00 Test Item Value Reference Range Interpretation Comments PH ARTERIAL (BEAKER) (test code = 7.47 7.35-7.45 H 383) PCO2 ARTERIAL (BEAKER) (test code 39 mm Hg 35-45 = 384) PO2 ARTERIAL (BEAKER) (test code = 164 mm Hg 80-90 H 385) O2 SATURATION ARTERIAL (BEAKER) 99.2 % 96.0-97.0 H (test code = 386) HCO3 ARTERIAL (BEAKER) (test code 28 mmol/L 21-29 = 388) BASE EXCESS ARTERIAL (BEAKER) 3.5 mmol/L -2.0-3.0 H (test code = 387) PATIENT TEMPERATURE (BEAKER) (test 36.1 code = 1818) FIO2 (BEAKER) (test code = 1819) 50.0 GLUCOSE-STAT [id number] 10:43:00 Test Item Value Reference Range Interpretation Comments GLUCOSE RANDOM (BEAKER) (test code 136 mg/dL 70-110 H = 652) HGB/HCT (H&H) - STAT [id number] 10:43:00 Test Item Value Reference Range Interpretation Comments HEMOGLOBIN (BEAKER) (test code = 12.9 GM/DL 13.0-16.8 L 410) HEMATOCRIT (BEAKER) (test code = 38.0 % 40.0-50.0 L 411) HGB/HCT (H&H) - STAT [id number] 10:05:00 Test Item Value Reference Range Interpretation Comments HEMOGLOBIN (BEAKER) (test code = 11.2 GM/DL 13.0-16.8 L 410) HEMATOCRIT (BEAKER) (test code = 33.0 % 40.0-50.0 L 411) POTASSIUM-STAT [id number] 10:05:00 Test Item Value Reference Range Interpretation Comments POTASSIUM (BEAKER) (test code = 3.0 meq/L 3.6-5.5 L 379) GLUCOSE-STAT [id number] 10:04:00 Test Item Value Reference Range Interpretation Comments GLUCOSE RANDOM (BEAKER) (test code = 97 mg/dL 70-110 652) SODIUM NA-STAT [id number] 10:04:00 Test Item Value Reference Range Interpretation Comments SODIUM (BEAKER) (test code = 381) 136 meq/L 136-145 CALCIUM, [id number] 10:04:00 Test Item Value Reference Range Interpretation Comments CALCIUM IONIZED (BEAKER) (test 1.12 mmol/L 1.12-1.27 code = 698) PH, BLOOD (BEAKER) (test code = 7.44 1810) BLOOD GAS, [id number] 10:04:00 Test Item Value Reference Range Interpretation Comments PH ARTERIAL (BEAKER) (test code = 7.46 7.35-7.45 H 383) PCO2 ARTERIAL (BEAKER) (test code 27 mm Hg 35-45 L = 384) PO2 ARTERIAL (BEAKER) (test code 174 mm Hg 80-90 H = 385) O2 SATURATION ARTERIAL (BEAKER) 99.3 % 96.0-97.0 H (test code = 386) HCO3 ARTERIAL (BEAKER) (test code 19 mmol/L 21-29 L = 388) BASE EXCESS ARTERIAL (BEAKER) -4.3 mmol/L -2.0-3.0 L (test code = 387) PATIENT TEMPERATURE (BEAKER) 35.8 (test code = 1818) FIO2 (BEAKER) (test code = 1819) 50.0 BLOOD GAS, [id number] 08:35:00 Test Item Value Reference Range Interpretation Comments PH ARTERIAL (BEAKER) (test code = 7.41 7.35-7.45 383) PCO2 ARTERIAL (BEAKER) (test code 29 mm Hg 35-45 L = 384) PO2 ARTERIAL (BEAKER) (test code 340 mm Hg 80-90 H = 385) O2 SATURATION ARTERIAL (BEAKER) 99.8 % 96.0-97.0 H (test code = 386) HCO3 ARTERIAL (BEAKER) (test code 18 mmol/L 21-29 L = 388) BASE EXCESS ARTERIAL (BEAKER) -5.8 mmol/L -2.0-3.0 L (test code = 387) PATIENT TEMPERATURE (BEAKER) 36.0 (test code = 1818) FIO2 (BEAKER) (test code = 1819) 100.0 HGB/HCT (H&H) - STAT [id number] 08:35:00 Test Item Value Reference Range Interpretation Comments HEMOGLOBIN (BEAKER) (test code = 12.3 GM/DL 13.0-16.8 L 410) HEMATOCRIT (BEAKER) (test code = 36.0 % 40.0-50.0 L 411) POTASSIUM-STAT [id number] 08:35:00 Test Item Value Reference Range Interpretation Comments POTASSIUM (BEAKER) (test code = 3.0 meq/L 3.6-5.5 L 379) CALCIUM, [id number] 08:35:00 Test Item Value Reference Range Interpretation Comments CALCIUM IONIZED (BEAKER) (test 0.97 mmol/L 1.12-1.27 L code = 698) PH, BLOOD (BEAKER) (test code = 7.40 1810) GLUCOSE-STAT [id number] 08:34:00 Test Item Value Reference Range Interpretation Comments GLUCOSE RANDOM (BEAKER) (test code 103 mg/dL 70-110 = 652) SODIUM NA-STAT [id number] 08:34:00 Test Item Value Reference Range Interpretation Comments SODIUM (BEAKER) (test code = 381) 135 meq/L 136-145 L BASIC METABOLIC [id number] 05:40:00 Test Item Value Reference Range Interpretation Comments SODIUM (BEAKER) 134 meq/L 136-145 L (test code = 381) POTASSIUM (BEAKER) 3.8 meq/L 3.5-5.1 (test code = 379) CHLORIDE (BEAKER) 102 meq/L 98-107 (test code = 382) CO2 (BEAKER) (test 22 meq/L 22-29 code = 355) BLOOD UREA NITROGEN 12 mg/dL 7-21 (BEAKER) (test code = 354) CREATININE (BEAKER) 0.82 mg/dL 0.57-1.25 (test code = 358) GLUCOSE RANDOM 136 mg/dL 70-105 H (BEAKER) (test code = 652) CALCIUM (BEAKER) 9.2 mg/dL 8.4-10.2 (test code = 697) EGFR (BEAKER) (test 96 mL/min/1.73 ESTIMA MARYANNE GFR IS code = 1092) sq m NOT ACCURATE CREATININE CLEARANCE IN PREDICTING GLOMERULAR FILTRATION RATE . ESTIMATED GFR I S NOT APPLICABLE FOR DIALYSIS PATIEN TS. Supervisor Engine Repair ID - [id number]/[id number] 05:14:00 Test Item Value Reference Range Interpretation Comments Protime (test code = 12.3 11.9- 14.2 5902-2) seconds INR (test code = 0.94 <=5.90 6301-6) PTT (test code = 29.8 22.5- 36.0 41246-8) seconds LAN (test code = LAN) Effective 08/29/2018: PT Reference Range ChangeNew: 11.9-14.2 Previous: 11.7-14.7 RECOMMENDED COUMADIN/WARFARIN INR THERAPY RANGESSTANDARD DOSE: 2.0-3.0 Includes: PROPHYLAXIS for venous thrombosis, systemic embolization; TREATMENT for venous thrombosis and/or pulmonary embolus.HIGH RISK: Target INR is 2.5-3.5 for patients wiht mechanical heart valves. Lab Interpretation Normal (test code = 11438-0) [facility]PT/[id number] 05:14:00 Test Item Value Reference Range Interpretation Comments PROTIME (BEAKER) (test code = 12.3 seconds 11.9-14.2 759) INR (BEAKER) (test code = 370) 0.94 <=5.90 PARTIAL THROMBOPLASTIN TIME 29.8 seconds 22.5-36.0 (BEAKER) (test code = 760) Effective 08/29/2018: PT Reference Range ChangeNew: 11.9-14.2 Previous: 11.7- 14.7RECOMMENDED COUMADIN/WARFARIN INR THERAPY RANGESSTANDARD DOSE: 2.0-3.0 Includes: PROPHYLAXIS for venous thrombosis, systemic embolization; TREATMENT for venous thrombosis and/or pulmonary embolus.HIGH RISK: Target INR is2.5-3.5 for patients wiht mechanical heart valves.CBC W/PLT COUNT & AUTO [id number] 05:01:00 Test Item Value Reference Range Interpretation Comments WHITE BLOOD CELL COUNT (BEAKER) 7.8 K/ L 3.5-10.5 (test code = 775) RED BLOOD CELL COUNT (BEAKER) 4.84 M/ L 4.63-6.08 (test code = 761) HEMOGLOBIN (BEAKER) (test code = 14.4 GM/DL 13.7-17.5 410) HEMATOCRIT (BEAKER) (test code = 43.5 % 40.1-51.0 411) MEAN CORPUSCULAR VOLUME (BEAKER) 89.9 fL 79.0-92.2 (test code = 753) MEAN CORPUSCULAR HEMOGLOBIN 29.8 pg 25.7-32.2 (BEAKER) (test code = 751) MEAN CORPUSCULAR HEMOGLOBIN CONC 33.1 GM/DL 32.3-36.5 (BEAKER) (test code = 752) RED CELL DISTRIBUTION WIDTH 13.7 % 11.6-14.4 (BEAKER) (test code = 412) PLATELET COUNT (BEAKER) (test 164 K/CU MM 150-450 code = 756) MEAN PLATELET VOLUME (BEAKER) 10.4 fL 9.4-12.4 (test code = 754) NUCLEATED RED BLOOD CELLS 0 /100 WBC 0-0 (BEAKER) (test code = 413) NEUTROPHILS RELATIVE PERCENT 64 % (BEAKER) (test code = 429) LYMPHOCYTES RELATIVE PERCENT 26 % (BEAKER) (test code = 430) MONOCYTES RELATIVE PERCENT 7 % (BEAKER) (test code = 431) EOSINOPHILS RELATIVE PERCENT 2 % (BEAKER) (test code = 432) BASOPHILS RELATIVE PERCENT 1 % (BEAKER) (test code = 437) NEUTROPHILS ABSOLUTE COUNT 4.95 K/ L 1.78-5.38 (BEAKER) (test code = 670) LYMPHOCYTES ABSOLUTE COUNT 2.05 K/ L 1.32-3.57 (BEAKER) (test code = 414) MONOCYTES ABSOLUTE COUNT (BEAKER) 0.56 K/ L 0.30-0.82 (test code = 415) EOSINOPHILS ABSOLUTE COUNT 0.12 K/ L 0.04-0.54 (BEAKER) (test code = 416) BASOPHILS ABSOLUTE COUNT (BEAKER) 0.05 K/ L 0.01-0.08 (test code = 417) IMMATURE GRANULOCYTES-RELATIVE 1 % 0-1 PERCENT (BEAKER) (test code = 2801) ABORH, [id number] 23:54:00 Test Item Value Reference Range Interpretation Comments ABO Grouping (test code = 2588) A Rh Factor (test code = 2589) POS [facility] HospitalType and screen, [id number] 22:28:00 Test Item Value Reference Range Interpretation Comments ABO/RH AUTOMATED ([facility]) (test A POSITIVE code = 2260) Ab Scrn (test code = 890-4) NEGATIVE [facility]APTT2020-11-15 22:06:00 Test Item Value Reference Range Interpretation Comments PARTIAL THROMBOPLASTIN TIME 58.0 seconds 22.5-36.0 H (BEAKER) (test code = 760) POCT-GLUCOSE [id number] 21:12:00 Test Item Value Reference Range Interpretation Comments POC-GLUCOSE METER 137 mg/dL 70-110 H : TESTED A T [facility] 6720 (BEAKER) (test code = [place], 1538) [address]: Supervisor Engine Repair/Techni ema ID = [id number] for ARMINDA FARAH POCT-GLUCOSE [id number] 17:39:00 Test Item Value Reference Range Interpretation Comments POC-GLUCOSE METER 143 mg/dL 70-110 H : TESTED A T [facility] 6720 (BEAKER) (test code = [place]AM[place], 1538) [address]: Supervisor Engine Repair/Techni ema ID = [id number] for Paul Piña i [id number] 15:58:00 Test Item Value Reference Range Interpretation Comments PARTIAL THROMBOPLASTIN TIME 73.1 seconds 22.5-36.0 H (BEAKER) (test code = 760) POCT-GLUCOSE [id number] 12:14:00 Test Item Value Reference Range Interpretation Comments POC-GLUCOSE METER 173 mg/dL 70-110 H : TESTED A T [facility] 67[address] (CHERYL) (test code = FLOR[place]INO Mina [facility], 1538) [id number]: Supervisor Engine Repair/Techni ema ID = [id number] for JERRY DUPREE SARS-COV2/RT-PCR ([facility])2020-02-16 11:21:00 Test Item Value Reference Range Interpretation Comments SARS-COV2/RT-PCR (test Negative Not Detected, Negative, code = 7070350) See external report for linked test SARS-COV-2 PERFORMING LAB [facility] ENA (test code = 2167543) Negative result for this test determines that SARS-CoV-2 RNA was not present in the specimen above the Limit of Detection (LOD). However, Negative results do not preclude SARS-CoV-2 infection and should not be used as the sole basis for treatment or patient management decisions. Negative results mustbe combined with clinical observations, patient history, and epidemiological information. A false negative result may occur if a specimen is improperly collected, transported or handled. A false negative result should be considered if patient's recent exposures or clinical presentation indicate that COVID-19 (SARS-CoV-2) is likely and diagnostic tests for other causes of illness are negative. Re-testing should be considered in cases of suspected false negatives.The limit of detection for this assay is 800 copies/mL.This SARS CoV-2 test is a real-time RT-PCR test intended for the qualitative detection of nucleic acid from SARS-CoV-2 in a nasopharyngeal swab specimen collected from individuals susp ected of COVID-19 by their healthcare provider.This test has not been Food and Drug [...] is revoked under Section 564(g) of the Act.Fact Sheet for Healthcare Providers:https://www.[employer]/sites/default/files/product/documents/Fact_Shee o_MH_Ptuvssmvp_Auxr_NLIS-MgC-0.pdfFact Sheet for Healthcare Patients:https://www.[employer]/sites/default/files/product/ documents/Ozar_Cbfiz_Mpytxzaf_Vywq_KHGX-BvU-9.pdfPerforming Laboratory:[place] [address], [place] [id number] 09:49:00 Test Item Value Reference Range Interpretation Comments PARTIAL THROMBOPLASTIN TIME 60.7 seconds 22.5-36.0 H (BEAKER) (test code = 760) POCT-GLUCOSE [id number] 08:10:00 Test Item Value Reference Range Interpretation Comments POC-GLUCOSE METER 137 mg/dL 70-110 H : TESTED A T [facility] 6720 (Silicon MitusAKER) (test code = [facility], 1538) [address]: Supervisor Engine Repair/Techni ema ID = [id number] for JERRY DUPREE [id number] 07:56:00 Test Item Value Reference Range Interpretation Comments PARTIAL THROMBOPLASTIN TIME 132.6 seconds 22.5-36.0 H (BEAKER) (test code = 760) [id number] 00:25:00 Test Item Value Reference Range Interpretation Comments PARTIAL THROMBOPLASTIN TIME 96.0 seconds 22.5-36.0 H (BEAKER) (test code = 760) POCT-GLUCOSE [id number] 21:46:00 Test Item Value Reference Range Interpretation Comments POC-GLUCOSE METER 162 mg/dL 70-110 H : TESTED A T [facility] 6720 (BEAKER) (test code = [facility], 1538) [address]: Supervisor Engine Repair/Techni ema ID = [id number] for EN YSABEL GAMINOSOM ECG 12 [id number] 21:23:33Interface, External Ris In - 02/15/2020 9:23 PM CSTVentricular Rate 71 BPMAtrial Rate 71 BPMP-R Interval 156 msQRS Duration 92 msQ-T Interval 392 msQTC Calculation(Bazeze) 425 msP Tatum 36 degreesR Tatum 7 degreesT Tatum 42 degreesNormal sinus rhythmNormal ECGConfirmed by MD Jeong Roberto ([id number]) on 02/15/2020 9:23:30 [facility]byterianPET/[facility], CARDIAC PERF REST AND [id number] 18:07:00Reason for exam:->Assess for coronary ischemiaKAISER OAKLAND [facility] CENTERName: MUNIRA WHITE Disha : 1960 Sex: MFINAL REPORT PROCEDURE: MYOCARDIAL PERFUSION PET IMAGING (Rest/Stress)CPT CODE: 82235 INDICATION: Assess for coronary artery ischemia preop evaluation for vascular surgery CARDIOVASCULAR PROFILE:Symptoms: NoneCAD History: NoneRisk Factors: Hypertension, smoker, CVABMI: 26.6Medications: Amlodipine, atorvastatin, heparin, hydralazine STRESS PROTOCOL:Pharmacologic stress wasachieved with a 10-second intravenous infusion of regadenoson 0.4 mg. IMAGING PROTOCOL:Limited low-dose CT imaging was performed for attenuation correction. 40.1 mCi of Rb-82 chloride was injected intravenously at rest, and PET images were obtained. Then, 40.1 mCi of Rb-82 chloride was injected intrave nously at peak stress, and PET images were obtained. REST FINDINGS:HR: 68 /minBP: 143/65 mmHgPrelim.EKG: Normal sinus rhythm.Perfusion: Normal.Wall Motion: Normal (LVEF 64%).LV Volume: Normal.RV Volume: Normal. STRESS FINDINGS:HR: 88 /min (55% of MPHR)BP: 122/63 mmHgPrelim. EKG: No ischemic changes.Symptoms: Dyspnea (treatment not required).Perfusion: Normal.Wall Motion: Normal (LVEF 70%).LV Volume:Unchanged from rest. IMPRESSION:1. Normal study.2. Normal myocardial perfusion. Normal global LV function, which does not deteriorate with stress.3. Normal extracardiac tracer distribution..4. There is no prior study for comparison. Signed: Del Butler MDReport Verified Date/Time: 02/15/2020 18:07:15 NM Myocardial Perfusion Pet/CT (Rest & Stress)2020-02-15 18:07:00Interface, External Ris In - 02/15/2020 6:09 PM CSTFINAL REPORT PROCEDURE: MYOCARDIAL PERFUSION PET IMAGING (Rest/Stress)CPT CODE: 43288 INDICATION: Assess for coronary artery is chemia preop evaluation for vascular surgery CARDIOVASCULAR PROFILE:Symptoms: NoneCAD History: NoneRisk Factors: Hypertension, smoker, CVABMI: 26.6Medications: Amlodipine, atorvastatin, heparin, hydralazine STRESS PROTOCOL:Pharmacologic stress was achieved with a 10-second intravenous infusion of regadenoson 0.4 mg. IMAGING PROTOCOL:Limited low-dose CT imaging was performed for attenuation correction. 40.1 mCi of Rb-82 chloride was injected intravenously at rest, and PET images were obtained. Then, 40.1 mCi of Rb-82 chloride was injected intravenously at peak stress, and PET images were obtained. REST FINDINGS:HR: 68 /minBP: 143/65 mmHgPrelim. EKG: Normal sinus rhythm.Perfusion: Normal.Wall Motion: Normal (LVEF 64%).LV Volume: Normal.RV Volume: Normal. STRESS FINDINGS:HR: 88 /min (55% of MPHR)BP:122/63 mmHgPrelim. EKG: No ischemic changes.Symptoms: Dyspnea (treatment not required).Perfusion: Normal.Wall Motion: Normal (LVEF 70%).LV Volume: Unchanged from rest. IMPRESSION:1. Normal study.2. Normal myocardial perfusion. Normal global LV function, which does not deteriorate with stress.3. Normal extracardiac tracer distribution..4. There is no prior study for comparison. Signed: Del Butler Verified Date/Time: 02/15/2020 18:07:15 [facility] PresbyterianAPTT 2020-02-15 16:57:00 Test Item Value Reference Range Interpretation Comments PARTIAL THROMBOPLASTIN TIME 66.8 seconds 22.5-36.0 H (BEAKER) (test code = 760) 2D Echo W/Doppler(CW/PW/Color)2020-02-15 16:50:54Ejection FractionSLEH ECHO HEARTLAB MKCKESSON CPACSInterface, External Ris In - 02/15/2020 4:51 PM C STTransthoracic Echocardiography Report (TTE) Demographics Patient Name MUNIRA WHITE Date of Study 02/15/2020 T Gender Male Visit Number [id number] Race Unknown Room Number 2026 Number Date of 1960 Referring Darrell Kumar Physician Age 59 year(s) 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 All of the LV segments contract normally . Estimated LVEF by qualitative assessment is normal (>60%) . Grade 1 diastolic dysfunction (impaired [...] Estimated LVEF by qualitative assessment is normal (>60%) . Grade 1 diastolic dysfunction (impaired relaxation and low-normal LA pressure). Left Atrium LA size is normal (16-34 ml/m2) . Right Ventricle The right ventricular chamber size and systolic function are within normal limits.Right Atrium RA cavity size is normal . Aortic Valve Normal AoV structure and function. Mitral Valve Mild MV leaflet thickening. Tricuspid Valve A trace of tricuspid regurgitation. Unable to estimate peak systolic PA pressure; inadequate TR velocity signal. Pulmonic Valve Normal PV structure and function. Aorta Aortic root size (SInus of Valsalva diameter) is normal. Proximal ascending aorta size is normal . [...] mmHg Mean Gradient: 1.87 mmHg AV Area (continuity):4.02 cm^2 AV VTI: 15 cm AV DVI: 1.2 LVOT Peak Velocity: 1.04 m/s Peak Gradient: 4.35 mmHg Mean Velocity: 0.63 m/s Mean Gradient: 2.01 mmHg LVOT Diameter: 2.07 cmLVOT VTI: 17.93 cm LVOT Area: 3.37 cm^2 LVOT SV:60.31 ml LVOT CO: 5.13 l/min LVOT CI: 2.79 l/min/m^2[facility] HospitalPOCT-GLUCOSE [id number] 12:58:00 Test Item Value Reference Range Interpretation Comments POC-GLUCOSE METER 137 mg/dL 70-110 H : TESTED A T [facility] 6720 ([employer]) (test code = [facility], 1538) [address]: Supervisor Engine Repair/Techni ema ID = [id number] for Elliott White [id number] 08:47:00 Test Item Value Reference Range Interpretation Comments PARTIAL THROMBOPLASTIN TIME 115.2 seconds 22.5-36.0 H ([employer]) (test code = 760) POCT-GLUCOSE [id number] 08:03:00 Test Item Value Reference Range Interpretation Comments POC-GLUCOSE METER 167 mg/dL 70-110 H : TESTED A T [facility] 6720 ([employer]) (test code = [facility], 1538) [address]: Supervisor Engine Repair/Techni ema ID = [id number] for JOSELUIS HAMPTON [id number] 01:09:00 Test Item Value Reference Range Interpretation Comments PARTIAL THROMBOPLASTIN TIME 66.0 seconds 22.5-36.0 H ([employer]) (test code = 760) POCT-GLUCOSE [id number] 23:53:00 Test Item Value Reference Range Interpretation Comments POC-GLUCOSE METER 183 mg/dL 70-110 H : Notified RN/MD: [facility] (test code AT [facility] 6720 [facility] = 1538) [facility], 770 30: Supervisor Engine Repair/Techni ema ID = [id number] for SUZY PRECIADO [id number] 18:22:00 Test Item Value Reference Range Interpretation Comments PARTIAL THROMBOPLASTIN TIME 102.2 seconds 22.5-36.0 H (BEAKER) (test code = 760) POCT-GLUCOSE [id number] 17:29:00 Test Item Value Reference Range Interpretation Comments POC-GLUCOSE METER 158 mg/dL 70-110 H : [facility] (test code = [place] Mina [facility], 1538) [address]: Supervisor Engine Repair/Techni ema ID = [id number] for BANDAR BUCKNER POCT-GLUCOSE [id number] 11:48:00 Test Item Value Reference Range Interpretation Comments POC-GLUCOSE METER 147 mg/dL 70-110 H : [facility] (BEAKER[facility] (test code = [place] Mina [facility], 1538) [address]: Supervisor Engine Repair/Techni ema ID = [id number] for BANDAR BUCKNER [id number] 11:10:00 Test Item Value Reference Range Interpretation Comments PARTIAL THROMBOPLASTIN TIME 60.9 seconds 22.5-36.0 H (BEAKER) (test code = 760) BASIC METABOLIC [id number] 04:31:00 Test Item Value Reference Range Interpretation Comments SODIUM (BEAKER) 135 meq/L 136-145 L (test code = 381) POTASSIUM (BEAKER) 4.3 meq/L 3.5-5.1 Specimen moderately (test code = 379) hemolyzed CHLORIDE (BEAKER) 103 meq/L 98-107 (test code = 382) CO2 (BEAKER) (test 23 meq/L 22-29 code = 355) BLOOD UREA NITROGEN 6 mg/dL 7-21 L (BEAKER) (test code = 354) CREATININE (BEAKER) 0.83 mg/dL 0.57-1.25 Specimen moderately (test code = 358) hemolyzed GLUCOSE RANDOM 188 mg/dL 70-105 H (BEAKER) (test code = 652) CALCIUM (BEAKER) 9.7 mg/dL 8.4-10.2 (test code = 697) EGFR (BEAKER) (test 95 mL/min/1.73 ESTIMA MARYANNE GFR IS code = 1092) sq m NOT ACCURATE CREATININE CLEARANCE IN PREDICTING GLOMERULAR FILTRATION RATE . ESTIMATED GFR I S NOT APPLICABLE FOR DIALYSIS PATIEN TS. Supervisor [employer] ID - [id number] 04:04:00 Test Item Value Reference Range Interpretation Comments PARTIAL THROMBOPLASTIN TIME 55.6 seconds 22.5-36.0 H (BEAKER) (test code = 760) CBC W/PLT COUNT & AUTO [id number] 03:54:00 Test Item Value Reference Range Interpretation Comments WHITE BLOOD CELL COUNT (BEAKER) 7.9 K/ L 3.5-10.5 (test code = 775) RED BLOOD CELL COUNT (BEAKER) 4.92 M/ L 4.63-6.08 (test code = 761) HEMOGLOBIN (BEAKER) (test code = 14.9 GM/DL 13.7-17.5 410) HEMATOCRIT (BEAKER) (test code = 44.3 % 40.1-51.0 411) MEAN CORPUSCULAR VOLUME (BEAKER) 90.0 fL 79.0-92.2 (test code = 753) MEAN CORPUSCULAR HEMOGLOBIN 30.3 pg 25.7-32.2 (BEAKER) (test code = 751) MEAN CORPUSCULAR HEMOGLOBIN CONC 33.6 GM/DL 32.3-36.5 (BEAKER) (test code = 752) RED CELL DISTRIBUTION WIDTH 13.8 % 11.6-14.4 (BEAKER) (test code = 412) PLATELET COUNT (BEAKER) (test 185 K/CU MM 150-450 code = 756) MEAN PLATELET VOLUME (BEAKER) 10.4 fL 9.4-12.4 (test code = 754) NUCLEATED RED BLOOD CELLS 0 /100 WBC 0-0 (BEAKER) (test code = 413) NEUTROPHILS RELATIVE PERCENT 59 % (BEAKER) (test code = 429) LYMPHOCYTES RELATIVE PERCENT 33 % (BEAKER) (test code = 430) MONOCYTES RELATIVE PERCENT 6 % (BEAKER) (test code = 431) EOSINOPHILS RELATIVE PERCENT 2 % (BEAKER) (test code = 432) BASOPHILS RELATIVE PERCENT 1 % (BEAKER) (test code = 437) NEUTROPHILS ABSOLUTE COUNT 4.64 K/ L 1.78-5.38 (BEAKER) (test code = 670) LYMPHOCYTES ABSOLUTE COUNT 2.60 K/ L 1.32-3.57 (BEAKER) (test code = 414) MONOCYTES ABSOLUTE COUNT (BEAKER) 0.46 K/ L 0.30-0.82 (test code = 415) EOSINOPHILS ABSOLUTE COUNT 0.13 K/ L 0.04-0.54 (BEAKER) (test code = 416) BASOPHILS ABSOLUTE COUNT (BEAKER) 0.05 K/ L 0.01-0.08 (test code = 417) IMMATURE GRANULOCYTES-RELATIVE 1 % 0-1 PERCENT (BEAKER) (test code = 2801) [id number] 01:51:00 Test Item Value Reference Range Interpretation Comments PARTIAL THROMBOPLASTIN TIME 129.0 seconds 22.5-36.0 H (BEAKER) (test code = 760) [id number] 18:55:00 Test Item Value Reference Range Interpretation Comments PARTIAL THROMBOPLASTIN TIME 94.9 seconds 22.5-36.0 H (BEAKER) (test code = 760) [id number] 11:28:00 Test Item Value Reference Range Interpretation Comments PARTIAL THROMBOPLASTIN TIME 55.1 seconds 22.5-36.0 H (BEAKER) (test code = 760) [id number] 04:49:00 Test Item Value Reference Range Interpretation Comments PARTIAL THROMBOPLASTIN TIME 102.3 seconds 22.5-36.0 H (BEAKER) (test code = 760) BASIC METABOLIC [id number] 04:21:00 Test Item Value Reference Range Interpretation Comments SODIUM (BEAKER) 135 meq/L 136-145 L (test code = 381) POTASSIUM (BEAKER) 4.0 meq/L 3.5-5.1 (test code = 379) CHLORIDE (BEAKER) 102 meq/L 98-107 (test code = 382) CO2 (BEAKER) (test 25 meq/L 22-29 code = 355) BLOOD UREA NITROGEN 9 mg/dL 7-21 (BEAKER) (test code = 354) CREATININE (BEAKER) 0.82 mg/dL 0.57-1.25 (test code = 358) GLUCOSE RANDOM 158 mg/dL 70-105 H (BEAKER) (test code = 652) CALCIUM (BEAKER) 9.2 mg/dL 8.4-10.2 (test code = 697) EGFR (BEAKER) (test 96 mL/min/1.73 ESTIMA MARYANNE GFR IS code = 1092) sq m NOT ACCURATE CREATININE CLEARANCE IN PREDICTING GLOMERULAR FILTRATION RATE . ESTIMATED GFR I S NOT APPLICABLE FOR DIALYSIS PATIEN TS. Supervisor Engine [employer] ID - SHIVA [facility] W/PLT COUNT & AUTO [id number] 03:59:00 Test Item Value Reference Range Interpretation Comments WHITE BLOOD CELL COUNT (BEAKER) 9.0 K/ L 3.5-10.5 (test code = 775) RED BLOOD CELL COUNT (BEAKER) 4.99 M/ L 4.63-6.08 (test code = 761) HEMOGLOBIN (BEAKER) (test code = 15.2 GM/DL 13.7-17.5 410) HEMATOCRIT (BEAKER) (test code = 44.6 % 40.1-51.0 411) MEAN CORPUSCULAR VOLUME (BEAKER) 89.4 fL 79.0-92.2 (test code = 753) MEAN CORPUSCULAR HEMOGLOBIN 30.5 pg 25.7-32.2 (BEAKER) (test code = 751) MEAN CORPUSCULAR HEMOGLOBIN CONC 34.1 GM/DL 32.3-36.5 (BEAKER) (test code = 752) RED CELL DISTRIBUTION WIDTH 13.8 % 11.6-14.4 (BEAKER) (test code = 412) PLATELET COUNT (BEAKER) (test 171 K/CU MM 150-450 code = 756) MEAN PLATELET VOLUME (BEAKER) 10.4 fL 9.4-12.4 (test code = 754) NUCLEATED RED BLOOD CELLS 0 /100 WBC 0-0 (BEAKER) (test code = 413) NEUTROPHILS RELATIVE PERCENT 61 % (BEAKER) (test code = 429) LYMPHOCYTES RELATIVE PERCENT 31 % (BEAKER) (test code = 430) MONOCYTES RELATIVE PERCENT 6 % (BEAKER) (test code = 431) EOSINOPHILS RELATIVE PERCENT 2 % (BEAKER) (test code = 432) BASOPHILS RELATIVE PERCENT 1 % (BEAKER) (test code = 437) NEUTROPHILS ABSOLUTE COUNT 5.45 K/ L 1.78-5.38 H (BEAKER) (test code = 670) LYMPHOCYTES ABSOLUTE COUNT 2.78 K/ L 1.32-3.57 (BEAKER) (test code = 414) MONOCYTES ABSOLUTE COUNT (BEAKER) 0.52 K/ L 0.30-0.82 (test code = 415) EOSINOPHILS ABSOLUTE COUNT 0.14 K/ L 0.04-0.54 (BEAKER) (test code = 416) BASOPHILS ABSOLUTE COUNT (BEAKER) 0.05 K/ L 0.01-0.08 (test code = 417) IMMATURE GRANULOCYTES-RELATIVE 0 % 0-1 PERCENT (BEAKER) (test code = 2801) [id number] 22:27:00 Test Item Value Reference Range Interpretation Comments PARTIAL THROMBOPLASTIN TIME 72.6 seconds 22.5-36.0 H (BEAKER) (test code = 760) [id number] 15:42:00 Test Item Value Reference Range Interpretation Comments PARTIAL THROMBOPLASTIN TIME 36.1 seconds 22.5-36.0 H (BEAKER) (test code = 760) CT, CTA AAA, W/ DUANE.EXT.[id number] 11:11:00Anesthesia:->None [facility] Disha : 1960 Sex: MAddendum BeginsREPORT STATUS:A ADDENDUM: Bibasilar atelectasis, left greater than right. Left renal interpolar 2.6 cm cyst. Few scattered colonic diverticula. Signed: Chao Wright MDReport Verified Date/Time: 02/12/2020 11:11:37 Reading Location: [place] [address] Angio Body Reading RoomAddendum EndsFINAL REPORT CT angiography of the abdominal aorta michaela, 11-Feb-20 INDICATION: This is a 59 year old male with with leg ischaemia presents for assessment. TECHNIQUE: Spiral acquisition before and during intravenous contrast administration using a Siemens multidetector CT scanner. Images were obtained before and during the dynamic passage of intravenous contrast material. Multi-planar 3-D volume-rendering reconstruction was performed using an independent workstation interactively by the interpreting physician as well as the 3-D specialist for optimal visualisation of the abdominal aorta, pelvic arteries, and its peripheral branches. Please referto the contrast sheet scanned in the EPIC system for the amount and route of contrast given. This exam was performed according to our departmental dose-optimisation programme, which includes automated exposure control, adjustment of the mA and/or kV according to patient size and/or use of iterative reconstruction technique. Dose modulation, iterative reconstruction, and/or weight based adjustment of the mA/kV was utilized to reduce the radiation dose to as low as reasonably achievable. FINDINGS: VASCULAR: The abdominal aorta is normal in course and calibre. However, in the infrarenal abdominal aort a, increasing noncalcific atherosclerosis is identified, for example image 127. At this level, the patent lumen is 92 sq mm, with a cross-sectional diameter of 12.8 x 9.6 mm, suggesting no significant obstructive lesion is present. No ectasia is seen and no aneurysmal dilation is identified. Quantitative dimensions of the abdominal aorta are as follows: 2.1 cm at the mesenteric segment; 2.1 cm at the renal segment,; and 1.8 cm at the aortic bifurcation. The coeliac axis, SMA are widely patent. The MATT fills retrogradely by surrounding collaterals at the proximal 1 cm is occluded. Single left and right renal arteries are seen that are widely patent. Single left and right renal veins are seen draining into the IVC. In the left common iliac artery, at image 154, severe stenosis is identified. Please see snapshot for details. The lesion is located approximately 2.5 cm from the takeoff of the left common iliac artery and from normal edge to normal edge, the length of the lesion is approximately 1 cm. Reference diameter of the left common iliac artery is at least 6.5 x 7 mm. The left external iliac artery and the left common femoral artery is patent with average diameter of approximately 3.5 to4 mm. The entire left SFA is essentially occluded, for length of approximately 22 cm. The left orbital artery is reconstitution by surrounding collaterals at image 435, and the left popliteal artery thereafter is patent with no obstructive lesion identified with mild atherosclerosis identified, thoughit is a somewhat small calibre vessel that could be due to limited inflow. Average diameter is 2 to 2.5 mm in diameter. The left profunda system is widely patent. In the left lower extremity, the left t ibioperoneal trunk is patent proximally and there is likely occlusion identified distally. There is severe disease/subtotal occlusion identified in the left anterior tibial artery at this is not well seen in the first and second dynamic data set though the dorsalis pedis artery is still well seen. Similarly, the left peroneal artery is also not well appreciated though it is identified near the ankle.The left posterior tibial artery is widely patent, the dominant vessel. The plantar arch is seen distally. It is uncertain if the runoff finding is due to poor inflow. Acuity of the left lower extremity finding cannot be commented upon. Correlate with clinical history. Vascular stent is identified in the right common iliac artery with some intimal hyperplasia identified with no significant in-stent stenosis present. However, at the takeoff of the right external iliac artery, at image 181, severe stenosis/subtotal occlusion is identified. The length of the lesion is approximately 2.3 cm measure fromnormal edge to normal edge. Remainder of the right external iliac artery is seen to be patent with no obstructive lesion identified though some noncalcific atherosclerosis is seen. Reference diameter of the right external iliac artery image 192 is approximately 5 mm. No obstructive lesion is identified in the right common femoral artery, with mild noncalcific atherosclerosis identified. In the right, the right profunda system is unremarkable. However, a severe focal stenosis is identified in the mid right SFA at image 369, and please see snapshot and 3-D data set for details. Remainder of the right SFA is unremarkable. The reference diameter of the right SFA is approximately 3 to 3.5 mm, at the mid/distal level. The right popliteal artery is unremarkable. The right profunda system is also unremarkable. In the right lower extremity, the right tibioperoneal trunk is widely patent. The right peroneal artery is widely patent and well seen down to level of the ankle. The right posterior tibial shanel ry is widely patent and the plantar arch is seen distally. The right anterior tibial artery has severe diffuse disease identified to the dorsalis pedis artery is well seen at the level of the ankle. NON-VASCULAR:- The nonvascular findings will be dictated separately. CONCLUSIONS: 1. Noncalcific is identified in the infrarenal abdominal aorta though it is still nonobstructive in nature. Ectasia or aneurysmal dilation is seen. There is no evidence of acute aortic pathology, specifically, there is no dissection, intramural hematoma, or contained rupture. Quantitative dimension of the abdominal aorta are as noted. 2. A significant lesion is identified located approximately 2.5 cm from the takeoff of the left common iliac artery. Remainder of the left pelvic arteries are unremarkable. The left SFA isoccluded for length of 22 cm with reconstitution by surrounding collaterals and the left popliteal level. Acuity of this finding cannot be commented upon. Correlate clinically. The left popliteal artery is patent with some mild atherosclerosis identified, somewhat small in size. Details of the runoffvessels as described above, with essentially single vessel runoff in the left lower extremity, specifically, the left posterior tibial artery. 3. A vascular stent is identified in the right common iliac artery with no in-stent stenosis identified. A significant stenosis is seen in the proximal right ex ternal iliac artery. Please see snapshot for details. Remainder of the right external iliac and the right common femoral arteries are unremarkable. In the mid right SFA, image 269, a significant focal stenosis is identified. Remainder of the right SFA is unremarkable. No obstructive disease is identified in the right profunda and the right popliteal system. Details of the runoff vessels in the right lower extremity as described above, with two-vessel runoff identified. 4. NONVASCULAR FINDINGS WILL BE DICTATED SEPARATELY, AND THE REPORT WILL ONLY BE CONSIDERED COMPLETE AFTER THE ADDENDUM HAS BEEN DICTATED. Signed: Davy Vogel MDReport Verified Date/Time: 02/12/2020 09:35:59 Reading Location: [place] [address] CT Reading Room CTA AAA and [id number] 09:35:00Interface, External Ris In - 02/12/2020 11:13 AM CSTAddendum BeginsREPORT STATUS:A ADDENDUM: Bibasilar atelectasis, left greater than right. Left renal interpolar 2.6 cm cyst. Few scattered colonic diverticula. Signed: Chao Wright MDReport Verified Date/Time: 02/12/2020 11:11:37 Reading Location: [place] [id number] Angio Body Reading RoomAddendum EndsFINAL REPORT CT angiography of the abdominal aorta and runoff, 11-Feb-20 INDICATION: This is a 59 year old male with with leg ischaemia presents for assessment. TECHNIQUE: Spiral acquisition before and during intravenous contrast administration using a Siemens multidetector CT scanner. Images were obtained before and during the dynamic passage of intravenous contrast material. Multi-planar 3-D volume-rendering reconstruction was performed using an independent workstation interactively by the interpreting physician as well as the 3-D specialist for optimal visualisation of the abdominal aorta, pelvic arteries, and its peripheral branches. Please refer to the contrast sheet scanned in the EPIC system for the amount and route of contrast given. This exam was performed according to our departmental dose-optimisation programme, which includes automated exposure control, adjustment of the mA and/or kV according to patient size and/or use of iterative reconstruction technique. Dose modulation, iterative reconstruction, and/or weight based adjustment of the mA/kV was utilized to reduce the radiation dose to as low as reasonably achievable. FINDINGS: VASCULAR: The abdominal aorta is normal in course and calibre. However, in the infrarenal abdominal aorta, increasing noncalcific atherosclerosis is identified, for example image 127. At this level, the patent lumen is 92 sq mm, with a cross-sectional diameter of 12.8 x 9.6 mm, suggesting no significant obstructive lesion is present. No ectasia is seen and no aneurysmal dilation is identified. Quantitative dimensions of the abdominal aorta are as follows:2.1 cm at the mesenteric segment; 2.1 cm at the renal segment,; and 1.8 cm at the aortic bifurcation. The coeliac axis, SMA are widely patent. The MATT fills retrogradely by surrounding collaterals atthe proximal 1 cm is occluded. Single left and right renal arteries are seen that are widely patent.Single left and right renal veins are seen draining into the IVC. In the left common iliac artery, at image 154, severe stenosis is identified. Please see snapshot for details. The lesion is located approximately 2.5 cm from the takeoff of the left common iliac artery and from normal edge to normal edge, the length of the lesion is approximately 1 cm. Reference diameter of the left common iliac artery is at least 6.5 x 7 mm. The left external iliac artery and the left common femoral artery is patentwith average diameter of approximately 3.5 to 4 mm. The entire left SFA is essentially occluded, for length of approximately 22 cm. The left orbital artery is reconstitution by surrounding collaterals at image 435, and the left popliteal artery thereafter is patent with no obstructive lesion identified with mild atherosclerosis identified, though it is a somewhat small calibre vessel that could be due to limited inflow. Average diameter is 2 to 2.5 mm in diameter. The left profunda system is widely patent. In the left lower extremity, the left tibioperoneal trunk is patent proximally and there is likely occlusion identified distally. There is severe disease/subtotal occlusion identified in the left anterior tibial artery at this is not well seen in the first and second dynamic data set though thedorsalis pedis artery is still well seen. Similarly, the left peroneal artery is also not well appreciated though it is identified near the ankle. The left posterior tibial artery is widely patent, thedominant vessel. The plantar arch is seen distally. It is uncertain if the runoff finding is due to poor inflow. Acuity of the left lower extremity finding cannot be commented upon. Correlate with clinical history. Vascular stent is identified in the right common iliac artery with some intimal hyperplasia identified with no significant in-stent stenosis present. However, at the takeoff of the right external iliac artery, at image 181, severe stenosis/subtotal occlusion is identified. The length of the lesion is approximately 2.3 cm measure from normal edge to normal edge. Remainder of the right external iliac artery is seen to be patent with no obstructive lesion identified though some noncalcificatherosclerosis is seen. Reference diameter of the right external iliac artery image 192 is approximately 5 mm. No obstructive lesion is identified in the right common femoral artery, with mild noncalcific atherosclerosis identified. In the right, the right profunda system is unremarkable. However, a severe focal stenosis is identified in the mid right SFA at image 369, and please see snapshot and 3-D data set for details. Remainder of the right SFA is unremarkable. The reference diameter of the right SFA is approximately 3 to 3.5 mm, at the mid/distal level. The right popliteal artery is unremarkable. The right profunda system is also unremarkable. In the right lower extremity, the right tibioperoneal trunk is widely patent. The right peroneal artery is widely patent and well seen down to level of the ankle. The right posterior tibial artery is widely patent and the plantar arch is seen distally. The right anterior tibial artery has severe diffuse disease identified to the dorsalis pedis artery is well seen at the level of the ankle. NON-VASCULAR:- The nonvascular findings will be dictated s eparately. CONCLUSIONS: 1. Noncalcific is identified in the infrarenal abdominal aorta though it is still nonobstructive in nature. Ectasia or aneurysmal dilation is seen. There is no evidence of acuteaortic pathology, specifically, there is no dissection, intramural hematoma, or contained rupture. Quantitative dimension of the abdominal aorta are as noted. 2. A significant lesion is identified located approximately 2.5 cm from the takeoff of the left common iliac artery. Remainder of the left pelvic arteries are unremarkable. The left SFA is occluded for length of 22 cm with reconstitution by surrounding collaterals and the left popliteal level. Acuity of this finding cannot be commented upon. Correlate clinically. The left popliteal artery is patent with some mild atherosclerosis identified,somewhat small in size. Details of the runoff vessels as described above, with essentially single vessel runoff in the left lower extremity, specifically, the left posterior tibial artery. 3. A vascular stent is identified in the right common iliac artery with no in-stent stenosis identified. A significant stenosis is seen in the proximal right external iliac artery. Please see snapshot for details. Remainder of the right external iliac and the right common femoral arteries are unremarkable. In the m id right SFA, image 269, a significant focal stenosis is identified. Remainder of the right SFA is unremarkable. No obstructive disease is identified in the right profunda and the right popliteal system. Details of the runoff vessels in the right lower extremity as described above, with two-vessel runoff identified. 4. NONVASCULAR FINDINGS WILL BE DICTATED SEPARATELY, AND THE REPORT WILL ONLY BE CONSIDERED COMPLETE AFTER THE ADDENDUM HAS BEEN DICTATED. Signed: Davy Vogel MDReport Verified Date/Time: 02/12/2020 09:35:59 Reading Location: [place] [address] CT Reading [facility](Ankle/Brachial Index)2020-02-12 08:08:11Ejection [facility]SVAL[facility] ECHO HEARTLAB MKCKAUGUSTAON CPACSRight Impression1. The posterior tibial and dorsalis pedis arteries are patent withmonophasic Doppler waveforms.2. The PT pressure is 130 mmHg with an ALEKS of 0.55 and the DP pressure is106 mmHg with an ALEKS of 0.56, within severe obstruction range.3. The great toe pressure is 72 mmHg with a abnormal TBI of 0.38.4. The digits have adequate flow by PPG waveforms.Left Impression1. The posterior tibial and dorsalis pedis arteries are patent withmonophasic Doppler waveforms.2. The PT pressure is 90 mmHg with an ALEKS of 0.48 and the DP pressure is 80mmHg with an ALEKS of 0.43, within severe obstruction range.3. The great toe pressure could not be obtained due to patients inability towithstand pressure.4. The digits have absent flow by PPG waveforms. Conclusions Summary Arterial pressures and Doppler waveforms [...] cm/s ; Diameters are measured in cm Interface, External Ris In - 02/12/2020 8:08 AM CSTPV LAB - Lower Extremity Arterial Procedure Demographics Patient Name MUNIRA WHITE Date of Study 02/11/2020 Age 59 Visit Number [id number] Gender Male Accession Number [id number] Date of 1960 Referring Tanesha Terrazasrolf Rubio, Room Number 2542 Physician Volunteer Services Assistant Michelle Oconnor, Interpreting Tanesha Almaguer, RVT Physician ProcedureType of Study: Extremities Arteries: Lower Extremity Arterial Procedure, ARTERIAL (ALEKS'S W/DOPPLER) ONLY. Indications for Study:Left toe wound.Patient Status :STAT.Study Location:Vascular Lab.Technical Quality:Adequate visualization.Risk FactorsHistory of Dis ease+ +----+ + !Diagnosis !Date!Comments !+ +----+ +!History/Risk ! !tobacco abuse, HTN, CVA, intracranial stent, !!Factors: ! !current smoker !+ +----+ +ImpressionsRight Impression1. The posterior tibial and dorsalis pedis arteries are patent withmonophasic Doppler waveforms.2. The PT pressure is 130 mmHg with an ALEKS of 0.55 and the DP pressure is106 mmHg with an ALEKS of 0.56, within severe obstruc tion range.3. The great toe pressure is 72 mmHg with a abnormal TBI of 0.38.4. The digits have adequate flow by PPG waveforms.Left Impression1. The posterior tibial and dorsalis pedis arteries are patent withmonophasic Doppler waveforms.2. The PT pressure is 90 mmHg with an ALEKS of 0.48 and the DP pressure is 80mmHg with an ALEKS of 0.43, within severe obstruction range.3. The great toe pressure could not be obtained due to patients inability towithstand pressure.4. The digits have absent flow by PPG waveforms. Conclusions Summary Arterial pressures and Doppler waveforms [...] in cm/s ; Diameters are measured in [facility] Arterial doppler leg, [id number] 08:07:47Ejection [facility] ECHO HEARTLAB MKCKESSON [facility] Left Impression1. The common femoral, profunda femoral, proximal femoral, distal femoral,popliteal, posterior tibial and anterior tibial arteries arepatent withmonophasic waveforms and soft plaque throughout.2. There is a collarteral artery visualized at the proximal femoral arteryproximal to an occlusion of the mid femoral artery. The collateralreconstitutes flow to the distal femoral artery.3. The peroneal artery could not be visualized. Conclus ions Summary Arterial pressures and Doppler analysis were performed on the left lower extremity. Adequate Doppler waveforms were obtained. The common femoral, profunda femoral, proximal femoral, distal femoral, popliteal, posterior tibial and anterior tibial arteries were patent with monophasic wavef orms and soft plaque throughout. There was a [...] ! !70.2 ! ! ! + + +- + + + !Prox SFA ! !31.9 ! ! ! + + + ----+ + + !Mid SFA ! !0 ! ! ! + + + +--------- ---------+ + !Dist SFA ! !48.3 ! ! ! + + + + + + !Prox Popliteal ! !51.5 ! ! ! + + + + + + !Dist Popliteal ! !70.2 ! ! ! + + + + + + !Prox ADDICTIONS RECOVERY SPECIALIST ! !50 ! ! ! + + + + + + !Mid ADDICTIONS RECOVERY SPECIALIST ! !52.2 ! ! ! + + + + + + !Dist ADDICTIONS RECOVERY SPECIALIST ! !54 ! ! ! + + + -------+ + + !Prox CLIFF ! !24.2! ! ! + + + +------ + + !Mid CLIFF! !11.6 ! ! ! + + + + + + !Dist CLIFF ! !13.7 ! ! ! + + + + + + Interface, External Ris In - 02/12/2020 8:08 AM CST[facility] LAB - Lower Extremity Arterial Duple x Demographics Patient Name MUNIRA WHITE Date of Study 02/11/2020 Age 59 Visit Number [id number] Gender Male Accession Number [id number] Date of 1960 Referring Tanesha Krissy Rubio, Room Number 2542 Physician Volunteer Services Assistant Michelle Oconnor, Interpreting Tanesha Almaguer T Physician ProcedureType of Study: Extremities Arteries: Lower Extremities Arterial Duplex, ARTERIAL DOPPLER LEG, LEFT. Indications for Study:Left toe wound.Patient Status:STAT.Study Location:Vascular Lab.Technical Quality:Adequate visualization. - Results were reported to: Taensha Rubio MD and Juan Carlos Sow MD.Risk FactorsHistory of Disease+ +----+ --+!Diagnosis !Date!Comments !+ +----+---- +!History/Risk ! !tobacco abuse, HTN, CVA, intracranial stent, !!Factors: ! !current smoker !+--- +----+ +Impressi onsLeft Impression1.The common femoral, profunda femoral, proximal femoral, distal femoral,popliteal, posterior tibial and anterior tibial arteries are patent withmonophasic waveforms and soft plaque throughout.2. There is a collarteral artery visualized at the proximal femoral arteryproximal to an occlusion of the mid femoral artery. The collateralreconstitutes flow to the distal femoral artery.3. The peroneal artery could not be visualized. Conclusions Summary Arterial pressures and Doppler analysis [...] occlusion of the mid femoral artery. The collateralreconstitutes flow to the distal femoral artery. The peroneal artery was not visualized. Signature Velocities are measured in cm/s ; Diameters are measured in cmLE Duplex Measurements Right Left + + + + + + + + + + !Location ! !PSV !EDV !Waveform ! !PSV !EDV ! Waveform ! + + + --------+ + + + + + + !Mid Common Femoral ! !95.1 ! ! ! + + + + + + !Prox PFA ! !70.2 ! ! ! +-- + + + + + !Prox SFA ! !31.9 ! ! ! + + + + + + !Mid SFA ! !0 ! ! ! + + +- + + + !Dist SFA ! !48.3 ! ! ! + + + ----+ + + !Prox Popliteal ! !51.5 ! ! ! + + + +--------- ---------+ + !Dist Popliteal ! !70.2 ! ! ! + + + + + + !Prox ADDICTIONS RECOVERY SPECIALIST ! !50 ! ! ! + + + + + + !Mid ADDICTIONS RECOVERY SPECIALIST ! !52.2 ! ! ! + + + + + + !Dist ADDICTIONS RECOVERY SPECIALIST ! !54 ! ! ! + + + + + + !Prox CLIFF ! !24.2 ! ! ! + + + + + + !Mid CLIFF ! !11.6 ! ! ! + + + -------+ + + !Dist CLIFF ! !13.7! ! ! + + + +------ + +[facility] METABOLIC [id number] 06:54:00 Test Item Value Reference Range Interpretation Comments SODIUM (BEAKER) 134 meq/L 136-145 L (test code = 381) POTASSIUM (BEAKER) 3.9 meq/L 3.5-5.1 (test code = 379) CHLORIDE (BEAKER) 102 meq/L 98-107 (test code = 382) CO2 (BEAKER) (test 21 meq/L 22-29 L code = 355) BLOOD UREA NITROGEN 6 mg/dL 7-21 L (BEAKER) (test code = 354) CREATININE (BEAKER) 0.82 mg/dL 0.57-1.25 (test code = 358) GLUCOSE RANDOM 163 mg/dL 70-105 H (BEAKER) (test code = 652) CALCIUM (BEAKER) 8.7 mg/dL 8.4-10.2 (test code = 697) EGFR (BEAKER) (test 96 mL/min/1.73 ESTIMA MARYANNE GFR IS code = 1092) sq m NOT ACCURATE CREATININE CLEARANCE IN PREDICTING GLOMERULAR FILTRATION RATE . ESTIMATED GFR I S NOT APPLICABLE FOR DIALYSIS PATIEN TS. Supervisor Engine Repair ID - [id number] 06:23:00 Test Item Value Reference Range Interpretation Comments PARTIAL THROMBOPLASTIN TIME 64.5 seconds 22.5-36.0 H (BEAKER) (test code = 760) CBC W/PLT COUNT & AUTO [id number] 06:22:00 Test Item Value Reference Range Interpretation Comments WHITE BLOOD CELL COUNT (BEAKER) 9.1 K/ L 3.5-10.5 (test code = 775) RED BLOOD CELL COUNT (BEAKER) 5.12 M/ L 4.63-6.08 (test code = 761) HEMOGLOBIN (BEAKER) (test code = 15.3 GM/DL 13.7-17.5 410) HEMATOCRIT (BEAKER) (test code = 46.0 % 40.1-51.0 411) MEAN CORPUSCULAR VOLUME (BEAKER) 89.8 fL 79.0-92.2 (test code = 753) MEAN CORPUSCULAR HEMOGLOBIN 29.9 pg 25.7-32.2 (BEAKER) (test code = 751) MEAN CORPUSCULAR HEMOGLOBIN CONC 33.3 GM/DL 32.3-36.5 (BEAKER) (test code = 752) RED CELL DISTRIBUTION WIDTH 13.8 % 11.6-14.4 (BEAKER) (test code = 412) PLATELET COUNT (BEAKER) (test 161 K/CU MM 150-450 code = 756) MEAN PLATELET VOLUME (BEAKER) 10.6 fL 9.4-12.4 (test code = 754) NUCLEATED RED BLOOD CELLS 0 /100 WBC 0-0 (BEAKER) (test code = 413) NEUTROPHILS RELATIVE PERCENT 66 % (BEAKER) (test code = 429) LYMPHOCYTES RELATIVE PERCENT 27 % (BEAKER) (test code = 430) MONOCYTES RELATIVE PERCENT 5 % (BEAKER) (test code = 431) EOSINOPHILS RELATIVE PERCENT 1 % (BEAKER) (test code = 432) BASOPHILS RELATIVE PERCENT 1 % (BEAKER) (test code = 437) NEUTROPHILS ABSOLUTE COUNT 5.98 K/ L 1.78-5.38 H (BEAKER) (test code = 670) LYMPHOCYTES ABSOLUTE COUNT 2.40 K/ L 1.32-3.57 (BEAKER) (test code = 414) MONOCYTES ABSOLUTE COUNT (BEAKER) 0.49 K/ L 0.30-0.82 (test code = 415) EOSINOPHILS ABSOLUTE COUNT 0.12 K/ L 0.04-0.54 (BEAKER) (test code = 416) BASOPHILS ABSOLUTE COUNT (BEAKER) 0.05 K/ L 0.01-0.08 (test code = 417) IMMATURE GRANULOCYTES-RELATIVE 0 % 0-1 PERCENT (BEAKER) (test code = 2801) C-Reactive [id number] 23:25:00 Test Item Value Reference Range Interpretation Comments CRP (test code = 676) 1.74 mg/dL 0-0.5 H LAN (test code = LAN) Supervisor Engine Repair ID - [id number] Lab Interpretation (test Abnormal code = 68517-0) [facility] 23:25[facility]00 Test Item Value Reference Range Interpretation Comments PARTIAL THROMBOPLASTIN TIME 77.9 seconds 22.5-36.0 H (BEAKER) (test code = 760) C-REACTIVE [id number] 23:25:00 Test Item Value Reference Range Interpretation Comments C-REACTIVE PROTEIN (BEAKER) (test 1.74 mg/dL 0.00-0.50 H code = 676) Supervisor Engine Repair ID - [id number] [id number] 19:28:00 Test Item Value Reference Range Interpretation Comments Hemoglobin A1C (test code = 4548-4) 8.0 % 4.3-6.1 H Lab Interpretation (test code = Abnormal 99553-7) [facility] [id number] 19:28:00 Test Item Value Reference Range Interpretation Comments HEMOGLOBIN A1C (BEAKER) (test code = 8.0 % 4.3-6.1 H 368) BASIC METABOLIC [id number] 16:04:00 Test Item Value Reference Range Interpretation Comments SODIUM (BEAKER) 137 meq/L 136-145 (test code = 381) POTASSIUM (BEAKER) 4.4 meq/L 3.5-5.1 (test code = 379) CHLORIDE (BEAKER) 103 meq/L 98-107 (test code = 382) CO2 (BEAKER) (test 30 meq/L 22-29 H code = 355) BLOOD UREA NITROGEN 5 mg/dL 7-21 L (BEAKER) (test code = 354) CREATININE (BEAKER) 0.83 mg/dL 0.57-1.25 (test code = 358) GLUCOSE RANDOM 147 mg/dL 70-105 H (BEAKER) (test code = 652) CALCIUM (BEAKER) 9.2 mg/dL 8.4-10.2 (test code = 697) EGFR (BEAKER) (test 95 mL/min/1.73 ESTIMA MARYANNE GFR IS code = 1092) sq m NOT ACCURATE CREATININE CLEARANCE IN PREDICTING GLOMERULAR FILTRATION RATE . ESTIMATED GFR I S NOT APPLICABLE FOR DIALYSIS PATIEN TS. Supervisor Engine Repair ID - BSLactic acid, [id number] 16:01:00 Test Item Value Reference Range Interpretation Comments Lactate, Venous (test 1.08 mmol/L 0.5-2.2 Specim en code = 2872) slightly hemolyzed LAN (test code = LAN) Supervisor Engine Repair ID - BS Lab Interpretation Normal (test code = 23083-7) [facility]LA[facility], [id number] 16:01:00 Test Item Value Reference Range Interpretation Comments LACTATE BLOOD VENOUS 1.08 mmol/L 0.50-2.20 Specime n slightly (2) (BEAKER) (test hemolyzed code = 2872) Supervisor Engine Repair ID - [id number] TIME/[id number] 15:54:00 Test Item Value Reference Range Interpretation Comments PROTIME (BEAKER) (test code = 12.6 seconds 11.9-14.2 759) INR (BEAKER) (test code = 370) 0.97 <=5.90 Effective 08/29/2018: PT Reference Range ChangeNew: 11.9-14.2 Previous: 11.7- 14.7RECOMMENDED COUMADIN/WARFARIN INR THERAPY RANGESSTANDARD DOSE: 2.0-3.0 Includes: PROPHYLAXIS for venous thrombosis, systemic embolization; TREATMENT for venous thrombosis and/or pulmonary embolus.HIGH RISK: Target INR is2.5-3.5 for patients wiht mechanical heart valves.Prior to initiating heparinAPTT 2020-02-11 15:54:00 Test Item Value Reference Range Interpretation Comments PARTIAL THROMBOPLASTIN TIME 28.1 seconds 22.5-36.0 (BEAKER) (test code = 760) 6 hours after starting heparin infusion and as indicated per sliding scaleAPTT 2020-02-11 15:54:00 Test Item Value Reference Range Interpretation Comments PARTIAL THROMBOPLASTIN TIME 28.4 seconds 22.5-36.0 (BEAKER) (test code = 760) Prior to initiating heparinCBC W/PLT COUNT & AUTO [id number] 15:45:00 Test Item Value Reference Range Interpretation Comments WHITE BLOOD CELL COUNT (BEAKER) 10.1 K/ L 3.5-10.5 (test code = 775) RED BLOOD CELL COUNT (BEAKER) 5.08 M/ L 4.63-6.08 (test code = 761) HEMOGLOBIN (BEAKER) (test code = 15.4 GM/DL 13.7-17.5 410) HEMATOCRIT (BEAKER) (test code = 45.6 % 40.1-51.0 411) MEAN CORPUSCULAR VOLUME (BEAKER) 89.8 fL 79.0-92.2 (test code = 753) MEAN CORPUSCULAR HEMOGLOBIN 30.3 pg 25.7-32.2 (BEAKER) (test code = 751) MEAN CORPUSCULAR HEMOGLOBIN CONC 33.8 GM/DL 32.3-36.5 (BEAKER) (test code = 752) RED CELL DISTRIBUTION WIDTH 13.8 % 11.6-14.4 (BEAKER) (test code = 412) PLATELET COUNT (BEAKER) (test 195 K/CU MM 150-450 code = 756) MEAN PLATELET VOLUME (BEAKER) 10.5 fL 9.4-12.4 (test code = 754) NUCLEATED RED BLOOD CELLS 0 /100 WBC 0-0 (BEAKER) (test code = 413) NEUTROPHILS RELATIVE PERCENT 76 % (BEAKER) (test code = 429) LYMPHOCYTES RELATIVE PERCENT 18 % (BEAKER) (test code = 430) MONOCYTES RELATIVE PERCENT 5 % (BEAKER) (test code = 431) EOSINOPHILS RELATIVE PERCENT 1 % (BEAKER) (test code = 432) BASOPHILS RELATIVE PERCENT 0 % (BEAKER) (test code = 437) NEUTROPHILS ABSOLUTE COUNT 7.61 K/ L 1.78-5.38 H (BEAKER) (test code = 670) LYMPHOCYTES ABSOLUTE COUNT 1.78 K/ L 1.32-3.57 (BEAKER) (test code = 414) MONOCYTES ABSOLUTE COUNT (BEAKER) 0.50 K/ L 0.30-0.82 (test code = 415) EOSINOPHILS ABSOLUTE COUNT 0.10 K/ L 0.04-0.54 (BEAKER) (test code = 416) BASOPHILS ABSOLUTE COUNT (BEAKER) 0.04 K/ L 0.01-0.08 (test code = 417) IMMATURE GRANULOCYTES-RELATIVE 0 % 0-1 PERCENT (BEAKER) (test code = 2801) DCFESLJCSV8564-90-49 19:46:006[facility]CHE[facility] YHIYQ9542-06-85 08:23:76919 [facility] XRHYX7010-75-49 08:23:000.70[facility]annCHEM PANEL 2017-11-20 08:23:54764Gzanzxrq [facility]annCHEM ZCYPO2431-35-61 08:23:005[facility]annCHE[facility] XHGXR0529-68-72 08:23:0023[facility]annCHE[facility] PPDMP4745-68-45 08:23:009.4[facility]annCHE[facility] HAYEC8183-42-51 08:23:53596Zvuidrzr HermannCHEM KKOXF5647-17-03 08:23:74135Fldxzemn [facility]annCHEM YOWTK3331-37-58 08:23:003.8 [facility] IAWVU4181-13-39 08:23:0015.8[facility]annHEMATOLOGY 2017-11-20 08:23:001.0[facility] SqgkmhfZSULZYNMIU5610-69-42 08:23:000.2[facility] OwchvkiYOJYYNLLBR8768-48-55 08:23:002.4[facility] EbeeedrCUOVIYHXZU4323-12-93 08:23:000.1[facility] HlphnalRUSGWJYSSM8326-62-30 08:23:00Normal (11/20/17 3:23 AM) [facility] YhrfvcySAFFXCPCAH9788-84-07 08:23:00Normal (11/20/17 3:23 AM)[facility] OizmadmTCGVLSQMIA5215-55-35 08:23:009.4[facility] EsugoljYBFCLUKPKX9715-20-19 08:23:001.4[facility] NzgktxaAJMTBKHLZR3430-90-21 08:23:000.4[facility] WEKAYBSDJD9322-29-07 08:23:007.7[facility] EnsletyJLHEDVHIMM7751-03-95 08:23:00 18.5[facility] HgrestuOMVJSAUTVV4886-85-84 08:23:0072.0[facility]annHEMATOLOGY 2017-11-20 08:23:009.8[facility] XhgenysGWFHSFGRXJ1188-23-16 08:23:25561Acalnmjc QiymelhDORINKZXTW0318-65-41 08:23:0045.0[facility] IwrpielOVNDKZLWHR7338-19-06 08:23:0033.9[facility] AskwnmtXLIPEJDVVW2552-48-44 08:23:0087.3[facility] IHAXMRMAFU3782-83-83 08:23:00 Test Item Value Reference Range Interpretation Comments MCH (test code = MCH) 29.6 pg 27.0-31.0 [facility] IkpthocPBHVSICFTI7698-19-99 08:23:0013.6[facility]annHEMATOLOGY 2017-11-20 08:23:0013.1[facility] KcvvawaOSDQRVYXHU9709-46-43 08:23:0015.3[facility] ExempgkOFHPAMHCLL3987-32-95 08:23:005.16[facility] YoparhaIOWPLOMZWDXV4781-86-37 20:37:003.7[facility] IcmmcxoFFBGVOJGVXHU7731-69-20 08:47:0015.3[facility] FPANTDCJPJYC9286-83-05 08:47:84601Ttnkvycz RfoisqtEJBLLIXGRAWP5956-21-46 08:47:000.72[facility] SwcpixcPPSWSOKAGGBX1480-95-42 08:47:008.9[facility] XMPYUUPIYUFF7315-15-77 08:47:66501Chxcyblm PohxkprWABMOJJYLBDL7788-22-62 08:47:003.3[facility] LceasmcMPGMZJFEZEZG8369-86-15 08:47:0024[facility] TJLYXYRPTHDH8725-42-67 08:47:79964Wlsjdnsx XcmgnoaOMKSZARVFGPF7863-04-32 08:47:47441Dzbqzsux ShquathJINHMGAKIHAX3737-83-75 08:47:003[facility] EBJRAFVIMA9807-98-09 08:47:000.8[facility] QzdbzaqZVKUNORUTX8982-36-84 08:47:000.1 [facility] XqmtpllWPFXECNSIQ1923-83-15 08:47:000.1[facility]annHEMATOLOGY 2017-11-19 08:47:008.3[facility] MkctalgYVMZPVWMOY3748-19-69 08:47:002.4[facility] XgzmapeRJYOJQOPTJ3550-22-89 08:47:000.7[facility] ZxjrbxwRPLKUSUUGO7131-92-97 08:47:001.2[facility] SnfmajrUTQRXFAMTS9933-93-46 08:47:0020.8[facility] XVFICWNOAX8578-52-01 08:47:006.9[facility] ZenmbxzJTGCVTXPOK5607-02-10 08:47:00 70.4[facility] GesterxDWXYRYQZWC4480-77-90 08:47:0033.8[facility]annHEMATOLOGY 2017-11-19 08:47:00 Test Item Value Reference Range Interpretation Comments MCH (test code = MCH) 29.5 pg 27.0-31.0 [facility] GnoiygoZHZSGQQBFH8088-30-53 08:47:0041.5[facility]annHEMATOLOGY 2017-11-19 08:47:004.76[facility] SyspypfRNRLNCBGOV8876-45-28 08:47:0087.2[facility] BjodeukFVGFHIDGAW9563-35-94 08:47:0014.0[facility] FiynwqhWHSQWOFIVL6267-83-76 08:47:0011.8[facility] RllcmdfUJCIMUFBCP5066-84-94 08:47:009.4[facility] THYIRBUGKF4902-84-02 08:47:0013.2[facility] WpadgwvAUVTACQLJZ2094-18-94 08:47:00 164[facility]annCHEM CQSNG1634-22-61 10:07:57091Qnpqbyom HermannCHEM PANEL 2017-11-18 10:07:000.59[facility]annCHEM QYGWA4456-54-45 10:07:0025[facility]annCHEM FXKKU7451-06-64 10:07:008.0[facility]annCHE[facility] CTXGA3603-24-71 10:07:002[facility]annCHE[facility] HYEBS5017-90-94 10:07:74373Tipoaiue HermannCHEM CYASG3356-67-26 10:07:33995Guxvbdzx [facility]annCHEM BRBAF6555-59-14 10:07:51146 [facility] MUVWD7837-91-78 10:07:0012.3[facility]annHEMATOLOGY 2017-11-18 10:07:000.9[facility] IzdhemwGIXELAXQSZ4946-12-96 10:07:007.9[facility] ZyfwnvpFGNYMKHWUF4705-07-84 10:07:002.6[facility] GzvbdxeNEMCBGEEIQ6555-75-98 10:07:000.7[facility] RklzrnxGWFJIBUVTR4157-47-62 10:07:000.2[facility] HDRUOZKKGA6667-63-31 10:07:000.1[facility] HmvnfeyRMPTTOFSKB4556-22-80 10:07:001.4 [facility] ZyqtuyaVOKRLYTRGB8931-89-83 10:07:0069.0[facility]annHEMATOLOGY 2017-11-18 10:07:0022.9[facility] WzzjveyTJOWGHLBWT6100-18-25 10:07:005.8[facility] UrynunoGTCBBAXUIS7803-86-20 10:07:008.8[facility] TlrwttnERXHRPZOXW6444-66-53 10:07:82606Kfldseqd KkaogdjVYOWHZRISZ3132-25-39 10:07:0013.5[facility] GEEYAGSEFD1356-91-92 10:07:0011.4[facility] VmppbwzPCHTLXHZOP8398-23-20 10:07:00 4.59[facility] JmqrvslOCICMPPXRF3447-85-19 10:07:0034.1[facility]annHEMATOLOGY 2017-11-18 10:07:0086.5[facility] RknvjmvHRELTSXAJE4258-89-28 10:07:00 Test Item Value Reference Range Interpretation Comments MCH (test code = MCH) 29.5 pg 27.0-31.0 [facility] EyfjqvqSIGLHLJZIE3770-61-36 10:07:0039.7[facility] HermannHEMATOLOGY 2017-11-18 10:07:0013.2[facility] XjlswjeBTSBPBEFLB2590-07-70 15:08:00 Test Item Value Reference Range Interpretation Comments POC Activated Clotting Time (test code 131 s = POC Activated Clotting Time) [facility] DxdmefeJWDUNAZLPN0347-62-44 15:08:00 Test Item Value Reference Range Interpretation Comments INR (test code = INR) 0.91 1 0.85-1.17 [facility] CkkgqluIKHHUGCLOU7265-51-36 15:08:00 Test Item Value Reference Range Interpretation Comments PT (test code = PT) 12.3 s 12.0-14.7 [facility] AayvbtgAVMMBVSOPL3865-79-45 15:08:00 Test Item Value Reference Range Interpretation Comments PTT (test code = PTT) 26.6 s 22.9-35.8 [facility]DR[facility] WTRLHF8858-10-06 09:31:00Negative *NA*(11/17/17 4:31 AM) [facility] WKLWFE5653-57-70 09:31:00Negative *NA*(11/17/17 4:31 AM) [facility] IRFIVO2705-90-96 09:31:00Negative *NA*(11/17/17 4:31 AM) [facility] PGNCEX6274-21-90 09:31:00Negative *NA*(11/17/17 4:31 AM) [facility] RKVETG5914-68-75 09:31:00Negative *NA*(11/17/17 4:31 AM) [facility] WWWMSU8590-40-39 09:31:00See Note (11/17/17 4:31 AM)[facility] ZZELNE6947-80-62 09:31:00Negative *NA*(11/17/17 4:31 AM)[facility] CATGCZ1728-94-12 09:31:00Negative *NA*(11/17/17 4:31 AM)[facility] AND CQRHG1055-99-98 09:31:00 Test Item Value Reference Range Interpretation Comments UA pH (test code = UA pH) 6.0 1 5.0-8.0 [facility] KJVSQ0774-78-25 09:31:00 Test Item Value Reference Range Interpretation Comments UA Spec Grav (test code = UA Spec 1.003 1 Grav) [facility] IPKRT8632-33-08 09:31:00Clear (11/17/17 4:31 AM) [facility] EFTUW1969-43-42 09:31:001[facility] HKQCB9074-52-04 09:31:00<1[facility] IDHLX6103-51-02 09:31:00 Negative (11/17/17 4:31 AM)[facility] OMMQJ7561-02-85 09:31:004.0 [facility] BBEPI3310-56-40 09:31:00Negative (11/17/17 4:31 AM) [facility] TGSAF5426-35-45 09:31:00Negative (11/17/17 4:31 AM) [facility] TYOUP4490-77-08 09:31:00Negative *NA*(11/17/17 4:31 AM) [facility] DeouiraMCRXDK8489-22-48 07:35:00 Test Item Value Reference Range Interpretation Comments CHD Risk (test code = CHD Risk) 8.52 1 4.00-7.30 [facility] WiwjagdMCPLCW0196-47-99 07:35:00 Test Item Value Reference Range Interpretation Comments VLDL (test code = VLDL) 51 1 [facility] HcuattyTFCCQN9970-39-60 07:35:28568Oxjykkbz GtlsvceIFIOIP9633-67-06 07:35:94613Flqgjvpg DtemlatKOGKMT5773-00-75 07:35:65543Vvaowavw HermannLIPIDS 2017-11-17 07:35:0025[facility] HermannSPECIAL NVBDOCCXZ5050-45-18 07:35:008.9 [facility]annCARDIAC EBHQUQF3653-17-26 18:29:0044[facility] HermannCARDIAC OYLBRVV8061-65-02 18:29:00<0.02[facility] HermannCHEM EKBGM7268-60-55 18:29:00 Test Item Value Reference Range Interpretation Comments A/G Ratio (test code = A/G Ratio) 0.9 1 0.7-1.6 [facility]annCHE[facility] JRDLJ7812-92-47 18:29:003.8[facility] HermannCHEM PANEL 2017-11-16 18:29:008.5[facility]annCHEM TEYXU7702-95-80 18:29:00 Test Item Value Reference Range Interpretation Comments B/C Ratio (test code = B/C Ratio) 2 1 6-25 [facility]annCHE[facility] KDKPS7069-10-75 18:29:0091[facility]annCHEM PANEL 2017-11-16 18:29:10775[place] HermannCHEM HPEQX5745-01-40 18:29:003.5[facility] HermannCHEM OHOLY6873-37-61 18:29:000.93[facility]annCHEM OWPQW7451-03-38 18:29:002[facility]annCHEM IKAZB0066-85-88 18:29:48420Ylzifgcm HermannCHEM HYPVF4810-50-30 18:29:0014[facility]annCHEM MOYZL6770-63-01 18:29:0023 [facility]CHE[facility] VBATL0827-61-34 18:29:003.6[facility]annCHEM PANEL 2017-11-16 18:29:009.0[facility]annCHEM AMLFX6842-91-62 18:29:0029[facility]annCHEM EOJKK8756-90-15 18:29:22180Gxtllevz HermannCHEM GEFEF1428-61-77 18:29:007.4[facility]annCHEM BZZTG5092-58-10 18:29:001.4[facility]annCHEM GOCGU2939-73-93 18:29:94151Lcbpwmtd WddnszqZFJDVCSADX3433-19-86 18:29:000.6 [facility] TvxxlwfHHDISNPEVD1841-12-57 18:29:001.7[facility]annHEMATOLOGY 2017-11-16 18:29:0071.8[facility] MkudazhJDCDQMQRRU3048-45-57 18:29:0023.0[facility] RxorudvRDYDDKBWCR3782-63-49 18:29:007.3[facility] GauslxbJWABPJLTGV1860-55-24 18:29:002.9[facility] NcqmtyiXAUUPXPPXD6265-51-19 18:29:002.3[facility] SGRUYYBSVU0599-15-88 18:29:000.3[facility] NfhiazeRCIGDRGPDM3552-25-16 18:29:000.2 [facility] YbmqkqvTYOTNQHJNK2674-07-60 18:29:000.1[facility]annHEMATOLOGY 2017-11-16 18:29:00 Test Item Value Reference Range Interpretation Comments PTT (test code = PTT) 26.3 s 22.9-35.8 [facility] EwdfgvoWEQVFZNAAQ6371-26-31 18:29:00 Test Item Value Reference Range Interpretation Comments MCH (test code = MCH) 29.4 pg 27.0-31.0 [facility] GjjiroqUCIJQJCVQK4661-04-40 18:29:0089.0[facility]annHEMATOLOGY 2017-11-16 18:29:0047.3[facility] JsbipaqDSEWDYBCFU9844-09-14 18:29:0015.6[facility] QxbldgnLFLQIGCLJK5627-40-47 18:29:005.31[facility] MxjolpdMDXGKESDXY3328-63-38 18:29:0010.1[facility] MskodpkANWEEHZQUJ4337-53-43 18:29:0033.0[facility] OZYXJKTBBD0403-98-33 18:29:0013.5[facility] EoabidiDJGRTLKCCB8442-88-35 18:29:00 185[facility] NorthwestSscezkaFIQSUXKAVY2336-31-47 18:29:009.1[facility] HealthATOLOGY 2017-11-16 18:29:00 Test Item Value Reference Range Interpretation Comments INR (test code = INR) 0.95 1 0.85-1.17 [facility]ATY0770-55-10 18:29:00 Test Item Value Reference Range Interpretation Comments PT (test code = PT) 12.7 s 12.0-14.7 [facility]
[2020-03-02 11:57] LABS: Potassium 2.6 mmol/L (3.5-5.1)
[2020-03-02] MEDS ORDERED: POTASSIUM CL SA 10 MEQ TAB PO ONE ×2 (12:17→12:20)
[2020-03-02] MEDS ORDERED: NA CHLORIDE 0.9% 500 ML ONE (12:18)
[2020-03-02] MEDS ORDERED: KCL 20 MEQ/100 mL IVPB 20 MEQ/100 ML BAG IV ONE (12:18)
[2020-03-02] MEDS ORDERED: MORPHINE 4 MG/ML SYR ONE (12:39)
[2020-03-02] MEDS ORDERED: ONDANSETRON 4 MG/2 ML VIAL ONE (12:40)
--- NOTE | 2020-03-02 13:56 | RAD REPORT ---
EXAM DESCRIPTION: US - Lower Extremity Artery [employer] - 03/02/2020 1:30 pm CLINICAL HISTORY: Leg pain COMPARISON: February 10, 2020 FINDINGS: Patient is status post an aorto femoral graft. 7.5 x 2.7 x 5.7 centimeters hematoma is present within the left groin. An additional smaller hematoma is present distally. The femoral graft is patent. Left popliteal artery and left posterior tibial arteries demonstrate monophasic waveform. Little flow seen within the left dorsalis pedis artery . IMPRESSION: 7.5 centimeters hematoma left inguinal region. Additional smaller hematoma distally. Left femoral graft is patent. Little flow within the left dorsalis pedis artery
--- NOTE | 2020-03-02 14:19 | ER ---
Nurse's Notes [facility] Name: Pipe Portillo Age: 59 yrs Sex: Male : 1960 Arrival Date: 03/02/2020 Time: 10:29 Bed 6 Private MD: Diagnosis: Hematoma left thigh Presentation: 03/02 10:40 Chief complaint: Patient states: Stents placed to L groin and L upper leg [address] [facility]. Pt is here today because he c/o pain to incision areas. Pt states he is unable to get an appointment with anyone until April of next year. Coronavirus screen: Client denies travel out of the [place] in the last 14 days. Ebola Screen: Patient denies exposure to infectious person. Patient denies travel to an Ebola-affected area in the 21 days before illness onset. Initial Sepsis Screen: Does the patient meet any 2 criteria? No. Patient's initial sepsis screen is negative. Does the patient have a suspected source of infection? No. Patient's initial sepsis screen is negative. Risk Assessment: Do you want to hurt yourself or someone else? Patient reports no desire to harm self or others. Onset of symptoms is unknown. 10:40 Method Of Arrival: Ambulatory ss 10:40 Acuity: LEAH 3 ss 10:45 Coronavirus screen: Client denies travel out of the [place] in the last 14 days. At this sv time, the client does not indicate any symptoms associated with coronavirus-19. Ebola Screen: No symptoms or risks identified at this time. Risk Assessment: Do you want to hurt yourself or someone else? Patient reports no desire to harm self or others. 10:45 Method Of Arrival: Wheelchair sv Triage Assessment: 10:42 General: Appears in no apparent distress. uncomfortable, slender, well developed, sv Behavior is calm, cooperative, appropriate for age. Pain: Complains of pain in left femoral area, left inguinal area and medial aspect of left thigh. Neuro: Level of Consciousness is awake, alert, obeys commands, Oriented to person, place, time, situation, Moves all extremities. Full function with his crutches. Pt stated that he was walking without crutches 3 days ago.. Respiratory: Airway is patent Respiratory effort is even, unlabored, Respiratory pattern is regular, symmetrical. Derm: Skin is intact, Skin is pink, warm \T\ dry. Derm: Pt has a dressing to the left inner thigh with a drain. Musculoskeletal: Range of motion: intact in all extremities, mild swelling noted to left inguinal area from his incision site. Site has no redness noted. Historical: - Allergies: 10:42 No Known Allergies; sv - PMHx: 10:41 CVA; Hypertension; sv - PSHx: 10:41 Stent on Brain; BLE stents; sv - Immunization history:: Adult Immunizations up to date. - Social history:: Smoking status: Patient reports the use of cigarette tobacco products, smokes one-half pack cigarettes per day. Screenin:41 Abuse screen: Denies threats or abuse. Denies injuries from another. Nutritional sv screening: No deficits noted. Tuberculosis screening: No symptoms or risk factors identified. Fall Risk None identified. Assessment: 11:00 Reassessment: Patient appears in no apparent distress at this time. No changes from sv previously documented assessment. Patient and/or family updated on plan of care and expected duration. Pain level reassessed. Patient is alert, oriented x 3, equal unlabored respirations, skin warm/dry/pink. See triage assessment. 12:30 Reassessment: Patient appears in no apparent distress at this time. No changes from sv previously documented assessment. Patient and/or family updated on plan of care and expected duration. Pain level reassessed. Patient is alert, oriented x 3, equal unlabored respirations, skin warm/dry/pink. 13:04 Reassessment: US at bedside. em 13:33 Reassessment: US complete. sv 14:48 Reassessment: Patient appears in no apparent distress at this time. No changes from sv previously documented assessment. Patient and/or family updated on plan of care and expected duration. Pain level reassessed. Patient is alert, oriented x 3, equal unlabored respirations, skin warm/dry/pink. Vital Signs: 10:40 BP 132 / 76; Pulse 86; Resp 18; Temp 98.0; Pulse Ox 100% on R/A; Weight 74.84 kg; ss Height 5 ft. 8 in. (172.72 cm); Pain 8/10; 11:17 BP 114 / 74; Pulse 73; Resp 16; Pulse Ox 99% ; sv 12:02 BP 114 / 68; Pulse 73; Resp 16; Pulse Ox 100% on R/A; sv 13:04 BP 121 / 74; Pulse 78; Resp 18; Pulse Ox 99% on R/A; em 14:49 BP 115 / 69; Pulse 68; Resp 14; Pulse Ox 100% ; sv 10:40 Body Mass Index 25.09 (74.84 kg, 172.72 cm) ED Course: 10:29 Patient arrived in ED. ds1 10:33 Nina Horton RN is Primary Nurse. sv 10:33 Arm band placed on Patient placed in an exam room, on a stretcher. sv 10:39 Hector Miles PA is PHCP. jr8 10:39 Dewayne Do MD is Attending Physician. jr8 10:41 Patient has correct armband on for positive identification. Placed in gown. Bed in low sv position. Call light in reach. Pulse ox on. NIBP on. Door closed. Warm blanket given. Head of bed elevated. 10:45 Triage completed. ss 10:49 Nurse Practitioner and/or Physician Gas Generator Operator to see patient. sv 11:00 Inserted saline lock: 20 gauge in right forearm, using aseptic technique. Blood sv collected. Flushed right forearm with 2 ml normal saline. 13:16 [employer] In Process Unspecified. EDMS 14:35 Dressings: non-adherent dressing x 1 medial aspect of left knee Benzoin tincture jp3 swabstick applied around dressing; paper tape used to cover dressing. 14:48 No provider procedures requiring assistance completed. IV discontinued, intact, sv bleeding controlled, No redness/swelling at site. Pressure dressing applied. Administered Medications: 12:11 Drug: Potassium Chloride 40 mEq Route: PO; sv 12:30 Follow up: Response: No adverse reaction sv 12:11 Drug: Potassium Chloride 20 mEq Route: IV; Rate: calculated rate; Site: right forearm; sv 14:10 Follow up: Response: No adverse reaction; IV Status: Completed infusion; IV Intake: sv 100ml 12:11 Drug: NS 0.9% 500 ml Route: IV; Rate: calculated rate; Site: right forearm; sv 14:10 Follow up: Response: No adverse reaction; IV Status: Completed infusion; IV Intake: sv 500ml 12:27 Drug: Zofran (Ondansetron) 4 mg Route: IVP; Site: right forearm; sv 13:00 Follow up: Response: No adverse reaction sv 12:29 Drug: morphine 4 mg {Note: rass1.} Route: IVP; Site: right forearm; sv 13:00 Follow up: Response: No adverse reaction; Pain is decreased; RASS: Alert and Calm (0) sv Intake: 14:10 IV: 500ml; Total: 500ml. sv 14:10 IV: 100ml; Total: 600ml. sv Outcome: 14:18 Discharge ordered by MD. barclay 14:48 Discharged to home via wheelchair. sv 14:48 Condition: stable 14:48 Discharge instructions given to patient, Instructed on discharge instructions, follow up and referral plans. Demonstrated understanding of instructions, follow-up care. 14:48 Patient left the ED. sv Signatures: Dispatcher [employer] Nina Agee RN RN Kamlesh Gonzalez RN Renuka Craig ds1 Chantale Glasgow RN RN ss Roszak, Josh, PA PA jr8 Roland Lopez jp3 Corrections: (The following items were deleted from the chart) 10:50 10:42 Musculoskeletal: Range of motion: intact in all extremities, mild swelling noted sv to left inguinal area from his incision site. sv 10:50 10:42 Derm: Pt has a dressing to the left inner thigh with a drain. sv sv 12:30 12:29 morphine 4 mg IVP in right forearm sv sv
--- NOTE | 2020-03-02 14:19 | EDPHYS ---
Physician Documentation [facility] Name: Pipe Portillo Age: 59 yrs Sex: Male : 1960 Arrival Date: 03/02/2020 Time: 10:29 Bed 6 Private MD: ED Physician Dewayne Do HPI: 03/02 12:50 This 59 yrs old Male presents to ER via Ambulatory with complaints of Post jr8 Surgical Pain. 12:50 Onset: The symptoms/episode began/occurred gradually, 2 day(s) ago. Associated signs jr8 and symptoms: The patient has no apparent associated signs or symptoms. The patient has not experienced similar symptoms in the past. The patient has not recently seen a physician. Patient stated that he had vascular surgery to left leg at [facility]. Stated that he had been walking just fine with mild pain only. Stated that the last couple of days he started to have increased pain to muscle of thigh and knee on left side. Denies fall or injury to leg . Historical: - Allergies: 10:42 No Known Allergies; sv - PMHx: 10:41 CVA; Hypertension; sv - PSHx: 10:41 Stent on Brain; BLE stents; sv - Immunization history:: Adult Immunizations up to date. - Social history:: Smoking status: Patient reports the use of cigarette tobacco products, smokes one-half pack cigarettes per day. ROS: 12:52 Eyes: Negative for injury, pain, redness, and discharge, ENT: Negative for injury, jr8 pain, and discharge, Neck: Negative for injury, pain, and swelling, Cardiovascular: Negative for chest pain, palpitations, and edema, Respiratory: Negative for shortness of breath, cough, wheezing, and pleuritic chest pain, Abdomen/GI: Negative for abdominal pain, nausea, vomiting, diarrhea, and constipation, Back: Negative for injury and pain, Skin: Negative for injury, rash, and discoloration, Neuro: Negative for headache, weakness, numbness, tingling, and seizure. 12:52 MS/extremity: Positive for pain, tenderness, of the left leg. Exam: 13:52 Eyes: Pupils equal round and reactive to light, extra-ocular motions intact. Lids and jr8 lashes normal. Conjunctiva and sclera are non-icteric and not injected. Cornea within normal limits. Periorbital areas with no swelling, redness, or edema. ENT: Nares patent. No nasal discharge, no septal abnormalities noted. Tympanic membranes are normal and external auditory canals are clear. Oropharynx with no redness, swelling, or masses, exudates, or evidence of obstruction, uvula midline. Mucous membranes moist. Neck: Trachea midline, no thyromegaly or masses palpated, and no cervical lymphadenopathy. Supple, full range of motion without nuchal rigidity, or vertebral point tenderness. No Meningismus. Cardiovascular: Regular rate and rhythm with a normal S1 and S2. No gallops, murmurs, or rubs. Normal PMI, no JVD. No pulse deficits. Respiratory: Lungs have equal breath sounds bilaterally, clear to auscultation and percussion. No rales, rhonchi or wheezes noted. No increased work of breathing, no retractions or nasal flaring. Abdomen/GI: Soft, non-tender, with normal bowel sounds. No distension or tympany. No guarding or rebound. No evidence of tenderness throughout. Back: No spinal tenderness. No costovertebral tenderness. Full range of motion. Skin: Warm, dry with normal turgor. Normal color with no rashes, no lesions, and no evidence of cellulitis. Neuro: Awake and alert, GCS 15, oriented to person, place, time, and situation. Cranial nerves II-XII grossly intact. Motor strength 5/5 in all extremities. Sensory grossly intact. Cerebellar exam normal. Normal gait. 13:52 Musculoskeletal/extremity: ROM: intact in all extremities, Circulation is intact in all extremities. Pulses: noted to be 2+ in the right radial artery, right posterior tibial artery, right dorsalis pedis artery, left radial artery, left posterior tibial artery and left dorsalis pedis artery, Sensation intact. Patient has 10 cm surgical incision noted with sutures in place. No erythema. Minimal swelling. BRENTON drain sutured in place. Serosanguinous drainage noted. Minimal amount. Mild tenderness over the knee present and medial thigh. No cellulitis or lymphangitis noted. Vital Signs: 10:40 BP 132 / 76; Pulse 86; Resp 18; Temp 98.0; Pulse Ox 100% on R/A; Weight 74.84 kg; ss Height 5 ft. 8 in. (172.72 cm); Pain 8/10; 11:17 BP 114 / 74; Pulse 73; Resp 16; Pulse Ox 99% ; sv 12:02 BP 114 / 68; Pulse 73; Resp 16; Pulse Ox 100% on R/A; sv 13:04 BP 121 / 74; Pulse 78; Resp 18; Pulse Ox 99% on R/A; em 14:49 BP 115 / 69; Pulse 68; Resp 14; Pulse Ox 100% ; sv 10:40 Body Mass Index 25.09 (74.84 kg, 172.72 cm) ss MDM: 10:39 Patient medically screened. jr8 14:15 Data reviewed: vital signs, nurses notes, lab test result(s), radiologic studies, jr8 ultrasound. Data interpreted: Pulse oximetry: on room air is 99 %. Interpretation: normal. Counseling: I had a detailed discussion with the patient and/or guardian regarding: the historical points, exam findings, and any diagnostic results supporting the discharge/admit diagnosis, lab results, radiology results, the need for outpatient follow up, vascular surgery, to return to the emergency department if symptoms worsen or persist or if there are any questions or concerns that arise at home. Response to treatment: the patient's symptoms have mildly improved after treatment. ED course: Discussed with patient that most likely pain is from hematoma in leg. To watch for expansion of hematoma via increased pain or tightness since he is on blood thinners. To f/u with surgery. If worse to come back. No signs of infection . 03/02 10:54 Order name: CBC with Diff; Complete Time: 11:30 03/02 10:54 Order name: Basic Metabolic Panel; Complete Time: 11:58 03/02 10:54 Order name: CK; Complete Time: 11:58 8 03/02 12:52 Order name: [facility] [place] [employer]; Complete Time: 14:05 8 03/02 10:54 Order name: IV; Complete Time: 11:20 8 Administered Medications: 12:11 Drug: Potassium Chloride 40 mEq Route: PO; sv 12:30 Follow up: Response: No adverse reaction sv 12:11 Drug: Potassium Chloride 20 mEq Route: IV; Rate: calculated rate; Site: right forearm; sv 14:10 Follow up: Response: No adverse reaction; IV Status: Completed infusion; IV Intake: sv 100ml 12:11 Drug: NS 0.9% 500 ml Route: IV; Rate: calculated rate; Site: right forearm; sv 14:10 Follow up: Response: No adverse reaction; IV Status: Completed infusion; IV Intake: sv 500ml 12:27 Drug: Zofran (Ondansetron) 4 mg Route: IVP; Site: right forearm; sv 13:00 Follow up: Response: No adverse reaction sv 12:29 Drug: morphine 4 mg {Note: rass1.} Route: IVP; Site: right forearm; sv 13:00 Follow up: Response: No adverse reaction; Pain is decreased; RASS: Alert and Calm (0) sv Disposition: 15:06 Co-signature as Attending Physician, Dewayne Do MD. rn Disposition: 03/02/20 14:18 Discharged to Home. Impression: Hematoma left thigh . - Condition is Stable. - Discharge Instructions: Hematoma. - Medication Reconciliation Form, Thank You Letter, Antibiotic Education, Prescription Opioid Use form. - Follow up: Private Physician; When: 5 - 6 days; Reason: Wound Recheck, Recheck today's complaints, Continuance of care, Re-evaluation by your physician. - Problem is new. - Symptoms have improved. Signatures: Dispatcher [employer] Nina Agee RN RN Dewayne Zhang MD MD rn Smirch, Shelby, RN RN ss Roszak, Josh, PA PA jr8 Corrections: (The following items were deleted from the chart) 14:48 14:18 03/02/2020 14:18 Discharged to Home. Impression: Hematoma left thigh . Condition sv is Stable. Forms are Medication Reconciliation Form, Thank You Letter, Antibiotic Education, Prescription Opioid Use. Follow up: Private Physician; When: 5 - 6 days; Reason: Wound Recheck, Recheck today's complaints, Continuance of care, Re-evaluation by your physician. Problem is new. Symptoms have improved. jr8
[2020-03-02 15:21] VITALS: TEMP 98
[2020-03-02 15:28] VITALS: BP 115/69; O2SAT 100
== END 2020-03-02 14:48 | disposition home or self-care (01) ==
LOC: ER 10:27
DX: S70.12XA Contusion of left thigh, initial encounter (principal); Z98.890 Other specified postprocedural states; I10 Essential (primary) hypertension; F17.210 Nicotine dependence, cigarettes, uncomplicated
CPT/HCPCS: 36415; 80048; 82550; 85025; 93926; 96365; 96366; 96375; 99284; J2405; J3480; J7040

== ENCOUNTER 2021-06-22 12:47 | Emergency (ER) | payer SELFPAY ==
--- OUTSIDE RECORDS SUMMARY | 2021-06-22 12:50 | XMS REPORT | Continuity of Care Document ---
:1960 Author Organization [facility] t Address [address] [place] [address] Care Team Providers Name Role Phone JAMEE DUMONT Attending Clinician Unavailable Eugene Sow MD Attending Clinician JAMEE DUMONT Admitting Clinician Unavailable GR, DAVIAN Admitting Clinician Unavailable Problems Condition Condition Condition Status Onset Resolution Last Treating Co mments Source Name Details Category Date Date Treatment Clinician Date PAD PAD Disease Active [facility] (periphera (periphera 04-16 Co llege l artery l artery 00:00: of disease) disease) 00 Medici n (HCCode) (HCCode) e History of History of Disease Active [facility] arterial arterial 04-16 Colleg e bypass of bypass of 00:00: of lower limb lower limb 00 Me dicin e Allergies, Adverse Reactions, Alerts Allergy Allergy Status Severity Reaction(s) Onset Inactive Treating Comm ents Source Name Type Date Date Clinician NO KNOWN Allergy Active [facility] Social History Social Habit Start Date Stop Date Quantity Comments Source Tobacco use and 2020-04-16 2020-04-16 Never used [facility]lege of exposure 00:00:00 00:00:00 Medicine Sex [birth year] [facility] of 00:00:00 00:00:00 Medicine Smoking Status Start Date Stop Date Source Current every day smoker 2020-04-16 00:00:00 [facility] Medications Ordered Filled Start Stop Current Ordering Indication Dosage Frequency Signature Comments Components Source Medication Medication Date Date Medication? Clinician (SIG) Name Name acetaminoph 2019-04- No 1{tbl} Take 1 [facility] en-codeine 2-10 01-10 Tablet by [facility] (TYLENOL 00:00: 05:59 mouth of #3) 300-30 00 :00 every 4 Medici n MG per hours as e tablet needed for Pain for up to 30 days. hydrochloro 2019-04 Yes TAKE 1 [facility] thiazide 1-21 TABLET BY [facility] (HYDRODIURI 00:00: MOUTH of L) 25 MG 00 EVERY DAY Medici n tablet e losartan 2019-04 Yes TAKE 1 [facility] (COZAAR) 50 1-21 TABLET BY [facility] MG tablet 00:00: MOUTH of 00 EVERY DAY Medicin e metformin 2019-04 Yes TAKE 1 [facility] (GLUCOPHAGE 1-21 TABLET BY [facility] ) 500 MG 00:00: MOUTH of tablet 00 TWICE A Medicin DAY WITH e MEALS pantoprazol 2019-04 Yes TAKE 1 [facility] e 1-21 TABLET BY [place] (PROTONIX) 00:00: MOUTH of 20 MG 00 EVERY DAY Medicin tablet e atorvastati 2019-04 Yes TAKE 1 [facility] n (LIPITOR) 1-21 TABLET BY [facility] 80 MG 00:00: MOUTH of tablet 00 EVERYDAY Medicin AT BEDTIME e clopidogrel 2019-04 Yes TAKE 1 [facility] (PLAVIX) 75 1-21 TABLET BY [facility] MG Tablet 00:00: MOUTH of 00 EVERY DAY Medicin e hydrochloro 2019-04 Yes TAKE 1 [facility] thiazide 1-21 TABLET BY Reyna e (HYDRODIURI 00:00: MOUTH of L) 25 MG 00 EVERY DAY Medici n tablet e losartan 2019-04 Yes TAKE 1 [facility] (COZAAR) 50 1-21 TABLET BY [facility] MG tablet 00:00: MOUTH of 00 EVERY DAY Medicin e metformin 2019-04 Yes TAKE 1 [facility] (GLUCOPHAGE 1-21 TABLET BY [facility] ) 500 MG 00:00: MOUTH of tablet 00 TWICE A Medicin DAY WITH e MEALS pantoprazol 2019-04 Yes TAKE 1 [facility] e 1-21 TABLET BY [place] (PROTONIX) 00:00: MOUTH of 20 MG 00 EVERY DAY Medicin tablet e atorvastati 2019-04 Yes TAKE 1 [facility] (LIPITOR) 1-21 TABLET BY [facility] 80 MG 00:00: MOUTH of tablet 00 EVERYDAY Medicin AT BEDTIME e clopidogrel 2019-04 Yes TAKE 1 [facility] (PLAVIX) 75 1-21 TABLET BY [facility] MG Tablet 00:00: MOUTH of 00 EVERY DAY Medicin e hydrocodone 2019-04 2020- No TAKE 1 [facility] -acetaminop 1-20 12-10 TABLET BY [place] (iCrederity) 00:00: 00:00 MOUTH of 5-325 mg 00 :00 EVERY 8 Medicin tablet (EIGHT) e HOURS NEEDED FOR UP TO 7 DAYS. MAX DAILY AMOUNT 3 TABLETS ASPIRIN LOW 2019-04 Yes TAKE 1 [facility] DOSE 81 MG 1-09 TABLET BY [facility] tablet 00:00: MOUTH of 00 EVERY DAY Medicin e ASPIRIN LOW 2019-04 Yes TAKE 1 [facility] DOSE 81 MG 1-09 TABLET BY [facility] tablet 00:00: MOUTH of 00 EVERY DAY Medicin e Vital Signs Vital Name Observation Time Observation Value Comments Source WEIGHT 2020-02-21 08:15:00 73.7 kg HEIGHT 2020-02-14 21:00:00 167.6 cm WEIGHT 2020-02-14 21:00:00 74.844 kg HEIGHT 2020-02-11 06:17:00 167.6 cm WEIGHT 2020-02-11 06:17:00 74.844 kg Systolic blood 2020-04-16 20:20:00 152 mm[Hg] [facility] of pressure Medicine Diastolic blood 2020-04-16 20:20:00 89 mm[Hg] [facility] of pressure Medicine Heart rate 2020-04-16 20:20:00 81 /min [facility] ollege of Medicine Body height 2020-04-16 20:20:00 172.7 cm [facility] ol[facility] of Medicine Body weight 2020-04-16 20:20:00 74.844 kg [facility] of Medicine BMI 2020-04-16 20:20:00 25.09 kg/m2 [facility] ol[facility] of Medicine Systolic blood 2020-03-12 19:34:00 123 mm[Hg] [facility] of pressure Medicine Diastolic blood 2020-03-12 19:34:00 73 mm[Hg] [facility] of pressure Medicine Heart rate 2020-03-12 19:34:00 78 /min [facility] ol[facility] of Medicine Body height 2020-03-12 19:34:00 172.7 cm [facility] ol[facility] of Medicine Body weight 2020-03-12 19:34:00 74.844 kg [facility] of Medicine BMI 2020-03-12 19:34:00 25.09 kg/m2 [facility] of Medicine WEIGHT 2020-02-21 08:15:00 73.7 kg HEIGHT 2020-02-14 21:00:00 167.6 cm WEIGHT 2020-02-14 21:00:00 74.844 kg HEIGHT 2020-02-11 06:17:00 167.6 cm WEIGHT 2020-02-11 06:17:00 74.844 kg Procedures This patient has no known procedures. Plan of Care Planned Activity Planned Date Details Comments Source Future Scheduled COLON CANCER [facility] Test SCREENING: of Medicine COLONOSCOPY [code = COLON CANCER SCREENING: COLONOSCOPY] Future Scheduled TETANUS SHOT [facility] Test (ADULT) [code = of Medicine TETANUS SHOT (ADULT)] Future Scheduled BMI FOLLOW UP PLAN [facility] Test [code = BMI FOLLOW of Medici ne UP PLAN] Future Scheduled HEPATITIS C [facility] Test SCREENING [code = of Medicin e HEPATITIS C SCREENING] Future Scheduled HIV SCREENING [code [facility] [place] Test = HIV SCREENING] of Medicine Future Scheduled ZOSTER VACCINE (1 [facility] Test of 2) [code = of Medicine ZOSTER VACCINE (1 of 2)] Future Scheduled FLU VACCINE > 6 [facility] C [facility]lege Test MONTHS [code = FLU of Medici ne VACCINE > 6 MONTHS] Future Scheduled COLON CANCER [facility] Test SCREENING: of Medicine COLONOSCOPY [code = COLON CANCER SCREENING: COLONOSCOPY] Future Scheduled COVID-19 Vaccine [facility] Test Evaluation [code = of Medici ne COVID-19 Vaccine Evaluation] Future Scheduled TETANUS SHOT [facility] Test (ADULT) [code = of Medicine TETANUS SHOT (ADULT)] Future Scheduled HEPATITIS C [facility] Test SCREENING [code = of Medicin e HEPATITIS C SCREENING] Future Scheduled HIV SCREENING [code [facility] Test = HIV SCREENING] of Medicine Future Scheduled ZOSTER VACCINE (1 [facility] Test of 2) [code = of Medicine ZOSTER VACCINE (1 of 2)] Future Scheduled FLU VACCINE > 6 [facility] C [facility] Test MONTHS [code = FLU of Medici ne VACCINE > 6 MONTHS] Future Scheduled BMI FOLLOW UP PLAN [facility] Test [code = BMI FOLLOW of Medici ne UP PLAN] Future Scheduled US ARTERIAL LEG 1 Occurrences [facility] Test LEFT [code = 16832] starting 04/16/2020 o f Medicine until 11/14/2020 Future Scheduled US ARTERIAL LEG 1 Occurrences [facility] Test LEFT [code = 74041] starting 03/12/2020 o f Medicine until 10/10/2020 Encounters Start End Encounter Admission Attending Care Care Encounter Source Date/Time Date/Time Type Type Clinicians Facility Department ID 2020-02-11 Inpatient ER DAMIAN DUMONT Internal [id number] [facility] 05:33:00 [facility] 2020-04-16 2020-04-16 Office Pallister, BCM [id number] [facility] 13:26:43 15:43:35 Visit Juan Carlos AMBULATOR [id number] College Eugene Y [id number] of [id number] [facility] rosie 825 e 2020-03-12 2020-03-12 Office Brittneyster, BCM [id number] [facility] 13:22:24 14:49:29 Visit Juan Carlos AMBULATOR [id number] Ariela Knight Y [id number] of [id number] [facility] rosie 825 e Results Test Description Test Time Test Comments Results Result Comments Source POCT-GLUCOSE METER 2020-02-21 08:30:00 Test Item Value Reference Range Interpretation Comme nts POC-GLUCOSE METER (BEAKER) 130 mg/dL 70-110 H : TESTED AT [facility] [address] [place] [address] (test code = 1538) DEMING Michael Chu, [address]: Industrial Equipment Mechanic/Techni ema ID = [id number] for Marisol Leach BASIC METABOLIC [id number] 06:17:00 Test Item Value Reference Range Interpretation [...] 697) EGFR (BEAKER) (test 99 mL/min/1.73 ESTIMA ZARA GFR IS code = 1092) sq m NOT ACCURATE CREATININE CLEARANCE IN PREDICTING GLOMERULAR FILTRATION RATE . ESTIMATED GFR I S NOT APPLICABLE FOR DIALYSIS PATIEN TS. Industrial Equipment Mechanic ID - TATE [id number] 06:17:00 Test Item Value Reference Range Interpretation Comments MAGNESIUM (BEAKER) (test code = 1.8 mg/dL 1.6-2.6 627) Industrial Equipment Mechanic ID - TATE [id number] 06:17:00 Test Item Value Reference Range Interpretation Comments PHOSPHORUS (BEAKER) (test code = 2.8 mg/dL 2.3-4.7 604) Industrial Equipment Mechanic ID - TATE LPROTHROMBIN [id number] 05:39:00 Test Item Value Reference Range Interpretation [...] INR is2.5-3.5 for patients wiht mechanical heart valves.[id number] 05:35:00 Test Item Value Reference Range Interpretation Comments PARTIAL THROMBOPLASTIN TIME 26.1 seconds 22.5-36.0 (BEAKER) (test code = 760) CBC (HEMOGRAM ONLY)2020-02-21 05:22:00 Test Item Value Reference [...] 0-0 (BEAKER) (test code = 413) POCT-GLUCOSE [id number] 21:10:00 Test Item Value Reference Range Interpretation Comments POC-GLUCOSE METER 206 mg/dL 70-110 H : TESTED A T [facility] 6720 (AKER) (test code = [facility], 153) [address]: Industrial Equipment Mechanic/Techni ema ID = [id number] for DA FABIO LIEN POCT-GLUCOSE [id number] 17:25:00 Test Item Value Reference Range Interpretation Comments POC-GLUCOSE METER 176 mg/dL 70-110 H : TESTED A T [facility] 6720 (BEAKER) (test code = [facility], 1538) 91975: Industrial Equipment Mechanic/Techni ema ID = [id number] for Do minguez, Rowdy POCT-GLUCOSE [id number] 11:22:00 Test Item Value Reference Range Interpretation Comments POC-GLUCOSE METER 209 mg/dL 70-110 H : TESTED A T [facility] 6720 (BEAKER) (test code = [facility], 153) 832[address]: Industrial Equipment Mechanic/Techni ema ID = [id number] for Do minguez, Rowdy POCT-GLUCOSE [id number] 08:04:00 Test Item Value Reference Range Interpretation Comments POC-GLUCOSE METER 140 mg/dL 70-110 H : TESTED A T [facility] 6720 (BEAKER) (test code = [place], 1538) [address]: Industrial Equipment Mechanic/Techni ema ID = [id number] for Rowdy Hoffmann BASIC METABOLIC [id number] 06:02:00 Test Item Value Reference Range Interpretation [...] S NOT APPLICABLE FOR DIALYSIS PATIEN TS. Industrial Equipment Mechanic ID - SHIVA [id number] 06:02:00 Test Item Value Reference Range Interpretation Comments MAGNESIUM (BEAKER) (test code = 1.8 mg/dL 1.6-2.6 627) Industrial Equipment Mechanic ID - SHIVA [id number] 06:02:00 Test Item Value Reference Range Interpretation Comments PHOSPHORUS (BEAKER) (test code = 2.9 mg/dL 2.3-4.7 604) Industrial Equipment Mechanic ID - SHIVA [id number] 05:56:00 Test Item Value Reference Range Interpretation Comments PARTIAL THROMBOPLASTIN TIME 29.0 seconds 22.5-36.0 (BEAKER) (test code = 760) PROTHROMBIN [id number] 05:55:00 Test Item Value Reference Range Interpretation [...] 0-0 (BEAKER) (test code = 413) POCT-GLUCOSE [id number] 21:24:00 Test Item Value Reference Range Interpretation Comments POC-GLUCOSE METER 181 mg/dL 70-110 H : TESTED A T [facility] 6720 (BEAKER) (test code = [place], 1538) [address]: Industrial Equipment Mechanic/Techni ema ID = [id number] for LIEN GRAHAM POCT-GLUCOSE [id number] 16:43:00 Test Item Value Reference Range Interpretation Comments POC-GLUCOSE METER 138 mg/dL 70-110 H : TESTED A T [facility] 6720 (BEAKER) (test code = [facility], 1538) 813[address]: Industrial Equipment Mechanic/Techni ema ID = [id number] for ZION AMADO POCT-GLUCOSE [id number] 11:57:00 Test Item Value Reference Range Interpretation Comments POC-GLUCOSE METER 200 mg/dL 70-110 H : TESTED A T [facility] 6720 (BEAKER) (test code = [facility], 1538) 70883: Industrial Equipment Mechanic/Techni ema ID = [id number] for ZION AMADO POCT-GLUCOSE [id number] 07:25:00 Test Item Value Reference Range Interpretation Comments POC-GLUCOSE METER 135 mg/dL 70-110 H : TESTED A T [facility] 6720 (BEAKER) (test code = [facility], 1538) 40146: Industrial Equipment Mechanic/Techni ema ID = [id number] for [place] ELDA, ZION BASIC METABOLIC [id number] 06:45:00 Test Item Value Reference Range Interpretation [...] 697) EGFR (BEAKER) (test 92 mL/min/1.73 ESTIMA ZARA GFR IS code = 1092) sq m NOT ACCURATE CREATININE CLEARANCE IN PREDICTING GLOMERULAR FILTRATION RATE . ESTIMATED GFR I S NOT APPLICABLE FOR DIALYSIS PATIEN TS. Industrial Equipment Mechanic ID - [id number] 06:45:00 Test Item Value Reference Range Interpretation Comments MAGNESIUM (BEAKER) (test code = 1.8 mg/dL 1.6-2.6 627) Industrial Equipment Mechanic ID - [id number] 06:45:00 Test Item Value Reference Range Interpretation Comments PHOSPHORUS (BEAKER) (test code = 2.2 mg/dL 2.3-4.7 L 604) Industrial Equipment Mechanic ID - [id number] 05:54:00 Test Item Value Reference Range Interpretation Comments PARTIAL THROMBOPLASTIN TIME 26.7 seconds 22.5-36.0 (BEAKER) (test code = 760) PROTHROMBIN [id number] 05:53:00 Test Item Value Reference Range Interpretation [...] 0-0 (BEAKER) (test code = 413) POCT-GLUCOSE [id number] 22:07:00 Test Item Value Reference Range Interpretation Comments POC-GLUCOSE METER 183 mg/dL 70-110 H : TESTED A T [facility] 6720 (BEAKER) (test code = [place], 1538) [address]: Industrial Equipment Mechanic/Techni ema ID = [id number] for RAJWINDER PORTER SARS-COV2/RT-PCR ([facility])2020-02-18 18:04:00 Test Item Value Reference Range Interpretation Comments SARS-COV2/RT-PCR (test Negative Not Detected, Negative, code = 1200343) See external report for linked test SARS-COV-[address] [facility] ENA (test code = 2731994) Negative result for this test determines that [...] 564(g) of the Act.Fact Sheet for Healthcare Providers:https://www.[employer]/sites/default/files/product/documents/Fact_Shee x_FB_Qckvsgjqm_Rdjq_ROBW-IsX-1.pdfFact Sheet for Healthcare Patients:https://www.[employer]/sites/default/files/product/ documents/Ifkd_Taxsg_Irzbtupo_Jksi_OMSA-FtU-8.pdfPerforming Laboratory:[address] [facility].[place], [place] [id number] METER 2020-02-18 16:30:00 Test Item Value Reference Range Interpretation Comments POC-GLUCOSE METER 146 mg/dL 70-110 H : TESTED A T [facility] 6720 (BEAKER) (test code = [facility], 1538) 24380: Industrial Equipment Mechanic/Techni ema ID = [id number] for CARRIE KHAN POCT-GLUCOSE [id number] 12:32:00 Test Item Value Reference Range Interpretation Comments POC-GLUCOSE METER 202 mg/dL 70-110 H : TESTED A T [facility] 6720 (BEAKER) (test code = [facility], 1538) 97811: Industrial Equipment Mechanic/Techni ema ID = [id number] for LINN ROSENTHAL BASIC METABOLIC [id number] 04:29:00 Test Item Value Reference Range Interpretation [...] 697) EGFR (BEAKER) (test 84 mL/min/1.73 ESTIMA ZARA GFR IS code = 1092) sq m NOT ACCURATE CREATININE CLEARANCE IN PREDICTING GLOMERULAR FILTRATION RATE . ESTIMATED GFR I S NOT APPLICABLE FOR DIALYSIS PATIEN TS. Industrial Equipment Mechanic ID - [id number] 04:29:00 Test Item Value Reference Range Interpretation Comments MAGNESIUM (BEAKER) (test code = 2.1 mg/dL 1.6-2.6 627) Industrial Equipment Mechanic ID - [id number] 04:29:00 Test Item Value Reference Range Interpretation Comments PHOSPHORUS (BEAKER) (test code = 2.3 mg/dL 2.3-4.7 604) Industrial Equipment Mechanic ID - [id number] [id number] 04:10:00 Test Item Value Reference Range Interpretation [...] INR is2.5-3.5 for patients wiht mechanical heart valves.[id number] 04:10:00 Test Item Value Reference Range Interpretation [...] 0-0 (BEAKER) (test code = 413) POCT-GLUCOSE [id number] 22:28:00 Test Item Value Reference Range Interpretation Comments POC-GLUCOSE METER 269 mg/dL 70-110 H : TESTED Treva T [facility] 6720 (BEAKER) (test code = [place], 1538) [address]: Industrial Equipment Mechanic/Techni ema ID = [id number] for At alcides (Marlen)Bayron RAD, CHEST, 1 VIEW, NON [id number] 21:36:00Reason for exam:->postop vascular surgeryShould this be performed at the bedside?->Yes [facility] Michael : 1960 Sex: MFINAL REPORT Chest one [...] Bette Strickland MDReport Verified Date/Time: 02/17/2020 21:36:25 [id number] 18:19:00 Test Item Value Reference Range Interpretation Comments MAGNESIUM (BEAKER) 1.7 mg/dL 1.6-2.6 Specimen slightly (test code = 627) hemolyzed Industrial Equipment Mechanic ID - [id number] 18:19:00 Test Item Value Reference Range Interpretation Comments PHOSPHORUS (BEAKER) 2.9 mg/dL 2.3-4.7 Specimen slightly (test code = 604) hemolyzed Industrial Equipment Mechanic ID - BSBASIC METABOLIC [id number] 18:19:00 Test Item Value Reference Range Interpretation [...] 697) EGFR (BEAKER) (test 93 mL/min/1.73 ESTIMA ZARA GFR IS code = 1092) sq m NOT ACCURATE CREATININE CLEARANCE IN PREDICTING GLOMERULAR FILTRATION RATE . ESTIMATED GFR I S NOT APPLICABLE FOR DIALYSIS PATIEN TS. Industrial Equipment Mechanic ID - BSPOCT-GLUCOSE [id number] 17:59:00 Test Item Value Reference Range Interpretation Comments POC-GLUCOSE METER 215 mg/dL 70-110 H : TESTED A T [facility] 6720 (BEAKER) (test code = [place], 1538) [address]: Industrial Equipment Mechanic/Techni ema ID = [id number] for Loan Mulligan BASIC METABOLIC [id number] 17:39:00 Test Item Value Reference Range Interpretation [...] S NOT APPLICABLE FOR DIALYSIS PATIEN TS. Industrial Equipment Mechanic ID - [id number] 17:35:00 Test Item Value Reference Range Interpretation Comments MAGNESIUM (BEAKER) (test code = 1.0 mg/dL 1.6-2.6 LL 627) Industrial Equipment Mechanic ID - [id number] 17:32:00 Test Item Value Reference Range Interpretation Comments PHOSPHORUS (BEAKER) (test code = 1.7 mg/dL 2.3-4.7 L 604) Industrial Equipment Mechanic ID - [id number] 17:28:00 Test Item Value Reference Range Interpretation Comments PARTIAL THROMBOPLASTIN TIME 34.1 seconds 22.5-36.0 (BEAKER) (test code = 760) PROTHROMBIN [id number] 17:27:00 Test Item Value Reference Range Interpretation [...] mechanical heart valves.CBC W/PLT COUNT & AUTO [id number] 17:13:00 Test Item Value Reference Range Interpretation [...] 0-1 PERCENT (BEAKER) (test code = 2801) CALCIUM, [id number] 17:06:00 Test Item Value Reference Range Interpretation Comments CALCIUM IONIZED (BEAKER) (test 1.18 mmol/L 1.12-1.27 code = 698) PH, BLOOD (BEAKER) (test code = 7.38 1810) POCT-GLUCOSE [id number] 14:53:00 Test Item Value Reference Range Interpretation Comments POC-GLUCOSE METER 188 mg/dL 70-110 H : TESTED A T [facility] 6720 (BEAKER) (test code = [facility], 1538) [address]: Industrial Equipment Mechanic/Techni ema ID = [id number] for TA CARLOS LING [id number] 11:41:00 Test Item Value Reference Range Interpretation Comments ACTIVATED CLOTTING TIME 224 sec : 74 -137 seconds, (BEAKER) (test code = Yanni ne: TESTED AT 441) [facility] 6720 [facility], [address]: Industrial Equipment Mechanic/Techni ema ID = [id number] for CA JESSICA GOEL [id number] 11:41:00 Test Item Value Reference Range Interpretation Comments ACTIVATED CLOTTING TIME 230 sec : 74 -137 seconds, (BEAKER) (test code = Yanni ne: TESTED AT 441) [facility] [address] [place] [address], 770 [address]: Industrial Equipment Mechanic/Techni ema ID = [id number] for CA STRO, JESSICA [id number] 11:41:00 Test Item Value Reference Range Interpretation Comments ACTIVATED CLOTTING TIME 263 sec : 74 -137 seconds, (BEAKER) (test code = Yanni ne: TESTED AT 441) [address], [address]70 [address]: Industrial Equipment Mechanic/Techni ema ID = [id number] for CA STRO, JESSICA [id number] 11:41:00 Test Item Value Reference Range Interpretation Comments ACTIVATED CLOTTING TIME 246 sec : 74 -137 seconds, (BEAKER) (test code = Yanni ne: TESTED AT 441) [address], [facility] 30: Industrial Equipment Mechanic/Techni ema ID = [id number] for CA STRO, JESSICA SODIUM NA-STAT [id number] 10:43:00 Test Item Value Reference Range Interpretation Comments SODIUM (BEAKER) (test code = 381) 137 meq/L 136-145 POTASSIUM-STAT [id number] 10:43:00 Test Item Value Reference Range Interpretation Comments POTASSIUM (BEAKER) (test code = 3.9 meq/L 3.6-5.5 379) BLOOD GAS, [id number] 10:43:00 Test Item Value Reference Range Interpretation [...] (BEAKER) (test code = 1819) 50.0 GLUCOSE-STAT [id number] 10:43:00 Test Item Value Reference Range Interpretation Comments GLUCOSE RANDOM (BEAKER) (test code 136 mg/dL 70-110 H = 652) HGB/HCT (H&H) - STAT [id number] 10:43:00 Test Item Value Reference Range Interpretation Comments HEMOGLOBIN (BEAKER) (test code = 12.9 GM/DL 13.0-16.8 L 410) HEMATOCRIT (BEAKER) (test code = 38.0 % 40.0-50.0 L 411) HGB/HCT (H&H) - STAT [id number] 10:05:00 Test Item Value Reference Range Interpretation Comments HEMOGLOBIN (BEAKER) (test code = 11.2 GM/DL 13.0-16.8 L 410) HEMATOCRIT (BEAKER) (test code = 33.0 % 40.0-50.0 L 411) POTASSIUM-STAT [id number] 10:05:00 Test Item Value Reference Range Interpretation Comments POTASSIUM (BEAKER) (test code = 3.0 meq/L 3.6-5.5 L 379) GLUCOSE-STAT [id number] 10:04:00 Test Item Value Reference Range Interpretation Comments GLUCOSE RANDOM (BEAKER) (test code = 97 mg/dL 70-110 652) SODIUM NA-STAT [id number] 10:04:00 Test Item Value Reference Range Interpretation Comments SODIUM (BEAKER) (test code = 381) 136 meq/L 136-145 CALCIUM, [id number] 10:04:00 Test Item Value Reference Range Interpretation Comments CALCIUM IONIZED (BEAKER) (test 1.12 mmol/L 1.12-1.27 code = 698) PH, BLOOD (BEAKER) (test code = 7.44 1810) BLOOD GAS, [id number] 10:04:00 Test Item Value Reference Range Interpretation [...] (test code = 1819) 50.0 BLOOD GAS, [id number] 08:35:00 Test Item Value Reference Range Interpretation [...] = 1819) 100.0 HGB/HCT (H&H) - STAT [id number] 08:35:00 Test Item Value Reference Range Interpretation Comments HEMOGLOBIN (BEAKER) (test code = 12.3 GM/DL 13.0-16.8 L 410) HEMATOCRIT (BEAKER) (test code = 36.0 % 40.0-50.0 L 411) POTASSIUM-STAT [id number] 08:35:00 Test Item Value Reference Range Interpretation Comments POTASSIUM (BEAKER) (test code = 3.0 meq/L 3.6-5.5 L 379) CALCIUM, [id number] 08:35:00 Test Item Value Reference Range Interpretation Comments CALCIUM IONIZED (BEAKER) (test 0.97 mmol/L 1.12-1.27 L code = 698) PH, BLOOD (BEAKER) (test code = 7.40 1810) GLUCOSE-STAT [id number] 08:34:00 Test Item Value Reference Range Interpretation Comments GLUCOSE RANDOM (BEAKER) (test code 103 mg/dL 70-110 = 652) SODIUM NA-STAT [id number] 08:34:00 Test Item Value Reference Range Interpretation Comments SODIUM (BEAKER) (test code = 381) 135 meq/L 136-145 L BASIC METABOLIC [id number] 05:40:00 Test Item Value Reference Range Interpretation [...] 697) EGFR (BEAKER) (test 96 mL/min/1.73 ESTIMA ZARA GFR IS code = 1092) sq m NOT ACCURATE CREATININE CLEARANCE IN PREDICTING GLOMERULAR FILTRATION RATE . ESTIMATED GFR I S NOT APPLICABLE FOR DIALYSIS PATIEN TS. Industrial Equipment Mechanic ID - EDASIPT/[id number] 05:14:00 Test Item Value Reference Range Interpretation [...] mechanical heart valves.CBC W/PLT COUNT & AUTO [id number] 05:01:00 Test Item Value Reference Range Interpretation [...] 0-1 PERCENT (BEAKER) (test code = 2801) [id number] 22:06:00 Test Item Value Reference Range Interpretation Comments PARTIAL THROMBOPLASTIN TIME 58.0 seconds 22.5-36.0 H (BEAKER) (test code = 760) POCT-GLUCOSE [id number] 21:12:00 Test Item Value Reference Range Interpretation Comments POC-GLUCOSE METER 137 mg/dL 70-110 H : TESTED A T [facility] 6720 (BEAKER) (test code = [facility], 1538) 90676: Industrial Equipment Mechanic/Techni ema ID = [id number] for ARMINDA FARAH POCT-GLUCOSE [id number] 17:39:00 Test Item Value Reference Range Interpretation Comments POC-GLUCOSE METER 143 mg/dL 70-110 H : TESTED A T [facility] 6720 (BEAKER) (test code = [facility], 1538) 52471: Industrial Equipment Mechanic/Techni ema ID = [id number] for Paul Piña i [id number] 15:58:00 Test Item Value Reference Range Interpretation Comments PARTIAL THROMBOPLASTIN TIME 73.1 seconds 22.5-36.0 H (BEAKER) (test code = 760) POCT-GLUCOSE [id number] 12:14:00 Test Item Value Reference Range Interpretation Comments POC-GLUCOSE METER 173 mg/dL 70-110 H : TESTED A T [facility] 6720 (BEAKER) (test code = [facility], 1538) 33093: Industrial Equipment Mechanic/Techni ema ID = [id number] for JERRY DUPREE SARS-COV2/RT-PCR ([facility])2020-02-16 11:21:00 Test Item Value Reference Range Interpretation Comments SARS-COV2/RT-PCR (test Negative Not Detected, Negative, code = 5959159) See external report for linked test SARS-COV-2 PERFORMING LAB [facility] (test code = 9548615) Negative result for this test determines that [...] 564(g) of the Act.Fact Sheet for Healthcare Providers:https://www.[employer]/sites/default/files/product/documents/Fact_Shee n_ZZ_Qpywmqwlb_Fhgc_PLMZ-EfC-6.pdfFact Sheet for Healthcare Patients:https://www.[employer]/sites/default/files/product/ documents/Rzxr_Bejrr_Vgryjzgz_Nvqb_ITOE-SqN-9.pdfPerforming Laboratory:[facility], [place] [id number] 09:49:00 Test Item Value Reference Range Interpretation Comments PARTIAL THROMBOPLASTIN TIME 60.7 seconds 22.5-36.0 H (BEAKER) (test code = 760) POCT-GLUCOSE [id number] 08:10:00 Test Item Value Reference Range Interpretation Comments POC-GLUCOSE METER 137 mg/dL 70-110 H : TESTED A T [facility] 6720 ([facility]) (test code = [facility], 1538) 88408: Industrial Equipment Mechanic/Techni ema ID = [id number] for KARLO ANKITJERRY [id number] 07:56:00 Test Item Value Reference Range Interpretation Comments PARTIAL THROMBOPLASTIN TIME 132.6 seconds 22.5-36.0 H (BEAKER) (test code = 760) [id number] 00:25:00 Test Item Value Reference Range Interpretation Comments PARTIAL THROMBOPLASTIN TIME 96.0 seconds 22.5-36.0 H (BEAKER) (test code = 760) POCT-GLUCOSE [id number] 21:46:00 Test Item Value Reference Range Interpretation Comments POC-GLUCOSE METER 162 mg/dL 70-110 H : TESTED A T [facility] 6720 (CHERYL) (test code = [facility], 1538) 76172: Industrial Equipment Mechanic/Techni ema ID = [id number] for EN EREANISADU, SOCORRO PET/CT, CARDIAC PERF REST AND [id number] 18:07:00Reason for exam:- >Assess for coronary ischemia [facility] : 1960 Sex: MFINAL REPORT PROCEDURE: MYOCARDIAL PERFUSION PET IMAGING (Rest/Stress)CPT CODE: 97241 INDICATION: Assess for coronary artery ischemia preop [...] is no prior study for comparison. Signed: Cm Butler Verified Date/Time: 02/15/2020 18:07:15 [id number] 16:57:00 Test Item Value Reference Range Interpretation Comments PARTIAL THROMBOPLASTIN TIME 66.8 seconds 22.5-36.0 H (IntroNiche) (test code = 760) POCT-GLUCOSE [id number] 12:58:00 Test Item Value Reference Range Interpretation Comments POC-GLUCOSE METER 137 mg/dL 70-110 H : TESTED A T [facility] 6720 (IntroNiche) (test code = [facility], [facility]8) 75383: Industrial Equipment Mechanic/Techni ema ID = [id number] for Elliott White [id number] 08:47:00 Test Item Value Reference Range Interpretation Comments PARTIAL THROMBOPLASTIN TIME 115.2 seconds 22.5-36.0 H (IntroNiche) (test code = 760) POCT-GLUCOSE [id number] 08:03:00 Test Item Value Reference Range Interpretation Comments POC-GLUCOSE METER 167 mg/dL 70-110 H : TESTED A T [facility] 6720 (IntroNiche) (test code = [facility], 1538) 08788: Industrial Equipment Mechanic/Techni ema ID = [id number] for JOSELUIS HAMPTON [id number] 01:09:00 Test Item Value Reference Range Interpretation Comments PARTIAL THROMBOPLASTIN TIME 66.0 seconds 22.5-36.0 H (IntroNiche) (test code = 760) POCT-GLUCOSE [id number] 23:53:00 Test Item Value Reference Range Interpretation Comments POC-GLUCOSE METER 183 mg/dL 70-110 H : Notified RN/MD: TESTED (BEAKER) (test code AT [facility] 6720 [facility] = 1538) [facility], 770 30: Industrial Equipment Mechanic/Techni ema ID = [id number] for SUZY PRECIADO [id number] 18:22:00 Test Item Value Reference Range Interpretation Comments PARTIAL THROMBOPLASTIN TIME 102.2 seconds 22.5-36.0 H (BEAKER) (test code = 760) POCT-GLUCOSE [id number] 17:29:00 Test Item Value Reference Range Interpretation Comments POC-GLUCOSE METER 158 mg/dL 70-110 H : TESTED A T [facility] 6720 (BEAKER) (test code = [place] [facility], 1538) 58584: Industrial Equipment Mechanic/Techni ema ID = [id number] for BANDAR BUCKNER POCT-GLUCOSE [id number] 11:48:00 Test Item Value Reference Range Interpretation Comments POC-GLUCOSE METER 147 mg/dL 70-110 H : TESTED A T [facility] 6720 (BEAKER) (test code = [place] [facility], 1538) 57752: Industrial Equipment Mechanic/Techni ema ID = [id number] for BANDAR BUCKNER [id number] 11:10:00 Test Item Value Reference Range Interpretation Comments PARTIAL THROMBOPLASTIN TIME 60.9 seconds 22.5-36.0 H (BEAKER) (test code = 760) BASIC METABOLIC [id number] 04:31:00 Test Item Value Reference Range Interpretation [...] 697) EGFR (BEAKER) (test 95 mL/min/1.73 ESTIMA ZARA GFR IS code = 1092) sq m NOT ACCURATE CREATININE CLEARANCE IN PREDICTING GLOMERULAR FILTRATION RATE . ESTIMATED GFR I S NOT APPLICABLE FOR DIALYSIS PATIEN TS. Industrial Equipment Mechanic ID - [id number] 04:04:00 Test Item Value Reference Range Interpretation Comments PARTIAL THROMBOPLASTIN TIME 55.6 seconds 22.5-36.0 H (BEAKER) (test code = 760) CBC W/PLT COUNT & AUTO [id number] 03:54:00 Test Item Value Reference Range Interpretation [...] 0-1 PERCENT (BEAKER) (test code = 2801) [id number] 01:51:00 Test Item Value Reference Range Interpretation Comments PARTIAL THROMBOPLASTIN TIME 129.0 seconds 22.5-36.0 H (BEAKER) (test code = 760) [id number] 18:55:00 Test Item Value Reference Range Interpretation Comments PARTIAL THROMBOPLASTIN TIME 94.9 seconds 22.5-36.0 H (BEAKER) (test code = 760) [id number] 11:28:00 Test Item Value Reference Range Interpretation Comments PARTIAL THROMBOPLASTIN TIME 55.1 seconds 22.5-36.0 H (BEAKER) (test code = 760) [id number] 04:49:00 Test Item Value Reference Range Interpretation Comments PARTIAL THROMBOPLASTIN TIME 102.3 seconds 22.5-36.0 H (BEAKER) (test code = 760) BASIC METABOLIC [id number] 04:21:00 Test Item Value Reference Range Interpretation [...] 697) EGFR (BEAKER) (test 96 mL/min/1.73 ESTIMA ZARA GFR IS code = 1092) sq m NOT ACCURATE CREATININE CLEARANCE IN PREDICTING GLOMERULAR FILTRATION RATE . ESTIMATED GFR I S NOT APPLICABLE FOR DIALYSIS PATIEN TS. Industrial Equipment Mechanic ID - SHIVA MCBC W/PLT COUNT & AUTO [id number] 03:59:00 Test Item Value Reference Range Interpretation [...] 0-1 PERCENT (BEAKER) (test code = 2801) [id number] 22:27:00 Test Item Value Reference Range Interpretation Comments PARTIAL THROMBOPLASTIN TIME 72.6 seconds 22.5-36.0 H (BEAKER) (test code = 760) [id number] 15:42:00 Test Item Value Reference Range Interpretation Comments PARTIAL THROMBOPLASTIN TIME 36.1 seconds 22.5-36.0 H (BEAKER) (test code = 760) CT, CTA AAA, W/ DUANE.EXT.[id number] 11:11:00Anesthesia:->None [facility] Michael : 1960 Sex: MAddendum BeginsREPORT STATUS:A ADDENDUM: Bibasilar atelectasis, left greater than right. Left renal interpolar 2.6 cm cyst. Few scattered colonic diverticula. Signed: Chao Wright MDReport Verified Date/Time: 02/12/2020 11:11:37 Reading Location: [place] [address] Angio Body Reading RoomAddendum EndsFINAL REPORT CT [...] ADDENDUM HAS BEEN DICTATED. Signed: Davy Vogel Verified Date/Time: 02/12/2020 09:35:59 Reading Location: [place] [address] CT Reading Room BASIC METABOLIC [id number] 06:54:00 Test Item Value Reference Range Interpretation [...] 697) EGFR (BEAKER) (test 96 mL/min/1.73 ESTIMA ZARA GFR IS code = 1092) sq m NOT ACCURATE CREATININE CLEARANCE IN PREDICTING GLOMERULAR FILTRATION RATE . ESTIMATED GFR I S NOT APPLICABLE FOR DIALYSIS PATIEN TS. Industrial Equipment Mechanic ID - [id number] 06:23:00 Test Item Value Reference Range Interpretation Comments PARTIAL THROMBOPLASTIN TIME 64.5 seconds 22.5-36.0 H (BEAKER) (test code = 760) CBC W/PLT COUNT & AUTO [id number] 06:22:00 Test Item Value Reference Range Interpretation [...] 0-1 PERCENT (BEAKER) (test code = 2801) [id number] 23:25:00 Test Item Value Reference Range Interpretation Comments PARTIAL THROMBOPLASTIN TIME 77.9 seconds 22.5-36.0 H (BEAKER) (test code = 760) C-REACTIVE [id number] 23:25:00 Test Item Value Reference Range Interpretation Comments C-REACTIVE PROTEIN (BEAKER) (test 1.74 mg/dL 0.00-0.50 H code = 676) Industrial Equipment Mechanic ID - [id number] 19:28:00 Test Item Value Reference Range Interpretation Comments HEMOGLOBIN A1C (BEAKER) (test code = 8.0 % 4.3-6.1 H 368) BASIC METABOLIC [id number] 16:04:00 Test Item Value Reference Range Interpretation [...] 697) EGFR (BEAKER) (test 95 mL/min/1.73 ESTIMA ZARA GFR IS code = 1092) sq m NOT ACCURATE CREATININE CLEARANCE IN PREDICTING GLOMERULAR FILTRATION RATE . ESTIMATED GFR I S NOT APPLICABLE FOR DIALYSIS PATIEN TS. Industrial Equipment Mechanic ID - BSLACTIC ACID, [id number] 16:01:00 Test Item Value Reference Range Interpretation Comments LACTATE BLOOD VENOUS 1.08 mmol/L 0.50-2.20 Specime n slightly (2) (BEAKER) (test hemolyzed code = 2688) Industrial Equipment Mechanic ID - [id number] TIME/[id number] 15:54:00 Test Item Value Reference Range Interpretation [...] to initiating heparinCBC W/PLT COUNT & AUTO [id number] 15:45:00 Test Item Value Reference Range Interpretation [...]
[2021-06-22] MEDS ORDERED: ONDANSETRON 4 MG/2 ML VIAL ONE (13:28)
[2021-06-22] MEDS ORDERED: MORPHINE 4 MG/ML SYR ONE (13:28)
[2021-06-22 13:30] LABS: Hematocrit 43.9 % (39.6-49.0); Lymphocytes % 22.8 % (15.3-44.8); MPV 8.2 fL (7.6-11.3); RBC Red Blood Cell Count 4.83 M/uL (4.33-5.43)
[2021-06-22 13:50] LABS: Protime INR 0.96
[2021-06-22 14:07] LABS: ALT/SGPT 27 U/L (12-78); AST/SGOT 17 U/L (15-37); Albumin 3.4 g/dL (3.4-5.0); Alkaline Phosphatase 134 U/L (45-117); BUN Blood Urea Nitrogen 4 mg/dL (7-18); Bicarbonate 27 mmol/L (21-32); Glucose Level 114 mg/dL (74-106); Potassium 3.8 mmol/L (3.5-5.1); Protein, Total 6.7 g/dL (6.4-8.2); Sodium Level 135 mmol/L (136-145); Uric Acid 5.7 mg/dL (3.5-7.2)
--- NOTE | 2021-06-22 14:39 | RAD REPORT ---
EXAM DESCRIPTION: USExtremity Venous Uni Ltd06/22/2021 2:08 pm CLINICAL HISTORY: left leg pain COMPARISON: None. FINDINGS: Left common femoral, superficial femoral, popliteal veins are compressible and demonstrate augmentation. Doppler demonstrates good flow. Grayscale, color and spectral analysis performed on all vessels IMPRESSION: No evidence of deep venous thrombosis involving the left lower extremity.
--- NOTE | 2021-06-22 14:41 | RAD REPORT ---
EXAM DESCRIPTION: US - Lower Extremity Artery Uni Ltd - 06/22/2021 2:08 pm CLINICAL HISTORY: Leg pain COMPARISON: 2019 FINDINGS: Femoral bypass graft is occluded containing thrombus. Monophasic left popliteal, dorsalis pedis and posterior tibial arterial waveforms Grayscale, color and spectral analysis performed on all vessels IMPRESSION: Occlusion of the femoral bypass graft
--- NOTE | 2021-06-22 14:54 | RAD REPORT ---
EXAM DESCRIPTION: RAD - Foot Left 3 View - 06/22/2021 2:17 pm CLINICAL HISTORY: Left Foot pain FINDINGS: No fracture or dislocation is seen. Bones appear osteoporotic. Mild arthritis first MTP joint. A screw has been placed into medial malleolus Moderate plantar calcaneal spur
[2021-06-22] MEDS ORDERED: HEPARIN 5000 UNIT/ML 1 ML VIAL ONE (17:46)
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
--- NOTE | 2021-06-22 17:48 | ER ---
Nurse's Notes [facility] Name: Pipe Portillo Age: 60 yrs Sex: Male : 1960 Arrival Date: 06/22/2021 Time: 12:51 Bed 25 Private MD: Diagnosis: Occulusion of the Left Femoral Bypass Graft Presentation: 06/22 13:00 Chief complaint: Patient states: left foot swollen, pain that radiates up left leg x3 quintero days. Coronavirus screen: Vaccine status: Patient reports receiving the 2nd dose of the covid vaccine. Ebola Screen: Patient denies travel to an Ebola-affected area in the 21 days before illness onset. Initial Sepsis Screen: Does the patient meet any 2 criteria? No. Patient's initial sepsis screen is negative. Does the patient have a suspected source of infection? No. Patient's initial sepsis screen is negative. Risk Assessment: Do you want to hurt yourself or someone else? Patient reports no desire to harm self or others. Onset of symptoms was June 18, 2021. 13:00 Method Of Arrival: Ambulatory quintero 13:00 Acuity: LEAH 3 quintero Triage Assessment: 13:02 General: Appears in no apparent distress. Behavior is calm, cooperative. Pain: quintero Complains of pain in left foot and left leg. Historical: - Allergies: 13:02 No Known Allergies; quintero - Home Meds: 13:02 Unable to obtain [Active]; quintero - PMHx: 13:02 CVA; Hypertension; quintero - Immunization history:: Adult Immunizations up to date. - Social history:: Smoking status: Patient reports the use of cigarette tobacco products, smokes one-half pack cigarettes per day. Screenin:13 Abuse screen: Denies threats or abuse. Denies injuries from another. Nutritional ab2 screening: No deficits noted. Tuberculosis screening: No symptoms or risk factors identified. Fall Risk None identified. Assessment: 13:11 General: Appears in no apparent distress. uncomfortable, Behavior is calm, cooperative, ab2 appropriate for age. Pain: Complains of pain in left foot and left leg Pain does not radiate. Pain currently is 6 out of 10 on a pain scale. Neuro: Level of Consciousness is awake, alert, obeys commands, Oriented to person, place, time, situation, Appropriate for age Tube And Rod Straightener are equal bilaterally Speech is normal. Cardiovascular: No deficits noted. Denies chest pain, shortness of breath, Heart tones S1 S2 present Patient's skin is warm and dry. Chest pain is denied. Respiratory: No deficits noted. Airway is patent Respiratory effort is even, unlabored, Respiratory pattern is regular, symmetrical, Breath sounds are clear bilaterally. GI: No deficits noted. No signs and/or symptoms were reported involving the gastrointestinal system. Abdomen is round non-distended. : No deficits noted. No signs and/or symptoms were reported regarding the genitourinary system. EENT: No deficits noted. No signs and/or symptoms were reported regarding the EENT system. Derm: No deficits noted. Skin is intact, is healthy with good turgor, Skin is pink, warm \\T\\ dry. Musculoskeletal: Reports pain in left foot. 14:43 Reassessment: Patient appears in no apparent distress at this time. No changes from ab2 previously documented assessment. Awaiting results for disposition, pt denies any needs at this time. 16:45 Reassessment: Patient appears in no apparent distress at this time. No changes from ab2 previously documented assessment. Awaiting results for disposition. pt given warm blankets and is resting comfortably. denies any needs. 18:46 Reassessment: Patient appears in no apparent distress at this time. Pt awaiting ab2 transfer. Pt denies any needs at this time. Vital Signs: 13:00 BP 167 / 77; Pulse 59; Resp 18; Temp 97.3(O); Pulse Ox 99% ; Weight 72.57 kg; Height 5 quintero ft. 8 in. (172.72 cm); 13:48 BP 141 / 82; Pulse 62; Resp 16; Pulse Ox 98% on R/A; ab2 14:43 BP 161 / 80; Pulse 67; Resp 16; Pulse Ox 98% on R/A; ab2 16:08 BP 159 / 76; Pulse 64; Resp 17; Pulse Ox 98% on R/A; ab2 16:55 BP 159 / 94; Pulse 70; Resp 16; Pulse Ox 99% on R/A; ab2 17:45 BP 143 / 82; Pulse 67; Resp 17; Pulse Ox 99% on R/A; ab2 18:44 BP 129 / 65; Pulse 71; Resp 16; Pulse Ox 96% on R/A; ab2 19:00 BP 159 / 72; Pulse 70; Resp 18; Pulse Ox 96% on R/A; ss7 20:28 BP 129 / 78; Pulse 72; Resp 17; Pulse Ox 98% on R/A; ab2 21:00 BP 150 / 78; Pulse 52; Resp 18; Pulse Ox 97% ; ss7 13:00 Body Mass Index 24.33 (72.57 kg, 172.72 cm) quintero ED Course: 12:51 Patient arrived in ED. kz 13:02 Triage completed. quintero 13:02 Arm band placed on right wrist. quintero 13:04 Ag Corral PA is PHCP. jmm 13:04 Dewayne Do MD is Attending Physician. jmm 13:11 Freddy Jeter is Primary Nurse. ab2 13:13 Patient has correct armband on for positive identification. Bed in low position. Call ab2 light in reach. Side rails up X2. 13:13 No provider procedures requiring assistance completed. ab2 13:15 Inserted saline lock: 20 gauge in left antecubital area, using aseptic technique. Blood ab2 collected. 13:24 Uric Acid Sent. ab2 13:24 CMP Sent. ab2 13:24 CBC with Diff Sent. ab2 13:58 US LE Artery Uni Ltd In Process Unspecified. EDMS 13:58 US Extremity Venous Unilateral Ltd In Process Unspecified. EDMS 14:16 Foot Left 3 View XRAY In Process Unspecified. EDMS 15:[address] Juan Carlos Sow at [phone]. bd 15:[address] Sow. bd 16:[address] [facility], spoke with Johnna. bd 16:55 SARS-COV-2 RT PCR (Document "Date of Onset" if Symptomatic) Sent. ab2 19:44 administrative approval given by Enid Mayfield/ patient has been accepted to [address] [place] [address]14/ Dr. Cole accepted the patient in transfer/report to be called to [phone]. 20:27 Report given to Martin at [facility]. Pt going to room 1414. ab2 21:09 Patient transferred, IV remains in place. ss7 21:10 Report given to SONIA WITH [facility]. ss7 Administered Medications: 13:27 Drug: Zofran (Ondansetron) 4 mg Route: IVP; Site: right antecubital; ab2 13:49 Follow up: Response: No adverse reaction ab2 13:28 Drug: morphine 4 mg Route: IVP; Site: left antecubital; ab2 13:49 Follow up: Response: No adverse reaction ab2 17:44 Drug: Heparin (NH-Bolus No thrombolytic) - HEParin 60 units/kg {Co-Signature: 7 ab2 (Drea Mason RN).} Route: IVP; Site: left antecubital; 18:48 Follow up: Response: No adverse reaction ab2 Outcome: 17:46 ER care complete, transfer ordered by . vijay 21:09 Transferred by ground EMS to other acute care facility: [facility]. ss7 21:09 Condition: stable 21:12 Patient left the ED. ss7 Signatures: Dispatcher [employer] EDMS Monalisa Jones Joel, PA PA jmm [place], MyKena mw2 Neyda Hawkins RN RN ha Bleininger, Alexis ab2 Smith, Shana, RN RN 7 Katie Montague RN 7
[2021-06-22 23:31] VITALS: TEMP 97.3
[2021-06-22 23:42] VITALS: BP 150/78; O2SAT 97
== END 2021-06-22 21:12 | disposition short-term general hospital (02) ==
LOC: ER 12:47
DX: T82.868A Thrombosis due to vascular prosthetic devices, implants and grafts, initial encounter (principal); I10 Essential (primary) hypertension; F17.210 Nicotine dependence, cigarettes, uncomplicated; Z20.822 Contact with and (suspected) exposure to COVID-19; Z86.73 Personal history of transient ischemic attack (TIA), and cerebral infarction without residual deficits
CPT/HCPCS: 36415; 80053; 84550; 85025; 85610; 93926; 93971; 99285; J1644; J2405; U0003